=== PATIENT | male | born 1940 | race Caucasian/White ===

== ENCOUNTER → 2016-11-18 | Outpatient (REF) | payer MEDICARE, OTHER ==
[~2016-11-18] MED LIST: ACET-654 PO; BISAC5TA PO; CALC500C8 PO; CALCI50TA PO; CALCIUM CITRATE PO; CEPH2CAP PO; CHOLPOW39 PO; COUMADIN PO; CYMB60CA3 PO; D 202000 PO; D-50TAB PO; DOCU250C PO; DRIS1CAP PO; FIBE625T15 PO; FISH500C PO; FISH5CAP PO; FISHCAP PO; HYDROCODONE PO; LORTTAB5 PO; MIRA255PW PO; MOM30SS PO; OCUVITE PO; PREDPOW10 PO; TRAMADOL PO; ULTR37.52 PO; VICOBULK PO; VITA500019 PO; VITACAP31 PO; VITAMIN D PO; [UNRECOGNIZED DRUG - OTHER] PO; [UNRECOGNIZED DRUG - OTHER] PO
[2016-11-18 11:09] LABS: MEAN CORPUSCULAR HEMOGLOBIN 31.1 pg (27.0-33.0); MEAN CORPUSCULAR HGB CONC 32.6 g/dl (32.0-36.5); MEAN CORPUSCULAR VOLUME 95.5 fl (80.0-96.0); WHITE BLOOD COUNT 5.9 K/mm3 (4.0-10.0)
[2016-11-18 11:12] LABS: INR 1.88
[2016-11-18 11:20] LABS: ALBUMIN 3.3 GM/DL (3.2-5.2); ALBUMIN/GLOBULIN RATIO 1.03 (1.00-1.93); ALKALINE PHOSPHATASE 85 U/L (45-117); ALT/SGPT 18 U/L (12-78); ANION GAP 8 MEQ/L (8-16); AST/SGOT 18 U/L (15-37); BILIRUBIN,TOTAL 0.5 MG/DL (0.2-1.0); BLOOD UREA NITROGEN 22 MG/DL (7-18); CALCIUM LEVEL 8.4 MG/DL (8.8-10.2); CARBON DIOXIDE LEVEL 28 MEQ/L (21-32); CHLORIDE LEVEL 107 MEQ/L (98-107); CHOLESTEROL LEVEL 201 MG/DL (<200); CREATININE FOR GFR 0.98 MG/DL (0.70-1.30); GLOMERULAR FILTRATION RATE > 60.0 (>42); GLUCOSE, FASTING 98 MG/DL (83-110); POTASSIUM SERUM 4.5 MEQ/L (3.5-5.1); SODIUM LEVEL 143 MEQ/L (136-145); TOTAL PROTEIN 6.5 GM/DL (6.4-8.2); TRIGLYCERIDES LEVEL 105 MG/DL (<150)
== END ==
LOC: M SFHCPLAZ 08:09
PROVIDERS: ATTEND Internal Medicine
DX: Z79.01 Long term (current) use of anticoagulants (principal); I10 Essential (primary) hypertension

== ENCOUNTER → 2017-07-10 | Outpatient (CLI) | payer MEDICARE, OTHER ==
[~2017-07-10] MED LIST changes: +D 50CAP PO; -DOCU250C PO; +DOCU250C7 PO; +DULO1CAP3 PO; -FIBE625T15 PO; +FIBE625T22 PO; +FISH100049 PO; +HYDR30SU PR; +LISI-538 PO; +OCUVTAB PO; -ULTR37.52 PO; +ULTR37.54 PO; +WARF-23 PO
--- NOTE | 2017-07-10 13:52 | REP ---
MRI lumbar spine without contrast: History: Low back pain. Degenerative disc disease. Spondylosis. Comparison lumbar spine MR study March 25, 2012. Technique: Sagittal and axial T1 and T2-weighted scans are acquired in the usual fashion with and without fat saturation. Sequences include spin echo, turbo spin-echo, and STIR imaging sequences. MRI findings: There is an old anterior wedge compression deformity at L1 with collapse of the superior endplate. There is only slightly more loss of height than was present on the March 2012 prior study. There is degenerative disc spurring at T12-L1, L1-L2 and L3-4 with lesser spurring at L2-3. Diffuse lumbar degenerative disc disease is again noted. There is a levoconvex curve unchanged and some straightening. Conus medullaris is normal in position and appearance at T12-L1. There is a 2.3 cm cyst in the right kidney. No other extraspinal abnormality is seen. Normal caliber aorta is observed. Axial and sagittal images at the T12-L1 level demonstrate diffuse disc bulging indenting the ventral margin of the thecal sac. There is mild facet hypertrophy left greater than right. This is unchanged. At L1-L2, there is diffuse disc bulging which effaces the ventral subarachnoid space. This is more pronounced than on the prior study. Ligamentum flavum and facet hypertrophy are seen. No central canal stenosis is seen. No definite neural foraminal narrowing is seen. At L2-L3, there is diffuse disc bulging. There is ligamentum flavum and facet hypertrophy. These findings are somewhat more pronounced as well when compared to the 2012 study. Mild central canal stenosis is seen at this level. No neural foraminal encroachment is seen. At L3-L4, there is diffuse disc bulging. There is right-sided uncovertebral spurring due to disc bulging and facet hypertrophy. Mild central canal stenosis is noted. The disc bulging at L3-4 is actually a little less pronounced although the facet arthropathy is more pronounced when compared with the 2012 prior study. At L4-5, there is bilateral facet hypertrophy progressed since the 2011 prior exam. There is mild left-sided neural foraminal narrowing due to facet spurring and disc bulging. At L5-S1, there is advanced facet hypertrophy on the left and moderate facet hypertrophy on the right. There is a somewhat angular central L5-S1 disc protrusion which is more prominent than previously. Impression: Fairly advanced degenerative spondylosis changes generally more pronounced than on the 2012 prior study. Stable old wedging L1 vertebral body. Multilevel neural foraminal encroachment. Central canal stenosis most pronounced at L3-4 and L2-3. Signed by Jamel Griffin MD 07/10/2017 03:21 P
== END ==
LOC: M PLARAD 10:28
PROVIDERS: ATTEND Nurse Practitioner Family
DX: M54.5 Low back pain (principal); M51.27 Other intervertebral disc displacement, lumbosacral region; M47.819 Spondylosis without myelopathy or radiculopathy, site unspecified

== ENCOUNTER → 2017-08-06 | Outpatient (REF) | payer MEDICARE, OTHER | LOC: M LABDRAW1 11:53 | PROVIDERS: ATTEND Pain Medicine Interventional Pain Medicine | DX: M51.27 Other intervertebral disc displacement, lumbosacral region (principal); Z79.01 Long term (current) use of anticoagulants ==

== ENCOUNTER 2017-08-31 07:28 | Day surgery (SDC) | payer MEDICARE, OTHER ==
[~2017-08-31] VITALS: Ht 188 cm; Wt 138.3 kg
[~2017-08-31 07:28] MED LIST changes: -D 50CAP PO; -DULO1CAP3 PO; -FISH100049 PO; -HYDR30SU PR; -LISI-538 PO; -OCUVTAB PO; -WARF-23 PO
[2017-08-31] MEDS ORDERED: DULO1CAP3 PO (07:39)
[2017-08-31] MEDS ORDERED: LISI-538 PO (07:40)
[2017-08-31] MEDS ORDERED: NS 500 ML IV ONE ×2 (08:00→09:15)
[2017-08-31 08:41] LABS: BASO % 0.3 % (0.0-1.0); EOS % 0.2 % (0.0-3.0); IMMATURE GRANULOCYTE % 0.7 % (0-0); LYMPH # 0.5 10^3/uL (1.5-4.5); LYMPH % 7.9 % (24.0-44.0); MEAN CORPUSCULAR HEMOGLOBIN 30.4 pg (27.0-33.0); MEAN CORPUSCULAR HGB CONC 32.6 g/dl (32.0-36.5); MEAN CORPUSCULAR VOLUME 93.3 fl (80.0-96.0); MONO # 0.3 10^3/uL (0.0-0.8); MONO % 5.6 % (0.0-5.0); NEUTROPHILS # 4.9 10^3/uL (1.8-7.7); NEUTROPHILS % 85.3 % (36.0-66.0); PLATELET COUNT, AUTOMATED 160 10^3/uL (150-450); RED CELL DISTRIBUTION WIDTH 13.9 % (11.5-14.5); WHITE BLOOD COUNT 5.7 10^3/uL (4.0-10.0)
[2017-08-31 08:58] LABS: ALBUMIN 2.8 GM/DL (3.2-5.2); ALBUMIN/GLOBULIN RATIO 0.78 (1.00-1.93); ALKALINE PHOSPHATASE 66 U/L (45-117); ALT/SGPT 17 U/L (12-78); ANION GAP 9 MEQ/L (8-16); AST/SGOT 16 U/L (7-37); BILIRUBIN,DIRECT 0.1 MG/DL (0.0-0.2); BILIRUBIN,TOTAL 0.6 MG/DL (0.2-1.0); BLOOD UREA NITROGEN 21 MG/DL (7-18); CARBON DIOXIDE LEVEL 24 MEQ/L (21-32); CHLORIDE LEVEL 105 MEQ/L (98-107); CREATININE FOR GFR 1.35 MG/DL (0.70-1.30); GLOMERULAR FILTRATION RATE 54.3 (>42); GLUCOSE, FASTING 160 MG/DL (83-110); SODIUM LEVEL 138 MEQ/L (136-145); TOTAL PROTEIN 6.4 GM/DL (6.4-8.2)
--- NOTE | 2017-08-31 09:17 | REP ---
PORTABLE CHEST: AP portable view of the chest is performed and compared to prior study of 12/10/2014. There is mild bibasilar fibroatelectatic change which is stable. No new infiltrate is seen. There is mild cardiomegaly and left ventricular prominence. There is tortuosity of the thoracic aorta. Mediastinal silhouette is unchanged. IMPRESSION: Stable chronic findings. No acute infiltrate. Signed by Dann Hernandez MD 08/31/2017 12:43 P
[2017-08-31] MEDS ORDERED: ISOVUE-370 76% 100ML VIAL (Q9967) As Ordered ONE (09:20)
[2017-08-31] MEDS ORDERED: OCUVTAB PO (09:23)
[2017-08-31] MEDS ORDERED: WARF-23 PO (09:23)
[2017-08-31] MEDS ORDERED: D 50CAP PO (09:23)
[2017-08-31] MEDS ORDERED: FISH100049 PO (09:25)
[2017-08-31 10:16] LABS: INR 2.53
--- NOTE | 2017-08-31 10:53 | REP ---
Clinical: Rectal bleeding. Technique: Axial contrast enhanced images from the lung bases to the pubic symphysis using 100 ml Isovue 370 intravenous contrast material with coronal and sagittal re-formations. Comparison: None. 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 A smaller anterior ventral hernia at the level of the pelvis contains nonobstructed small bowel (images 115 - 142). The visualized small large bowel is without evidence for obstruction or perienteric inflammatory changes to suggest acute process. Subtle fat stranding along the left side of the rectum (images 135 - 143) is nonspecific and possibly chronic without associated fluid collection/abscess. Liver, spleen, pancreas, gallbladder, and left kidney appear normal. Right kidney includes 2 cm hypodense lesion likely representing cyst. The adrenal glands suggest mild adenomatous hyperplasia (right greater than left). A small/moderate hiatal hernia is identified at the gastroesophageal junction. Pelvis demonstrates 3 cm bladder stone in the dependent portion of the bladder and normal appearance to the prostate/seminal vesicles. No pelvic fluid or ascites. No significant adenopathy. No obvious mass lesion. Atherosclerotic changes of the aorta and vasculature noted without aneurysm. Skeletal structures demonstrate age-related degenerative and post surgical changes including left hip prosthesis. Lung bases demonstrate chronic COPD/emphysematous changes along with scattered scarring and mild bronchiectasis. Impression: 1. Evidence for right-sided colostomy and Benjie's pouch along with chronic large right peristomal/ventral hernia containing nonobstructed small large bowel. Smaller right anterior ventral hernia at the level of the pelvis contains nonobstructed loop of small bowel. Subtle perirectal stranding is nonspecific and possibly chronic. No acute bowel obstruction, perienteric inflammatory changes or abscess/fluid collection. 2. Small to moderate hiatal hernia. 3. 2 cm presumed right renal cyst. 4. 3 cm bladder stone. 5. Benign chronic hyperplastic changes to the adrenal glands (right greater than left). 6. Chronic COPD/emphysematous changes with bibasilar scarring and bronchiectasis. Signed by Venkata Huynh MD 08/31/2017 10:45 A
[2017-08-31] MEDS ORDERED: PROPOFOL 200 MG/20 ML VIAL As Ordered ONE (13:14)
--- NOTE | 2017-08-31 13:53 | ROOR ---
Patient Name: Oliverio Power Procedure Date: 08/31/2017 1:25 PM Date of : 1940 Age: 77 Room: [facility] Gender: Male Note Status: Finalized Procedure: Endoscopy of Benjie Pouch Indications: History of left hemicolectomy Providers: DO Smith Calvillo MD: Asim Shook MD Requesting Provider: Medicines: Propofol per Anesthesia Complications: No immediate complications. Procedure: Pre-Anesthesia Assessment: - Prior to the procedure, a History and Physical was performed, and patient medications and allergies were reviewed. The patient is competent. The risks and benefits of the procedure and the sedation options and risks were discussed with the patient. All questions were answered and informed consent was obtained. Patient identification and proposed procedure were verified by the physician, the nurse, the anesthesiologist and the registered veterinary technician in the procedure room. Mental Status Examination: alert and oriented. Airway Examination: normal oropharyngeal airway and neck mobility. Respiratory Examination: clear to auscultation. CV Examination: normal. Prophylactic Antibiotics: The patient does not require prophylactic antibiotics. Prior Anticoagulants: The patient has taken no previous anticoagulant or antiplatelet agents. ASA Grade Assessment: II - A patient with mild systemic disease. After reviewing the risks and benefits, the patient was deemed in satisfactory condition to undergo the procedure. The anesthesia plan was to use monitored anesthesia care (MAC). Immediately prior to administration of medications, the patient was re-assessed for adequacy to receive sedatives. The heart rate, respiratory rate, oxygen saturations, blood pressure, adequacy of pulmonary ventilation, and response to care were monitored throughout the procedure. The physical status of the patient was re-assessed after the procedure. The Colonoscope was introduced through the anus and advanced to the Benjie pouch. The procedure was performed without difficulty. The patient tolerated the procedure well. Findings: A scattered area of mildly friable mucosa with contact bleeding was found in the Benjie pouch. A benign-appearing, intrinsic mild stenosis was found in the Benjie pouch and was traversed. Red blood was found in the Benjie pouch. Estimated blood loss was minimal. A continuous area of bleeding ulcerated mucosa with stigmata of recent bleeding was present in the rectal pouch. Biopsies were taken with a cold forceps for histology. Estimated blood loss was minimal. To prevent bleeding after the biopsy, two hemostatic clips were successfully placed. Impression: - Friability with contact bleeding in the Benjie pouch. 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 - Blood in the Benjie pouch. - Mucosal ulceration. Biopsied. Clips were placed. Recommendation: - Return to my office PRN. - Telephone my office for pathology results in 1 week. Dann Vazquez DO 08/31/2017 1:52:47 PM This report has been signed electronically. Number of Addenda: 0 Note Initiated On: 08/31/2017 1:25 PM Estimated Blood Loss: Estimated blood loss was minimal.
[2017-08-31] MEDS ORDERED: LIDOCAINE 2% INJ 100 MG/5 ML SDV (FOR ANES.) As Ordered ONE (13:57)
[2017-08-31 14:27] VITALS: BP 183/77
[2017-08-31] MEDS ORDERED: HYDR30SU PR (14:27)
--- NOTE | 2017-08-31 18:29 | ECGEPIP ---
Stationary ECG Study [facility] - ED Test Date: 2017-08-31 Pat Name: ONDINA HAAS Department: Room: - Gender: M Manager Ent: ruby : 1940 Requested By: AIYANA Akhtar Order Number: [id number] Reading MD: Atif Trejo Measurements Intervals [place] Rate: 83 P: 1 WI: 208 QRS: -35 QRSD: 82 T: 55 QT: 362 QTc: 426 Interpretive Statements SINUS RHYTHM WITH OCCASIONAL SUPRAVENTRICULAR PREMATURE COMPLEXES LEFT ATRIAL ENLARGEMENT SIMILAR TO 12/10/14 Electronically Signed On 08-31-2017 18:28:42 EST by Atif Trejo
--- NOTE | 2017-09-01 14:16 | ER ---
DATE OF CONSULTATION: 08/31/2017 REASON FOR CONSULTATION: Rectal bleeding. HISTORY OF PRESENT ILLNESS: The patient is a 77-year-old male who had a history of a colostomy with a bowel resection done about 19 years ago for some sigmoidal stricture. He ended up requiring multiple surgeries due to complications from that down in [place] and was hospitalized for over a month. He has not had any other colonoscopies or procedures since that time. He normally dose soda water enemas through his rectal stump every one in a while just to help flush it out to help prevent drainage. A couple of weeks ago after doing so he noted a few drops of blood. Since then, he has had increasing bleeding from the rectum of bright bred blood, followed by a large blood clot noted this morning. Therefore, he came into the emergency room for evaluation. In the ER, his hemoglobin and vitals were stable and I was called to evaluate. Other than the bleeding, for the past couple of weeks, he has not really had any symptoms in the past. Initially when this started to bleed, he thought it may have been hemorrhoidal so he was using hemorrhoid cream and that appeared to improve it. But then over the last day, he has had the increasing bleeding with the blood clots and that is why he came into the ER for evaluation. No colonoscopies since his surgical resection 19 years ago due to all the complications that he had from his surgeries, he figured out of sight, out of mind. He did not want to know if there were any issues. He did have a CT scan done in the ER today which does not show any significant findings, but due to the bleeding they wanted me to evaluate. PAST MEDICAL HISTORY: Deep vein thrombosis (DVT). Pulmonary embolism. Hypertension. PAST SURGICAL HISTORY: Multiple colon surgeries and abdominal wall surgeries with hernia repairs. He does have a colostomy. History of incisional hernias. Carpal tunnel surgery. Bilateral knee replacements. Right hip replacement. ALLERGIES: 1. LATEX. 2. SULFA. 3. OXYCODONE. HOME MEDICATIONS: Please see med reconciliation. SOCIAL HISTORY: He denies drugs, alcohol or tobacco usage. FAMILY HISTORY: Noncontributory. REVIEW OF SYSTEMS: Pertinent positives and negatives as stated in the history of present illness. PHYSICAL EXAMINATION: Alert and oriented times three in no acute distress. Vitals: Temperature 98.7, pulse 67, respirations 16, blood pressure 160/75, pulse oximetry 94% on room air. HEENT: Pupils equal, round, and reactive to light and accommodation. Heart S1 and S2, regular rate and rhythm. Lungs clear to auscultation bilaterally. Abdomen is soft, nontender, nondistended. Colostomy is patent. EXTREMITIES: No clubbing, cyanosis, or edema. LABORATORIES: White count 5.7, hemoglobin 14.1, platelets 160, lactic acid 3.8 with a 4 hour followup of 1.1, potassium 4, creatinine 1.35. IMAGING: CT abdomen and pelvis shows a right sided colostomy and Osorio's pouch with chronic large right peristomal ventral hernia containing nonobstructive small and large bowel. Smaller right anterior ventral hernia a the level of the pelvic containing nonobstructive loops of small bowel, subtle perirectal stranding, nonspecific and possible chronic. No acute bowel obstruction, perienteric inflammatory changes or abscess, or fluid collections. ASSESSMENT/PLAN: Patient is a 77-year-old male currently with rectal bleeding from a rectal stump. This is likely secondary to either hemorrhoidal disease or trauma due to his syringe that he inserted into his rectum for the placement of soda water versus diverticular disease or even a malignancy. Recommendation at this time to send him upstairs to outpatient procedures to do a quick sigmoidoscopy and look in his rectum. Once that is completed he can be discharged home once we have a diagnosis. If there is something that is uncontrolled and unable to be stopped, then we can observe him in the hospital for 24 hours or so, if needed likely, I will be able to find the source of the bleeding and control it. If it is due to a mass then he will at least get a biopsy done and then we can discharge him and he can followup in the office as an outpatient.
== END 2017-08-31 14:44 | disposition home or self-care (01) ==
LOC: M ED 07:28 → M SDC 12:40
PROVIDERS: ATTEND Surgery
DX: K92.2 Gastrointestinal hemorrhage, unspecified (principal); K56.699 Other intestinal obstruction unspecified as to partial versus complete obstruction; K63.3 Ulcer of intestine; Z90.49 Acquired absence of other specified parts of digestive tract; I10 Essential (primary) hypertension; K44.9 Diaphragmatic hernia without obstruction or gangrene; M19.90 Unspecified osteoarthritis, unspecified site; F32.9 Major depressive disorder, single episode, unspecified; Z88.2 Allergy status to sulfonamides; Z88.5 Allergy status to narcotic agent; Z91.040 Latex allergy status; Z79.899 Other long term (current) drug therapy; Z79.01 Long term (current) use of anticoagulants; Z86.718 Personal history of other venous thrombosis and embolism; Z86.711 Personal history of pulmonary embolism; Z93.3 Colostomy status
CPT/HCPCS: 36415; 45331; 71010; 74177; 80048; 80076; 82550; 82553; 83605; 83690; 84484; 85025; 85610; 85730; 86850; 86900; 86901; 88305; 93005; 93041; 96365; 96366; 99285; Q9967

== ENCOUNTER → 2017-09-16 | Outpatient (REF) | payer MEDICARE, OTHER ==
[~2017-09-16] MED LIST changes: +D 50CAP PO; +DULO1CAP3 PO; +FISH100049 PO; +HYDR30SU PR; +LISI-538 PO; +OCUVTAB PO; +WARF-23 PO
[2017-09-16 10:42] LABS: INR 1.02
== END ==
LOC: M LABDRAW1 10:03
PROVIDERS: ATTEND Nurse Practitioner Family
DX: M48.061 Spinal stenosis, lumbar region without neurogenic claudication (principal); M51.27 Other intervertebral disc displacement, lumbosacral region; M47.817 Spondylosis without myelopathy or radiculopathy, lumbosacral region

== ENCOUNTER → 2017-11-23 | Outpatient (REF) | payer MEDICARE, OTHER ==
[2017-11-23 13:20] LABS: HEMATOCRIT 44.8 % (42.0-52.0); HEMOGLOBIN 14.8 g/dl (14.0-18.0); MEAN CORPUSCULAR HEMOGLOBIN 30.9 pg (27.0-33.0); MEAN CORPUSCULAR VOLUME 93.5 fl (80.0-96.0); PLATELET COUNT, AUTOMATED 203 10^3/uL (150-450); RED BLOOD COUNT 4.79 10^6/uL (4.30-6.10); RED CELL DISTRIBUTION WIDTH 13.7 % (11.5-14.5); WHITE BLOOD COUNT 5.9 10^3/uL (4.0-10.0)
[2017-11-23 13:44] LABS: FOLATE 13.2 NG/ML; TOTAL 25(OH) VITAMIN D 26.3 NG/ML (30.0-100.0); VITAMIN B12 LEVEL 319 PG/ML
[2017-11-23 13:45] LABS: ALKALINE PHOSPHATASE 73 U/L (45-117); ALT/SGPT 14 U/L (12-78); ANION GAP 7 MEQ/L (8-16); AST/SGOT 19 U/L (7-37); BILIRUBIN,TOTAL 0.5 MG/DL (0.2-1.0); BLOOD UREA NITROGEN 23 MG/DL (7-18); CALCIUM LEVEL 8.2 MG/DL (8.8-10.2); CARBON DIOXIDE LEVEL 28 MEQ/L (21-32); CHLORIDE LEVEL 108 MEQ/L (98-107); CREATININE FOR GFR 1.11 MG/DL (0.70-1.30); GLOMERULAR FILTRATION RATE > 60.0 (>42); GLUCOSE, FASTING 100 MG/DL (70-100); POTASSIUM SERUM 4.5 MEQ/L (3.5-5.1); SODIUM LEVEL 143 MEQ/L (136-145); TRIGLYCERIDES LEVEL 83 MG/DL (<150)
[2017-11-23 13:46] LABS: ALBUMIN 3.3 GM/DL (3.2-5.2); ALBUMIN/GLOBULIN RATIO 1.03 (1.00-1.93); CHOLESTEROL LEVEL 184 MG/DL (<200); CHOLESTEROL RISK RATIO 3.471 (<5); HDL CHOLESTEROL 53 MG/DL (>40); LDL CHOLESTEROL 114.4 MG/DL (<100); MAGNESIUM LEVEL 2.1 MG/DL (1.8-2.4); NON-HDL-C 131 MG/DL; TOTAL PROTEIN 6.5 GM/DL (6.4-8.2)
== END ==
LOC: M SFHCPLAZ 10:01
DX: G62.9 Polyneuropathy, unspecified (principal); K57.90 Diverticulosis of intestine, part unspecified, without perforation or abscess without bleeding; I10 Essential (primary) hypertension; F32.9 Major depressive disorder, single episode, unspecified; M81.0 Age-related osteoporosis without current pathological fracture
CPT/HCPCS: 82746

== ENCOUNTER → 2018-02-12 | Outpatient (CLI) | payer MEDICARE, OTHER | LOC: M WUC 12:31 | DX: J06.9 Acute upper respiratory infection, unspecified (principal) | CPT/HCPCS: 71046 ==

== ENCOUNTER → 2018-06-08 | Outpatient (REF) | payer MEDICARE, OTHER ==
[2018-06-08 13:32] LABS: ALBUMIN 3.3 GM/DL (3.2-5.2); ALBUMIN/GLOBULIN RATIO 0.92 (1.00-1.93); ALKALINE PHOSPHATASE 78 U/L (45-117); ALT/SGPT 19 U/L (12-78); ANION GAP 9 MEQ/L (8-16); AST/SGOT 18 U/L (7-37); BILIRUBIN,TOTAL 0.5 MG/DL (0.2-1.0); BLOOD UREA NITROGEN 23 MG/DL (7-18); CALCIUM LEVEL 8.5 MG/DL (8.8-10.2); CARBON DIOXIDE LEVEL 26 MEQ/L (21-32); CHLORIDE LEVEL 107 MEQ/L (98-107); GLOMERULAR FILTRATION RATE > 60.0 (>42); GLUCOSE, FASTING 83 MG/DL (70-100); MAGNESIUM LEVEL 2.3 MG/DL (1.8-2.4); POTASSIUM SERUM 4.5 MEQ/L (3.5-5.1); SODIUM LEVEL 142 MEQ/L (136-145); TOTAL PROTEIN 6.9 GM/DL (6.4-8.2)
== END ==
LOC: M SFHCPLAZ 11:12
DX: I10 Essential (primary) hypertension (principal); Z79.01 Long term (current) use of anticoagulants
CPT/HCPCS: 83735

== ENCOUNTER → 2018-08-30 | Outpatient (REF) | payer MEDICARE, OTHER | LOC: M LAB REF 18:22 | DX: D23.5 Other benign neoplasm of skin of trunk (principal) | CPT/HCPCS: 88305 ==

== ENCOUNTER → 2018-09-13 | Outpatient (REF) | payer MEDICARE, OTHER | LOC: M SFHCPLAZ 19:19 | DX: C44.01 Basal cell carcinoma of skin of lip (principal) | CPT/HCPCS: 88305 ==

== ENCOUNTER → 2018-12-27 | Outpatient (CLI) | payer MEDICARE, OTHER ==
[2018-12-27 13:48] LABS: HEMATOCRIT 44.5 % (42.0-52.0); HEMOGLOBIN 14.7 g/dl (13.5-17.5); MEAN CORPUSCULAR HEMOGLOBIN 31.3 pg (27.0-33.0); MEAN CORPUSCULAR VOLUME 94.9 fl (80.0-96.0); PLATELET COUNT, AUTOMATED 219 10^3/uL (150-450); RED BLOOD COUNT 4.69 10^6/uL (4.30-6.10); WHITE BLOOD COUNT 6.8 10^3/uL (4.0-10.0)
[2018-12-27 14:00] LABS: INR 2.27; PROTHROMBIN TIME 25.5 SECONDS (12.1-14.4)
[2018-12-27 14:02] LABS: ALBUMIN 3.4 GM/DL (3.2-5.2); ALT/SGPT 15 U/L (12-78); BILIRUBIN,TOTAL 0.7 MG/DL (0.2-1.0); BLOOD UREA NITROGEN 19 MG/DL (7-18); CALCIUM LEVEL 8.3 MG/DL (8.8-10.2); CARBON DIOXIDE LEVEL 29 MEQ/L (21-32); CHLORIDE LEVEL 106 MEQ/L (98-107); CREATININE FOR GFR 0.99 MG/DL (0.70-1.30); GLOMERULAR FILTRATION RATE > 60.0 (>35); GLUCOSE, FASTING 98 MG/DL (70-100); MAGNESIUM LEVEL 2.1 MG/DL (1.8-2.4); POTASSIUM SERUM 4.3 MEQ/L (3.5-5.1); SODIUM LEVEL 141 MEQ/L (136-145); TOTAL PROTEIN 6.6 GM/DL (6.4-8.2)
[2018-12-27 14:04] LABS: TOTAL 25(OH) VITAMIN D 39.7 NG/ML (30.0-100.0)
== END ==
LOC: M WUC 11:30
PROVIDERS: ATTEND Internal Medicine
DX: Z51.81 Encounter for therapeutic drug level monitoring (principal); Z79.01 Long term (current) use of anticoagulants; I10 Essential (primary) hypertension; M81.0 Age-related osteoporosis without current pathological fracture

== ENCOUNTER → 2019-03-08 | Outpatient (CLI) | payer MEDICARE, OTHER ==
[~2019-03-08] MED LIST changes: -MIRA255PW PO; +POLY1POW4 PO
[2019-03-08 13:33] LABS: INR 1.49; PROTHROMBIN TIME 18.2 SECONDS (12.1-14.4)
== END ==
LOC: M WUC 10:49
PROVIDERS: ATTEND Internal Medicine
DX: Z51.81 Encounter for therapeutic drug level monitoring (principal)

== ENCOUNTER → 2019-03-15 | Outpatient (CLI) | payer MEDICARE, OTHER ==
[2019-03-15 12:42] LABS: INR 2.28; PROTHROMBIN TIME 25.6 SECONDS (12.1-14.4)
== END ==
LOC: M WUC 10:25
PROVIDERS: ATTEND Internal Medicine
DX: Z51.81 Encounter for therapeutic drug level monitoring (principal)

== ENCOUNTER 2019-04-08 08:51 | Inpatient (IN) | payer MEDICARE, OTHER ==
[~2019-04-08] VITALS: Ht 182.9 cm; Wt 130.7 kg
[~2019-04-08 08:51] MED LIST changes: -DULO1CAP3 PO; +DULO1CAP6 PO
[2019-04-08] MEDS: LOSARTAN 50 MG TAB PO SCH (09:00)
[2019-04-08 09:35] VITALS: BP 138/66
[2019-04-08] MEDS ORDERED: ATOR1TAB21 PO (10:19)
[2019-04-08] MEDS ORDERED: APAP325T4 PO (10:19)
[2019-04-08] MEDS ORDERED: MECL12.575 PO (10:19)
[2019-04-08] MEDS ORDERED: MELATAB3 PO (10:19)
[2019-04-08] MEDS ORDERED: DOCU100C16 PO (10:19)
[2019-04-08] MEDS ORDERED: ONDA4TAB6 PO (10:19)
[2019-04-08] MEDS ORDERED: PANT-23 PO (10:19)
[2019-04-08] MEDS ORDERED: OCUVCAP2 PO (10:19)
[2019-04-08] MEDS ORDERED: AMLO5TAB6 PO (10:19)
[2019-04-08] MEDS ORDERED: LOSA100T50 PO (10:23)
[2019-04-08] MEDS ORDERED: MOM 30ML SUSPENSION UDC PO PRN (10:30)
[2019-04-08] MEDS ORDERED: ONDANSETRON 4 MG TAB (S0181) PO PRN (10:30)
[2019-04-08] MEDS ORDERED: ACETAMINOPHEN TAB 650MG DOSE (2X325MG) PO PRN (10:30)
[2019-04-08] MEDS ORDERED: traZODone 25MG PER 1/2 TABLET PO PRN (10:30)
[2019-04-08] MEDS: MULTIVITAMINS/MINERALS THERAP 1 TAB PO SCH ×2 (12:20→20:55)
[2019-04-08] MEDS: DOCUSATE SODIUM 100 MG CAP PO SCH ×2 (12:20→20:55)
[2019-04-08] MEDS: DULoxetine 30 MG CAP (CYMBALTA) PO SCH (12:21)
[2019-04-08] MEDS: FLUoxetine 20 MG CAP PO SCH (13:36)
--- NOTE | 2019-04-08 13:57 | CR.PDOC ---
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 Patient was admitted there on 04/03 after coming in of acute right-sided weakness found to have an intraparenchymal he morrhagic left basal ganglia and left temporal lobe CVA. INR was noted to be 3.9 at that time and was reversed with [facility]. Warfarin was stopped and IVC filter was placed. Patient still has residual R. sided weakness and numbness along with slurred speech but otherwise denies any other complaints at this time. is also at bedside providing history. PAST MEDICAL HISTORY: Refer to [facility] PAST SURGICAL HISTORY: Bowel obstruction s/p colostomy placement IVC filter placement Knee surgery x2 Appendectomy L. hip surgery SOCIAL HISTORY: Social alcohol consumption. Denies tobacco or illicit drug use. FAMILY HISTORY: none known ALLERGIES: Please see below. REVIEW OF SYSTEMS: 10 point review of system negative except as stated in HPI HOME MEDICATIONS: Please see below. PHYSICAL EXAMINATION: General: No acute distress, Alert Eyes: Normal sclera, EOMI, VAUGHN HENT: Atraumatic, neck supple, moist mucous membranes Cardiovascular: Normal rate, normal rhythm. Pulmonary: Clear to auscultation b/l, no wheezing GI: Soft, nontender, nondistended Skin: Warm and dry Neuro: R. sided facial droop. R. sided weakness and numbness in both upper and lower extremities. Strength 2-3/5 in R upper and lower extremities. 5/5 in L. extremities. Slurred speech. Psych: oriented x 3 LABORATORY DATA: See below. MICROBIOLOGY: Please see below. ASSESSMENT AND PLAN: 1. Acute hemorrhagic CVA - L. sided basal ganglia and temporal lobe hemorrhagic CVA in setting of elevated INR 3.9. - Reversed at [facility] with [facility]. - Maintain off of anticoagulation at this time. Repeat CT scan from [facility] showed no changes. - IVC filter in place. To follow up with neurosurgery in about 2 weeks, possibly may resume AC then. - c/w PT/OT. 2. HTN - Resume home medications. - Losartan 100 mg qD and Norvasc 10 daily. - BP stable, monitor. 3. HLD - Atorvastatin 20 mg qHS. 4. 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 - Has been on warfarin for >20 years total. - On hold at this time due to hemorrhagic CVA. - to f/u neurosurgery, likely resume in several weeks. Vital Signs/I&O Vital Signs Date Time Temp Pulse Resp B/P (MAP) Pulse Ox O2 Delivery O2 Flow Rate FiO2 04/08/19 09:35 97.6 71 20 138/66 (90) 99 Allergies Coded Allergies: Sulfa (Sulfonamide Antibiotics) (Verified Allergy, Intermediate, RASH, VIOLENT BEHAVIOR, 04/08/19) latex (Verified Allergy, Unknown, 04/08/19) oxycodone (Verified Adverse Reaction, Intermediate, SUICIDAL THOUGHTS, 04/08/19) Home Medications Scheduled Amlodipine Besylate (Amlodipine Besylate) 5 Mg Tablet, 5 MG PO BID, (Reported) Atorvastatin Calcium (Atorvastatin Calcium) 20 Mg Tablet, 20 MG PO QHS, (Reported) C,E,Zinc,Copper 24/Om3/Lut/Chas (Ocuvite Adult 50 Plus Softgel) 1 Each Capsule, 2 CAP PO DAILY, (Reported) Docusate Sodium (Docusate Sodium) 100 Mg Capsule, 100 MG PO DAILY, (Reported) Duloxetine Hcl (Duloxetine HCl) 60 Mg Cap, 60 MG PO DAILY, (Reported) Losartan Potassium (Losartan Potassium) 100 Mg Tablet, 100 MG PO DAILY, (Reported) Melatonin (Melatonin) 5 Mg Tablet, 5 MG PO QHS, (Reported) Pantoprazole Sodium (Pantoprazole Sodium) 40 Mg Tablet.dr, 40 MG PO DAILY, (Reported) Scheduled PRN Acetaminophen (Acetaminophen) 325 Mg Tablet, 650 MG PO Q6H PRN for PAIN, (Reported) Meclizine HCl (Meclizine HCl) 12.5 Mg Tablet, 12.5 MG PO Q8H PRN for DIZZINESS, (Reported) Ondansetron (Ondansetron Odt) 4 Mg Tab.rapdis, 4 MG PO Q8H PRN for NAUSEA OR VOMITING, (Reported) GRACIE WHIPPLE MD Apr 08, 2019 13:57
[2019-04-08 14:00] VITALS: BP 162/72
--- NOTE | 2019-04-08 14:39 | NUR ---
Recommend level 2 mechanically altered (NDD) solids and thin liquids. Please position pt upright for all meals. Pt educated on tongue sweep strategy to clear any residue in right buccal cavity. Dysphagia tx compensatory strategy training, oral motor exercises, and diet upgrade as appropriate. Addendum: 04/08/[address] [facility] Amended: Links added.
--- NOTE | 2019-04-08 14:44 | NUR ---
Pt w/ mild expressive language deficit w/ minimal anomia noted in conversation. Language comprehension is limited by poor memory, but pt is able to follow 2-step commands consistently. Recommend 1-2 step directions, encourage gesture use, language tx to address word-finding strategies in conversation. Addendum: 04/08/[address] [facility] Amended: Links added.
--- NOTE | 2019-04-08 14:50 | NUR ---
Pt w/ mild-moderate cognitive impairment w/ deficits noted in orientation, memory, & mental flexibility. Recommend cognitive tx w/ [employer] targeting these skills. Addendum: 04/08/19 at 1451 by [facility] Amended: Links added.
--- NOTE | 2019-04-08 15:14 | HPEPDOC ---
Adoption Specialist Note DATE OF ADMISSION: Apr 08, 2019 at 09:35 SOURCE OF ADMISSION INFORMATION: [facility] records, patient, and family CHIEF COMPLAINT: hemorrhagic stroke HISTORY OF PRESENT ILLNESS: 78M pmh HTN, Pulmonary emboli as a complication of his colostomy surgery on lifelong Coumadin who on 04/03/19 developed right sided weakness with slurred speech and was brought to [facility] where he was found to have a left basal ganglia hemorrhage with intraventricular extension with CT report 04/04/19 showing, Intraparenchymal hemorrhage within the left thalamus and left temporal lobe. Intraventricular hemorrhage within the left lateral ventricles also noted. Slight mass effect on the left lateral ventricle with no significant midline shift. He was admitted to the neuro ICU and given K Centra and vitamin K for his supra-therapeutic INR. Repeat CTH on 04/05/19 showed, Unchanged left thalamic intraparenchymal hemorrhage and adjacent intraventricular hemorrhage. He underwent and EEG which was negative for seizure activity and his BPs were managed with hydralazine prn. He required 02 via nasal canula and underwent an IVC filter placement on 04/06/19. ECHO was also performed showing preserved systolic function, but limited study and unable to assess wall motion for diastolic function. He was deemed to be not a surgical candidate and instructed to remain off of anticoagulation until follow-up in 2-4 weeks with neurosurgery. He was evaluated by therapy and found to have considerable needs in mobility and ADLs and deemed medically appropriate for discharge to ARU on 04/08/19. REVIEW OF SYSTEMS: The following is a completed review of systems and has been reviewed. Review of systems otherwise unremarkable. PAIN: Patient self reports no pain EYES:+ double vision EARS, NOSE, & THROAT: +dysphagia CARDIOVASCULAR: denies chest pain or palpitations PULMONARY: Negative. Denies shortness of breath GASTROINTESTINAL: denies constipation/diarrhea GENITOURINARY:denies dysuria MUSCULOSKELETAL: RUE and RLE paresis NEUROLOGICAL: right sided hemiparesis, aphasia, dysphagia, right sided neglect SKIN: intact PSYCHIATRIC: Unremarkable All other review of systems found to be negative. PAST MEDICAL HISTORY: as per HPI PAST SURGICAL HISTORY: as per HPI ALLERGIES: Please see below. MEDICATIONS: Please see below. 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 GENERAL: Pleasant and cooperative. No acute distress. HEENT: PERRL. Extraocular movements intact. Clear conjunctiva, right eye-brow s paring facial droop CARDIOVASCULAR: Regular rate and rhythm. No murmurs, rubs, or gallops LUNGS: Clear to auscultation bilaterally. No wheezes. No rhonchi ABDOMEN: Soft, nontender, nondistended. Positive bowel sounds. Normal active bowel sounds NEUROLOGICAL: Alert and oriented times to person, place, though it was 1978 Cranial nerves II through XII grossly except right sided facial weakness and decreased sensation, decreased sensation right UE and LE +apraxia +dysarthria +non-fluent aphasia +babinski on right with brisk patellar reflexes 1+/4 MAS right wrist flexors and elbow extensors EXTREMITIES: 5\5 strength left upper extremities, 3+/5 RUE, 3+\5 strength right lower extremity. 5/5 strength in left lower extremity. SKIN: intact IMAGING: Imaging documentation personally reviewed by record FUNCTIONAL STATUS: Premorbid: Independent with all activities of daily life as well as mobility On Admission: Max-Total for bed mobility, functional transfers, dressing and toileting, requiring assistance with meals GOALS: Mod-I wheelchair level for mobility, supervision for ambulation with RW household distances, supervision for bathing, Mod-I wheelchair level for toileting, medical optimization, caregiver training, assess for DME, home eval ASSESSMENT: 78-year-old M with past medical history of HTN, PEs on Coumadin who presents status post left basal ganglia hemorrhagic stroke PLAN: 1. rehab: PT/OT, CHERRY CUTTER right sided hemiparesis with apraxia and dense sensory loss on right side -goal to strengthen right side, improve trunk control and coordination for optimal ambulation and ADL management -maintain ROM of right wrist with splinting and stretching -stretch right elbow extensor to facilitate elbow flexion for self feeding -advance diet prn -trial eye patch for diplopia 2. Neuro: s/p right Basal ganglia, thalamic, temporal hemorrhagic stroke- c/u statin and BP meds, adjust prn goal sBP<140 -avoid antiplatelet therapy given recent bleed -Prozac started for motor recovery 3. Cardio: pmh PEs was on Coumadin, on hold until neurosurgical input in 2-4 weeks, joslyn need repeat CT scan prior to visit pmh HTN: c/u amlodipine and Cozaar- medicine consulted 4. Resp: encourage incentive spirometry 5. GI ppx: protonix -colostomy care 6. ID: antifungal mouth wash ordered for oral thrush 5. DVT ppx: TEDs 6. : monitor PVRs 7. Skin: zinc oxide to sacrum, monitor for breakdown 8. Dispo: TBD POST ADMISSION PHYSICIAN EVALUATION: Medical and functional status: Description of medical status, medical assessment: As above. Rehabilitation diagnosis and current and prior cold morbid medical conditions as above. Risk of complications and plans to mitigate them as above. Description of functional status current status is as above. Prior status as above. Status compared to preadmission: There are no clinically significant differences between the patient's current status and the information described on the preadmission screening document. Treatment plan anticipated: Treatment plan is as described above. Required disciplines including physical therapy, occupational therapy, others as noted above. Intensity of services: 3 hours a day, 6 days a week. Special considerations: There are no specific special or safety considerations that would likely preclude immediate implementation of an intensive rehabi litation program or subsequently influence the plan of care ATTESTATION: Considering all the information above, it is my best judgment that this patient requires intensive rehabilitation therapy as described above and an inpatient hospital environment due to the complexity of nursing, medical, and rehabilitation needs required by the patient. Furthermore, this patient can reasonably be expected to participate in an benefit from an inpatient rehabilitation stay with an interdisciplinary team approach to the delivery of rehabilitation care under the direction and supervision of rehabilitation physician PROGNOSIS: good ESTIMATED LENGTH OF STAY:28-30 days. PROJECTED DISCHARGE DESTINATION: Home with family support and any durable medical equipment required to increase functional safety and mobility TIME SPENT COUNSELING AND COORDINATING INITIAL CARE: Greater than 70 minutes. Vital Signs Vital Sign - Last 24 Hours 04/08/19 09:35 Temp 97.6 Pulse 71 Resp 20 B/P (MAP) 138/66 (90) Pulse Ox 99 Home Medications Scheduled Amlodipine Besylate (Amlodipine Besylate) 5 Mg Tablet, 5 MG PO BID, (Reported) Atorvastatin Calcium (Atorvastatin Calcium) 20 Mg Tablet, 20 MG PO QHS, (Reported) C,E,Zinc,Copper 24/Om3/Lut/Chas (Ocuvite Adult 50 Plus Softgel) 1 Each Capsule, 2 CAP PO DAILY, (Reported) Docusate Sodium (Docusate Sodium) 100 Mg Capsule, 100 MG PO DAILY, (Reported) Duloxetine Hcl (Duloxetine HCl) 60 Mg Cap, 60 MG PO DAILY, (Reported) Losartan Potassium (Losartan Potassium) 100 Mg Tablet, 100 MG PO DAILY, (Reported) Melatonin (Melatonin) 5 Mg Tablet, 5 MG PO QHS, (Reported) Pantoprazole Sodium (Pantoprazole Sodium) 40 Mg Tablet.dr, 40 MG PO DAILY, (Reported) Scheduled PRN Acetaminophen (Acetaminophen) 325 Mg Tablet, 650 MG PO Q6H PRN for PAIN, (Reported) Meclizine HCl (Meclizine HCl) 12.5 Mg Tablet, 12.5 MG PO Q8H PRN for DIZZINESS, (Reported) Ondansetron (Ondansetron Odt) 4 Mg Tab.rapdis, 4 MG PO Q8H PRN for NAUSEA OR VOMITING, (Reported) Allergies Coded Allergies: Sulfa (Sulfonamide Antibiotics) (Verified Allergy, Intermediate, RASH, VIOLENT BEHAVIOR, 04/08/19) latex (Verified Allergy, Unknown, 04/08/19) oxycodone (Verified Adverse Reaction, Intermediate, SUICIDAL THOUGHTS, 04/08/19) A-FIB/CHADSVASC A-FIB History Current/History of A-Fib/PAF?: No RUFINO WALKER MD Apr 08, 2019 15:14
[2019-04-08] MEDS: NYSTATIN 500,000 U/5 ML SUSP UDC PO SCH ×2 (17:24→20:54)
[2019-04-08 20:00] VITALS: BP 117/56
[2019-04-08] MEDS: BOUDREAUX'S BUTT PASTE TOP SCH (20:55)
[2019-04-08] MEDS: ATORVASTATIN 20 MG TAB PO SCH (20:55)
[2019-04-08] MEDS: amLODIPine 10 MG TAB PO SCH (20:55)
[2019-04-08] MEDS: SENNA 8.6 MG TAB (SENOKOT) PO SCH (20:55)
[2019-04-08] MEDS ORDERED: amLODIPine 5 MG TAB PO SCH (21:00)
[2019-04-09 06:00] VITALS: BP 139/60
[2019-04-09 07:40] LABS: BASO % 0.5 % (0.0-1.0); EOS # 0.2 10^3/uL (0.0-0.50); HEMATOCRIT 42.3 % (42.0-52.0); HEMOGLOBIN 14.1 g/dl (13.5-17.5); LYMPH # 1.2 10^3/uL (1.5-4.5); LYMPH % 14.8 % (24.0-44.0); MEAN CORPUSCULAR HEMOGLOBIN 30.9 pg (27.0-33.0); MEAN CORPUSCULAR HGB CONC 33.3 g/dl (32.0-36.5); MEAN CORPUSCULAR VOLUME 92.6 fl (80.0-96.0); MONO # 0.7 10^3/uL (0.0-0.8); MONO % 8.8 % (0.0-5.0); NEUTROPHILS # 5.9 10^3/uL (1.8-7.7); NEUTROPHILS % 72.5 % (36.0-66.0); PLATELET COUNT, AUTOMATED 191 10^3/uL (150-450); RED BLOOD COUNT 4.57 10^6/uL (4.30-6.10); WHITE BLOOD COUNT 8.1 10^3/uL (4.0-10.0)
[2019-04-09 08:05] LABS: ALBUMIN 2.7 GM/DL (3.2-5.2); ALT/SGPT 18 U/L (12-78); BILIRUBIN,TOTAL 0.9 MG/DL (0.2-1.0); BLOOD UREA NITROGEN 25 MG/DL (7-18); CALCIUM LEVEL 8.7 MG/DL (8.8-10.2); CARBON DIOXIDE LEVEL 29 MEQ/L (21-32); CHLORIDE LEVEL 104 MEQ/L (98-107); CREATININE FOR GFR 0.94 MG/DL (0.70-1.30); GLOMERULAR FILTRATION RATE > 60.0 (>35); GLUCOSE, FASTING 108 MG/DL (70-100); POTASSIUM SERUM 4.4 MEQ/L (3.5-5.1); SODIUM LEVEL 138 MEQ/L (136-145); TOTAL PROTEIN 6.6 GM/DL (6.4-8.2)
[2019-04-09] MEDS: FLUoxetine 20 MG CAP PO SCH (09:00)
[2019-04-09] MEDS: BOUDREAUX'S BUTT PASTE TOP SCH ×2 (09:00→20:26)
[2019-04-09] MEDS: MULTIVITAMINS/MINERALS THERAP 1 TAB PO SCH ×2 (10:04→20:25)
[2019-04-09] MEDS: NYSTATIN 500,000 U/5 ML SUSP UDC PO SCH ×4 (10:04→20:25)
[2019-04-09] MEDS: DOCUSATE SODIUM 100 MG CAP PO SCH ×2 (10:04→20:25)
[2019-04-09] MEDS: PANTOPRAZOLE 40MG TAB (PROTONIX) PO SCH (10:04)
[2019-04-09] MEDS: amLODIPine 10 MG TAB PO SCH ×2 (10:04→20:25)
[2019-04-09] MEDS: DULoxetine 30 MG CAP (CYMBALTA) PO SCH (10:05)
[2019-04-09] MEDS: LOSARTAN 50 MG TAB PO SCH (10:05)
[2019-04-09 14:00] VITALS: BP 138/62
--- NOTE | 2019-04-09 14:54 | IPNPDOC ---
Date Seen The patient was seen on 04/09/19. Progress Note SUBJECTIVE: Patient denies any complaints today. Weakness on R. side persistent without significant changes yet. No acute events reported overnight. OBJECTIVE PHYSICAL EXAMINATION: VITAL SIGNS: Please see below. PHYSICAL EXAMINATION: General: No acute distress, Alert Eyes: Normal sclera, EOMI, VAUGHN HENT: Atraumatic, neck supple, moist mucous membranes Cardiovascular: Normal rate, normal rhythm. Pulmonary: Clear to auscultation b/l, no wheezing GI: Soft, nontender, nondistended Skin: Warm and dry Neuro: R. sided facial droop. R. sided weakness and numbness in both upper and lower extremities. Strength 2-3/5 in R upper and lower extremities. 5/5 in L. extremities. Slurred speech. Psych: oriented x 3 LABORATORY DATA, IMAGING STUDIES, MICROBIOLOGY: Please see below. ASSESSMENT AND PLAN: 1. Acute hemorrhagic CVA - L. sided basal ganglia and temporal lobe hemorrhagic CVA in setting of elevated INR 3.9. - Reversed at [facility] with K [facility]. - Maintain off of anticoagulation at this time. Repeat CT scan from [facility] showed no changes. - IVC filter in place. To follow up with neurosurgery in about 2 weeks, possibly may resume AC then. - c/w PT/OT. 2. HTN - Resume home medications. - Losartan 100 mg qD and Norvasc 10 daily. - BP stable, monitor. 3. HLD - Atorvastatin 20 mg qHS. 4. 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 - Has been on warfarin for >20 years total. - On hold at this time due to hemorrhagic CVA. - to f/u neurosurgery, likely resume in several weeks. VS, I&O, 24H, [facility] Vital Signs/I&O Vital Signs Date Time Temp Pulse Resp B/P (MAP) Pulse Ox O2 Delivery O2 Flow Rate FiO2 04/09/19 14:00 97.2 91 18 138/62 (87) 98 I&O- Last 24 Hours up to 6 AM 04/09/19 06:00 Intake Total 720 ml Output Total 50 ml Balance 670 ml Laboratory Data 24H LABS Laboratory Tests 2 04/09/19 07:12: Immature Granulocyte % (Auto) 1.4, White Blood Count 8.1, Red Blood Count 4.57, Hemoglobin 14.1, Hematocrit 42.3, Mean Corpuscular Volume 92.6, Mean Corpuscular Hemoglobin 30.9, Mean Corpuscular Hemoglobin Concent 33.3, Red Cell Distribution Width 13.6, Platelet Count 191, Neutrophils (%) (Auto) 72.5H, Lymphocytes (%) (Auto) 14.8L, Monocytes (%) (Auto) 8.8H, Eosinophils (%) (Auto) 2.0, Basophils (%) (Auto) 0.5, Neutrophils # (Auto) 5.9, Lymphocytes # (Auto) 1.2L, Monocytes # (Auto) 0.7, Eosinophils # (Auto) 0.2, Basophils # (Auto) 0.0, Nucleated Red Blood Cells % (auto) 0.0, Anion Gap 5L, Glomerular Filtration Rate > 60.0, Blood Urea Nitrogen 25H, Creatinine 0.94, Sodium Level 138, Potassium Level 4.4, Chloride Level 104, Carbon Dioxide Level 29, Calcium Level 8.7L, Aspartate Amino Transf (AST/SGOT) 19, Alanine Aminotransferase (ALT/SGPT) 18, Alkaline Phosphatase 81, Total Bilirubin 0.9, Total Protein 6.6, Albumin 2.7L, Albumin/Globulin Ratio 0.69L CBC/BMP Laboratory Tests 04/09/19 07:12 Red Blood Count 4.57, Mean Corpuscular Volume 92.6, Mean Corpuscular Hemoglobin 30.9, Mean Corpuscular Hemoglobin Concent 33.3, Red Cell Distribution Width 13.6, Neutrophils (%) (Auto) 72.5 H, Lymphocytes (%) (Auto) 14.8 L, Monocytes (%) (Auto) 8.8 H, Eosinophils (%) (Auto) 2.0, Basophils (%) (Auto) 0.5, Neutrophils # (Auto) 5.9, Lymphocytes # (Auto) 1.2 L, Monocytes # (Auto) 0.7, Eosinophils # (Auto) 0.2, Basophils # (Auto) 0.0, Calcium Level 8.7 L, Aspartate Amino Transf (AST/SGOT) 19, Alanine Aminotransferase (ALT/SGPT) 18, Alkaline Phosphatase 81, Total Bilirubin 0.9, Total Protein 6.6, Albumin 2.7 L GRACIE WHIPPLE MD Apr 09, 2019 14:54
[2019-04-09 20:00] VITALS: BP 124/63
[2019-04-09] MEDS: ATORVASTATIN 20 MG TAB PO SCH (20:25)
[2019-04-09] MEDS: SENNA 8.6 MG TAB (SENOKOT) PO SCH (20:25)
[2019-04-10 06:00] VITALS: BP 118/61
[2019-04-10 08:52] LABS: HEMATOCRIT 40.4 % (42.0-52.0); HEMOGLOBIN 13.5 g/dl (13.5-17.5); MEAN CORPUSCULAR HEMOGLOBIN 31.5 pg (27.0-33.0); MEAN CORPUSCULAR HGB CONC 33.4 g/dl (32.0-36.5); MEAN CORPUSCULAR VOLUME 94.4 fl (80.0-96.0); PLATELET COUNT, AUTOMATED 153 10^3/uL (150-450); RED BLOOD COUNT 4.28 10^6/uL (4.30-6.10); WHITE BLOOD COUNT 8.6 10^3/uL (4.0-10.0)
[2019-04-10] MEDS: amLODIPine 10 MG TAB PO SCH ×2 (09:06→20:09)
[2019-04-10] MEDS: LOSARTAN 50 MG TAB PO SCH (09:06)
[2019-04-10] MEDS: DULoxetine 30 MG CAP (CYMBALTA) PO SCH (09:06)
[2019-04-10] MEDS: SENNA 8.6 MG TAB (SENOKOT) PO SCH ×2 (09:06→20:09)
[2019-04-10] MEDS: DOCUSATE SODIUM 100 MG CAP PO SCH ×2 (09:06→20:09)
[2019-04-10] MEDS: PANTOPRAZOLE 40MG TAB (PROTONIX) PO SCH (09:06)
[2019-04-10] MEDS: MULTIVITAMINS/MINERALS THERAP 1 TAB PO SCH ×2 (09:06→20:09)
[2019-04-10] MEDS: NYSTATIN 500,000 U/5 ML SUSP UDC PO SCH ×4 (09:07→20:09)
[2019-04-10] MEDS: BOUDREAUX'S BUTT PASTE TOP SCH ×2 (09:07→20:11)
[2019-04-10] MEDS: FLUoxetine 20 MG CAP PO SCH (09:07)
[2019-04-10 09:23] LABS: BLOOD UREA NITROGEN 27 MG/DL (7-18); CALCIUM LEVEL 8.4 MG/DL (8.8-10.2); CARBON DIOXIDE LEVEL 27 MEQ/L (21-32); CHLORIDE LEVEL 105 MEQ/L (98-107); CREATININE FOR GFR 1.04 MG/DL (0.70-1.30); GLOMERULAR FILTRATION RATE > 60.0 (>35); GLUCOSE, FASTING 98 MG/DL (70-100); POTASSIUM SERUM 4.2 MEQ/L (3.5-5.1); SODIUM LEVEL 137 MEQ/L (136-145)
[2019-04-10] MEDS: GASTROGRAFIN SOLUTION 30ML PO SCH ×2 (10:30→11:29)
[2019-04-10] MEDS ORDERED: ISOVUE-370 76% 100ML VIAL (Q9967) As Ordered ONE (11:52)
--- NOTE | 2019-04-10 12:31 | IPNPDOC ---
Date Seen The patient was seen on 04/10/19. Progress Note SUBJECTIVE: Nursing staff reported that patient had not had a bowel movement in 1 week. Patient stated that he has not been passing much flatus either. Site surrounding stoma also noted to be slightly more erythematous but otherwise no pain. Denies any nausea/vomiting. Surgery consulted and CT scan ordered. OBJECTIVE PHYSICAL EXAMINATION: VITAL SIGNS: Please see below. PHYSICAL EXAMINATION: General: No acute distress, Alert Eyes: Normal sclera, EOMI, VAUGHN HENT: Atraumatic, neck supple, moist mucous membranes Cardiovascular: Normal rate, normal rhythm. Pulmonary: Clear to auscultation b/l, no wheezing GI: Soft, nontender, nondistended Skin: Warm and dry Neuro: R. sided facial droop. R. sided weakness and numbness in both upper and lower extremities. Strength 2-3/5 in R upper and lower extremities. 5/5 in L. extremities. Slurred speech. Psych: oriented x 3 LABORATORY DATA, IMAGING STUDIES, MICROBIOLOGY: Please see below. ASSESSMENT AND PLAN: 1. Acute hemorrhagic CVA - L. sided basal ganglia and temporal lobe hemorrhagic CVA in setting of elevate d INR 3.9. - Reversed at [facility] with [facility]. - Maintain off of anticoagulation at this time. Repeat CT scan from [facility] showed no changes. - IVC filter in place. To follow up with neurosurgery in about 2 weeks, possibly may resume AC then. - c/w PT/OT. 2. HTN - Resume home medications. - Losartan 100 mg qD and Norvasc 10 daily. - BP stable, monitor. 3. HLD - Atorvastatin 20 mg qHS. 4. 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 - Has been on warfarin for >20 years total. - On hold at this time due to hemorrhagic CVA. - to f/u neurosurgery, likely resume in several weeks. 5. Stoma erythema/lack of bowel movement - Obtain CT scan to r/o obstruction. - Surgery following. VS, I&O, 24H, Fishbone Vital Signs/I&O Vital Signs Date Time Temp Pulse Resp B/P (MAP) Pulse Ox O2 Delivery O2 Flow Rate FiO2 04/10/19 09:06 65 118/61 04/10/19 06:00 97.6 17 94 I&O- Last 24 Hours up to 6 AM 04/10/19 06:00 Intake Total 1800 ml Output Total 375 ml Balance 1425 ml Laboratory Data 24H LABS Laboratory Tests 2 04/10/19 08:36: Nucleated Red Blood Cells % (auto) 0.0, Anion Gap 5L, Glomerular Filtration Rate > 60.0, Blood Urea Nitrogen 27H, Creatinine 1.04, Sodium Level 137, Potassium Level 4.2, Chloride Level 105, Carbon Dioxide Level 27, Calcium Level 8.4L CBC/BMP Laboratory Tests 04/10/19 08:36 Red Blood Count 4.28 L, Mean Corpuscular Volume 94.4, Mean Corpuscular Hemoglobin 31.5, Mean Corpuscular Hemoglobin Concent 33.4, Red Cell Distribution Width 13.7, Calcium Level 8.4 L GRACIE WHIPPLE MD Apr 10, 2019 12:31
--- NOTE | 2019-04-10 13:31 | REP ---
CT of the abdomen and pelvis with IV and bowel contrast: Comparison is 08/31/2017. The the patient has a colostomy on the right and a Benjie pouch. There is a large peristomal hernia as previously containing nonobstructive large bowel and small bowel loops. This is unchanged. In addition there is a right paracentral ventral hernia over the pelvis containing nonobstructive small bowel loops. This is unchanged. The studies performed with the patient's arms crossed over the anterior abdominal wall resulting in beam hardening artifact and decreases sensitivity of the study. The visualized lung diaz demonstrate chronic fibrotic changes but are otherwise unremarkable. The hepatic parenchyma and gallbladder are unremarkable. The pancreas is atrophic but otherwise unremarkable. The spleen is unremarkable. There are surgical clips in the right upper quadrant. There is bilateral adrenal hyperplasia, unchanged. The adrenals otherwise unremarkable. There is a right renal 2.9 cm simple cyst, not significantly changed. The kidneys are otherwise unremarkable. The abdominal aorta is unremarkable. There is no retroperitoneal adenopathy or mass. There is a vena cava filter. This is unchanged. There is no bowel distension or obstruction. Pelvis: There is a 3.3 cm bladder calculus. This is unchanged. There is no ascites or adenopathy. There is a right hip arthroplasty. Impression: There is no evidence of bowel obstruction. There is a colostomy in the abdomen on the right. There is a large peristomal hernia containing nonobstructed bowel. This is unchanged. There is a smaller right paracentral ventral hernia also containing nonobstructed bowel, also unchanged. There is a bladder calculus, unchanged. Adrenal hyperplasia, unchanged. The Electronically Signed by Dann Vieira MD 04/10/2019 01:23 P
[2019-04-10 14:00] VITALS: BP 141/68
[2019-04-10 20:00] VITALS: BP 132/62
[2019-04-10] MEDS: ATORVASTATIN 20 MG TAB PO SCH (20:09)
[2019-04-10] MEDS: MECLIZINE 12.5 MG TAB PO PRN (20:09)
[2019-04-11 05:39] VITALS: BP 127/68
[2019-04-11] MEDS: MULTIVITAMINS/MINERALS THERAP 1 TAB PO SCH ×2 (09:00→20:24)
[2019-04-11] MEDS: DOCUSATE SODIUM 100 MG CAP PO SCH ×3 (09:01→20:24)
[2019-04-11] MEDS: SENNA 8.6 MG TAB (SENOKOT) PO SCH ×2 (09:01→20:24)
[2019-04-11] MEDS: LOSARTAN 50 MG TAB PO SCH (09:01)
[2019-04-11] MEDS: PANTOPRAZOLE 40MG TAB (PROTONIX) PO SCH (09:01)
[2019-04-11] MEDS: FLUoxetine 20 MG CAP PO SCH (09:02)
[2019-04-11] MEDS: NYSTATIN 500,000 U/5 ML SUSP UDC PO SCH ×4 (09:02→20:23)
[2019-04-11] MEDS: amLODIPine 10 MG TAB PO SCH ×2 (09:02→20:24)
[2019-04-11] MEDS: DULoxetine 30 MG CAP (CYMBALTA) PO SCH (09:02)
[2019-04-11] MEDS: BOUDREAUX'S BUTT PASTE TOP SCH ×2 (09:03→20:26)
--- NOTE | 2019-04-11 10:28 | IPNPDOC ---
PM&R Progress Note DATE OF SERVICE: Apr 11, 2019 Nutrition Intern Progress Note Subjective: Patient seen in therapy stating he did not sleep well and has been really tired during the days. he repots having had 2 bowel movements since yesterday. REVIEW OF SYSTEMS: The following is a completed review of systems and has been reviewed. Review of systems otherwise unremarkable. PAIN: Patient self reports no pain EYES:+ double vision EARS, NOSE, & THROAT: +dysphagia CARDIOVASCULAR: denies chest pain or palpitations PULMONARY: Negative. Denies shortness of breath GASTROINTESTINAL: denies constipation/diarrhea GENITOURINARY:denies dysuria MUSCULOSKELETAL: RUE and RLE paresis NEUROLOGICAL: right sided hemiparesis, aphasia, dysphagia, right sided neglect SKIN: intact PSYCHIATRIC: Unremarkable All other review of systems found to be negative. PHYSICAL EXAMINATION: VITAL SIGNS: Please see below. GENERAL: Pleasant and cooperative. No acute distress. HEENT: PERRL. Extraocular movements intact. Clear conjunctiva, right eye-brow sparing facial droop (improving) CARDIOVASCULAR: Regular rate and rhythm. No murmurs, rubs, or gallops LUNGS: Clear to auscultation bilaterally. No wheezes. No rhonchi ABDOMEN: Soft, nontender, nondistended. Positive bowel sounds. Normal active bowel sounds, colostomy with stool NEUROLOGICAL: Alert and oriented times to person, place, though it was 1978 Cranial nerves II through XII grossly except right sided facial weakness and decreased sensation, decreased sensation right UE and LE +apraxia +dysarthria (improving) +non-fluent aphasia +babinski on right with brisk patellar reflexes 1+/4 MAS right wrist flexors and elbow extensors EXTREMITIES: 5\5 strength left upper extremities, 3+/5 RUE, 3+\5 strength right lower extremity. 5/5 strength in left lower extremity. SKIN: intact ASSESSMENT: 78-year-old M with past medical history of HTN, PEs on Coumadin who presents status post left basal ganglia hemorrhagic stroke PLAN: 1. 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 Neuro: s/p right Basal ganglia, thalamic, temporal hemorrhagic stroke- c/u statin and BP meds, adjust prn goal sBP<140 -avoid antiplatelet therapy given recent bleed -c/u Prozac for motor recovery 3. Cardio: pmh PEs was on Coumadin, on hold until neurosurgical input in 2-4 weeks, will need repeat CT scan prior to visit pmh HTN: c/u amlodipine and Cozaar- medicine consulted 4. Resp: encourage incentive spirometry 5. GI ppx: protonix -colostomy care -patient currently having output from his colostomy- concern over the weekend for obstruction with CT abdomen 04/10/19 negative for bowel obstruction 6. ID: antifungal mouth wash ordered for oral thrush 5. DVT ppx: TEDs 6. : monitor PVRs 7. Skin: zinc oxide to sacrum, monitor for breakdown 9. Psych: will increase trazodone to 50mg qHS scheduled for insomnia 8. Dispo: TBD Allergies Coded Allergies: Sulfa (Sulfonamide Antibiotics) (Verified Allergy, Intermediate, RASH, VIOLENT BEHAVIOR, 04/08/19) latex (Verified Allergy, Unknown, 04/08/19) oxycodone (Verified Adverse Reaction, Intermediate, SUICIDAL THOUGHTS, 04/08/19) Vital Signs Vital Signs Date Time Temp Pulse Resp B/P (MAP) Pulse Ox O2 Delivery O2 Flow Rate FiO2 04/11/19 09:02 77 127/68 04/11/19 05:39 97.9 18 93 Current Medications Current Medications Current Medications Acetaminophen (Tylenol Tab) 650 mg Q4HP PRN PO MILD PAIN (PS 1-4) Last administered on 04/11/19at 01:45; Start 04/08/19 at 10:30 Amlodipine Besylate (Norvasc) 5 mg BID PO ; Start 04/08/19 at 21:00; Stop 04/08/19 at 21:00; Status DC Amlodipine Besylate (Norvasc) 10 mg BID PO Last administered on 04/11/19at 09:02; Start 04/08/19 at 21:00 Atorvastatin Calcium (Lipitor) 20 mg QHS PO Last administered on 04/10/19at 20:09; Start 04/08/19 at 21:00 Diatrizoate Meglum/ Diatrizoate Sod (Gastrografin) 10 ml Q30M PO Last administered on 04/10/19 11:29; Start 04/10/19 at 10:30; Stop 04/10/19 at 11:01; Status DC Docusate Sodium (Colace) 100 mg BID PO Last administered on 04/11/19 09:01; Start 04/08/19 at 09:00 Duloxetine HCl (Cymbalta) 60 mg DAILY PO Last administered on 04/11/19 09:02; Start 04/08/19 at 09:00 Fluoxetine HCl (PROzac) 20 mg DAILY PO Last administered on 04/11/19 09:02; Start 04/08/19 at 09:00 Home Med (Med Rec Complete!) ASDIRECTED XX ; Start 04/08/19 at 10:30; Stop 04/08/19 at 10:31; Status DC Losartan Potassium (Cozaar) 100 mg DAILY PO Last administered on 04/11/19 09:01; Start 04/08/19 at 09:00 Magnesium Hydroxide (Milk Of Magnesia) 30 ml DAILYPRN PRN PO CONSTIPATION; Start 04/08/19 at 10:30 Meclizine HCl (Antivert) 12.5 mg TIDP PRN PO DIZZINESS Last administered on 04/10/19 20:09; Start 04/08/19 at 10:30 Multivitamins (Theragram-M) 1 tab BID PO Last administered on 04/11/19 09:00; Start 04/08/19 at 09:00 Nystatin (Mycostatin) 5 ml QID PO Last administered on 04/11/19 09:02; Start 04/08/19 at 17:00 Ondansetron HCl (Zofran) 4 mg Q6HP PRN PO NAUSEA; Start 04/08/19 at 10:30 Pantoprazole Sodium (Protonix) 40 mg DAILY PO Last administered on 04/11/19 09:01; Start 04/09/19 at 09:00 Senna (Senokot) 1 tab BID PO Last administered on 04/11/19 09:01; Start 04/10/19 at 09:00 Senna (Senokot) 1 tab QHS PO Last administered on 04/09/19 20:25; Start 04/08/19 at 21:00; Stop 04/10/19 at 07:06; Status DC Trazodone HCl (Desyrel) 25 mg QHSP PRN PO INSOMNIA; Start 04/08/19 at 10:30 Zinc Oxide (Boudreauxs Butt Paste) BID to sacrum BID TOP Last administered on 04/11/19at 09:03; Start 04/08/19 at 21:00 RUFINO WALKER MD Apr 11, 2019 10:28
[2019-04-11 14:00] VITALS: BP 114/59
--- NOTE | 2019-04-11 15:02 | CR ---
DATE OF CONSULTATION: 04/10/2019 REASON FOR CONSULTATION: Abdominal distension. HISTORY OF PRESENT ILLNESS: Patient is an 78-year-old male who recently suffered a hemorrhagic stroke and was sent here from [facility] for rehabilitation. He has had some decrease in his ostomy output, as well as some increase in abdominal distension. Therefore, the primary medical team has asked me to evaluate his abdomen and see if there is anything to be concerned about. CT is already ordered. At this time, the patient has no concerns. He is sitting in bed and eating a regular diet. Denies any nausea or vomiting. No fevers or chills. He feels that his ostomy is still working appropriately, a slight decrease in output but he thinks that it is because he has not be eating much. No complaints of abdominal pains. PAST MEDICAL HISTORY: Extensive, including hemorrhagic stroke with an intraparenchymal hemorrhage, multiple deep vein thrombosis (DVT), hypertension, hyperlipidemia. PAST SURGICAL HISTORY: Bowel obstruction with colostomy placement over 20 years ago, IVC filter, knee surgery, appendectomy, left hip surgery. SOCIAL HISTORY: Denies drug, alcohol, tobacco usage. FAMILY HISTORY: Noncontributory. ALLERGIES: SULFA, LATEX, OXYCODONE. HOME MEDICATIONS: Please see medical record. REVIEW OF SYSTEMS: Pertinent positives and negatives in the history of present illness. PHYSICAL EXAMINATION: General: Alert and oriented times three. No acute distress. Vitals: Temperature 97.9, pulse 77, respirations 18, blood pressure 127/68, pulse ox 93%. HEENT: Pupils equal round react to light accommodation. Heart: S1, S2 regular rate and rhythm. Lungs: Clear to auscultation bilaterally. Abdomen: Soft, nondistended. There is an ostomy in the right lower quadrant that is pink and patent. There is some stool and air in the bag. There does appear to be a parastomal hernia but it is very difficult to fully assess on exam due to the patient's large abdominal wall size. LABORATORY DATA: White count 8.6, hemoglobin 13.5, platelets 153, potassium 4.2. IMAGING STUDIES: CT abdomen, pelvis was completed after I saw him and on review shows no evidence of any bowel obstruction. There is a colostomy on the right side the abdomen with a large parastomal hernia containing nonobstructive loops of bowel, small right paracentral ventral hernia also containing nonobstructive bowel also unchanged from prior studies. ASSESSMENT/PLAN: The patient is an 78-year-old male with a large parastomal hernia that is currently asymptomatic and there is no indication for any surgical intervention at this time. The patient is not interested in any surgery either since he has had numerous surgeries in the past. Continue with regular diet, and we will follow as needed.
--- NOTE | 2019-04-11 15:41 | IPNPDOC ---
Text Note Date of Service The patient was seen on 04/11/19. NOTE 78-year-old male, admitted on account of recent hemorrhagic CVA while on anticoagulation therapy with warfarin SUBJECTIVE: Complains of difficulty getting sleep and rest at night due to frequent disturbances. Discussed with spouse and bedside RN the necessity of assessing patient frequently every 2 hours to prevent development of deep pressure ulcers from incontinence. We have agreed to modify his monitoring to every 4 hours GENERAL: NAD SKIN : Warm, dry intact HEENT: Atraumatic, slight facial droop, slight slurred speech, moist mucous membrane CARDIOVASCULAR: Regular rate and rhythm, S1S2, no JVD, BLE edema RESP: CTAB, no accessory muscle use noted ABDOMEN: BS+ non distended non tender, right colostomy MS: no joint deformities NEURO: Alert and oriented x 3, CN2-12 grossly intact PSYCH: no anxiety or agitation, appropriate mood and affect. ASSESSMENT AND PLAN 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 -In the setting of elevated INR -On anticoagulation due to pulmonary emboli and DVT -Rehabilitation by primary team DVT PE -With acute hemorrhagic stroke -Status post placement, IVC filter -Maintain off anticoagulation therapy -We will likely be restarted on anticoagulation therapy after follow-up with neurosurgery Hypertension -Essential benign -Continue losartan and Norvasc -Blood pressure monitoring with target systolic blood pressure less than 140 Hyperlipidemia -Statin therapy. Atorvastatin 20 mg daily at bedtime DVT prophylaxis -Not a candidate for anticoagulation therapy given recent hemorrhagic CVA -Antiembolism stockings contraindicated in the setting of underlying DVT VS,Fishbone, I+O VS, Fishbone, I+O Vital Signs Date Time Temp Pulse Resp B/P (MAP) Pulse Ox O2 Delivery O2 Flow Rate FiO2 04/11/19 14:00 97.1 62 20 114/59 (31) 94 I&O- Last 24 Hours up to 6 AM 04/11/19 05:59 Intake Total 1260 ml Output Total 550 ml Balance [address] [facility] [place] Apr 11, 2019 15:41
[2019-04-11 20:08] VITALS: BP 148/69
[2019-04-11] MEDS: ATORVASTATIN 20 MG TAB PO SCH (20:24)
[2019-04-11] MEDS: ACETAMINOPHEN 500 MG TAB PO SCH (20:25)
[2019-04-11] MEDS ORDERED: SENNA 8.6 MG TAB (SENOKOT) PO SCH (21:00)
[2019-04-11] MEDS ORDERED: traZODone 50 MG TAB PO SCH (21:00)
[2019-04-12 05:52] VITALS: BP 113/51
[2019-04-12 06:43] LABS: HEMATOCRIT 39.1 % (42.0-52.0); HEMOGLOBIN 13.6 g/dl (13.5-17.5); MEAN CORPUSCULAR HEMOGLOBIN 32.4 pg (27.0-33.0); MEAN CORPUSCULAR HGB CONC 34.8 g/dl (32.0-36.5); MEAN CORPUSCULAR VOLUME 93.1 fl (80.0-96.0); PLATELET COUNT, AUTOMATED 199 10^3/uL (150-450); WHITE BLOOD COUNT 6.7 10^3/uL (4.0-10.0)
[2019-04-12 07:07] LABS: BLOOD UREA NITROGEN 24 MG/DL (7-18); CALCIUM LEVEL 8.4 MG/DL (8.8-10.2); CARBON DIOXIDE LEVEL 27 MEQ/L (21-32); CHLORIDE LEVEL 104 MEQ/L (98-107); CREATININE FOR GFR 0.91 MG/DL (0.70-1.30); GLOMERULAR FILTRATION RATE > 60.0 (>35); GLUCOSE, FASTING 107 MG/DL (70-100); POTASSIUM SERUM 4.1 MEQ/L (3.5-5.1); SODIUM LEVEL 136 MEQ/L (136-145)
[2019-04-12] MEDS: MECLIZINE 12.5 MG TAB PO PRN (09:18)
[2019-04-12] MEDS: PANTOPRAZOLE 40MG TAB (PROTONIX) PO SCH (09:18)
[2019-04-12] MEDS: MULTIVITAMINS/MINERALS THERAP 1 TAB PO SCH ×2 (09:18→21:36)
[2019-04-12] MEDS: DOCUSATE SODIUM 100 MG CAP PO SCH ×3 (09:18→21:37)
[2019-04-12] MEDS: NYSTATIN 500,000 U/5 ML SUSP UDC PO SCH ×4 (09:19→21:36)
[2019-04-12] MEDS: FLUoxetine 20 MG CAP PO SCH (09:19)
[2019-04-12] MEDS: DULoxetine 30 MG CAP (CYMBALTA) PO SCH (09:19)
[2019-04-12] MEDS: amLODIPine 10 MG TAB PO SCH ×2 (09:19→21:37)
[2019-04-12] MEDS: LOSARTAN 50 MG TAB PO SCH (09:19)
[2019-04-12] MEDS: BOUDREAUX'S BUTT PASTE TOP SCH ×2 (09:20→21:38)
--- NOTE | 2019-04-12 10:19 | IPNPDOC ---
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 He is having difficulty sleeping. REVIEW OF SYSTEMS: The following is a completed review of systems and has been reviewed. Review of systems otherwise unremarkable. PAIN: Patient self reports no pain EYES:+ double vision EARS, NOSE, & THROAT: +dysphagia (improving) CARDIOVASCULAR: denies chest pain or palpitations PULMONARY: Negative. Denies shortness of breath GASTROINTESTINAL: denies constipation/diarrhea GENITOURINARY:denies dysuria, +urge incontinence MUSCULOSKELETAL: RUE and RLE paresis NEUROLOGICAL: right sided hemiparesis, aphasia, dysphagia, right sided neglect SKIN: intact PSYCHIATRIC: Unremarkable All other review of systems found to be negative. PHYSICAL EXAMINATION: VITAL SIGNS: Please see below. GENERAL: Pleasant and cooperative. No acute distress. HEENT: PERRL. Extraocular movements intact. Clear conjunctiva, right eye-brow sparing facial droop (improving) CARDIOVASCULAR: Regular rate and rhythm. No murmurs, rubs, or gallops LUNGS: Clear to auscultation bilaterally. No wheezes. No rhonchi ABDOMEN: Soft, nontender, nondistended. Positive bowel sounds. Normal active bowel sounds, colostomy with stool NEUROLOGICAL: Alert and oriented times to person, place, though it was 1978 Cranial nerves II through XII grossly except right sided facial weakness and decreased sensation, decreased sensation right UE and LE +apraxia +dysarthria (improving) +non-fluent aphasia +babinski on right with brisk patellar reflexes 1+/4 MAS right wrist flexors and elbow extensors EXTREMITIES: 5\5 strength left upper extremities, 3+/5 RUE, 3+\5 strength right lower extremity. 5/5 strength in left lower extremity. SKIN: intact ASSESSMENT: 78-year-old M with past medical history of HTN, PEs on Coumadin who presents status post left basal ganglia hemorrhagic stroke PLAN: 1. 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 Neuro: s/p right Basal ganglia, thalamic, temporal hemorrhagic stroke- c/u statin and BP meds, adjust prn goal sBP<140 -avoid antiplatelet therapy given recent bleed -c/u Prozac for motor recovery -will start provigil 50mg daily and OOB to Chair after therapy to encourage wakefulness during the day 3. Cardio: pmh PEs was on Coumadin, on hold until neurosurgical input in 2-4 weeks, will need repeat CT scan prior to visit pmh HTN: c/u amlodipine and Cozaar- medicine consulted 4. Resp: encourage incentive spirometry 5. GI ppx: protonix -colostomy care -patient currently having output from his colostomy- concern over the weekend for obstruction with CT abdomen 04/10/19 negative for bowel obstruction 6. ID: antifungal mouth wash ordered for oral thrush 5. DVT ppx: TEDs 6. : did not start Colindres, will consider adding Detrol suspicion for overactive bladder, per patient his prostate exams have been normal and his stream is consistent and not weak 7. Skin: zinc oxide to sacrum, monitor for breakdown 9. Psych: will increase trazodone to 50mg qHS scheduled for insomnia to be given at 11pm 8. Dispo: TBD Allergies Coded Allergies: Sulfa (Sulfonamide Antibiotics) (Verified Allergy, Intermediate, RASH, VIOLENT BEHAVIOR, 04/08/19) latex (Verified Allergy, Unknown, 04/08/19) oxycodone (Verified Adverse Reaction, Intermediate, SUICIDAL THOUGHTS, 04/08/19) Vital Signs Vital Signs Date Time Temp Pulse Resp B/P (MAP) Pulse Ox O2 Delivery O2 Flow Rate FiO2 04/12/19 09:19 117/54 04/12/19 05:52 97.9 65 18 95 Laboratory Data CBC/BMP Laboratory Tests 04/12/19 06:16 Red Blood Count 4.20 L, Mean Corpuscular Volume 93.1, Mean Corpuscular Hemoglobin 32.4, Mean Corpuscular Hemoglobin Concent 34.8, Red Cell Distribution Width 13.5, Calcium Level 8.4 L Labs 24H Laboratory Tests 2 04/12/19 06:16: Nucleated Red Blood Cells % (auto) 0.0, Anion Gap 5L, Glomerular Filtration Rate > 60.0, Blood Urea Nitrogen 24H, Creatinine 0.91, Sodium Level 136, Potassium Level 4.1, Chloride Level 104, Carbon Dioxide Level 27, Calcium Level 8.4L Current Medications Current Medications Current Medications Acetaminophen (Tylenol Tab) 650 mg Q4HP PRN PO MILD PAIN (PS 1-4) Last administered on 04/11/19 01:45; Start 04/08/19 at 10:30; Stop 04/11/19 at 15:54; Status DC Acetaminophen (Tylenol Tab) 1,000 mg QHS PO Last administered on 04/11/19 20:25; Start 04/11/19 at 21:00 Amlodipine Besylate (Norvasc) 5 mg BID PO ; Start 04/08/19 at 21:00; Stop 04/08/19 at 21:00; Status DC Amlodipine Besylate (Norvasc) 10 mg BID PO Last administered on 04/12/19 09:19; Start 04/08/19 at 21:00 Atorvastatin Calcium (Lipitor) 20 mg QHS PO Last administered on 04/11/19 20:24; Start 04/08/19 at 21:00 Diatrizoate Meglum/ Diatrizoate Sod (Gastrografin) 10 ml Q30M PO Last administered on 04/10/19at 11:29; Start 04/10/19 at 10:30; Stop 04/10/19 at 11:01; Status DC Docusate Sodium (Colace) 100 mg BID PO Last administered on 04/11/19 09:01; Start 04/08/19 at 09:00; Stop 04/11/19 at 10:28; Status DC Docusate Sodium (Colace) 100 mg TID PO Last administered on 04/12/19at 09:18; Start 04/11/19 at 16:00 Duloxetine HCl (Cymbalta) 60 mg DAILY PO Last administered on 04/12/19 09:19; Start 04/08/19 at 09:00 Fluoxetine HCl (PROzac) 20 mg DAILY PO Last administered on 04/12/19at 09:19; Start 04/08/19 at 09:00 Home Med (Med Rec Complete!) ASDIRECTED XX ; Start 04/08/19 at 10:30; Stop 04/08/19 at 10:31; Status DC Losartan Potassium (Cozaar) 100 mg DAILY PO Last administered on 04/12/19 09:19; Start 04/08/19 at 09:00 Magnesium Hydroxide (Milk Of Magnesia) 30 ml DAILYPRN PRN PO CONSTIPATION; Start 04/08/19 at 10:30 Meclizine HCl (Antivert) 12.5 mg TIDP PRN PO DIZZINESS Last administered on 04/12/19 09:18; Start 04/08/19 at 10:30 Multivitamins (Theragram-M) 1 tab BID PO Last administered on 04/12/19 09:18; Start 04/08/19 at 09:00 Nystatin (Mycostatin) 5 ml QID PO Last administered on 04/12/19 09:19; Start 04/08/19 at 17:00 Ondansetron HCl (Zofran) 4 mg Q6HP PRN PO NAUSEA; Start 04/08/19 at 10:30 Pantoprazole Sodium (Protonix) 40 mg DAILY PO Last administered on 04/12/19 09:18; Start 04/09/19 at 09:00 Senna (Senokot) 1 tab BID PO Last administered on 04/11/19at 09:01; Start 04/10/19 at 09:00; Stop 04/11/19 at 10:28; Status DC Senna (Senokot) 1 tab QHS PO Last administered on 04/09/19 20:25; Start at 21:00; Stop 04/10/19 at 07:06; Status DC Senna (Senokot) 2 tab BID PO ; Start 04/11/19 at 21:00; Stop 04/11/19 at 21:00; Status DC Senna (Senokot) 2 tab QHS PO Last administered on 04/11/19at 20:24; Start 04/11/19 at 21:00 Trazodone HCl (Desyrel) 25 mg QHSP PRN PO INSOMNIA; Start 04/08/19 at 10:30; Stop 04/11/19 at 14:13; Status DC Trazodone HCl (Desyrel) 50 mg QHS PO Last administered on 04/11/19at 20:24; Start 04/11/19 at 21:00 Zinc Oxide (Boudreauxs Butt Paste) BID to sacrum BID TOP Last administered on 6/25/19at 09:20; Start 04/08/19 at 21:00 RUFINO WALKER MD Apr 12, 2019 10:19
[2019-04-12 14:00] VITALS: BP 127/60
[2019-04-12] MEDS ORDERED: PILL CUTTER 1 EACH XX PRN (14:45)
[2019-04-12] MEDS: MODAFINIL 100 MG TABLET PO SCH (17:02)
[2019-04-12 20:10] VITALS: BP 145/74
[2019-04-12] MEDS ORDERED: traZODone 25MG PER 1/2 TABLET PO SCH (21:00)
[2019-04-12] MEDS ORDERED: traZODone 50 MG TAB PO SCH (21:02)
[2019-04-12] MEDS: SENNA 8.6 MG TAB (SENOKOT) PO SCH (21:36)
[2019-04-12] MEDS: ATORVASTATIN 20 MG TAB PO SCH (21:37)
[2019-04-12] MEDS: ACETAMINOPHEN 500 MG TAB PO SCH (21:38)
[2019-04-12] MEDS: traZODone 50 MG TAB PO SCH (23:03)
[2019-04-13 06:02] VITALS: BP 133/61
[2019-04-13] MEDS: BOUDREAUX'S BUTT PASTE TOP SCH ×2 (09:00→21:12)
[2019-04-13] MEDS: DOCUSATE SODIUM 100 MG CAP PO SCH ×3 (09:00→21:11)
[2019-04-13] MEDS: LOSARTAN 50 MG TAB PO SCH (10:16)
[2019-04-13] MEDS: DULoxetine 30 MG CAP (CYMBALTA) PO SCH (10:16)
[2019-04-13] MEDS: MODAFINIL 100 MG TABLET PO SCH (10:17)
[2019-04-13] MEDS: MULTIVITAMINS/MINERALS THERAP 1 TAB PO SCH ×2 (10:17→21:11)
[2019-04-13] MEDS: amLODIPine 10 MG TAB PO SCH ×2 (10:17→21:11)
[2019-04-13] MEDS: PANTOPRAZOLE 40MG TAB (PROTONIX) PO SCH (10:17)
[2019-04-13] MEDS: NYSTATIN 500,000 U/5 ML SUSP UDC PO SCH ×4 (10:18→21:10)
--- NOTE | 2019-04-13 10:44 | IPNPDOC ---
Text Note Date of Service The patient was seen on 04/13/19. NOTE 78-year-old male, admitted on account of recent hemorrhagic CVA while on anticoagulation therapy with warfarin SUBJECTIVE: Reports he slept better last night .Working with OT at time of assessment. Discussed with plans to add detrol to current medication regimen GENERAL: NAD SKIN : Warm, dry intact HEENT: Atraumatic, slight facial droop, slight slurred speech, moist mucous membrane CARDIOVASCULAR: Regular rate and rhythm, S1S2, no JVD, BLE edema RESP: CTAB, no accessory muscle use noted ABDOMEN: BS+ non distended non tender, right colostomy MS: no joint deformities NEURO: Alert and oriented x 3, CN2-12 grossly intact PSYCH: no anxiety or agitation, appropriate mood and affect. ASSESSMENT AND PLAN 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 -Rehabilitation by primary team -improving DVT/ PE -With acute hemorrhagic stroke -Status post placement, IVC filter -Maintain off anticoagulation therapy -We will likely be restarted on anticoagulation therapy after follow-up with neurosurgery Hypertension -Essential, benign -Continue losartan and Norvasc -Blood pressure monitoring with target systolic blood pressure less than 140 Hyperlipidemia -Statin therapy. Atorvastatin 20 mg daily at bedtime ?OAB -Initiate detrol therapy and monitor for response DVT prophylaxis -Not a candidate for anticoagulation therapy given recent hemorrhagic CVA -Antiembolism stockings contraindicated in the setting of underlying DVT VS,Fishbone, I+O VS, Fishbone, I+O Vital Signs Date Time Temp Pulse Resp B/P (MAP) Pulse Ox O2 Delivery O2 Flow Rate FiO2 04/13/19 10:17 59 133/61 04/13/19 06:02 97.1 18 94 I&O- Last 24 Hours up to 6 AM 04/13/19 06:00 Intake Total 1040 ml Output Total 425 ml Balance 615 ml MICHELLE ISBELL [employer] Apr 13, 2019 10:44
[2019-04-13 14:00] VITALS: BP 133/59
--- NOTE | 2019-04-13 17:11 | IPNPDOC ---
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 He still has urinary accidents throughout the day, but slept through the night last night. REVIEW OF SYSTEMS: The following is a completed review of systems and has been reviewed. Review of systems otherwise unremarkable. PAIN: Patient self reports no pain EYES:+ double vision (improving) EARS, NOSE, & THROAT: +dysphagia (improving) CARDIOVASCULAR: denies chest pain or palpitations PULMONARY: Negative. Denies shortness of breath GASTROINTESTINAL: denies constipation/diarrhea GENITOURINARY:denies dysuria, +urge incontinence MUSCULOSKELETAL: RUE and RLE paresis NEUROLOGICAL: right sided hemiparesis, aphasia, dysphagia, right sided neglect SKIN: intact PSYCHIATRIC: Unremarkable All other review of systems found to be negative. PHYSICAL EXAMINATION: VITAL SIGNS: Please see below. GENERAL: Pleasant and cooperative. No acute distress. HEENT: PERRL. Extraocular movements intact. Clear conjunctiva, right eye-brow sparing facial droop (improving) CARDIOVASCULAR: Regular rate and rhythm. No murmurs, rubs, or gallops LUNGS: Clear to auscultation bilaterally. No wheezes. No rhonchi ABDOMEN: Soft, nontender, nondistended. Positive bowel sounds. Normal active bowel sounds, colostomy with stool NEUROLOGICAL: Alert and oriented times to person, place, though it was 1978 Cranial nerves II through XII grossly except right sided facial weakness and decreased sensation, decreased sensation right UE and LE +apraxia +dysarthria (improving) +non-fluent aphasia +babinski on right with brisk patellar reflexes 1+/4 MAS right wrist flexors and elbow extensors EXTREMITIES: 5\5 strength left upper extremities, 3+/5 RUE, 3+\5 strength right lower extremity. 5/5 strength in left lower extremity. SKIN: intact ASSESSMENT: 78-year-old M with past medical history of HTN, PEs on Coumadin who presents status post left basal ganglia hemorrhagic stroke PLAN: 1. 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 Neuro: s/p right Basal ganglia, thalamic, temporal hemorrhagic stroke- c/u statin and BP meds, adjust prn goal sBP<140 -avoid antiplatelet therapy given recent bleed -c/u Prozac for motor recovery -c/u provigil 50mg daily and OOB to Chair after therapy to encourage wakefulness during the day 3. Cardio: pmh PEs was on Coumadin, on hold until neurosurgical input in 2-4 weeks, will need repeat CT scan prior to visit pmh HTN: c/u amlodipine and Cozaar- medicine consulted 4. Resp: encourage incentive spirometry 5. GI ppx: protonix -colostomy care -patient currently having output from his colostomy- concern over the weekend for obstruction with CT abdomen 04/10/19 negative for bowel obstruction 6. ID: antifungal mouth wash ordered for oral thrush 5. DVT ppx: TEDs 6. : did not start Colindres, will start Detrol 4mg daily suspicion for overactive bladder, per patient his prostate exams have been normal and his stream is consistent and not weak 7. Skin: zinc oxide to sacrum, monitor for breakdown 9. Psych: c/u trazodone 75mg qHS scheduled for insomnia to be given at 11pm 8. Dispo: TBD Allergies Coded Allergies: Sulfa (Sulfonamide Antibiotics) (Verified Allergy, Intermediate, RASH, VIOLENT BEHAVIOR, 04/08/19) latex (Verified Allergy, Unknown, 04/08/19) oxycodone (Verified Adverse Reaction, Intermediate, SUICIDAL THOUGHTS, 04/08/19) Vital Signs Vital Signs Date Time Temp Pulse Resp B/P (MAP) Pulse Ox O2 Delivery O2 Flow Rate FiO2 04/13/19 14:00 96.7 71 18 133/59 (83 94 Current Medications Current Medications Current Medications Acetaminophen (Tylenol Tab) 650 mg Q4HP PRN PO MILD PAIN (PS 1-4) Last administered on 04/11/19at 01:45; Start 04/08/19 at 10:30; Stop 04/11/19 at 15:54; Status DC Acetaminophen (Tylenol Tab) 1,000 mg QHS PO Last administered on 04/12/19at 21:38; Start 04/11/19 at 21:00 Amlodipine Besylate (Norvasc) 5 mg BID PO ; Start 04/08/19 at 21:00; Stop 04/08/19 at 21:00; Status DC Amlodipine Besylate (Norvasc) 10 mg BID PO Last administered on 04/13/19at 10:17; Start 04/08/19 at 21:00 Atorvastatin Calcium (Lipitor) 20 mg QHS PO Last administered on 04/12/19at 21:37; Start 04/08/19 at 21:00 Diatrizoate Meglum/ Diatrizoate Sod (Gastrografin) 10 ml Q30M PO Last administered on 04/10/19 11:29; Start 04/10/19 at 10:30; Stop 04/10/19 at 11:01; Status DC Docusate Sodium (Colace) 100 mg BID PO Last administered on 04/11/19at 09:01; Start 04/08/19 at 09:00; Stop 04/11/19 at 10:28; Status DC Docusate Sodium (Colace) 100 mg TID PO Last administered on 04/12/19at 21:37; Start 04/11/19 at 16:00 Duloxetine HCl (Cymbalta) 60 mg DAILY PO Last administered on 04/13/19at 10:16; Start 04/08/19 at 09:00 Fluoxetine HCl (PROzac) 20 mg DAILY PO Last administered on 04/12/19 09:19; Start 04/08/19 at 09:00; Stop 04/12/19 at 14:01; Status DC Fluoxetine HCl (PROzac) 20 mg QHS PO ; Start 04/13/19 at 21:00 Home Med (Med Rec Complete!) ASDIRECTED XX ; Start 04/08/19 at 10:30; Stop 04/08/19 at 10:31; Status DC Losartan Potassium (Cozaar) 100 mg DAILY PO Last administered on 04/13/19at 10:16; Start 04/08/19 at 09:00 Magnesium Hydroxide (Milk Of Magnesia) 30 ml DAILYPRN PRN PO CONSTIPATION; Start 04/08/19 at 10:30 Meclizine HCl (Antivert) 12.5 mg TIDP PRN PO DIZZINESS Last administered on 04/12/19at 09:18; Start 04/08/19 at 10:30 Modafinil (Provigil) 50 mg QAM PO Last administered on 04/13/19at 10:17; Start 04/12/19 at 09:00 Multivitamins (Theragram-M) 1 tab BID PO Last administered on 04/13/19at 10:17; Start 04/08/19 at 09:00 Nystatin (Mycostatin) 5 ml QID PO Last administered on 04/13/19at 12:31; Start 04/08/19 at 17:00 Ondansetron HCl (Zofran) 4 mg Q6HP PRN PO NAUSEA; Start 04/08/19 at 10:30 Pantoprazole Sodium (Protonix) 40 mg DAILY PO Last administered on 04/13/19at 10 :17; Start 04/09/19 at 09:00 Senna (Senokot) 1 tab BID PO Last administered on 04/11/19at 09:01; Start 04/10/19 at 09:00; Stop 04/11/19 at 10:28; Status DC Senna (Senokot) 1 tab QHS PO Last administered on 04/09/19at 20:25; Start 04/08/19 at 21:00; Stop 04/10/19 at 07:06; Status DC Senna (Senokot) 2 tab BID PO ; Start 04/11/19 at 21:00; Stop 04/11/19 at 21:00; Status DC Senna (Senokot) 2 tab QHS PO Last administered on 04/12/19at 21:36; Start 04/11/19 at 21:00 Tolterodine Tartrate (Detrol) 4 mg DAILY PO ; Start 04/14/19 at 09:00 Trazodone HCl (Desyrel) 25 mg QHSP PRN PO INSOMNIA; Start 04/08/19 at 10:30; Stop 04/11/19 at 14:13; Status DC Trazodone HCl (Desyrel) 50 mg QHS PO Last administered on 04/11/19at 20:24; Start 04/11/19 at 21:00; Stop 04/12/19 at 14:02; Status DC Trazodone HCl (Desyrel) 75 mg QHS PO ; Start 04/12/19 at 21:00; Stop 04/12/19 at 21:02; Status DC Trazodone HCl (Desyrel) 75 mg QHS PO ; Start 04/12/19 at 21:02; Status Cancel Trazodone HCl (Desyrel) 75 mg QHS@2300 PO Last administered on 04/12/19at 23:03; Start 04/12/19 at 23:00 Zinc Oxide (Boudreauxs Butt Paste) BID to sacrum BID TOP Last administered on 04/12/19at 21:38; Start 04/08/19 at 21:00 RUFINO WALKER MD Apr 13, 2019 17:11
[2019-04-13] MEDS: SENNA 8.6 MG TAB (SENOKOT) PO SCH (21:00)
[2019-04-13] MEDS: FLUoxetine 20 MG CAP PO SCH (21:10)
[2019-04-13] MEDS: ATORVASTATIN 20 MG TAB PO SCH (21:11)
[2019-04-13] MEDS: ACETAMINOPHEN 500 MG TAB PO SCH (21:12)
[2019-04-13 22:00] VITALS: BP 133/63
[2019-04-13] MEDS: traZODone 50 MG TAB PO SCH (22:47)
[2019-04-14 06:00] VITALS: BP 141/73
[2019-04-14 06:59] LABS: HEMATOCRIT 41.6 % (42.0-52.0); HEMOGLOBIN 14.1 g/dl (13.5-17.5); MEAN CORPUSCULAR HEMOGLOBIN 31.7 pg (27.0-33.0); MEAN CORPUSCULAR HGB CONC 33.9 g/dl (32.0-36.5); MEAN CORPUSCULAR VOLUME 93.5 fl (80.0-96.0); PLATELET COUNT, AUTOMATED 215 10^3/uL (150-450); RED BLOOD COUNT 4.45 10^6/uL (4.30-6.10); WHITE BLOOD COUNT 7.5 10^3/uL (4.0-10.0)
[2019-04-14 07:21] LABS: BLOOD UREA NITROGEN 22 MG/DL (7-18); CALCIUM LEVEL 8.2 MG/DL (8.8-10.2); CARBON DIOXIDE LEVEL 26 MEQ/L (21-32); CHLORIDE LEVEL 105 MEQ/L (98-107); CREATININE FOR GFR 0.86 MG/DL (0.70-1.30); GLOMERULAR FILTRATION RATE > 60.0 (>35); GLUCOSE, FASTING 98 MG/DL (70-100); POTASSIUM SERUM 4.2 MEQ/L (3.5-5.1); SODIUM LEVEL 136 MEQ/L (136-145)
[2019-04-14] MEDS: NYSTATIN 500,000 U/5 ML SUSP UDC PO SCH ×2 (08:40→13:43)
[2019-04-14] MEDS: DOCUSATE SODIUM 100 MG CAP PO SCH ×3 (08:40→21:32)
[2019-04-14] MEDS: MODAFINIL 100 MG TABLET PO SCH (08:41)
[2019-04-14] MEDS: TOLTERODINE (DETROL) 2 MG TAB PO SCH (08:41)
[2019-04-14] MEDS: amLODIPine 10 MG TAB PO SCH ×2 (08:41→21:33)
[2019-04-14] MEDS: PANTOPRAZOLE 40MG TAB (PROTONIX) PO SCH (08:41)
[2019-04-14] MEDS: DULoxetine 30 MG CAP (CYMBALTA) PO SCH (08:41)
[2019-04-14] MEDS: MULTIVITAMINS/MINERALS THERAP 1 TAB PO SCH ×2 (08:41→21:32)
[2019-04-14] MEDS: LOSARTAN 50 MG TAB PO SCH (08:42)
[2019-04-14] MEDS: BOUDREAUX'S BUTT PASTE TOP SCH ×2 (08:42→21:34)
--- NOTE | 2019-04-14 10:17 | IPNPDOC ---
PM&R Progress Note DATE OF SERVICE: Apr 14, 2019 [employer] Progress Note Subjective: Patient reported being up all night urinating, he is very tired today. REVIEW OF SYSTEMS: The following is a completed review of systems and has been reviewed. Review of systems otherwise unremarkable. PAIN: Patient self reports no pain EYES:+ double vision (improving) EARS, NOSE, & THROAT: +dysphagia (improving) CARDIOVASCULAR: denies chest pain or palpitations PULMONARY: Negative. Denies shortness of breath GASTROINTESTINAL: denies constipation/diarrhea GENITOURINARY:denies dysuria, +urge incontinence MUSCULOSKELETAL: RUE and RLE paresis NEUROLOGICAL: right sided hemiparesis, aphasia, dysphagia, right sided neglect SKIN: intact PSYCHIATRIC: Unremarkable All other review of systems found to be negative. PHYSICAL EXAMINATION: VITAL SIGNS: Please see below. GENERAL: Pleasant and cooperative. No acute distress. HEENT: PERRL. Extraocular movements intact. Clear conjunctiva, right eye-brow sparing facial droop (improving) CARDIOVASCULAR: Regular rate and rhythm. No murmurs, rubs, or gallops LUNGS: Clear to auscultation bilaterally. No wheezes. No rhonchi ABDOMEN: Soft, nontender, nondistended. Positive bowel sounds. Normal active bowel sounds, colostomy with stool NEUROLOGICAL: Alert and oriented times to person, place, though it was 1978 Cranial nerves II through XII grossly except right sided facial weakness and decreased sensation, decreased sensation right UE and LE +apraxia +dysarthria (improving) +non-fluent aphasia +babinski on right with brisk patellar reflexes 1+/4 MAS right wrist flexors and elbow extensors EXTREMITIES: 5\5 strength left upper extremities, 3+/5 RUE, 3+\5 strength right lower extremity. 5/5 strength in left lower extremity. SKIN: intact ASSESSMENT: 78-year-old M with past medical history of HTN, PEs on Coumadin who presents status post left basal ganglia hemorrhagic stroke PLAN: 1. rehab: PT/OT, [employer] right sided hemiparesis with apraxia and dense sensory loss on right side- endurance improving with stimulant -goal to strengthen right side, improve trunk control and coordination for optimal ambulation and ADL management -maintain ROM of right wrist with splinting and stretching -stretch right elbow extensor to facilitate elbow flexion for self feeding -advance diet prn -trial eye patch for diplopia 2. Neuro: s/p right Basal ganglia, thalamic, temporal hemorrhagic stroke- c/u statin and BP meds, adjust prn goal sBP<140 -avoid antiplatelet therapy given recent bleed -c/u Prozac for motor recovery -c/u provigil 50mg daily and OOB to Chair after therapy to encourage wakefulness during the day 3. Cardio: pmh PEs was on Coumadin, on hold until neurosurgical input in 2-4 weeks, will need repeat CT scan prior to visit pmh HTN: c/u amlodipine and Cozaar- medicine consulted 4. Resp: encourage incentive spirometry 5. GI ppx: protonix -colostomy care -patient currently having output from his colostomy- concern over the weekend for obstruction with CT abdomen 04/10/19 negative for bowel obstruction 6. ID: antifungal mouth wash ordered for oral thrush-resolved 5. DVT ppx: TEDs 6. : did not start Colindres, Detrol 4mg daily started today suspicion for overactive bladder, per patient his prostate exams have been normal and his stream is consistent and not weak 7. Skin: zinc oxide to sacrum, monitor for breakdown 9. Psych: c/u trazodone 75mg qHS scheduled for insomnia to be given at 11pm 8. Dispo: TBD Allergies Coded Allergies: Sulfa (Sulfonamide Antibiotics) (Verified Allergy, Intermediate, RASH, VIOLENT BEHAVIOR, 04/08/19) latex (Verified Allergy, Unknown, 04/08/19) oxycodone (Verified Adverse Reaction, Intermediate, SUICIDAL THOUGHTS, 04/08/19) Vital Signs Vital Signs Date Time Temp Pulse Resp B/P (MAP) Pulse Ox O2 Delivery O2 Flow Rate FiO2 04/14/19 08:42 141/73 04/14/19 08:41 64 04/14/19 06:00 98.5 18 94 Laboratory Data CBC/BMP Laboratory Tests 04/14/19 06:23 Red Blood Count 4.45, Mean Corpuscular Volume 93.5, Mean Corpuscular Hemoglobin 31.7, Mean Corpuscular Hemoglobin Concent 33.9, Red Cell Distribution Width 13.4, Calcium Level 8.2 L Labs 24H Laboratory Tests 2 04/14/19 06:23: Nucleated Red Blood Cells % (auto) 0.0, Anion Gap 5L, Glomerular Filtration Rate > 60.0, Blood Urea Nitrogen 22H, Creatinine 0.86, Sodium Level 136, Potassium Level 4.2, Chloride Level 105, Carbon Dioxide Level 26, Calcium Level 8.2L Current Medications Current Medications Current Medications Acetaminophen (Tylenol Tab) 650 mg Q4HP PRN PO MILD PAIN (PS 1-4) Last administered on 04/11/19 01:45; Start 04/08/19 at 10:30; Stop 04/11/19 at 15:54; Status DC Acetaminophen (Tylenol Tab) 1,000 mg QHS PO Last administered on 04/13/19at 21:12; Start 04/11/19 at 21:00 Amlodipine Besylate (Norvasc) 5 mg BID PO ; Start 04/08/19 at 21:00; Stop 04/08/19 at 21:00; Status DC Amlodipine Besylate (Norvasc) 10 mg BID PO Last administered on 04/14/19at 08:41; Start 04/08/19 at 21:00 Atorvastatin Calcium (Lipitor) 20 mg QHS PO Last administered on 04/13/19at 21:11; Start 04/08/19 at 21:00 Diatrizoate Meglum/ Diatrizoate Sod (Gastrografin) 10 ml Q30M PO Last administered on 04/10/19 11:29; Start 04/10/19 at 10:30; Stop 04/10/19 at 11:01; Status DC Docusate Sodium (Colace) 100 mg BID PO Last administered on 04/11/19at 09:01; Start 04/08/19 at 09:00; Stop 04/11/19 at 10:28; Status DC Docusate Sodium (Colace) 100 mg TID PO Last administered on 04/13/19at 21:11; Start 04/11/19 at 16:00 Duloxetine HCl (Cymbalta) 60 mg DAILY PO Last administered on 04/14/19 08:41; Start 04/08/19 at 09:00 Fluoxetine HCl (PROzac) 20 mg DAILY PO Last administered on 04/12/19at 09:19; Start 04/08/19 at 09:00; Stop 04/12/19 at 14:01; Status DC Fluoxetine HCl (PROzac) 20 mg QHS PO Last administered on 04/13/19at 21:10; Start 04/13/19 at 21:00 Home Med (Med Rec Complete!) ASDIRECTED XX ; Start 04/08/19 at 10:30; Stop 04/08/19 at 10:31; Status DC Losartan Potassium (Cozaar) 100 mg DAILY PO Last administered on 04/14/19at 08:42; Start 04/08/19 at 09:00 Magnesium Hydroxide (Milk Of Magnesia) 30 ml DAILYPRN PRN PO CONSTIPATION; Start 04/08/19 at 10:30 Meclizine HCl (Antivert) 12.5 mg TIDP PRN PO DIZZINESS Last administered on 04/12/19 09:18; Start 04/08/19 at 10:30 Modafinil (Provigil) 50 mg QAM PO Last administered on 04/14/19 08:41; Start 04/12/19 at 09:00 Multivitamins (Theragram-M) 1 tab BID PO Last administered on 04/14/19at 08:41; Start 04/08/19 at 09:00 Nystatin (Mycostatin) 5 ml QID PO Last administered on 04/14/19at 08:40; Start 04/08/19 at 17:00 Ondansetron HCl (Zofran) 4 mg Q6HP PRN PO NAUSEA; Start 04/08/19 at 10:30 Pantoprazole Sodium (Protonix) 40 mg DAILY PO Last administered on 04/14/19at 08:41; Start 04/09/19 at 09:00 Senna (Senokot) 1 tab BID PO Last administered on 04/11/19at 09:01; Start 04/10/19 at 09:00; Stop 04/11/19 at 10:28; Status DC Senna (Senokot) 1 tab QHS PO Last administered on 04/09/19at 20:25; Start 04/08/19 at 21:00; Stop 04/10/19 at 07:06; Status DC Senna (Senokot) 2 tab BID PO ; Start 04/11/19 at 21:00; Stop 04/11/19 at 21:00; Status DC Senna (Senokot) 2 tab QHS PO Last administered on 04/12/19at 21:36; Start 04/11/19 at 21:00 Tolterodine Tartrate (Detrol) 4 mg DAILY PO Last administered on 04/14/19at 08:41; Start 04/14/19 at 09:00 Trazodone HCl (Desyrel) 25 mg QHSP PRN PO INSOMNIA; Start 04/08/19 at 10:30; Stop 04/11/19 at 14:13; Status DC Trazodone HCl (Desyrel) 50 mg QHS PO Last administered on 04/11/19at 20:24; Start 04/11/19 at 21:00; Stop 04/12/19 at 14:02; Status DC Trazodone HCl (Desyrel) 75 mg QHS PO ; Start 04/12/19 at 21:00; Stop 04/12/19 at 21:02; Status DC Trazodone HCl (Desyrel) 75 mg QHS PO ; Start 04/12/19 at 21:02; Status Cancel Trazodone HCl (Desyrel) 75 mg QHS@2300 PO Last administered on 04/13/19at 22:47; Start 04/12/19 at 23:00 Zinc Oxide (Boudreauxs Butt Paste) BID to sacrum BID TOP Last administered on 04/14/19at 08:42; Start 04/08/19 at 21:00 RUFINO WALKER MD Apr 14, 2019 10:17
[2019-04-14 14:00] VITALS: BP 115/54
[2019-04-14] MEDS: SENNA 8.6 MG TAB (SENOKOT) PO SCH (21:00)
[2019-04-14] MEDS: FLUoxetine 20 MG CAP PO SCH (21:33)
[2019-04-14] MEDS: ACETAMINOPHEN 500 MG TAB PO SCH (21:33)
[2019-04-14] MEDS: ATORVASTATIN 20 MG TAB PO SCH (21:33)
[2019-04-14 22:00] VITALS: BP 121/57
[2019-04-14] MEDS: traZODone 50 MG TAB PO SCH (22:18)
[2019-04-15 06:00] VITALS: BP 118/52
[2019-04-15] MEDS: DOCUSATE SODIUM 100 MG CAP PO SCH ×3 (09:00→22:32)
[2019-04-15] MEDS: TOLTERODINE (DETROL) 2 MG TAB PO SCH (09:08)
[2019-04-15] MEDS: MODAFINIL 100 MG TABLET PO SCH (09:09)
[2019-04-15] MEDS: LOSARTAN 50 MG TAB PO SCH (09:09)
[2019-04-15] MEDS: amLODIPine 10 MG TAB PO SCH ×2 (09:09→22:32)
[2019-04-15] MEDS: PANTOPRAZOLE 40MG TAB (PROTONIX) PO SCH (09:09)
[2019-04-15] MEDS: DULoxetine 30 MG CAP (CYMBALTA) PO SCH (09:09)
[2019-04-15] MEDS: MULTIVITAMINS/MINERALS THERAP 1 TAB PO SCH ×2 (09:09→22:31)
[2019-04-15] MEDS: BOUDREAUX'S BUTT PASTE TOP SCH ×2 (09:10→22:35)
--- NOTE | 2019-04-15 11:21 | IPNPDOC ---
Text Note Date of Service The patient was seen on 04/15/19. NOTE 78-year-old male, admitted on account of recent hemorrhagic CVA while on anticoagulation therapy with warfarin SUBJECTIVE: Up to chair at bedside, feels he is improving, reports speech is better and was able to understand patient events telephone. Patient had a better night last night and was unable to sleep for some hours. Denies worsening symptoms, denies chest pain, denies shortness of breath, denies headache. GENERAL: NAD SKIN : Warm, dry intact HEENT: Atraumatic, slight facial droop, clear speech, moist mucous membrane CARDIOVASCULAR: Regular rate and rhythm, S1S2, no JVD, BLE edema RESP: CTAB, no accessory muscle use noted ABDOMEN: BS+ non distended non tender, right colostomy MS: no joint deformities NEURO: Alert and oriented x 3, CN2-12 grossly intact PSYCH: no anxiety or agitation, appropriate mood and affect. ASSESSMENT AND PLAN 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 -Rehabilitation by primary team -improving DVT/ PE -With acute hemorrhagic stroke -Status post placement, IVC filter -Maintained off anticoagulation therapy -We will likely be restarted on anticoagulation therapy after follow-up with neurosurgery Hypertension -Essential, benign -Continue losartan and Norvasc -Blood pressure monitoring with target systolic blood pressure less than 140 Hyperlipidemia -Statin therapy. Atorvastatin 20 mg daily at bedtime ?OAB -Continue detrol therapy -Patient has been having better nighttime sleep DVT prophylaxis -Not a candidate for anticoagulation therapy given recent hemorrhagic CVA -Antiembolism stockings contraindicated in the setting of underlying DVT VS,Fishbone, I+O VS, Fishbone, I+O Vital Signs Date Time Temp Pulse Resp B/P (MAP) Pulse Ox O2 Delivery O2 Flow Rate FiO2 04/15/19 09:09 65 118/52 04/15/19 06:00 96.9 18 94 I&O- Last 24 Hours up to 6 AM 04/15/19 06:00 Intake Total 580 ml Output Total 450 ml Balance 130 ml MICHELLE ISBELLP Apr 15, 2019 11:21
[2019-04-15 14:00] VITALS: BP 130/61
[2019-04-15 20:00] VITALS: BP 132/61
[2019-04-15] MEDS: SENNA 8.6 MG TAB (SENOKOT) PO SCH (22:31)
[2019-04-15] MEDS: ATORVASTATIN 20 MG TAB PO SCH (22:31)
[2019-04-15] MEDS: traZODone 50 MG TAB PO SCH (22:32)
[2019-04-15] MEDS: ACETAMINOPHEN 500 MG TAB PO SCH (22:34)
[2019-04-15] MEDS: FLUoxetine 20 MG CAP PO SCH (22:35)
[2019-04-16 05:35] VITALS: BP 135/69
[2019-04-16 07:02] LABS: HEMATOCRIT 39.3 % (42.0-52.0); HEMOGLOBIN 13.1 g/dl (13.5-17.5); MEAN CORPUSCULAR HEMOGLOBIN 30.7 pg (27.0-33.0); MEAN CORPUSCULAR HGB CONC 33.3 g/dl (32.0-36.5); PLATELET COUNT, AUTOMATED 224 10^3/uL (150-450); RED BLOOD COUNT 4.27 10^6/uL (4.30-6.10); WHITE BLOOD COUNT 7.3 10^3/uL (4.0-10.0)
[2019-04-16 07:25] LABS: BLOOD UREA NITROGEN 26 MG/DL (7-18); CALCIUM LEVEL 7.9 MG/DL (8.8-10.2); CARBON DIOXIDE LEVEL 25 MEQ/L (21-32); CHLORIDE LEVEL 104 MEQ/L (98-107); GLOMERULAR FILTRATION RATE > 60.0 (>35); GLUCOSE, FASTING 94 MG/DL (70-100); POTASSIUM SERUM 4.3 MEQ/L (3.5-5.1); SODIUM LEVEL 136 MEQ/L (136-145)
[2019-04-16] MEDS: PANTOPRAZOLE 40MG TAB (PROTONIX) PO SCH (09:24)
[2019-04-16] MEDS: DOCUSATE SODIUM 100 MG CAP PO SCH ×3 (09:24→22:21)
[2019-04-16] MEDS: MULTIVITAMINS/MINERALS THERAP 1 TAB PO SCH ×2 (09:24→22:21)
[2019-04-16] MEDS: TOLTERODINE (DETROL) 2 MG TAB PO SCH (09:24)
[2019-04-16] MEDS: amLODIPine 10 MG TAB PO SCH ×2 (09:24→22:22)
[2019-04-16] MEDS: DULoxetine 30 MG CAP (CYMBALTA) PO SCH (09:24)
[2019-04-16] MEDS: MODAFINIL 100 MG TABLET PO SCH (09:25)
[2019-04-16] MEDS: LOSARTAN 50 MG TAB PO SCH (09:25)
[2019-04-16] MEDS: BOUDREAUX'S BUTT PASTE TOP SCH ×2 (09:25→22:23)
[2019-04-16 20:00] VITALS: BP 151/68
[2019-04-16] MEDS: ACETAMINOPHEN 500 MG TAB PO SCH (22:21)
[2019-04-16] MEDS: SENNA 8.6 MG TAB (SENOKOT) PO SCH (22:21)
[2019-04-16] MEDS: ATORVASTATIN 20 MG TAB PO SCH (22:21)
[2019-04-16] MEDS: FLUoxetine 20 MG CAP PO SCH (22:22)
[2019-04-16] MEDS: traZODone 50 MG TAB PO SCH (22:22)
[2019-04-17 06:00] VITALS: BP 133/61
[2019-04-17] MEDS: PANTOPRAZOLE 40MG TAB (PROTONIX) PO SCH (09:15)
[2019-04-17] MEDS: DULoxetine 30 MG CAP (CYMBALTA) PO SCH (09:15)
[2019-04-17] MEDS: TOLTERODINE (DETROL) 2 MG TAB PO SCH (09:15)
[2019-04-17] MEDS: DOCUSATE SODIUM 100 MG CAP PO SCH ×3 (09:15→21:03)
[2019-04-17] MEDS: MULTIVITAMINS/MINERALS THERAP 1 TAB PO SCH ×2 (09:16→21:02)
[2019-04-17] MEDS: amLODIPine 10 MG TAB PO SCH ×2 (09:16→21:03)
[2019-04-17] MEDS: LOSARTAN 50 MG TAB PO SCH (09:16)
[2019-04-17] MEDS: MODAFINIL 100 MG TABLET PO SCH (09:16)
[2019-04-17] MEDS: BOUDREAUX'S BUTT PASTE TOP SCH ×2 (09:16→21:04)
[2019-04-17 13:15] VITALS: BP 126/64
[2019-04-17 14:00] VITALS: BP 140/61
--- NOTE | 2019-04-17 14:37 | REP ---
Clinical: Hypoxia . Comparison: 02/12/2018 . Findings: The mediastinum and cardiac silhouette are stable and within normal limits for portable technique. The lung diaz demonstrate chronic stable changes without acute consolidation, effusion, or pneumothorax. Skeletal structures are intact. Impression: No acute cardiopulmonary process appreciated. Electronically Signed by Venkata Huynh MD 04/17/2019 02:29 P
--- NOTE | 2019-04-17 17:35 | IPNPDOC ---
Subjective Date Seen The patient was seen on 04/17/19. Subjective Chief Complaint/HPI 78m with hx of pe's who was transferred here for acute rehab after a hemorrhagic stroke. Called today to evaluate pt after an episode of choking while eating his lunch followed by hypoxia. RN reports spo2 persistently in 80s. Currently 95% on nasal cannula, but desats to 88 while speaking. pt reports feeling much better Pulmonary: Reports: Dyspnea, Cough Neurological: Reports: Weakness, Change in speech Objective Physical Examination General Exam: Positive: Alert, Cooperative, No Acute Distress ENT Exam: Positive: Atraumatic Neck Exam: Positive: Supple; Negative: JVD Chest Exam: Positive: Clear to auscultation, Normal air movement Heart Exam: Positive: Rate Normal, Normal S1, Normal S2; Negative: Murmurs Abdomen Exam: Positive: Normal bowel sounds, Soft; Negative: Tenderness Extremity Exam: Negative: Edema Neuro Exam: Negative: Normal Gait, Normal Speech, Strength at 5/5 X4 ext Psych Exam: Positive: Mental status NL, Mood NL Assessment /Plan Assessment 78m with hypoxia concern for potential aspiration event cxr ordered and without acute pathology lung exam normal however, pt does remain hypoxic has hx of pe's s/p ivc filter not a candidate for AC either way will check bnp with next labs although doubt chf will start short course of augmentin for possible asp pneumonitis would repeat xray in a few days Plan/VTE VTE Prophylaxis Ordered?: No VS, I&O, 24H, Fishbone Vital Signs/I&O Vital Signs Date Time Temp Pulse Resp B/P (MAP) Pulse Ox O2 Delivery O2 Flow Rate FiO2 04/17/19 14:00 97.8 99 18 140/61 (87) 98 2.0 I&O- Last 24 Hours up to 6 AM 04/17/19 06:00 Intake Total 1260 ml Output Total 575 ml Balance 685 ml ERMIAS NUNO MD Apr 17, 2019 17:35
[2019-04-17 20:00] VITALS: BP 142/67
[2019-04-17] MEDS: ATORVASTATIN 20 MG TAB PO SCH (21:03)
[2019-04-17] MEDS: FLUoxetine 20 MG CAP PO SCH (21:03)
[2019-04-17] MEDS: ACETAMINOPHEN 500 MG TAB PO SCH (21:03)
[2019-04-17] MEDS: SENNA 8.6 MG TAB (SENOKOT) PO SCH (21:03)
[2019-04-17] MEDS: AUGMENTIN 875 MG TAB PO SCH (21:03)
[2019-04-17] MEDS: traZODone 50 MG TAB PO SCH (22:08)
[2019-04-18 06:00] VITALS: BP 131/60
[2019-04-18 06:28] LABS: HEMATOCRIT 38.8 % (42.0-52.0); HEMOGLOBIN 13.3 g/dl (13.5-17.5); MEAN CORPUSCULAR HEMOGLOBIN 31.4 pg (27.0-33.0); MEAN CORPUSCULAR HGB CONC 34.3 g/dl (32.0-36.5); MEAN CORPUSCULAR VOLUME 91.7 fl (80.0-96.0); PLATELET COUNT, AUTOMATED 207 10^3/uL (150-450); RED BLOOD COUNT 4.23 10^6/uL (4.30-6.10); WHITE BLOOD COUNT 8.5 10^3/uL (4.0-10.0)
[2019-04-18 07:04] LABS: BLOOD UREA NITROGEN 29 MG/DL (7-18); CALCIUM LEVEL 8.3 MG/DL (8.8-10.2); CARBON DIOXIDE LEVEL 26 MEQ/L (21-32); CHLORIDE LEVEL 106 MEQ/L (98-107); CREATININE FOR GFR 1.07 MG/DL (0.70-1.30); GLOMERULAR FILTRATION RATE > 60.0 (>35); GLUCOSE, FASTING 93 MG/DL (70-100); NT-PRO BNP 69 PG/ML (<450); POTASSIUM SERUM 4.3 MEQ/L (3.5-5.1); SODIUM LEVEL 137 MEQ/L (136-145)
[2019-04-18] MEDS: DULoxetine 30 MG CAP (CYMBALTA) PO SCH (09:35)
[2019-04-18] MEDS: DOCUSATE SODIUM 100 MG CAP PO SCH ×3 (09:35→23:27)
[2019-04-18] MEDS: TOLTERODINE (DETROL) 2 MG TAB PO SCH (09:35)
[2019-04-18] MEDS: AUGMENTIN 875 MG TAB PO SCH ×2 (09:35→23:27)
[2019-04-18] MEDS: amLODIPine 10 MG TAB PO SCH ×2 (09:35→23:28)
[2019-04-18] MEDS: MULTIVITAMINS/MINERALS THERAP 1 TAB PO SCH ×2 (09:35→23:27)
[2019-04-18] MEDS: PANTOPRAZOLE 40MG TAB (PROTONIX) PO SCH (09:35)
[2019-04-18] MEDS: MODAFINIL 100 MG TABLET PO SCH (09:36)
[2019-04-18] MEDS: LOSARTAN 50 MG TAB PO SCH (09:36)
[2019-04-18] MEDS: BOUDREAUX'S BUTT PASTE TOP SCH ×2 (09:36→21:00)
--- NOTE | 2019-04-18 10:40 | IPNPDOC ---
PM&R Progress Note DATE OF SERVICE: Apr 18, 2019 [employer] Progress Note Subjective: Patient reports his television was left on lat night so he had difficulty sleeping, but was able and enthusiastic to participate in therapy. REVIEW OF SYSTEMS: The following is a completed review of systems and has been reviewed. Review of systems otherwise unremarkable. PAIN: Patient self reports no pain EYES:+ double vision (improving) EARS, NOSE, & THROAT: +dysphagia (improving) CARDIOVASCULAR: denies chest pain or palpitations PULMONARY: Negative. Denies shortness of breath GASTROINTESTINAL: denies constipation/diarrhea GENITOURINARY:denies dysuria, +urge incontinence MUSCULOSKELETAL: RUE and RLE paresis NEUROLOGICAL: right sided hemiparesis, aphasia, dysphagia, right sided neglect SKIN: intact PSYCHIATRIC: Unremarkable All other review of systems found to be negative. PHYSICAL EXAMINATION: VITAL SIGNS: Please see below. GENERAL: Pleasant and cooperative. No acute distress. HEENT: PERRL. Extraocular movements intact. Clear conjunctiva, right eye-brow sparing facial droop (improving) CARDIOVASCULAR: Regular rate and rhythm. No murmurs, rubs, or gallops LUNGS: Clear to auscultation bilaterally. No wheezes. No rhonchi ABDOMEN: Soft, nontender, nondistended. Positive bowel sounds. Normal active bowel sounds, colostomy with stool NEUROLOGICAL: Alert and oriented times to person, place, though it was 1978 Cranial nerves II through XII grossly except right sided facial weakness and decreased sensation, decreased sensation right UE and LE +apraxia +dysarthria (improving) +non-fluent aphasia +babinski on right with brisk patellar reflexes 1+/4 MAS right wrist flexors and elbow extensors EXTREMITIES: 5\5 strength left upper extremities, 3+/5 RUE, 3+\5 strength right lower extremity. 5/5 strength in left lower extremity. SKIN: intact ASSESSMENT: 78-year-old M with past medical history of HTN, PEs on Coumadin who presents status post left basal ganglia hemorrhagic stroke PLAN: 1. rehab: PT/OT, [employer] right sided hemiparesis with apraxia and dense sensory loss on right side- endurance improving with stimulant -goal to strengthen right side, improve trunk control and coordination for optimal ambulation and ADL management -maintain ROM of right wrist with splinting and stretching -stretch right elbow extensor to facilitate elbow flexion for self feeding -advance diet prn -trial eye patch for diplopia 2. Neuro: s/p right Basal ganglia, thalamic, temporal hemorrhagic stroke- c/u statin and BP meds, adjust prn goal sBP<140 -avoid antiplatelet therapy given recent bleed -c/u Prozac for motor recovery -increase Provigil to 100mg daily and OOB to Chair after therapy to encourage wakefulness during the day 3. Cardio: pmh PEs was on Coumadin, on hold until neurosurgical input in 2-4 weeks, will need repeat CT scan prior to visit pmh HTN: c/u amlodipine and Cozaar- medicine consulted 4. Resp: encourage incentive spirometry 5. GI ppx: protonix -colostomy care -patient currently having output from his colostomy- concern over the weekend for obstruction with CT abdomen 04/10/19 negative for bowel obstruction 6. ID: antifungal mouth wash ordered for oral thrush-resolved 5. DVT ppx: TEDs 6. : did not start Colindres, c/u Detrol 4mg daily, suspicion for overactive bladder, per patient his prostate exams have been normal and his stream is consistent and not weak 7. Skin: zinc oxide to sacrum, monitor for breakdown 9. Psych: c/u trazodone 75mg qHS scheduled for insomnia to be given at 11pm 8. Dispo: TBD Allergies Coded Allergies: Sulfa (Sulfonamide Antibiotics) (Verified Allergy, Intermediate, RASH, VIOLENT BEHAVIOR, 04/08/19) latex (Verified Allergy, Unknown, 04/08/19) oxycodone (Verified Adverse Reaction, Intermediate, SUICIDAL THOUGHTS, 04/08/19) Vital Signs Vital Signs Date Time Temp Pulse Resp B/P (MAP) Pulse Ox O2 Delivery O2 Flow Rate FiO2 04/18/19 09:36 131/60 04/18/19 09:35 68 04/18/19 06:00 97.0 20 94 2.0 Laboratory Data CBC/BMP Laboratory Tests 04/18/19 06:15 Red Blood Count 4.23 L, Mean Corpuscular Volume 91.7, Mean Corpuscular Hemoglobin 31.4, Mean Corpuscular Hemoglobin Concent 34.3, Red Cell Distribution Width 13.5, Calcium Level 8.3 L Labs 24H Laboratory Tests 2 04/18/19 06:15: Nucleated Red Blood Cells % (auto) 0.0, Anion Gap 5L, Glomerular Filtration Rate > 60.0, Blood Urea Nitrogen 29H, Creatinine 1.07, Sodium Level 137, Potassium Level 4.3, Chloride Level 106, Carbon Dioxide Level 26, Calcium Level 8.3L, [id number]-[id number]-Type Natriuretic Peptide 69 Current Medications Current Medications Current Medications Acetaminophen (Tylenol Tab) 650 mg Q4HP PRN PO MILD PAIN (PS 1-4) Last administered on 04/11/19 01:45; Start 04/08/19 at 10:30; Stop 04/11/19 at 15:54; Status DC Acetaminophen (Tylenol Tab) 1,000 mg QHS PO Last administered on 04/17/19 21:03; Start 04/11/19 at 21:00 Amlodipine Besylate (Norvasc) 5 mg BID PO ; Start 04/08/19 at 21:00; Stop 04/08/19 at 21:00; Status DC Amlodipine Besylate (Norvasc) 10 mg BID PO Last administered on 04/18/19 09:35; Start 04/08/19 at 21:00 Amoxicillin/ Clavulanate Potassium (Augmentin) 875 mg BID PO Last administered on 04/18/19 09:35; Start 04/17/19 at 21:00 Atorvastatin Calcium (Lipitor) 20 mg QHS PO Last administered on 04/17/19 21:03; Start 04/08/19 at 21:00 Diatrizoate Meglum/ Diatrizoate Sod (Gastrografin) 10 ml Q30M PO Last administered on 04/10/19 11:29; Start 04/10/19 at 10:30; Stop 04/10/19 at 11:01; Status DC Docusate Sodium (Colace) 100 mg BID PO Last administered on 04/11/19 09:01; Start 04/08/19 at 09:00; Stop 04/11/19 at 10:28; Status DC Docusate Sodium (Colace) 100 mg TID PO Last administered on 04/18/19 09:35; Start 04/11/19 at 16:00 Duloxetine HCl (Cymbalta) 60 mg DAILY PO Last administered on 04/18/19 09:35; Start 04/08/19 at 09:00 Fluoxetine HCl (PROzac) 20 mg DAILY PO Last administered on 04/12/19 09:19; Start 04/08/19 at 09:00; Stop 04/12/19 at 14:01; Status DC Fluoxetine HCl (PROzac) 20 mg QHS PO Last administered on 04/17/19 21:03; Start 04/13/19 at 21:00 Home Med (Med Rec Complete!) ASDIRECTED XX ; Start 04/08/19 at 10:30; Stop 04/08/19 at 10:31; Status DC Losartan Potassium (Cozaar) 100 mg DAILY PO Last administered on 04/18/19 09:36; Start 04/08/19 at 09:00 Magnesium Hydroxide (Milk Of Magnesia) 30 ml DAILYPRN PRN PO CONSTIPATION; Start 04/08/19 at 10:30 Meclizine HCl (Antivert) 12.5 mg TIDP PRN PO DIZZINESS Last administered on 04/12/19 09:18; Start 04/08/19 at 10:30 Modafinil (Provigil) 50 mg QAM PO Last administered on 04/18/19 09:36; Start 04/12/19 at 09:00 Multivitamins (Theragram-M) 1 tab BID PO Last administered on 04/18/19 09:35; Start 04/08/19 at 09:00 Nystatin (Mycostatin) 5 ml QID PO Last administered on 04/14/19at 13:43; Start 04/08/19 at 17:00; Stop 04/14/19 at 15:13; Status DC Ondansetron HCl (Zofran) 4 mg Q6HP PRN PO NAUSEA; Start 04/08/19 at 10:30 Pantoprazole Sodium (Protonix) 40 mg DAILY PO Last administered on 04/18/19 09:35; Start 04/09/19 at 09:00 Senna (Senokot) 1 tab BID PO Last administered on 04/11/19 09:01; Start 04/10/19 at 09:00; Stop 04/11/19 at 10:28; Status DC Senna (Senokot) 1 tab QHS PO Last administered on 04/09/19at 20:25; Start 04/08/19 at 21:00; Stop 04/10/19 at 07:06; Status DC Senna (Senokot) 2 tab BID PO ; Start 04/11/19 at 21:00; Stop 04/11/19 at 21:00; Status DC Senna (Senokot) 2 tab QHS PO Last administered on 04/17/19at 21:03; Start 03/20 02/04 at 21:00 Tolterodine Tartrate (Detrol) 4 mg DAILY PO Last administered on 04/18/19at 09:35; Start 04/14/19 at 09:00 Trazodone HCl (Desyrel) 25 mg QHSP PRN PO INSOMNIA; Start 04/08/19 at 10:30; S top 04/11/19 at 14:13; Status DC Trazodone HCl (Desyrel) 50 mg QHS PO Last administered on 04/11/19at 20:24; Start 04/11/19 at 21:00; Stop 04/12/19 at 14:02; Status DC Trazodone HCl (Desyrel) 75 mg QHS PO ; Start 04/12/19 at 21:00; Stop 04/12/19 at 21:02; Status DC Trazodone HCl (Desyrel) 75 mg QHS PO ; Start 04/12/19 at 21:02; Status Cancel Trazodone HCl (Desyrel) 75 mg QHS@2300 PO Last administered on 04/17/19at 22:08; Start 04/12/19 at 23:00 Zinc Oxide (Boudreauxs Butt Paste) BID to sacrum BID TOP Last administered on 04/18/19at 09:36; Start 04/08/19 at 21:00 RUFINO WALKER MD Apr 18, 2019 10:40
--- NOTE | 2019-04-18 10:40 | IPNPDOC ---
PM&R Progress Note DATE OF SERVICE: Apr 15, 2019 Edi Manager Progress Note Subjective: Patient reports he slept much better and is not urinating as much over night. REVIEW OF SYSTEMS: The following is a completed review of systems and has been reviewed. Review of systems otherwise unremarkable. PAIN: Patient self reports no pain EYES:+ double vision (improving) EARS, NOSE, & THROAT: +dysphagia (improving) CARDIOVASCULAR: denies chest pain or palpitations PULMONARY: Negative. Denies shortness of breath GASTROINTESTINAL: denies constipation/diarrhea GENITOURINARY:denies dysuria, +urge incontinence MUSCULOSKELETAL: RUE and RLE paresis NEUROLOGICAL: right sided hemiparesis, aphasia, dysphagia, right sided neglect SKIN: intact PSYCHIATRIC: Unremarkable All other review of systems found to be negative. PHYSICAL EXAMINATION: VITAL SIGNS: Please see below. GENERAL: Pleasant and cooperative. No acute distress. HEENT: PERRL. Extraocular movements intact. Clear conjunctiva, right eye-brow sparing facial droop (improving) CARDIOVASCULAR: Regular rate and rhythm. No murmurs, rubs, or gallops LUNGS: Clear to auscultation bilaterally. No wheezes. No rhonchi ABDOMEN: Soft, nontender, nondistended. Positive bowel sounds. Normal active b owel sounds, colostomy with stool NEUROLOGICAL: Alert and oriented times to person, place, though it was 1978 Cranial nerves II through XII grossly except right sided facial weakness and decreased sensation, decreased sensation right UE and LE +apraxia +dysarthria (improving) +non-fluent aphasia +babinski on right with brisk patellar reflexes 1+/4 MAS right wrist flexors and elbow extensors EXTREMITIES: 5\5 strength left upper extremities, 3+/5 RUE, 3+\5 strength right lower extremity. 5/5 strength in left lower extremity. SKIN: intact ASSESSMENT: 78-year-old M with past medical history of HTN, PEs on Coumadin who presents status post left basal ganglia hemorrhagic stroke PLAN: 1. 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 Neuro: s/p right Basal ganglia, thalamic, temporal hemorrhagic stroke- c/u s tatin and BP meds, adjust prn goal sBP<140 -avoid antiplatelet therapy given recent bleed -c/u Prozac for motor recovery -c/u provigil 50mg daily and OOB to Chair after therapy to encourage wakefulness during the day 3. Cardio: pmh PEs was on Coumadin, on hold until neurosurgical input in 2-4 weeks, will need repeat CT scan prior to visit pmh HTN: c/u amlodipine and Cozaar- medicine consulted 4. Resp: encourage incentive spirometry 5. GI ppx: protonix -colostomy care -patient currently having output from his colostomy- concern over the weekend for obstruction with CT abdomen 04/10/19 negative for bowel obstruction 6. ID: antifungal mouth wash ordered for oral thrush-resolved 5. DVT ppx: TEDs 6. : did not start Colindres, c/u Detrol 4mg daily, suspicion for overactive bladder, per patient his prostate exams have been normal and his stream is consistent and not weak 7. Skin: zinc oxide to sacrum, monitor for breakdown 9. Psych: c/u trazodone 75mg qHS scheduled for insomnia to be given at 11pm 8. Dispo: TBD Allergies Coded Allergies: Sulfa (Sulfonamide Antibiotics) (Verified Allergy, Intermediate, RASH, VIOLENT BEHAVIOR, 04/08/19) latex (Verified Allergy, Unknown, 04/08/19) oxycodone (Verified Adverse Reaction, Intermediate, SUICIDAL THOUGHTS, 04/08/19) Vital Signs Vital Signs Date Time Temp Pulse Resp B/P (MAP) Pulse Ox O2 Delivery O2 Flow Rate FiO2 04/18/19 09:36 131/60 04/18/19 09:35 68 04/18/19 06:00 97.0 20 94 2.0 Laboratory Data CBC/BMP Laboratory Tests 04/18/19 06:15 Red Blood Count 4.23 L, Mean Corpuscular Volume 91.7, Mean Corpuscular Hemoglobin 31.4, Mean Corpuscular Hemoglobin Concent 34.3, Red Cell Distribution Width 13.5, Calcium Level 8.3 L Labs 24H Laboratory Tests 2 04/18/19 06:15: Nucleated Red Blood Cells % (auto) 0.0, Anion Gap 5L, Glomerular Filtration Rate > 60.0, Blood Urea Nitrogen 29H, Creatinine 1.07, Sodium Level 137, Potassium Level 4.3, Chloride Level 106, Carbon Dioxide Level 26, Calcium Level 8.3L, QY-[id number]-Type Natriuretic Peptide 69 Current Medications Current Medications Current Medications Acetaminophen (Tylenol Tab) 650 mg Q4HP PRN PO MILD PAIN (PS 1-4) Last administered on 04/11/19 01:45; Start 04/08/19 at 10:30; Stop 04/11/19 at 15:54; Status DC Acetaminophen (Tylenol Tab) 1,000 mg QHS PO Last administered on 04/17/19 21:03; Start 04/11/19 at 21:00 Amlodipine Besylate (Norvasc) 5 mg BID PO ; Start 04/08/19 at 21:00; Stop 04/08/19 at 21:00; Status DC Amlodipine Besylate (Norvasc) 10 mg BID PO Last administered on 04/18/19 09:35; Start 04/08/19 at 21:00 Amoxicillin/ Clavulanate Potassium (Augmentin) 875 mg BID PO Last administered on 04/18/19 09:35; Start 04/17/19 at 21:00 Atorvastatin Calcium (Lipitor) 20 mg QHS PO Last administered on 04/17/19 21:03; Start 04/08/19 at 21:00 Diatrizoate Meglum/ Diatrizoate Sod (Gastrografin) 10 ml Q30M PO Last administered on 04/10/19 11:29; Start 04/10/19 at 10:30; Stop 04/10/19 at 11:01; Status DC Docusate Sodium (Colace) 100 mg BID PO Last administered on 04/11/19 09:01; Start 04/08/19 at 09:00; Stop 04/11/19 at 10:28; Status DC Docusate Sodium (Colace) 100 mg TID PO Last administered on 04/18/19 09:35; Start 04/11/19 at 16:00 Duloxetine HCl (Cymbalta) 60 mg DAILY PO Last administered on 04/18/19 09:35; Start 04/08/19 at 09:00 Fluoxetine HCl (PROzac) 20 mg DAILY PO Last administered on 04/12/19 09:19; Start 04/08/19 at 09:00; Stop 04/12/19 at 14:01; Status DC Fluoxetine HCl (PROzac) 20 mg QHS PO Last administered on 04/17/19 21:03; Start 04/13/19 at 21:00 Home Med (Med Rec Complete!) ASDIRECTED XX ; Start 04/08/19 at 10:30; Stop 04/08/19 at 10:31; Status DC Losartan Potassium (Cozaar) 100 mg DAILY PO Last administered on 04/18/19 09:36; Start 04/08/19 at 09:00 Magnesium Hydroxide (Milk Of Magnesia) 30 ml DAILYPRN PRN PO CONSTIPATION; Start 04/08/19 at 10:30 Meclizine HCl (Antivert) 12.5 mg TIDP PRN PO DIZZINESS Last administered on 04/12/19 09:18; Start 04/08/19 at 10:30 Modafinil (Provigil) 50 mg QAM PO Last administered on 04/18/19 09:36; Start 04/12/19 at 09:00 Multivitamins (Theragram-M) 1 tab BID PO Last administered on 04/18/19 09:35; Start 04/08/19 at 09:00 Nystatin (Mycostatin) 5 ml QID PO Last administered on 04/14/19at 13:43; Start 04/08/19 at 17:00; Stop 04/14/19 at 15:13; Status DC Ondansetron HCl (Zofran) 4 mg Q6HP PRN PO NAUSEA; Start 04/08/19 at 10:30 Pantoprazole Sodium (Protonix) 40 mg DAILY PO Last administered on 04/18/19 09:35; Start 04/09/19 at 09:00 Senna (Senokot) 1 tab BID PO Last administered on 04/11/19 09:01; Start 04/10/19 at 09:00; Stop 04/11/19 at 10:28; Status DC Senna (Senokot) 1 tab QHS PO Last administered on 04/09/19 20:25; Start 04/08/19 at 21:00; Stop 04/10/19 at 07:06; Status DC Senna (Senokot) 2 tab BID PO ; Start 04/11/19 at 21:00; Stop 04/11/19 at 21:00; Status DC Senna (Senokot) 2 tab QHS PO Last administered on 04/17/19at 21:03; Start 04/11/19 at 21:00 Tolterodine Tartrate (Detrol) 4 mg DAILY PO Last administered on 04/18/19at 09:35; Start 04/14/19 at 09:00 Trazodone HCl (Desyrel) 25 mg QHSP PRN PO INSOMNIA; Start 04/08/19 at 10:30; Stop 04/11/19 at 14:13; Status DC Trazodone HCl (Desyrel) 50 mg QHS PO Last administered on 04/11/19at 20:24; Start 04/11/19 at 21:00; Stop 04/12/19 at 14:02; Status DC Trazodone HCl (Desyrel) 75 mg QHS PO ; Start 04/12/19 at 21:00; Stop 04/12/19 at 21:02; Status DC Trazodone HCl (Desyrel) 75 mg QHS PO ; Start 04/12/19 at 21:02; Status Cancel Trazodone HCl (Desyrel) 75 mg QHS@2300 PO Last administered on 04/17/19at 22:08; Start 04/12/19 at 23:00 Zinc Oxide (Boudreauxs Butt Paste) BID to sacrum BID TOP Last administered on 04/18/19at 09:36; Start 04/08/19 at 21:00 RUFINO WALKER MD Apr 18, 2019 10:40
[2019-04-18 14:00] VITALS: BP 129/60
[2019-04-18 20:00] VITALS: BP 144/64
[2019-04-18] MEDS: SENNA 8.6 MG TAB (SENOKOT) PO SCH (23:26)
[2019-04-18] MEDS: FLUoxetine 20 MG CAP PO SCH (23:26)
[2019-04-18] MEDS: traZODone 50 MG TAB PO SCH (23:27)
[2019-04-18] MEDS: ATORVASTATIN 20 MG TAB PO SCH (23:27)
[2019-04-18] MEDS: ACETAMINOPHEN 500 MG TAB PO SCH (23:27)
[2019-04-19 05:57] VITALS: BP 124/64
[2019-04-19] MEDS: PANTOPRAZOLE 40MG TAB (PROTONIX) PO SCH (08:53)
[2019-04-19] MEDS: DOCUSATE SODIUM 100 MG CAP PO SCH ×3 (08:53→21:06)
[2019-04-19] MEDS: LOSARTAN 50 MG TAB PO SCH (08:53)
[2019-04-19] MEDS: DULoxetine 30 MG CAP (CYMBALTA) PO SCH (08:54)
[2019-04-19] MEDS: AUGMENTIN 875 MG TAB PO SCH ×2 (08:54→21:06)
[2019-04-19] MEDS: MULTIVITAMINS/MINERALS THERAP 1 TAB PO SCH ×2 (08:54→21:06)
[2019-04-19] MEDS: amLODIPine 10 MG TAB PO SCH ×2 (08:54→21:08)
[2019-04-19] MEDS: MODAFINIL 100 MG TABLET PO SCH (08:54)
[2019-04-19] MEDS: TOLTERODINE (DETROL) 2 MG TAB PO SCH (08:54)
[2019-04-19] MEDS: BOUDREAUX'S BUTT PASTE TOP SCH ×2 (08:55→21:09)
--- NOTE | 2019-04-19 11:07 | IPNPDOC ---
PM&R Progress Note DATE OF SERVICE: Apr 19, 2019 Quality System Manager Progress Note Subjective: Patient working on standing tolerance in therapy, no complaints. REVIEW OF SYSTEMS: The following is a completed review of systems and has been reviewed. Review of systems otherwise unremarkable. PAIN: Patient self reports no pain EYES:+ double vision (improving) EARS, NOSE, & THROAT: +dysphagia (improving) CARDIOVASCULAR: denies chest pain or palpitations PULMONARY: Negative. Denies shortness of breath GASTROINTESTINAL: denies constipation/diarrhea GENITOURINARY:denies dysuria, +urge incontinence MUSCULOSKELETAL: RUE and RLE paresis NEUROLOGICAL: right sided hemiparesis, aphasia, dysphagia, right sided neglect SKIN: intact PSYCHIATRIC: Unremarkable All other review of systems found to be negative. PHYSICAL EXAMINATION: VITAL SIGNS: Please see below. GENERAL: Pleasant and cooperative. No acute distress. HEENT: PERRL. Extraocular movements intact. Clear conjunctiva, right eye-brow sparing facial droop (improving) CARDIOVASCULAR: Regular rate and rhythm. No murmurs, rubs, or gallops LUNGS: Clear to auscultation bilaterally. No wheezes. No rhonchi ABDOMEN: Soft, nontender, nondistended. Positive bowel sounds. Normal active bowel sounds, colostomy with stool NEUROLOGICAL: Alert and oriented times to person, place, though it was 1978 Cranial nerves II through XII grossly except right sided facial weakness and decreased sensation, decreased sensation right UE and LE +apraxia +dysarthria (improving) +non-fluent aphasia +babinski on right with brisk patellar reflexes 1+/4 MAS right wrist flexors and elbow extensors EXTREMITIES: 5\5 strength left upper extremities, 3+/5 RUE, 3+\5 strength right lower extremity. 5/5 strength in left lower extremity. SKIN: intact ASSESSMENT: 78-year-old M with past medical history of HTN, PEs on Coumadin who presents status post left basal ganglia hemorrhagic stroke PLAN: 1. 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 Neuro: s/p right Basal ganglia, thalamic, temporal hemorrhagic stroke- c/u statin and BP meds, adjust prn goal sBP<140 -avoid antiplatelet therapy given recent bleed -c/u Prozac for motor recovery -increase Provigil to 100mg daily and OOB to Chair after therapy to encourage w akefulness during the day 3. Cardio: pmh PEs was on Coumadin, on hold until neurosurgical input in 2-4 weeks, will need repeat CT scan prior to visit pmh HTN: c/u amlodipine and Cozaar- medicine consulted 4. Resp: encourage incentive spirometry -episode of hypoxia on 04/17/19, CXR negative-resolved 5. GI ppx: protonix -colostomy care 6. ID: antifungal mouth wash ordered for oral thrush-resolved 5. DVT ppx: TEDs 6. : c/u Detrol 4mg daily, suspicion for overactive bladder, per patient his prostate exams have been normal and his stream is consistent and not weak 7. Skin: zinc oxide to sacrum, monitor for breakdown 9. Psych: c/u trazodone 75mg qHS scheduled for insomnia to be given at 11pm 8. Dispo: 05/03/19 Allergies Coded Allergies: Sulfa (Sulfonamide Antibiotics) (Verified Allergy, Intermediate, RASH, VIOLENT BEHAVIOR, 04/08/19) latex (Verified Allergy, Unknown, 04/08/19) oxycodone (Verified Adverse Reaction, Intermediate, SUICIDAL THOUGHTS, 04/08/19) Vital Signs Vital Signs Date Time Temp Pulse Resp B/P (MAP) Pulse Ox O2 Delivery O2 Flow Rate FiO2 04/19/19 08:54 68 124/64 04/19/19 05:57 97.0 18 94 04/18/19 06:00 2.0 Laboratory Data Labs 24H Laboratory Tests 2 04/18/19 11:48: Bedside Glucose (Misc Panel) 103 Current Medications Current Medications Current Medications Acetaminophen (Tylenol Tab) 650 mg Q4HP PRN PO MILD PAIN (PS 1-4) Last administered on 04/11/19at 01:45; Start 04/08/19 at 10:30; Stop 04/11/19 at 15: 54; Status DC Acetaminophen (Tylenol Tab) 1,000 mg QHS PO Last administered on 04/18/19at 23:27; Start 04/11/19 at 21:00 Amlodipine Besylate (Norvasc) 5 mg BID PO ; Start 04/08/19 at 21:00; Stop 04/08/19 at 21:00; Status DC Amlodipine Besylate (Norvasc) 10 mg BID PO Last administered on 04/19/19 08:54; Start 04/08/19 at 21:00 Amoxicillin/ Clavulanate Potassium (Augmentin) 875 mg BID PO Last administered on 04/19/19 08:54; Start 04/17/19 at 21:00 Atorvastatin Calcium (Lipitor) 20 mg QHS PO Last administered on 04/18/19 23:27; Start 04/08/19 at 21:00 Diatrizoate Meglum/ Diatrizoate Sod (Gastrografin) 10 ml Q30M PO Last administered on 04/10/19 11:29; Start 04/10/19 at 10:30; Stop 04/10/19 at 11:01; Status DC Docusate Sodium (Colace) 100 mg BID PO Last administered on 04/11/19at 09:01; Start 04/08/19 at 09:00; Stop 04/11/19 at 10:28; Status DC Docusate Sodium (Colace) 100 mg TID PO Last administered on 04/19/19 08:53; Start 04/11/19 at 16:00 Duloxetine HCl (Cymbalta) 60 mg DAILY PO Last administered on 04/19/19 08:54; Start 04/08/19 at 09:00 Fluoxetine HCl (PROzac) 20 mg DAILY PO Last administered on 04/12/19at 09:19; Start 04/08/19 at 09:00; Stop 04/12/19 at 14:01; Status DC Fluoxetine HCl (PROzac) 20 mg QHS PO Last administered on 04/18/19at 23:26; S tart 04/13/19 at 21:00 Home Med (Med Rec Complete!) ASDIRECTED XX ; Start 04/08/19 at 10:30; Stop 04/08/19 at 10:31; Status DC Losartan Potassium (Cozaar) 100 mg DAILY PO Last administered on 04/19/19 08:53; Start 04/08/19 at 09:00 Magnesium Hydroxide (Milk Of Magnesia) 30 ml DAILYPRN PRN PO CONSTIPATION; Start 04/08/19 at 10:30 Meclizine HCl (Antivert) 12.5 mg TIDP PRN PO DIZZINESS Last administered on 04/12/19 09:18; Start 04/08/19 at 10:30 Modafinil (Provigil) 50 mg QAM PO Last administered on 04/18/19 09:36; Start 04/12/19 at 09:00; Stop 04/18/19 at 11:15; Status DC Modafinil (Provigil) 100 mg QAM PO Last administered on 04/19/19 08:54; Start 04/19/19 at 09:00 Multivitamins (Theragram-M) 1 tab BID PO Last administered on 04/19/19 08:54; Start 04/08/19 at 09:00 Nystatin (Mycostatin) 5 ml QID PO Last administered on 04/14/19at 13:43; Start 04/08/19 at 17:00; Stop 04/14/19 at 15:13; Status DC Ondansetron HCl (Zofran) 4 mg Q6HP PRN PO NAUSEA; Start 04/08/19 at 10:30 Pantoprazole Sodium (Protonix) 40 mg DAILY PO Last administered on 04/19/19 08:53; Start 04/09/19 at 09:00 Senna (Senokot) 1 tab BID PO Last administered on 04/11/19 09:01; Start 04/10/19 at 09:00; Stop 04/11/19 at 10:28; Status DC Senna (Senokot) 1 tab QHS PO Last administered on 04/09/19at 20:25; Start 04/08/19 at 21:00; Stop 04/10/19 at 07:06; Status DC Senna (Senokot) 2 tab BID PO ; Start 04/11/19 at 21:00; Stop 04/11/19 at 21:00; Status DC Senna (Senokot) 2 tab QHS PO Last administered on 04/18/19 23:26; Start 04/11/19 at 21:00 Tolterodine Tartrate (Detrol) 4 mg DAILY PO Last administered on 04/19/19 08:54; Start 04/14/19 at 09:00 Trazodone HCl (Desyrel) 25 mg QHSP PRN PO INSOMNIA; Start 04/08/19 at 10:30; Stop 04/11/19 at 14:13; Status DC Trazodone HCl (Desyrel) 50 mg QHS PO Last administered on 04/11/19at 20:24; Start 04/11/19 at 21:00; Stop 04/12/19 at 14:02; Status DC Trazodone HCl (Desyrel) 75 mg QHS PO ; Start 04/12/19 at 21:00; Stop 04/12/19 at 21:02; Status DC Trazodone HCl (Desyrel) 75 mg QHS PO ; Start 04/12/19 at 21:02; Status Cancel Trazodone HCl (Desyrel) 75 mg QHS@2300 PO Last administered on 04/18/19at 23:27; Start 04/12/19 at 23:00 Zinc Oxide (Boudreauxs Butt Paste) BID to sacrum BID TOP Last administered on 04/19/19at 08:55; Start 04/08/19 at 21:00 RUFINO WALKER MD Apr 19, 2019 11:07
[2019-04-19 14:00] VITALS: BP 115/55
[2019-04-19 20:00] VITALS: BP 128/64
[2019-04-19] MEDS: ATORVASTATIN 20 MG TAB PO SCH (21:06)
[2019-04-19] MEDS: ACETAMINOPHEN 500 MG TAB PO SCH (21:06)
[2019-04-19] MEDS: SENNA 8.6 MG TAB (SENOKOT) PO SCH (21:06)
[2019-04-19] MEDS: FLUoxetine 20 MG CAP PO SCH (21:06)
[2019-04-19] MEDS: traZODone 50 MG TAB PO SCH (23:04)
[2019-04-20 06:00] VITALS: BP 142/63
[2019-04-20] MEDS: TOLTERODINE (DETROL) 2 MG TAB PO SCH (09:15)
[2019-04-20] MEDS: amLODIPine 10 MG TAB PO SCH ×2 (09:16→20:43)
[2019-04-20] MEDS: DOCUSATE SODIUM 100 MG CAP PO SCH ×3 (09:16→20:43)
[2019-04-20] MEDS: AUGMENTIN 875 MG TAB PO SCH ×2 (09:16→20:42)
[2019-04-20] MEDS: MODAFINIL 100 MG TABLET PO SCH (09:16)
[2019-04-20] MEDS: PANTOPRAZOLE 40MG TAB (PROTONIX) PO SCH (09:16)
[2019-04-20] MEDS: MULTIVITAMINS/MINERALS THERAP 1 TAB PO SCH ×2 (09:16→20:43)
[2019-04-20] MEDS: LOSARTAN 50 MG TAB PO SCH (09:16)
[2019-04-20] MEDS: DULoxetine 30 MG CAP (CYMBALTA) PO SCH (09:16)
[2019-04-20] MEDS: BOUDREAUX'S BUTT PASTE TOP SCH ×2 (09:17→20:44)
--- NOTE | 2019-04-20 11:26 | IPNPDOC ---
PM&R Progress Note DATE OF SERVICE: Apr 20, 2019 Security Threat Analyst Progress Note Subjective: Patient reporting he finds therapy to be very challenging, but sees where he is making gains. REVIEW OF SYSTEMS: The following is a completed review of systems and has been reviewed. Review of systems otherwise unremarkable. PAIN: Patient self reports no pain EYES:+ double vision (improving) EARS, NOSE, & THROAT: +dysphagia (improving) CARDIOVASCULAR: denies chest pain or palpitations PULMONARY: Negative. Denies shortness of breath GASTROINTESTINAL: denies constipation/diarrhea GENITOURINARY:denies dysuria, +urge incontinence MUSCULOSKELETAL: RUE and RLE paresis NEUROLOGICAL: right sided hemiparesis, aphasia, dysphagia, right sided neglect SKIN: intact PSYCHIATRIC: Unremarkable All other review of systems found to be negative. PHYSICAL EXAMINATION: VITAL SIGNS: Please see below. GENERAL: Pleasant and cooperative. No acute distress. HEENT: PERRL. Extraocular movements intact. Clear conjunctiva, right eye-brow sparing facial droop (improving) CARDIOVASCULAR: Regular rate and rhythm. No murmurs, rubs, or gallops LUNGS: Clear to auscultation bilaterally. No wheezes. No rhonchi ABDOMEN: Soft, nontender, nondistended. Positive bowel sounds. Normal active bowel sounds, colostomy with stool NEUROLOGICAL: Alert and oriented times to person, place, though it was 1978 Cranial nerves II through XII grossly except right sided facial weakness and decreased sensation, decreased sensation right UE and LE +apraxia +dysarthria (improving) +non-fluent aphasia +babinski on right with brisk patellar reflexes 1+/4 MAS right wrist flexors and elbow extensors EXTREMITIES: 5\5 strength left upper extremities, 3+/5 RUE, 3+\5 strength right lower extremity. 5/5 strength in left lower extremity. SKIN: intact ASSESSMENT: 78-year-old M with past medical history of HTN, PEs on Coumadin who presents status post left basal ganglia hemorrhagic stroke PLAN: 1. 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 Neuro: s/p right Basal ganglia, thalamic, temporal hemorrhagic stroke- c/u statin and BP meds, adjust prn goal sBP<140 -avoid antiplatelet therapy given recent bleed -c/u Prozac for motor recovery -increase Provigil to 100mg daily and OOB to Chair after therapy to encourage wakefulness during the day 3. Cardio: pmh PEs was on Coumadin, on hold until neurosurgical input in 2-4 weeks, will need repeat CT scan prior to visit pmh HTN: c/u amlodipine and Cozaar- medicine consulted 4. Resp: encourage incentive spirometry -episode of hypoxia on 04/17/19, CXR negative-resolved,on a course of Augmentin for suspected aspiration, however clinically appears well 5. GI ppx: protonix -colostomy care 6. ID: antifungal mouth wash ordered for oral thrush-resolved 5. DVT ppx: TEDs, Dopplers negative for DVT while off AC, has IVC filter 6. : c/u Detrol 4mg daily, suspicion for overactive bladder, per patient his prostate exams have been normal and his stream is consistent and not weak 7. Skin: zinc oxide to sacrum, monitor for breakdown 9. Psych: c/u trazodone 75mg qHS scheduled for insomnia to be given at 11pm 8. Dispo: 05/03/19, progressing slowly towards goals Allergies Coded Allergies: Sulfa (Sulfonamide Antibiotics) (Verified Allergy, Intermediate, RASH, VIOLENT BEHAVIOR, 04/08/19) latex (Verified Allergy, Unknown, 04/08/19) oxycodone (Verified Adverse Reaction, Intermediate, SUICIDAL THOUGHTS, 04/08/19) Vital Signs Vital Signs Date Time Temp Pulse Resp B/P (MAP) Pulse Ox O2 Delivery O2 Flow Rate FiO2 04/20/19 09:16 52 142/63 04/20/19 06:00 97.7 20 95 04/18/19 06:00 2.0 Current Medications Current Medications Current Medications Acetaminophen (Tylenol Tab) 650 mg Q4HP PRN PO MILD PAIN (PS 1-4) Last administered on 04/11/19at 01:45; Start 04/08/19 at 10:30; Stop 04/11/19 at 15:54; Status DC Acetaminophen (Tylenol Tab) 1,000 mg QHS PO Last administered on 04/19/19 21:06; Start 04/11/19 at 21:00 Amlodipine Besylate (Norvasc) 5 mg BID PO ; Start 04/08/19 at 21:00; Stop at 21:00; Status DC Amlodipine Besylate (Norvasc) 10 mg BID PO Last administered on 04/20/19 09:16; Start 04/08/19 at 21:00 Amoxicillin/ Clavulanate Potassium (Augmentin) 875 mg BID PO Last administered on 04/20/19 09:16; Start 04/17/19 at 21:00 Atorvastatin Calcium (Lipitor) 20 mg QHS PO Last administered on 04/19/19 21:06; Start 04/08/19 at 21:00 Diatrizoate Meglum/ Diatrizoate Sod (Gastrografin) 10 ml Q30M PO Last administered on 04/10/19 11:29; Start 04/10/19 at 10:30; Stop 04/10/19 at 11:01 ; Status DC Docusate Sodium (Colace) 100 mg BID PO Last administered on 04/11/19 09:01; Start 04/08/19 at 09:00; Stop 04/11/19 at 10:28; Status DC Docusate Sodium (Colace) 100 mg TID PO Last administered on 04/20/19 09:16; Start 04/11/19 at 16:00 Duloxetine HCl (Cymbalta) 60 mg DAILY PO Last administered on 04/20/19 09:16; Start 04/08/19 at 09:00 Fluoxetine HCl (PROzac) 20 mg DAILY PO Last administered on 04/12/19 09:19; Start 04/08/19 at 09:00; Stop 04/12/19 at 14:01; Status DC Fluoxetine HCl (PROzac) 20 mg QHS PO Last administered on 04/19/19 21:06; Start 04/13/19 at 21:00 Home Med (Med Rec Complete!) ASDIRECTED XX ; Start 04/08/19 at 10:30; Stop 04/08/19 at 10:31; Status DC Losartan Potassium (Cozaar) 100 mg DAILY PO Last administered on 04/20/19 09:16; Start 04/08/19 at 09:00 Magnesium Hydroxide (Milk Of Magnesia) 30 ml DAILYPRN PRN PO CONSTIPATION; Start 04/08/19 at 10:30 Meclizine HCl (Antivert) 12.5 mg TIDP PRN PO DIZZINESS Last administered on 04/12/19 09:18; Start 04/08/19 at 10:30 Modafinil (Provigil) 50 mg QAM PO Last administered on 04/18/19 09:36; Start 04/12/19 at 09:00; Stop 04/18/19 at 11:15; Status DC Modafinil (Provigil) 100 mg QAM PO Last administered on 04/20/19 09:16; Start 04/19/19 at 09:00 Multivitamins (Theragram-M) 1 tab BID PO Last administered on 04/20/19 09:16; Start 04/08/19 at 09:00 Nystatin (Mycostatin) 5 ml QID PO Last administered on 04/14/19 13:43; Start 04/08/19 at 17:00; Stop 04/14/19 at 15:13; Status DC Ondansetron HCl (Zofran) 4 mg Q6HP PRN PO NAUSEA; Start 04/08/19 at 10:30 Pantoprazole Sodium (Protonix) 40 mg DAILY PO Last administered on 04/20/19 09:16; Start 04/09/19 at 09:00 Senna (Senokot) 1 tab BID PO Last administered on 04/11/19 09:01; Start 04/10/19 at 09:00; Stop 04/11/19 at 10:28; Status DC Senna (Senokot) 1 tab QHS PO Last administered on 04/09/19at 20:25; Start 04/08/19 at 21:00; Stop 04/10/19 at 07:06; Status DC Senna (Senokot) 2 tab BID PO ; Start 04/11/19 at 21:00; Stop 04/11/19 at 21:00; Status DC Senna (Senokot) 2 tab QHS PO Last administered on 04/19/19 21:06; Start 04/11/19 at 21:00 Tolterodine Tartrate (Detrol) 4 mg DAILY PO Last administered on 7/3/19at 09:15; Start 04/14/19 at 09:00 Trazodone HCl (Desyrel) 25 mg QHSP PRN PO INSOMNIA; Start 04/08/19 at 10:30; Stop 04/11/19 at 14:13; Status DC Trazodone HCl (Desyrel) 50 mg QHS PO Last administered on 04/11/19at 20:24; Start 04/11/19 at 21:00; Stop 04/12/19 at 14:02; Status DC Trazodone HCl (Desyrel) 75 mg QHS PO ; Start 04/12/19 at 21:00; Stop 04/12/19 at 21:02; Status DC Trazodone HCl (Desyrel) 75 mg QHS PO ; Start 04/12/19 at 21:02; Status Cancel Trazodone HCl (Desyrel) 75 mg QHS@2300 PO Last administered on 04/19/19at 23:04; Start 04/12/19 at 23:00 Zinc Oxide (Boudreauxs Butt Paste) BID to sacrum BID TOP Last administered on 04/20/19at 09:17; Start 04/08/19 at 21:00 RUFINO WALKER MD Apr 20, 2019 11:26
[2019-04-20 14:00] VITALS: BP 120/58
--- NOTE | 2019-04-20 15:27 | REP ---
Bilateral lower extremity Duplex Doppler venous ultrasound: Real time compression and duplex Doppler interrogation of the bilateral lower extremity deep venous system is performed. Bilaterally, the common femoral, superficial femoral and popliteal veins are fully compressible with transducer pressure and demonstrate normal spontaneous and phasic flow, without evidence of deep venous thrombosis. Impression: No evidence of deep venous thrombosis of the bilateral lower extremity femoral popliteal venous system. Electronically Signed by Dann Hernandez MD 04/20/2019 03:19 P
[2019-04-20] MEDS: SENNA 8.6 MG TAB (SENOKOT) PO SCH (20:42)
[2019-04-20] MEDS: FLUoxetine 20 MG CAP PO SCH (20:42)
[2019-04-20] MEDS: ATORVASTATIN 20 MG TAB PO SCH (20:43)
[2019-04-20] MEDS: ACETAMINOPHEN 500 MG TAB PO SCH (20:43)
[2019-04-20 22:00] VITALS: BP 142/64
[2019-04-20] MEDS: traZODone 50 MG TAB PO SCH (23:07)
[2019-04-21 06:00] VITALS: BP 166/71
[2019-04-21 07:49] LABS: BASO # 0.1 10^3/uL (0.0-0.2); BASO % 0.8 % (0.0-1.0); EOS # 0.2 10^3/uL (0.0-0.50); EOS % 3.9 % (0.0-3.0); HEMATOCRIT 39.5 % (42.0-52.0); HEMOGLOBIN 13.4 g/dl (13.5-17.5); LYMPH # 1.1 10^3/uL (1.5-4.5); LYMPH % 17.7 % (24.0-44.0); MEAN CORPUSCULAR HEMOGLOBIN 31.8 pg (27.0-33.0); MEAN CORPUSCULAR HGB CONC 33.9 g/dl (32.0-36.5); MEAN CORPUSCULAR VOLUME 93.8 fl (80.0-96.0); MONO # 0.5 10^3/uL (0.0-0.8); MONO % 8.1 % (0.0-5.0); PLATELET COUNT, AUTOMATED 199 10^3/uL (150-450); RED BLOOD COUNT 4.21 10^6/uL (4.30-6.10); WHITE BLOOD COUNT 5.9 10^3/uL (4.0-10.0)
[2019-04-21 08:04] LABS: BLOOD UREA NITROGEN 20 MG/DL (7-18); CALCIUM LEVEL 8.4 MG/DL (8.8-10.2); CARBON DIOXIDE LEVEL 25 MEQ/L (21-32); CHLORIDE LEVEL 105 MEQ/L (98-107); CREATININE FOR GFR 1.01 MG/DL (0.70-1.30); GLOMERULAR FILTRATION RATE > 60.0 (>35); GLUCOSE, FASTING 92 MG/DL (70-100); POTASSIUM SERUM 4.2 MEQ/L (3.5-5.1); SODIUM LEVEL 136 MEQ/L (136-145)
[2019-04-21] MEDS: PANTOPRAZOLE 40MG TAB (PROTONIX) PO SCH (08:23)
[2019-04-21] MEDS: DULoxetine 30 MG CAP (CYMBALTA) PO SCH (08:23)
[2019-04-21] MEDS: AUGMENTIN 875 MG TAB PO SCH ×2 (08:23→20:48)
[2019-04-21] MEDS: DOCUSATE SODIUM 100 MG CAP PO SCH ×3 (08:23→20:47)
[2019-04-21] MEDS: amLODIPine 10 MG TAB PO SCH ×2 (08:23→20:48)
[2019-04-21] MEDS: LOSARTAN 50 MG TAB PO SCH (08:23)
[2019-04-21] MEDS: MULTIVITAMINS/MINERALS THERAP 1 TAB PO SCH ×2 (08:23→20:47)
[2019-04-21] MEDS: MODAFINIL 100 MG TABLET PO SCH (08:23)
[2019-04-21] MEDS: BOUDREAUX'S BUTT PASTE TOP SCH ×2 (08:26→20:49)
[2019-04-21] MEDS: TOLTERODINE (DETROL) 2 MG TAB PO SCH (08:26)
[2019-04-21 14:00] VITALS: BP 122/59
[2019-04-21 19:45] VITALS: BP 115/63
[2019-04-21] MEDS: SENNA 8.6 MG TAB (SENOKOT) PO SCH (20:48)
[2019-04-21] MEDS: ACETAMINOPHEN 500 MG TAB PO SCH (20:48)
[2019-04-21] MEDS: ATORVASTATIN 20 MG TAB PO SCH (20:48)
[2019-04-21] MEDS: FLUoxetine 20 MG CAP PO SCH (20:48)
[2019-04-21] MEDS: traZODone 50 MG TAB PO SCH (22:20)
[2019-04-22 06:35] VITALS: BP 133/62
[2019-04-22] MEDS: LOSARTAN 50 MG TAB PO SCH (09:14)
[2019-04-22] MEDS: MULTIVITAMINS/MINERALS THERAP 1 TAB PO SCH ×2 (09:14→20:41)
[2019-04-22] MEDS: DULoxetine 30 MG CAP (CYMBALTA) PO SCH (09:14)
[2019-04-22] MEDS: PANTOPRAZOLE 40MG TAB (PROTONIX) PO SCH (09:15)
[2019-04-22] MEDS: amLODIPine 10 MG TAB PO SCH ×2 (09:15→20:41)
[2019-04-22] MEDS: AUGMENTIN 875 MG TAB PO SCH ×2 (09:15→20:42)
[2019-04-22] MEDS: DOCUSATE SODIUM 100 MG CAP PO SCH ×3 (09:15→20:41)
[2019-04-22] MEDS: MODAFINIL 100 MG TABLET PO SCH (09:15)
[2019-04-22] MEDS: TOLTERODINE (DETROL) 2 MG TAB PO SCH (09:15)
[2019-04-22] MEDS: BOUDREAUX'S BUTT PASTE TOP SCH ×2 (09:17→20:43)
[2019-04-22 14:00] VITALS: BP 124/58
[2019-04-22 20:00] VITALS: BP 149/67
[2019-04-22] MEDS: ATORVASTATIN 20 MG TAB PO SCH (20:40)
[2019-04-22] MEDS: SENNA 8.6 MG TAB (SENOKOT) PO SCH (20:41)
[2019-04-22] MEDS: FLUoxetine 20 MG CAP PO SCH (20:42)
[2019-04-22] MEDS: ACETAMINOPHEN 500 MG TAB PO SCH (20:42)
[2019-04-22] MEDS: traZODone 50 MG TAB PO SCH (23:07)
[2019-04-23 06:00] VITALS: BP 133/60
[2019-04-23] MEDS: TOLTERODINE (DETROL) 2 MG TAB PO SCH (08:30)
[2019-04-23] MEDS: DOCUSATE SODIUM 100 MG CAP PO SCH ×3 (08:30→21:11)
[2019-04-23] MEDS: DULoxetine 30 MG CAP (CYMBALTA) PO SCH (08:30)
[2019-04-23] MEDS: AUGMENTIN 875 MG TAB PO SCH ×2 (08:33→21:12)
[2019-04-23] MEDS: PANTOPRAZOLE 40MG TAB (PROTONIX) PO SCH (08:33)
[2019-04-23] MEDS: MODAFINIL 100 MG TABLET PO SCH (08:33)
[2019-04-23] MEDS: MULTIVITAMINS/MINERALS THERAP 1 TAB PO SCH ×2 (08:33→21:12)
[2019-04-23] MEDS: LOSARTAN 50 MG TAB PO SCH (08:33)
[2019-04-23] MEDS: BOUDREAUX'S BUTT PASTE TOP SCH ×2 (08:34→21:12)
[2019-04-23] MEDS: amLODIPine 10 MG TAB PO SCH ×2 (08:34→21:11)
[2019-04-23 14:00] VITALS: BP 119/55
[2019-04-23 21:00] VITALS: BP 127/70
[2019-04-23] MEDS: FLUoxetine 20 MG CAP PO SCH (21:11)
[2019-04-23] MEDS: SENNA 8.6 MG TAB (SENOKOT) PO SCH (21:12)
[2019-04-23] MEDS: ACETAMINOPHEN 500 MG TAB PO SCH (21:12)
[2019-04-23] MEDS: ATORVASTATIN 20 MG TAB PO SCH (21:12)
[2019-04-23] MEDS: traZODone 50 MG TAB PO SCH (23:10)
[2019-04-24 06:00] VITALS: BP 113/55
[2019-04-24] MEDS: AUGMENTIN 875 MG TAB PO SCH ×2 (09:05→20:01)
[2019-04-24] MEDS: MULTIVITAMINS/MINERALS THERAP 1 TAB PO SCH ×2 (09:05→20:04)
[2019-04-24] MEDS: DOCUSATE SODIUM 100 MG CAP PO SCH ×3 (09:05→20:01)
[2019-04-24] MEDS: MODAFINIL 100 MG TABLET PO SCH (09:05)
[2019-04-24] MEDS: PANTOPRAZOLE 40MG TAB (PROTONIX) PO SCH (09:06)
[2019-04-24] MEDS: TOLTERODINE (DETROL) 2 MG TAB PO SCH (09:06)
[2019-04-24] MEDS: LOSARTAN 50 MG TAB PO SCH (09:06)
[2019-04-24] MEDS: DULoxetine 30 MG CAP (CYMBALTA) PO SCH (09:06)
[2019-04-24] MEDS: amLODIPine 10 MG TAB PO SCH ×2 (09:07→20:04)
[2019-04-24] MEDS: BOUDREAUX'S BUTT PASTE TOP SCH ×2 (09:07→20:06)
[2019-04-24 14:00] VITALS: BP 114/56
[2019-04-24 20:00] VITALS: BP 126/60
[2019-04-24] MEDS: ATORVASTATIN 20 MG TAB PO SCH (20:01)
[2019-04-24] MEDS: FLUoxetine 20 MG CAP PO SCH (20:04)
[2019-04-24] MEDS: SENNA 8.6 MG TAB (SENOKOT) PO SCH (20:04)
[2019-04-24] MEDS: ACETAMINOPHEN 500 MG TAB PO SCH (20:05)
[2019-04-24] MEDS: traZODone 50 MG TAB PO SCH (22:03)
[2019-04-25] MEDS: DULoxetine 30 MG CAP (CYMBALTA) PO SCH (08:49)
[2019-04-25] MEDS: AUGMENTIN 875 MG TAB PO SCH (08:49)
[2019-04-25] MEDS: TOLTERODINE (DETROL) 2 MG TAB PO SCH (08:49)
[2019-04-25] MEDS: MULTIVITAMINS/MINERALS THERAP 1 TAB PO SCH ×2 (08:49→20:56)
[2019-04-25] MEDS: LOSARTAN 50 MG TAB PO SCH (08:49)
[2019-04-25] MEDS: PANTOPRAZOLE 40MG TAB (PROTONIX) PO SCH (08:49)
[2019-04-25] MEDS: DOCUSATE SODIUM 100 MG CAP PO SCH ×3 (08:50→20:56)
[2019-04-25] MEDS: MODAFINIL 100 MG TABLET PO SCH (08:50)
[2019-04-25] MEDS: amLODIPine 10 MG TAB PO SCH ×2 (08:50→20:57)
[2019-04-25] MEDS: BOUDREAUX'S BUTT PASTE TOP SCH ×2 (08:50→21:00)
[2019-04-25] MEDS: AQUAPHOR **100GM** OINT TOP SCH ×2 (09:00→20:58)
--- NOTE | 2019-04-25 11:54 | IPNPDOC ---
Subjective Date Seen The patient was seen on 04/25/19. Subjective Chief Complaint/HPI 78-year-old male, admitted on account of recent hemorrhagic CVA while on anticoagulation therapy with warfarin Events since last encounter Up to chair at bedside, has no concerns at this time, states he is sleeping better, patient up every 3 hours every night. Since Thursday has been able to move right upper extremity better. Denies chest pain, denies shortness of breath. Objective Physical Examination General Exam: Positive: Alert, Cooperative, No Acute Distress ENT Exam: Positive: Atraumatic Neck Exam: Positive: Supple; Negative: JVD Chest Exam: Positive: Clear to auscultation, Normal air movement Heart Exam: Positive: Rate Normal, Normal S1, Normal S2; Negative: Murmurs Abdomen Exam: Positive: Normal bowel sounds, Soft; Negative: Tenderness Extremity Exam: Negative: Edema Neuro Exam: Negative: Normal Gait, Normal Speech, Strength at 5/5 X4 ext Psych Exam: Positive: Mental status NL, Mood NL Other physical findings GENERAL: up to chair at bedside. NAD SKIN : Warm, dry intact HEENT: Atraumatic, normocephalic, moist mucous membrane CARDIOVASCULAR: Regular rate and rhythm, S1S2, no JVD, no edema RESP: CTAB, no accessory muscle use noted ABDOMEN: BS+ non distended non tender, right colostomy MS: no joint deformities NEURO: Alert and oriented x 3, right upper and lower extremity weakness PSYCH: no anxiety or agitation, appropriate mood and affect. 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 Atorvastatin 20 mg daily at bedtime OAB -Continue detrol therapy -Patient has been having better nighttime sleep DVT prophylaxis -Not a candidate for anticoagulation therapy given recent hemorrhagic CVA -Antiembolism stockings contraindicated in the setting of underlying DVT Plan/VTE VTE Prophylaxis Ordered?: No VS, I&O, 24H, Fishbone Vital Signs/I&O Vital Signs Date Time Temp Pulse Resp B/P (MAP) Pulse Ox O2 Delivery O2 Flow Rate FiO2 04/25/19 08:50 67 126/60 04/24/19 20:00 98.6 18 95 I&O- Last 24 Hours up to 6 AM 04/25/19 06:00 Intake Total 480 ml Output Total 900 ml Balance -420 ml [facility] Apr 25, 2019 11:54
[2019-04-25 12:00] VITALS: BP 104/54
[2019-04-25 14:00] VITALS: BP 124/60
--- NOTE | 2019-04-25 14:03 | IPNPDOC ---
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 REVIEW OF SYSTEMS: The following is a completed review of systems and has been reviewed. Review of systems otherwise unremarkable. PAIN: Patient self reports no pain EYES:+ double vision (improving) EARS, NOSE, & THROAT: +dysphagia (improving) CARDIOVASCULAR: denies chest pain or palpitations PULMONARY: Negative. Denies shortness of breath GASTROINTESTINAL: denies constipation/diarrhea GENITOURINARY:denies dysuria, +urge incontinence (improving) MUSCULOSKELETAL: RUE and RLE paresis NEUROLOGICAL: right sided hemiparesis, aphasia, dysphagia, right sided neglect SKIN: intact PSYCHIATRIC: Unremarkable All other review of systems found to be negative. PHYSICAL EXAMINATION: VITAL SIGNS: Please see below. GENERAL: Pleasant and cooperative. No acute distress. HEENT: PERRL. Extraocular movements intact. Clear conjunctiva, right eye-brow sparing facial droop (improving) CARDIOVASCULAR: Regular rate and rhythm. No murmurs, rubs, or gallops LUNGS: Clear to auscultation bilaterally. No wheezes. No rhonchi ABDOMEN: Soft, nontender, nondistended. Positive bowel sounds. Normal active bowel sounds, colostomy with stool NEUROLOGICAL: Alert and oriented times to person, place, though it was 1978 Cranial nerves II through XII grossly except right sided facial weakness and decreased sensation, decreased sensation right UE and LE +apraxia +dysarthria (improving) +non-fluent aphasia +babinski on right with brisk patellar reflexes 1+/4 MAS right wrist flexors and elbow extensors EXTREMITIES: 5\5 strength left upper extremities, 3+/5 RUE, 3+\5 strength right lower extremity. 5/5 strength in left lower extremity. SKIN: intact ASSESSMENT: 78-year-old M with past medical history of HTN, PEs on Coumadin who presents status post left basal ganglia hemorrhagic stroke PLAN: 1. 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 Neuro: s/p right Basal ganglia, thalamic, temporal hemorrhagic stroke- c/u statin and BP meds, adjust prn goal sBP<140 -avoid antiplatelet therapy given recent bleed -c/u Prozac for motor recovery -increase Provigil to 100mg daily and OOB to Chair after therapy to encourage wakefulness during the day 3. Cardio: pmh PEs was on Coumadin, on hold until neurosurgical input in 2-4 weeks, will need repeat CT scan prior to visit pmh HTN: c/u amlodipine and Cozaar- medicine consulted 4. Resp: encourage incentive spirometry -episode of hypoxia on 04/17/19, CXR negative-resolved, finished up course of Augmentin for suspected aspiration, however clinically appears well- no cough 5. GI ppx: protonix -colostomy care 6. ID: antifungal mouth wash ordered for oral thrush-resolved 5. DVT ppx: TEDs, Dopplers negative for DVT while off AC, has IVC filter 6. : c/u Detrol 4mg daily, suspicion for overactive bladder, per patient his prostate exams have been normal and his stream is consistent and not weak 7. Skin: zinc oxide to sacrum, monitor for breakdown 9. Psych: c/u trazodone 75mg qHS scheduled for insomnia to be given at 11pm 8. Dispo: 05/03/19, progressing slowly towards goals Allergies Coded Allergies: Sulfa (Sulfonamide Antibiotics) (Verified Allergy, Intermediate, RASH, VIOLENT BEHAVIOR, 04/08/19) latex (Verified Allergy, Unknown, 04/08/19) oxycodone (Verified Adverse Reaction, Intermediate, SUICIDAL THOUGHTS, 04/08/19) Vital Signs Vital Signs Date Time Temp Pulse Resp B/P (MAP) Pulse Ox O2 Delivery O2 Flow Rate FiO2 04/25/19 12:00 98.1 66 18 104/54 (71) 97 Current Medications Current Medications Current Medications Acetaminophen (Tylenol Tab) 650 mg Q4HP PRN PO MILD PAIN (PS 1-4) Last administered on 04/11/19at 01:45; Start 04/08/19 at 10:30; Stop 04/11/19 at 15:54; Status DC Acetaminophen (Tylenol Tab) 1,000 mg QHS PO Last administered on 7/7/19at 20:05; Start 04/11/19 at 21:00 Amlodipine Besylate (Norvasc) 5 mg BID PO ; Start 04/08/19 at 21:00; Stop 04/08/19 at 21:00; Status DC Amlodipine Besylate (Norvasc) 10 mg BID PO Last administered on 04/25/19 08:50; Start 04/08/19 at 21:00 Amoxicillin/ Clavulanate Potassium (Augmentin) 875 mg BID PO Last administered on 04/25/19 08:49; Start 04/17/19 at 21:00; Stop 04/25/19 at 09:07; Status DC Atorvastatin Calcium (Lipitor) 20 mg QHS PO Last administered on 04/24/19 20:01; Start 04/08/19 at 21:00 Diatrizoate Meglum/ Diatrizoate Sod (Gastrografin) 10 ml Q30M PO Last administered on 04/10/19 11:29; Start 04/10/19 at 10:30; Stop 04/10/19 at 11:01; Status DC Docusate Sodium (Colace) 100 mg BID PO Last administered on 04/11/19 09:01; Start 04/08/19 at 09:00; Stop 04/11/19 at 10:28; Status DC Docusate Sodium (Colace) 100 mg TID PO Last administered on 04/25/19 08:50; Start 04/11/19 at 16:00 Duloxetine HCl (Cymbalta) 60 mg DAILY PO Last administered on 04/25/19 08:49; Start 04/08/19 at 09:00 Emollient Ointment (Aquaphor) apply to face, arms and legs BID TOP ; Start 04/25/19 at 09:00 Fluoxetine HCl (PROzac) 20 mg DAILY PO Last administered on 04/12/19 09:19; Start 04/08/19 at 09:00; Stop 04/12/19 at 14:01; Status DC Fluoxetine HCl (PROzac) 20 mg QHS PO Last administered on 04/21/19 20:48; Start 04/13/19 at 21:00; Stop 04/22/19 at 13:39; Status DC Fluoxetine HCl (PROzac) 40 mg QHS PO Last administered on 04/24/19at 20:04; Start 04/22/19 at 21:00 Home Med (Med Rec Complete!) ASDIRECTED XX ; Start 04/08/19 at 10:30; Stop 04/08/19 at 10:31; Status DC Losartan Potassium (Cozaar) 100 mg DAILY PO Last administered on 04/25/19 08:49; Start 04/08/19 at 09:00 Magnesium Hydroxide (Milk Of Magnesia) 30 ml DAILYPRN PRN PO CONSTIPATION; Start 04/08/19 at 10:30 Meclizine HCl (Antivert) 12.5 mg TIDP PRN PO DIZZINESS Last administered on 04/12/19 09:18; Start 04/08/19 at 10:30 Miscellaneous (Unresolved Clarification Entry) SEE LABEL COMMENTS DAILY XX ; Start 04/24/19 at 09:00; Stop 04/24/19 at 13:40; Status DC Miscellaneous (Unresolved Clarification Entry) SEE LABEL COMMENTS DAILY XX ; Start 04/25/19 at 09:00; Stop 04/25/19 at 09:08; Status DC Modafinil (Provigil) 50 mg QAM PO Last administered on 04/18/19at 09:36; Start 04/12/19 at 09:00; Stop 04/18/19 at 11:15; Status DC Modafinil (Provigil) 100 mg QAM PO Last administered on 04/25/19 08:50; Start 04/19/19 at 09:00 Multivitamins (Theragram-M) 1 tab BID PO Last administered on 04/25/19 08:49; Start 04/08/19 at 09:00 Nystatin (Mycostatin) 5 ml QID PO Last administered on 04/14/19at 13:43; Start 04/08/19 at 17:00; Stop 04/14/19 at 15:13; Status DC Ondansetron HCl (Zofran) 4 mg Q6HP PRN PO NAUSEA; Start 04/08/19 at 10:30 Pantoprazole Sodium (Protonix) 40 mg DAILY PO Last administered on 04/25/19 08:49; Start 04/09/19 at 09:00 Senna (Senokot) 1 tab BID PO Last administered on 04/11/19at 09:01; Start 04/10/19 at 09:00; Stop 04/11/19 at 10:28; Status DC Senna (Senokot) 1 tab QHS PO Last administered on 04/09/19 20:25; Start 04/08/19 at 21:00; Stop 04/10/19 at 07:06; Status DC Senna (Senokot) 2 tab BID PO ; Start 04/11/19 at 21:00; Stop 04/11/19 at 21:00; Status DC Senna (Senokot) 2 tab QHS PO Last administered on 04/23/19at 21:12; Start 04/11/19 at 21:00 Tolterodine Tartrate (Detrol) 4 mg DAILY PO Last administered on 04/25/19 08:49; Start 04/14/19 at 09:00 Trazodone HCl (Desyrel) 25 mg QHSP PRN PO INSOMNIA; Start 04/08/19 at 10:30; Stop 04/11/19 at 14:13; Status DC Trazodone HCl (Desyrel) 50 mg QHS PO Last administered on 04/11/19at 20:24; Start 04/11/19 at 21:00; Stop 04/12/19 at 14:02; Status DC Trazodone HCl (Desyrel) 75 mg QHS PO ; Start 04/12/19 at 21:00; Stop 04/12/19 at 21:02; Status DC Trazodone HCl (Desyrel) 75 mg QHS PO ; Start 04/12/19 at 21:02; Status Cancel Trazodone HCl (Desyrel) 75 mg QHS@2300 PO Last administered on 04/24/19 22:03; Start 04/12/19 at 23:00 Zinc Oxide (Boudreauxs Butt Paste) BID to sacrum BID TOP Last administered on 04/25/19 08:50; Start 04/08/19 at 21:00 RUFINO WALKER MD Apr 25, 2019 14:03
[2019-04-25 19:59] VITALS: BP 128/60
[2019-04-25] MEDS: ACETAMINOPHEN 500 MG TAB PO SCH (20:57)
[2019-04-25] MEDS: SENNA 8.6 MG TAB (SENOKOT) PO SCH (20:57)
[2019-04-25] MEDS: FLUoxetine 20 MG CAP PO SCH (20:57)
[2019-04-25] MEDS: ATORVASTATIN 20 MG TAB PO SCH (20:58)
[2019-04-25] MEDS: traZODone 50 MG TAB PO SCH (23:00)
[2019-04-26 05:48] VITALS: BP 128/60
[2019-04-26] MEDS: PANTOPRAZOLE 40MG TAB (PROTONIX) PO SCH (08:23)
[2019-04-26] MEDS: LOSARTAN 50 MG TAB PO SCH (08:23)
[2019-04-26] MEDS: DOCUSATE SODIUM 100 MG CAP PO SCH ×3 (08:23→20:05)
[2019-04-26] MEDS: amLODIPine 10 MG TAB PO SCH ×2 (08:23→20:05)
[2019-04-26] MEDS: DULoxetine 30 MG CAP (CYMBALTA) PO SCH (08:24)
[2019-04-26] MEDS: BOUDREAUX'S BUTT PASTE TOP SCH ×2 (08:24→20:06)
[2019-04-26] MEDS: TOLTERODINE (DETROL) 2 MG TAB PO SCH (08:24)
[2019-04-26] MEDS: MULTIVITAMINS/MINERALS THERAP 1 TAB PO SCH ×2 (08:24→20:05)
[2019-04-26] MEDS: MODAFINIL 100 MG TABLET PO SCH (08:24)
[2019-04-26] MEDS: AQUAPHOR **100GM** OINT TOP SCH ×2 (08:24→20:06)
[2019-04-26 11:39] LABS: BASO # 0.1 10^3/uL (0.0-0.2); BASO % 0.8 % (0.0-1.0); EOS # 0.2 10^3/uL (0.0-0.50); EOS % 2.4 % (0.0-3.0); HEMATOCRIT 39.9 % (42.0-52.0); HEMOGLOBIN 13.6 g/dl (13.5-17.5); LYMPH % 14.9 % (24.0-44.0); MEAN CORPUSCULAR HEMOGLOBIN 32.2 pg (27.0-33.0); MEAN CORPUSCULAR HGB CONC 34.1 g/dl (32.0-36.5); MEAN CORPUSCULAR VOLUME 94.5 fl (80.0-96.0); MONO # 0.5 10^3/uL (0.0-0.8); MONO % 7.5 % (0.0-5.0); NEUTROPHILS # 4.9 10^3/uL (1.8-7.7); NEUTROPHILS % 73.6 % (36.0-66.0); PLATELET COUNT, AUTOMATED 201 10^3/uL (150-450); RED BLOOD COUNT 4.22 10^6/uL (4.30-6.10); WHITE BLOOD COUNT 6.6 10^3/uL (4.0-10.0)
[2019-04-26 12:25] LABS: BLOOD UREA NITROGEN 30 MG/DL (7-18); CALCIUM LEVEL 8.4 MG/DL (8.8-10.2); CARBON DIOXIDE LEVEL 25 MEQ/L (21-32); CHLORIDE LEVEL 106 MEQ/L (98-107); CREATININE FOR GFR 1.12 MG/DL (0.70-1.30); GLOMERULAR FILTRATION RATE > 60.0 (>35); GLUCOSE, FASTING 97 MG/DL (70-100); POTASSIUM SERUM 4.5 MEQ/L (3.5-5.1); SODIUM LEVEL 139 MEQ/L (136-145)
[2019-04-26 14:00] VITALS: BP 111/57
--- NOTE | 2019-04-26 15:52 | IPNPDOC ---
Text Note Date of Service The patient was seen on 04/26/19. NOTE Sujective: Denies discomfort. Today, no chest pain, no shortness of breath, no headache, no chills, no diarrhea. Objective GENERAL: NAD SKIN : Warm, dry intact HEENT: Atraumatic, normocephalic, moist mucous membrane, slight slurred speech CARDIOVASCULAR: Regular rate and rhythm, S1S2, no JVD, no edema RESP: CTAB, no accessory muscle use noted ABDOMEN: BS+ non distended non tender, right colostomy MS: no joint deformities NEURO: Alert and oriented x 3, right upper and lower extremity weakness PSYCH: no anxiety or agitation, appropriate mood and affect. 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 -Rehabilitation by primary team, improving DVT/ PE -off anticoagulation therapy due to recent stroke -to be restarted on anticoagulation therapy after follow-up and clearance with neurosurgery Hypertension -Essential, benign -Continue losartan and Norvasc -Blood pressure is controlled -monitoring with target systolic blood pressure less than 140 Hyperlipidemia -Continue Atorvastatin 20 mg daily at bedtime OAB -Continue detrol therapy -Patient has been having better nighttime sleep DVT prophylaxis -Not a candidate for anticoagulation therapy given recent hemorrhagic CVA -Antiembolism stockings contraindicated in the setting of underlying DVT VS,Fishbone, I+O VS, Fishbone, I+O Laboratory Tests 04/26/19 11:23 Red Blood Count 4.22 L, Mean Corpuscular Volume 94.5, Mean Corpuscular Hemoglobin 32.2, Mean Corpuscular Hemoglobin Concent 34.1, Red Cell Distribution Width 13.8, Neutrophils (%) (Auto) 73.6 H, Lymphocytes (%) (Auto) 14.9 L, M onocytes (%) (Auto) 7.5 H, Eosinophils (%) (Auto) 2.4, Basophils (%) (Auto) 0.8, Neutrophils # (Auto) 4.9, Lymphocytes # (Auto) 1.0 L, Monocytes # (Auto) 0.5, Eosinophils # (Auto) 0.2, Basophils # (Auto) 0.1, Calcium Level 8.4 L Vital Signs Date Time Temp Pulse Resp B/P (MAP) Pulse Ox O2 Delivery O2 Flow Rate FiO2 04/26/19 14:00 98.0 66 20 111/57 (75) 96 I&O- Last 24 Hours up to 6 AM 04/26/19 06:00 Intake Total 800 ml Output Total 475 ml Balance 325 ml [facility]. [facility] Apr 26, 2019 15:52
--- NOTE | 2019-04-26 15:52 | IPNPDOC ---
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 REVIEW OF SYSTEMS: The following is a completed review of systems and has been reviewed. Review of systems otherwise unremarkable. PAIN: Patient self reports no pain EYES:+ double vision EARS, NOSE, & THROAT: +dysphagia (improving) CARDIOVASCULAR: denies chest pain or palpitations PULMONARY: Negative. Denies shortness of breath GASTROINTESTINAL: denies constipation/diarrhea GENITOURINARY:denies dysuria, +urge incontinence (improving) MUSCULOSKELETAL: RUE and RLE paresis NEUROLOGICAL: right sided hemiparesis, aphasia, dysphagia, right sided neglect SKIN: intact PSYCHIATRIC: Unremarkable All other review of systems found to be negative. PHYSICAL EXAMINATION: VITAL SIGNS: Please see below. GENERAL: Pleasant and cooperative. No acute distress. HEENT: PERRL. Extraocular movements intact. Clear conjunctiva, right eye-brow sparing facial droop (improving) CARDIOVASCULAR: Regular rate and rhythm. No murmurs, rubs, or gallops LUNGS: Clear to auscultation bilaterally. No wheezes. No rhonchi ABDOMEN: Soft, nontender, nondistended. Positive bowel sounds. Normal active bowel sounds, colostomy with stool NEUROLOGICAL: Alert and oriented times to person, place, though it was 1978 Cranial nerves II through XII grossly except right sided facial weakness and decreased sensation, decreased sensation right UE and LE +apraxia +dysarthria (improving) +non-fluent aphasia +babinski on right with brisk patellar reflexes 1+/4 MAS right wrist flexors and elbow extensors EXTREMITIES: 5\5 strength left upper extremities, 3+/5 RUE, 3+\5 strength right lower extremity. 5/5 strength in left lower extremity. SKIN: intact ASSESSMENT: 78-year-old M with past medical history of HTN, PEs on Coumadin who presents status post left basal ganglia hemorrhagic stroke PLAN: 1. 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 Neuro: s/p right Basal ganglia, thalamic, temporal hemorrhagic stroke- c/u statin and BP meds, adjust prn goal sBP<140 -avoid antiplatelet therapy given recent bleed -c/u Prozac for motor recovery -increase Provigil to 100mg daily and OOB to Chair after therapy to encourage wakefulness during the day 3. Cardio: pmh PEs was on Coumadin, on hold until neurosurgical input in 2-4 weeks, will need repeat CT scan prior to visit pmh HTN: c/u amlodipine and Cozaar- medicine consulted 4. Resp: encourage incentive spirometry -episode of hypoxia on 04/17/19, CXR negative-resolved, finished up course of Augmentin for suspected aspiration, however clinically appears well- no cough 5. GI ppx: protonix -colostomy care 6. ID: antifungal mouth wash ordered for oral thrush-resolved 5. DVT ppx: TEDs, Dopplers negative for DVT while off AC, has IVC filter 6. : c/u Detrol 4mg daily, suspicion for overactive bladder, per patient his prostate exams have been normal and his stream is consistent and not weak 7. Skin: zinc oxide to sacrum, monitor for breakdown 9. Psych: c/u trazodone 75mg qHS scheduled for insomnia to be given at 11pm 8. Dispo: 05/03/19, progressing slowly towards goals Allergies Coded Allergies: Sulfa (Sulfonamide Antibiotics) (Verified Allergy, Intermediate, RASH, VIOLENT BEHAVIOR, 04/08/19) latex (Verified Allergy, Unknown, 04/08/19) oxycodone (Verified Adverse Reaction, Intermediate, SUICIDAL THOUGHTS, 04/08/19) Vital Signs Vital Signs Date Time Temp Pulse Resp B/P (MAP) Pulse Ox O2 Delivery O2 Flow Rate FiO2 04/26/19 14:00 98.0 66 20 111/57 (75) 96 Laboratory Data CBC/BMP Laboratory Tests 04/26/19 11:23 Red Blood Count 4.22 L, Mean Corpuscular Volume 94.5, Mean Corpuscular Hemoglobin 32.2, Mean Corpuscular Hemoglobin Concent 34.1, Red Cell Distribution Width 13.8, Neutrophils (%) (Auto) 73.6 H, Lymphocytes (%) (Auto) 14.9 L, Monocytes (%) (Auto) 7.5 H, Eosinophils (%) (Auto) 2.4, Basophils (%) (Auto) 0.8, Neutrophils # (Auto) 4.9, Lymphocytes # (Auto) 1.0 L, Monocytes # (Auto) 0.5, Eosinophils # (Auto) 0.2, Basophils # (Auto) 0.1, Calcium Level 8.4 L Labs 24H Laboratory Tests 2 04/26/19 11:23: Immature Granulocyte % (Auto) 0.8, White Blood Count 6.6, Red Blood Count 4.22L, Hemoglobin 13.6, Hematocrit 39.9L, Mean Corpuscular Volume 94.5, Mean Corpuscular Hemoglobin 32.2, Mean Corpuscular Hemoglobin Concent 34.1, Red Cell Distribution Width 13.8, Platelet Count 201, Neutrophils (%) (Auto) 73.6H, Lymphocytes (%) (Auto) 14.9L, Monocytes (%) (Auto) 7.5H, Eosinophils (%) (Auto) 2.4, Basophils (%) (Auto) 0.8, Neutrophils # (Auto) 4.9, Lymphocytes # (Auto) 1.0L, Monocytes # (Auto) 0.5, Eosinophils # (Auto) 0.2, Basophils # (Auto) 0.1, Nucleated Red Blood Cells % (auto) 0.0, Anion Gap 8, Glomerular Filtration Rate > 60.0, Blood Urea Nitrogen 30H, Creatinine 1.12, Sodium Level 139, Potassium Level 4.5, Chloride Level 106, Carbon Dioxide Level 25, Calcium Level 8.4L Current Medications Current Medications Current Medications Acetaminophen (Tylenol Tab) 650 mg Q4HP PRN PO MILD PAIN (PS 1-4) Last administered on 04/11/19at 01:45; Start 04/08/19 at 10:30; Stop 04/11/19 at 15:54; Status DC Acetaminophen (Tylenol Tab) 1,000 mg QHS PO Last administered on 04/25/19at 20:57; Start 04/11/19 at 21:00 Amlodipine Besylate (Norvasc) 5 mg BID PO ; Start 04/08/19 at 21:00; Stop 04/08/19 at 21:00; Status DC Amlodipine Besylate (Norvasc) 10 mg BID PO Last administered on 04/26/19 08:23; Start 04/08/19 at 21:00 Amoxicillin/ Clavulanate Potassium (Augmentin) 875 mg BID PO Last administered on 04/25/19 08:49; Start 04/17/19 at 21:00; Stop 04/25/19 at 09:07; Status DC Atorvastatin Calcium (Lipitor) 20 mg QHS PO Last administered on 04/25/19 20:58; Start 04/08/19 at 21:00 Diatrizoate Meglum/ Diatrizoate Sod (Gastrografin) 10 ml Q30M PO Last administered on 04/10/19 11:29; Start 04/10/19 at 10:30; Stop 04/10/19 at 11 :01; Status DC Docusate Sodium (Colace) 100 mg BID PO Last administered on 04/11/19 09:01; Start 04/08/19 at 09:00; Stop 04/11/19 at 10:28; Status DC Docusate Sodium (Colace) 100 mg TID PO Last administered on 04/26/19 08:23; Start 04/11/19 at 16:00 Duloxetine HCl (Cymbalta) 60 mg DAILY PO Last administered on 04/26/19 08:24; Start 04/08/19 at 09:00 Emollient Ointment (Aquaphor) apply to face, arms and legs BID TOP Last administered on 04/26/19 08:24; Start 04/25/19 at 09:00 Fluoxetine HCl (PROzac) 20 mg DAILY PO Last administered on 04/12/19 09:19; Start 04/08/19 at 09:00; Stop 04/12/19 at 14:01; Status DC Fluoxetine HCl (PROzac) 20 mg QHS PO Last administered on 04/21/19 20:48; Start 04/13/19 at 21:00; Stop 04/22/19 at 13:39; Status DC Fluoxetine HCl (PROzac) 40 mg QHS PO Last administered on 04/25/19 20:57; Start 04/22/19 at 21:00 Home Med (Med Rec Complete!) ASDIRECTED XX ; Start 04/08/19 at 10:30; Stop 04/08/19 at 10:31; Status DC Losartan Potassium (Cozaar) 100 mg DAILY PO Last administered on 04/26/19 08:23; Start 04/08/19 at 09:00 Magnesium Hydroxide (Milk Of Magnesia) 30 ml DAILYPRN PRN PO CONSTIPATION; Start 04/08/19 at 10:30 Meclizine HCl (Antivert) 12.5 mg TIDP PRN PO DIZZINESS Last administered on 04/12/19at 09:18; Start 04/08/19 at 10:30 Miscellaneous (Unresolved Clarification Entry) SEE LABEL COMMENTS DAILY XX ; Start 04/24/19 at 09:00; Stop 04/24/19 at 13:40; Status DC Miscellaneous (Unresolved Clarification Entry) SEE LABEL COMMENTS DAILY XX ; S tart 04/25/19 at 09:00; Stop 04/25/19 at 09:08; Status DC Modafinil (Provigil) 50 mg QAM PO Last administered on 04/18/19at 09:36; Start 04/12/19 at 09:00; Stop 04/18/19 at 11:15; Status DC Modafinil (Provigil) 100 mg QAM PO Last administered on 04/26/19 08:24; Start 04/19/19 at 09:00 Multivitamins (Theragram-M) 1 tab BID PO Last administered on 04/26/19 08:24; Start 04/08/19 at 09:00 Nystatin (Mycostatin) 5 ml QID PO Last administered on 04/14/19at 13:43; Start 04/08/19 at 17:00; Stop 04/14/19 at 15:13; Status DC Ondansetron HCl (Zofran) 4 mg Q6HP PRN PO NAUSEA; Start 04/08/19 at 10:30 Pantoprazole Sodium (Protonix) 40 mg DAILY PO Last administered on 04/26/19 08:23; Start 04/09/19 at 09:00 Senna (Senokot) 1 tab BID PO Last administered on 04/11/19at 09:01; Start 04/10/19 at 09:00; Stop 04/11/19 at 10:28; Status DC Senna (Senokot) 1 tab QHS PO Last administered on 04/09/19at 20:25; Start 04/08/19 at 21:00; Stop 04/10/19 at 07:06; Status DC Senna (Senokot) 2 tab BID PO ; Start 04/11/19 at 21:00; Stop 04/11/19 at 21:00; Status DC Senna (Senokot) 2 tab QHS PO Last administered on 04/25/19at 20:57; Start 04/11/19 at 21:00 Tolterodine Tartrate (Detrol) 4 mg DAILY PO Last administered on 04/26/19 08:24; Start 04/14/19 at 09:00 Trazodone HCl (Desyrel) 25 mg QHSP PRN PO INSOMNIA; Start 04/08/19 at 10:30; Stop 04/11/19 at 14:13; Status DC Trazodone HCl (Desyrel) 50 mg QHS PO Last administered on 04/11/19at 20:24; Start 04/11/19 at 21:00; Stop 04/12/19 at 14:02; Status DC Trazodone HCl (Desyrel) 75 mg QHS PO ; Start 04/12/19 at 21:00; Stop 04/12/19 at 21:02; Status DC Trazodone HCl (Desyrel) 75 mg QHS PO ; Start 04/12/19 at 21:02; Status Cancel Trazodone HCl (Desyrel) 75 mg QHS@2300 PO Last administered on 04/25/19at 23:00; Start 04/12/19 at 23:00 Zinc Oxide (Boudreauxs Butt Paste) BID to sacrum BID TOP Last administered on 04/26/19at 08:24; Start 04/08/19 at 21:00 RUFINO WALKER MD Apr 26, 2019 15:52
[2019-04-26 19:50] VITALS: BP 122/56
[2019-04-26] MEDS: FLUoxetine 20 MG CAP PO SCH (20:05)
[2019-04-26] MEDS: ATORVASTATIN 20 MG TAB PO SCH (20:05)
[2019-04-26] MEDS: SENNA 8.6 MG TAB (SENOKOT) PO SCH (20:05)
[2019-04-26] MEDS: ACETAMINOPHEN 500 MG TAB PO SCH (20:06)
[2019-04-26] MEDS: traZODone 50 MG TAB PO SCH (22:45)
[2019-04-27 05:48] VITALS: BP 120/58
[2019-04-27] MEDS: PANTOPRAZOLE 40MG TAB (PROTONIX) PO SCH (08:12)
[2019-04-27] MEDS: DOCUSATE SODIUM 100 MG CAP PO SCH ×3 (08:12→21:44)
[2019-04-27] MEDS: DULoxetine 30 MG CAP (CYMBALTA) PO SCH (08:13)
[2019-04-27] MEDS: amLODIPine 10 MG TAB PO SCH (08:13)
[2019-04-27] MEDS: MULTIVITAMINS/MINERALS THERAP 1 TAB PO SCH ×2 (08:13→21:45)
[2019-04-27] MEDS: MODAFINIL 100 MG TABLET PO SCH (08:13)
[2019-04-27] MEDS: TOLTERODINE (DETROL) 2 MG TAB PO SCH (08:13)
[2019-04-27] MEDS: LOSARTAN 50 MG TAB PO SCH (08:13)
[2019-04-27] MEDS: AQUAPHOR **100GM** OINT TOP SCH ×2 (08:14→21:46)
[2019-04-27] MEDS: BOUDREAUX'S BUTT PASTE TOP SCH ×2 (08:14→21:00)
--- NOTE | 2019-04-27 12:58 | IPNPDOC ---
Text Note Date of Service The patient was seen on 04/27/19. NOTE Sujective: Feels bad, not doing quite as well today. Denies chest pain, shortness of breath. Visitor at bedside Objective GENERAL: Up to chair at bedside, NAD SKIN : Warm, dry intact HEENT: Atraumatic, normocephalic, moist mucous membrane, slight slurred speech CARDIOVASCULAR: Regular rate and rhythm, S1S2, no JVD, no edema RESP: CTAB, no accessory muscle use noted ABDOMEN: BS+ non distended non tender, right colostomy MS: no joint deformities NEURO: Alert and oriented x 3, right upper and lower extremity weakness PSYCH: anxious, otherwise appropriate mood and affect. 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 -has had a relapse today -Rehabilitation by primary team, improving DVT/ PE -off anticoagulation therapy due to recent stroke -to be restarted on anticoagulation therapy after follow-up and clearance with neurosurgery Hypertension -adjust dose of medication to improve blood pressure to systolic BP of at least 120 -monitoring with target systolic blood pressure less than 140 Hyperlipidemia -Continue Atorvastatin 20 mg daily at bedtime OAB -Continue detrol therapy DVT prophylaxis -Not a candidate for anticoagulation therapy given recent hemorrhagic CVA -Antiembolism stockings contraindicated in the setting of underlying DVT VS,Fishbone, I+O VS, Fishbone, I+O Vital Signs Date Time Temp Pulse Resp B/P (MAP) Pulse Ox O2 Delivery O2 Flow Rate FiO2 04/27/19 08:13 63 120/58 04/27/19 05:48 98.6 18 95 I&O- Last 24 Hours up to 6 AM 04/27/19 06:00 Intake Total 580 ml Output Total 1175 ml Balance -[address] [facility] Apr 27, 2019 12:58
--- NOTE | 2019-04-27 13:40 | NUR ---
Recommend MBSS Cookie Swallow to assess for oropharyngeal residuals w/ advanced level solids. Addendum: 04/27/[address] [facility] Amended: Links added.
[2019-04-27 14:00] VITALS: BP 106/56
--- NOTE | 2019-04-27 14:03 | IPNPDOC ---
PM&R Progress Note DATE OF SERVICE: Apr 27, 2019 [employer] Progress Note Subjective: Patient seen in his therapy using eye patch, stating his double vision is relieved with patching. REVIEW OF SYSTEMS: The following is a completed review of systems and has been reviewed. Review of systems otherwise unremarkable. PAIN: Patient self reports no pain EYES:+ double vision EARS, NOSE, & THROAT: +dysphagia (improving) CARDIOVASCULAR: denies chest pain or palpitations PULMONARY: Negative. Denies shortness of breath GASTROINTESTINAL: denies constipation/diarrhea GENITOURINARY:denies dysuria, +urge incontinence (improving) MUSCULOSKELETAL: RUE and RLE paresis NEUROLOGICAL: right sided hemiparesis, aphasia, dysphagia, right sided neglect SKIN: intact PSYCHIATRIC: Unremarkable All other review of systems found to be negative. PHYSICAL EXAMINATION: VITAL SIGNS: Please see below. GENERAL: Pleasant and cooperative. No acute distress. HEENT: PERRL. Extraocular movements intact. Clear conjunctiva, right eye-brow sparing facial droop (improving) CARDIOVASCULAR: Regular rate and rhythm. No murmurs, rubs, or gallops LUNGS: Clear to auscultation bilaterally. No wheezes. No rhonchi ABDOMEN: Soft, nontender, nondistended. Positive bowel sounds. Normal active bowel sounds, colostomy with stool NEUROLOGICAL: Alert and oriented times to person, place, though it was 1978 Cranial nerves II through XII grossly except right sided facial weakness and decreased sensation, decreased sensation right UE and LE +apraxia +dysarthria (improving) +non-fluent aphasia +babinski on right with brisk patellar reflexes 1+/4 MAS right wrist flexors and elbow extensors EXTREMITIES: 5\5 strength left upper extremities, 3+/5 RUE, 3+\5 strength right lower extremity. 5/5 strength in left lower extremity. SKIN: intact ASSESSMENT: 78-year-old M with past medical history of HTN, PEs on Coumadin who presents status post left basal ganglia hemorrhagic stroke PLAN: 1. 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 Neuro: s/p right Basal ganglia, thalamic, temporal hemorrhagic stroke- c/u statin and BP meds, adjust prn goal sBP<140 -avoid antiplatelet therapy given recent bleed -c/u Prozac for motor recovery -increase Provigil to 100mg daily and OOB to Chair after therapy to encourage wakefulness during the day 3. Cardio: pmh PEs was on Coumadin, on hold until neurosurgical input in 2-4 weeks, will need repeat CT scan prior to visit pmh HTN: c/u amlodipine and Cozaar- medicine consulted 4. Resp: encourage incentive spirometry -episode of hypoxia on 04/17/19, CXR negative-resolved, finished up course of Augmentin for suspected aspiration, however clinically appears well- no cough 5. GI ppx: protonix -colostomy care 6. ID: antifungal mouth wash ordered for oral thrush-resolved 5. DVT ppx: TEDs, Dopplers negative for DVT while off AC, has IVC filter 6. : c/u Detrol 4mg daily, suspicion for overactive bladder, per patient his prostate exams have been normal and his stream is consistent and not weak 7. Skin: zinc oxide to sacrum, monitor for breakdown 9. Psych: c/u trazodone 75mg qHS scheduled for insomnia to be given at 11pm 8. Dispo: 05/03/19, progressing slowly towards goals Allergies Coded Allergies: Sulfa (Sulfonamide Antibiotics) (Verified Allergy, Intermediate, RASH, VIOLENT BEHAVIOR, 04/08/19) latex (Verified Allergy, Unknown, 04/08/19) oxycodone (Verified Adverse Reaction, Intermediate, SUICIDAL THOUGHTS, 04/08/19) Vital Signs Vital Signs Date Time Temp Pulse Resp B/P (MAP) Pulse Ox O2 Delivery O2 Flow Rate FiO2 04/27/19 08:13 63 120/58 04/27/19 05:48 98.6 18 95 Current Medications Current Medications Current Medications Acetaminophen (Tylenol Tab) 650 mg Q4HP PRN PO MILD PAIN (PS 1-4) Last administered on 04/11/19at 01:45; Start 04/08/19 at 10:30; Stop 04/11/19 at 15:54; Status DC Acetaminophen (Tylenol Tab) 1,000 mg QHS PO Last administered on 04/26/19 20:06; Start 04/11/19 at 21:00 Amlodipine Besylate (Norvasc) 5 mg BID PO ; Start 04/08/19 at 21:00; Stop 04/08/19 at 21:00; Status DC Amlodipine Besylate (Norvasc) 5 mg BID PO ; Start 04/27/19 at 21:00 Amlodipine Besylate (Norvasc) 10 mg BID PO Last administered on 04/27/19 08:13; Start 04/08/19 at 21:00; Stop 04/27/19 at 13:00; Status DC Amoxicillin/ Clavulanate Potassium (Augmentin) 875 mg BID PO Last administered on 04/25/19 08:49; Start 04/17/19 at 21:00; Stop 04/25/19 at 09:07; Status DC Atorvastatin Calcium (Lipitor) 20 mg QHS PO Last administered on 04/26/19at 20:05; Start 04/08/19 at 21:00 Diatrizoate Meglum/ Diatrizoate Sod (Gastrografin) 10 ml Q30M PO Last administered on 04/10/19 11:29; Start 04/10/19 at 10:30; Stop 04/10/19 at 11:01; Status DC Docusate Sodium (Colace) 100 mg BID PO Last administered on 04/11/19 09:01; Start 04/08/19 at 09:00; Stop 04/11/19 at 10:28; Status DC Docusate Sodium (Colace) 100 mg TID PO Last administered on 04/27/19 08:12; Start 04/11/19 at 16:00 Duloxetine HCl (Cymbalta) 60 mg DAILY PO Last administered on 04/27/19 08:13; Start 04/08/19 at 09:00 Emollient Ointment (Aquaphor) apply to face, arms and legs BID TOP Last administered on 04/27/19 08:14; Start 04/25/19 at 09:00 Fluoxetine HCl (PROzac) 20 mg DAILY PO Last administered on 04/12/19 09:19; Start 04/08/19 at 09:00; Stop 04/12/19 at 14:01; Status DC Fluoxetine HCl (PROzac) 20 mg QHS PO Last administered on 04/21/19 20:48; Start 04/13/19 at 21:00; Stop 04/22/19 at 13:39; Status DC Fluoxetine HCl (PROzac) 40 mg QHS PO Last administered on 04/26/19at 20:05; Start 04/22/19 at 21:00 Home Med (Med Rec Complete!) ASDIRECTED XX ; Start 04/08/19 at 10:30; Stop 04/08/19 at 10:31; Status DC Losartan Potassium (Cozaar) 100 mg DAILY PO Last administered on 04/27/19 08:13; Start 04/08/19 at 09:00 Magnesium Hydroxide (Milk Of Magnesia) 30 ml DAILYPRN PRN PO CONSTIPATION; Start 04/08/19 at 10:30 Meclizine HCl (Antivert) 12.5 mg TIDP PRN PO DIZZINESS Last administered on 04/12/19at 09:18; Start 04/08/19 at 10:30 Miscellaneous (Unresolved Clarification Entry) SEE LABEL COMMENTS DAILY XX ; Start 04/24/19 at 09:00; Stop 04/24/19 at 13:40; Status DC Miscellaneous (Unresolved Clarification Entry) SEE LABEL COMMENTS DAILY XX ; Start 04/25/19 at 09:00; Stop 04/25/19 at 09:08; Status DC Modafinil (Provigil) 50 mg QAM PO Last administered on 04/18/19at 09:36; Start 04/12/19 at 09:00; Stop 04/18/19 at 11:15; Status DC Modafinil (Provigil) 100 mg QAM PO Last administered on 04/27/19at 08:13; Start 04/19/19 at 09:00 Multivitamins (Theragram-M) 1 tab BID PO Last administered on 04/27/19 08:13; Start 04/08/19 at 09:00 Nystatin (Mycostatin) 5 ml QID PO Last administered on 04/14/19at 13:43; Start 04/08/19 at 17:00; Stop 04/14/19 at 15:13; Status DC Ondansetron HCl (Zofran) 4 mg Q6HP PRN PO NAUSEA; Start 04/08/19 at 10:30 Pantoprazole Sodium (Protonix) 40 mg DAILY PO Last administered on 04/27/19 08:12; Start 04/09/19 at 09:00 Senna (Senokot) 1 tab BID PO Last administered on 04/11/19at 09:01; Start 04/10/19 at 09:00; Stop 04/11/19 at 10:28; Status DC Senna (Senokot) 1 tab QHS PO Last administered on 04/09/19at 20:25; Start 04/08/19 at 21:00; Stop 04/10/19 at 07:06; Status DC Senna (Senokot) 2 tab BID PO ; Start 04/11/19 at 21:00; Stop 04/11/19 at 21:00; Status DC Senna (Senokot) 2 tab QHS PO Last administered on 04/26/19at 20:05; Start 04/11/19 at 21:00 Tolterodine Tartrate (Detrol) 4 mg DAILY PO Last administered on 04/27/19at 08:13; Start 04/14/19 at 09:00 Trazodone HCl (Desyrel) 25 mg QHSP PRN PO INSOMNIA; Start 04/08/19 at 10:30; Stop 04/11/19 at 14:13; Status DC Trazodone HCl (Desyrel) 50 mg QHS PO Last administered on 04/11/19 20:24; Start 04/11/19 at 21:00; Stop 04/12/19 at 14:02; Status DC Trazodone HCl (Desyrel) 75 mg QHS PO ; Start 04/12/19 at 21:00; Stop 04/12/19 at 21:02; Status DC Trazodone HCl (Desyrel) 75 mg QHS PO ; Start 04/12/19 at 21:02; Status Cancel Trazodone HCl (Desyrel) 75 mg QHS@2300 PO Last administered on 04/26/19at 22:45; Start 04/12/19 at 23:00 Zinc Oxide (Boudreauxs Butt Paste) BID to sacrum BID TOP Last administered on 04/26/19 08:24; Start 04/08/19 at 21:00 RUFINO WALKER MD 10, 2019 14:03
[2019-04-27 20:43] VITALS: BP 118/56
[2019-04-27 20:45] VITALS: BP 112/56
[2019-04-27] MEDS: FLUoxetine 20 MG CAP PO SCH (21:44)
[2019-04-27] MEDS: ACETAMINOPHEN 500 MG TAB PO SCH (21:44)
[2019-04-27] MEDS: ATORVASTATIN 20 MG TAB PO SCH (21:44)
[2019-04-27] MEDS: amLODIPine 5 MG TAB PO SCH (21:45)
[2019-04-27] MEDS: SENNA 8.6 MG TAB (SENOKOT) PO SCH (21:45)
[2019-04-27] MEDS: traZODone 50 MG TAB PO SCH (21:49)
[2019-04-28 05:41] VITALS: BP 103/54
[2019-04-28] MEDS: amLODIPine 5 MG TAB PO SCH ×2 (09:00→22:19)
[2019-04-28] MEDS: MULTIVITAMINS/MINERALS THERAP 1 TAB PO SCH ×2 (10:20→22:18)
[2019-04-28] MEDS: MODAFINIL 100 MG TABLET PO SCH (10:20)
[2019-04-28] MEDS: DOCUSATE SODIUM 100 MG CAP PO SCH ×3 (10:20→22:19)
[2019-04-28] MEDS: PANTOPRAZOLE 40MG TAB (PROTONIX) PO SCH (10:20)
[2019-04-28] MEDS: TOLTERODINE (DETROL) 2 MG TAB PO SCH (10:21)
[2019-04-28] MEDS: LOSARTAN 50 MG TAB PO SCH (10:21)
[2019-04-28] MEDS: DULoxetine 30 MG CAP (CYMBALTA) PO SCH (10:21)
[2019-04-28] MEDS: AQUAPHOR **100GM** OINT TOP SCH ×2 (10:23→21:00)
[2019-04-28] MEDS: BOUDREAUX'S BUTT PASTE TOP SCH ×2 (10:24→21:00)
[2019-04-28] MEDS ORDERED: VARIBAR PUDDING 40% w/v 230ML TUBE As Ordered ONE (11:08)
[2019-04-28] MEDS ORDERED: E-Z-PAQUE 96% w/w SUSP 176GM BTL As Ordered ONE (11:08)
[2019-04-28] MEDS ORDERED: BARIUM SULFATE 700 MG TABLET (E-Z-DISK) As Ordered ONE (11:08)
[2019-04-28] MEDS ORDERED: VARIBAR NECTAR 40% w/v 240ML SUSP BTL As Ordered ONE (11:08)
--- NOTE | 2019-04-28 11:43 | IPNPDOC ---
Text Note Date of Service The patient was seen on 04/28/19. NOTE Sujective: Continues to feel bad and hopeless today. Asks "what's the point"? He should "just ". States he's already 78 years old. Talking about all the things he is unable to do for himself. Objective GENERAL: depressed SKIN : Warm, dry intact HEENT: Atraumatic, normocephalic, moist mucous membrane, slurred speech CARDIOVASCULAR: Regular rate and rhythm, S1S2, no JVD, no edema RESP: CTAB, no accessory muscle use noted ABDOMEN: BS+ non distended non tender, right colostomy MS: no joint deformities NEURO: Alert and oriented x 3, right upper and lower extremity weakness PSYCH: very depressed. 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 -currently in rehab unit for mobilization/strengthening -Rehabilitation by primary team Depression -post hemorrhagic CVA -discussed at length with patient this is not unusual after a life changing event such as a stroke -already prescribed Prozac, continue DVT/ PE -off anticoagulation therapy due to recent stroke -to be restarted on anticoagulation therapy after follow-up and clearance with neurosurgery Hypertension -adjust dose of medication to improve blood pressure to systolic BP of at least 120 -monitoring with target systolic blood pressure less than 140 Hyperlipidemia -Continue Atorvastatin 20 mg daily at bedtime OAB -Continue detrol therapy DVT prophylaxis -Not a candidate for anticoagulation therapy given recent hemorrhagic CVA -Antiembolism stockings contraindicated in the setting of underlying DVT VS,Fishbone, I+O VS, Fishbone, I+O Vital Signs Date Time Temp Pulse Resp B/P (MAP) Pulse Ox O2 Delivery O2 Flow Rate FiO2 04/28/19 09:00 71 100/54 04/28/19 05:41 97.4 18 93 I&O- Last 24 Hours up to 6 AM 04/28/19 06:00 Intake Total 1280 ml Output Total 1100 ml Balance [address] [facility] Apr 28, 2019 11:43
--- NOTE | 2019-04-28 13:44 | NUR ---
Recommend level 2 mechanically altered solids, thin liquids, upright & OOB w/ mirror & clothing protector for meals, set-up assist. Dysphagia tx further compensatory strategy training to safely clear pharyngeal residuals prior to diet upgrade. Addendum: 04/28/19 at 1345 by [facility] SP Amended: Links added.
[2019-04-28 14:00] VITALS: BP 110/56
--- NOTE | 2019-04-28 14:47 | IPNPDOC ---
PM&R Progress Note DATE OF SERVICE: Apr 28, 2019 [employer] Progress Note Subjective: Patient seen in his room while in therapy. He was asked about his mood and about statements he had made to other staff member about wishing he were . Patient agreed he sometimes wishes he was , believing both his current condition s eems hopeless. He also stated he has thought about killing himself both prior to and since having the stroke stating he thinks he is old enough to . He however denies wanting to kill himself today and wishes to continue with therapy. REVIEW OF SYSTEMS: The following is a completed review of systems and has been reviewed. Review of systems otherwise unremarkable. PAIN: Patient self reports no pain EYES:+ double vision EARS, NOSE, & THROAT: +dysphagia (improving) CARDIOVASCULAR: denies chest pain or palpitations PULMONARY: Negative. Denies shortness of breath GASTROINTESTINAL: denies constipation/diarrhea GENITOURINARY:denies dysuria, +urge incontinence (improving) MUSCULOSKELETAL: RUE and RLE paresis NEUROLOGICAL: right sided hemiparesis, aphasia, dysphagia, right sided neglect SKIN: intact PSYCHIATRIC: Unremarkable All other review of systems found to be negative. PHYSICAL EXAMINATION: VITAL SIGNS: Please see below. GENERAL: Pleasant and cooperative. No acute distress. HEENT: PERRL. Extraocular movements intact. Clear conjunctiva, right eye-brow sparing facial droop (improving) CARDIOVASCULAR: Regular rate and rhythm. No murmurs, rubs, or gallops LUNGS: Clear to auscultation bilaterally. No wheezes. No rhonchi ABDOMEN: Soft, nontender, nondistended. Positive bowel sounds. Normal active bowel sounds, colostomy with stool NEUROLOGICAL: Alert and oriented times to person, place, though it was 1978 Cranial nerves II through XII grossly except right sided facial weakness and decreased sensation, decreased sensation right UE and LE +apraxia +dysarthria (improving) +non-fluent aphasia +babinski on right with brisk patellar reflexes 1+/4 MAS right wrist flexors and elbow extensors EXTREMITIES: 5\5 strength left upper extremities, 3+/5 RUE, 3+\5 strength right lower extremity. 5/5 strength in left lower extremity. 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 Neuro: s/p right Basal ganglia, thalamic, temporal hemorrhagic stroke- c/u statin and BP meds, adjust prn goal sBP<140 -avoid antiplatelet therapy given recent bleed -c/u Prozac for motor recovery -c/u Provigil 100mg daily and OOB to Chair after therapy to encourage wakefulness during the day-improving 3. Cardio: pmh PEs was on Coumadin, on hold until neurosurgical input in 2-4 weeks, will need repeat CT scan prior to visit pmh HTN: c/u amlodipine and Cozaar- medicine consulted 4. Resp: encourage incentive spirometry -episode of hypoxia on 04/17/19, CXR negative-resolved, finished up course of Augmentin for suspected aspiration, however clinically appears well- no cough 5. GI ppx: protonix -colostomy care 6. ID: antifungal mouth wash ordered for oral thrush-resolved 5. DVT ppx: TEDs, Dopplers negative for DVT while off AC, has IVC filter 6. : c/u Detrol 4mg daily, suspicion for overactive bladder, per patient his prostate exams have been normal and his stream is consistent and not weak-overall improving 7. Skin: zinc oxide to sacrum, monitor for breakdown 9. Psych: -patient having passive suicide ideation, however denies wanting to actively hurt himself now, will continue on increased dose of Prozac, also on Cymbalta for back pain and simultaneously for mood, will monitor his mood daily to ensure his passive suicide ideation does not convert to active in which case inhouse psychiatric evaluation would be ordered -will recommend outpatient psychology/psychiatry follow-up, will also invite to stroke support group -insomnia c/u trazodone 75mg qHS scheduled for insomnia to be given at 11pm 8. Dispo: 05/03/19, progressing slowly towards goals Allergies Coded Allergies: Sulfa (Sulfonamide Antibiotics) (Verified Allergy, Intermediate, RASH, VIOLENT BEHAVIOR, 04/08/19) latex (Verified Allergy, Unknown, 04/08/19) oxycodone (Verified Adverse Reaction, Intermediate, SUICIDAL THOUGHTS, 04/08/19) Vital Signs Vital Signs Date Time Temp Pulse Resp B/P (MAP) Pulse Ox O2 Delivery O2 Flow Rate FiO2 04/28/19 14:00 98.5 78 19 110/56 (74) 96 Laboratory Data Labs 24H Laboratory Tests 2 04/28/19 12:51: Vitamin B12 Level 649 Current Medications Current Medications Current Medications Acetaminophen (Tylenol Tab) 650 mg Q4HP PRN PO MILD PAIN (PS 1-4) Last administered on 04/11/19 01:45; Start 04/08/19 at 10:30; Stop 04/11/19 at 15:54; Status DC Acetaminophen (Tylenol Tab) 1,000 mg QHS PO Last administered on 04/27/19 21:44; Start 04/11/19 at 21:00 Amlodipine Besylate (Norvasc) 5 mg BID PO ; Start 04/08/19 at 21:00; Stop 04/08/19 at 21:00; Status DC Amlodipine Besylate (Norvasc) 5 mg BID PO Last administered on 04/27/19 21:45; Start 04/27/19 at 21:00 Amlodipine Besylate (Norvasc) 10 mg BID PO Last administered on 04/27/19at 08:13; Start 04/08/19 at 21:00; Stop 04/27/19 at 13:00; Status DC Amoxicillin/ Clavulanate Potassium (Augmentin) 875 mg BID PO Last administered on 04/25/19 08:49; Start 04/17/19 at 21:00; Stop 04/25/19 at 09:07; Status DC Atorvastatin Calcium (Lipitor) 20 mg QHS PO Last administered on 04/27/19 21:44; Start 04/08/19 at 21:00 Diatrizoate Meglum/ Diatrizoate Sod (Gastrografin) 10 ml Q30M PO Last administered on 04/10/19 11:29; Start 04/10/19 at 10:30; Stop 04/10/19 at 11:01; Status DC Docusate Sodium (Colace) 100 mg BID PO Last administered on 04/11/19 09:01; Start 04/08/19 at 09:00; Stop 04/11/19 at 10:28; Status DC Docusate Sodium (Colace) 100 mg TID PO Last administered on 04/28/19 10:20; Start 04/11/19 at 16:00 Duloxetine HCl (Cymbalta) 60 mg DAILY PO Last administered on 04/28/19 10:21; Start 04/08/19 at 09:00 Emollient Ointment (Aquaphor) apply to face, arms and legs BID TOP Last administered on 04/28/19 10:23; Start 04/25/19 at 09:00 Fluoxetine HCl (PROzac) 20 mg DAILY PO Last administered on 04/12/19 09:19; Start 04/08/19 at 09:00; Stop 04/12/19 at 14:01; Status DC Fluoxetine HCl (PROzac) 20 mg QHS PO Last administered on 04/21/19at 20:48; Start 04/13/19 at 21:00; Stop 04/22/19 at 13:39; Status DC Fluoxetine HCl (PROzac) 40 mg QHS PO Last administered on 04/27/19at 21:44; Start 04/22/19 at 21:00 Home Med (Med Rec Complete!) ASDIRECTED XX ; Start 04/08/19 at 10:30; Stop 04/08/19 at 10:31; Status DC Losartan Potassium (Cozaar) 100 mg DAILY PO Last administered on 04/28/19at 10:21; Start 04/08/19 at 09:00 Magnesium Hydroxide (Milk Of Magnesia) 30 ml DAILYPRN PRN PO CONSTIPATION; Start 04/08/19 at 10:30 Meclizine HCl (Antivert) 12.5 mg TIDP PRN PO DIZZINESS Last administered on 04/12/19at 09:18; Start 04/08/19 at 10:30 Miscellaneous (Unresolved Clarification Entry) SEE LABEL COMMENTS DAILY XX ; Start 04/24/19 at 09:00; Stop 04/24/19 at 13:40; Status DC Miscellaneous (Unresolved Clarification Entry) SEE LABEL COMMENTS DAILY XX ; Start 04/25/19 at 09:00; Stop 04/25/19 at 09:08; Status DC Modafinil (Provigil) 50 mg QAM PO Last administered on 04/18/19at 09:36; Start 04/12/19 at 09:00; Stop 04/18/19 at 11:15; Status DC Modafinil (Provigil) 100 mg QAM PO Last administered on 04/28/19 10:20; Start 04/19/19 at 09:00 Multivitamins (Theragram-M) 1 tab BID PO Last administered on 04/28/19 10:20; Start 04/08/19 at 09:00 Nystatin (Mycostatin) 5 ml QID PO Last administered on 04/14/19at 13:43; Start 04/08/19 at 17:00; Stop 04/14/19 at 15:13; Status DC Ondansetron HCl (Zofran) 4 mg Q6HP PRN PO NAUSEA; Start 04/08/19 at 10:30 Pantoprazole Sodium (Protonix) 40 mg DAILY PO Last administered on 04/28/19 10:20; Start 04/09/19 at 09:00 Senna (Senokot) 1 tab BID PO Last administered on 04/11/19 09:01; Start 04/10/19 at 09:00; Stop 04/11/19 at 10:28; Status DC Senna (Senokot) 1 tab QHS PO Last administered on 04/09/19at 20:25; Start 04/08/19 at 21:00; Stop 04/10/19 at 07:06; Status DC Senna (Senokot) 2 tab BID PO ; Start 04/11/19 at 21:00; Stop 04/11/19 at 21:00; Status DC Senna (Senokot) 2 tab QHS PO Last administered on 04/27/19at 21:45; Start 04/11/19 at 21:00 Tolterodine Tartrate (Detrol) 4 mg DAILY PO Last administered on 04/28/19 10:21; Start 04/14/19 at 09:00 Trazodone HCl (Desyrel) 25 mg QHSP PRN PO INSOMNIA; Start 04/08/19 at 10:30; Stop 04/11/19 at 14:13; Status DC Trazodone HCl (Desyrel) 50 mg QHS PO Last administered on 04/11/19at 20:24; Start 04/11/19 at 21:00; Stop 04/12/19 at 14:02; Status DC Trazodone HCl (Desyrel) 75 mg QHS PO ; Start 04/12/19 at 21:00; Stop 04/12/19 at 21:02; Status DC Trazodone HCl (Desyrel) 75 mg QHS PO ; Start 04/12/19 at 21:02; Status Cancel Trazodone HCl (Desyrel) 75 mg QHS@2300 PO Last administered on 04/27/19at 21:49; Start 04/12/19 at 23:00 Zinc Oxide (Boudreauxs Butt Paste) BID to sacrum BID TOP Last administered on 04/28/19at 10:24; Start 04/08/19 at 21:00 RUFINO WALKER MD Apr 28, 2019 14:47
[2019-04-28 22:00] VITALS: BP 134/61
[2019-04-28] MEDS: FLUoxetine 20 MG CAP PO SCH (22:18)
[2019-04-28] MEDS: SENNA 8.6 MG TAB (SENOKOT) PO SCH (22:19)
[2019-04-28] MEDS: ATORVASTATIN 20 MG TAB PO SCH (22:19)
[2019-04-28] MEDS: traZODone 50 MG TAB PO SCH (22:19)
[2019-04-28] MEDS: ACETAMINOPHEN 500 MG TAB PO SCH (22:20)
[2019-04-29 06:00] VITALS: BP 110/54
[2019-04-29 07:15] LABS: BASO % 0.5 % (0.0-1.0); EOS # 0.3 10^3/uL (0.0-0.50); EOS % 4.7 % (0.0-3.0); HEMATOCRIT 35.1 % (42.0-52.0); HEMOGLOBIN 11.8 g/dl (13.5-17.5); LYMPH % 16.2 % (24.0-44.0); MEAN CORPUSCULAR HEMOGLOBIN 30.9 pg (27.0-33.0); MEAN CORPUSCULAR HGB CONC 33.6 g/dl (32.0-36.5); MEAN CORPUSCULAR VOLUME 91.9 fl (80.0-96.0); MONO # 0.5 10^3/uL (0.0-0.8); MONO % 7.8 % (0.0-5.0); NEUTROPHILS # 4.5 10^3/uL (1.8-7.7); NEUTROPHILS % 69.9 % (36.0-66.0); PLATELET COUNT, AUTOMATED 154 10^3/uL (150-450); RED BLOOD COUNT 3.82 10^6/uL (4.30-6.10); WHITE BLOOD COUNT 6.4 10^3/uL (4.0-10.0)
[2019-04-29 07:27] LABS: BLOOD UREA NITROGEN 28 MG/DL (7-18); CALCIUM LEVEL 7.9 MG/DL (8.8-10.2); CARBON DIOXIDE LEVEL 26 MEQ/L (21-32); CHLORIDE LEVEL 107 MEQ/L (98-107); CREATININE FOR GFR 1.11 MG/DL (0.70-1.30); GLOMERULAR FILTRATION RATE > 60.0 (>35); GLUCOSE, FASTING 89 MG/DL (70-100); POTASSIUM SERUM 4.3 MEQ/L (3.5-5.1); SODIUM LEVEL 139 MEQ/L (136-145)
[2019-04-29] MEDS: MULTIVITAMINS/MINERALS THERAP 1 TAB PO SCH ×2 (08:20→20:45)
[2019-04-29] MEDS: amLODIPine 5 MG TAB PO SCH ×2 (08:20→20:46)
[2019-04-29] MEDS: TOLTERODINE (DETROL) 2 MG TAB PO SCH (08:20)
[2019-04-29] MEDS: DOCUSATE SODIUM 100 MG CAP PO SCH ×3 (08:20→20:45)
[2019-04-29] MEDS: PANTOPRAZOLE 40MG TAB (PROTONIX) PO SCH (08:21)
[2019-04-29] MEDS: DULoxetine 30 MG CAP (CYMBALTA) PO SCH (08:21)
[2019-04-29] MEDS: LOSARTAN 50 MG TAB PO SCH (08:21)
[2019-04-29] MEDS: MODAFINIL 100 MG TABLET PO SCH (08:21)
[2019-04-29] MEDS: AQUAPHOR **100GM** OINT TOP SCH ×2 (08:22→20:47)
[2019-04-29] MEDS: BOUDREAUX'S BUTT PASTE TOP SCH ×2 (08:22→20:47)
--- NOTE | 2019-04-29 09:25 | IPNPDOC ---
Text Note Date of Service The patient was seen on 04/29/19. NOTE Sujective: Up to bedside eating at time of assessment. Feels somewhat better today but states "its a strange day". Objective GENERAL: NAD SKIN : Warm, dry intact HEENT: Atraumatic, normocephalic, moist mucous membrane, slurred speech CARDIOVASCULAR: Regular rate and rhythm, S1S2, no JVD, no edema RESP: CTAB, no accessory muscle use noted ABDOMEN: BS+ non distended non tender, right colostomy MS: no joint deformities NEURO: Alert and oriented x 3, right upper and lower extremity weakness PSYCH: very depressed. 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 -continued with therapy, management by primary team Depression -somewhat improved today -continued on Prozac DVT/ PE -off anticoagulation therapy due to recent stroke -to be restarted on anticoagulation therapy after follow-up and clearance with neurosurgery Hypertension -stable, controlled -monitoring with target systolic blood pressure less than 140 Hyperlipidemia -Continue Atorvastatin 20 mg daily at bedtime OAB -Continue detrol therapy DVT prophylaxis -Not a candidate for anticoagulation therapy given recent hemorrhagic CVA -Antiembolism stockings contraindicated in the setting of underlying DVT VS,Fishbone, I+O VS, Fishbone, I+O Laboratory Tests 04/29/19 06:48 Red Blood Count 3.82 L, Mean Corpuscular Volume 91.9, Mean Corpuscular Hemoglobin 30.9, Mean Corpuscular Hemoglobin Concent 33.6, Red Cell Distribution Width 13.8, Neutrophils (%) (Auto) 69.9 H, Lymphocytes (%) (Auto) 16.2 L, Monocytes (%) (Auto) 7.8 H, Eosinophils (%) (Auto) 4.7 H, Basophils (%) (Auto) 0.5, Neutrophils # (Auto) 4.5, Lymphocytes # (Auto) 1.0 L, Monocytes # (Auto) 0.5, Eosinophils # (Auto) 0.3, Basophils # (Auto) 0.0, Calcium Level 7.9 L Vital Signs Date Time Temp Pulse Resp B/P (MAP) Pulse Ox O2 Delivery O2 Flow Rate FiO2 04/29/19 08:21 110/54 04/29/19 08:20 74 04/29/19 06:00 98.5 16 94 I&O- Last 24 Hours up to 6 AM 04/29/19 06:00 Intake Total 1880 ml Output Total 1100 ml Balance 780 ml MICHELLE ISBELL CONTAINER FINISHER Apr 29, 2019 09:25
--- NOTE | 2019-04-29 10:09 | REP ---
Examination Requested: Cookie Swallow Reason For Exam: History of stroke The procedure was performed by LATISHA Lyn, under the direct supervision of Dr. Hernandez. The procedure was performed with Annie Krishnamurthy from speech pathology present. 5 ml aliquots of thin, pudding, mixed fruit, soft food, and hard food consistency barium was administered. Flash penetration was visualized with thin consistency barium. The detailed report of this examination will be provided by speech pathology. 2.6 minutes of fluoroscopy time was utilized for this procedure. Reviewed by LATISHA Catalan 04/28/2019 12:09 P Electronically Signed by Dann Hernandez MD 04/29/2019 10:00 A
[2019-04-29] MEDS: LIDOCAINE 5% (LIDODERM) PATCH TD SCH (11:17)
--- NOTE | 2019-04-29 12:05 | IPNPDOC ---
PM&R Progress Note DATE OF SERVICE: Apr 29, 2019 Internet Designer Progress Note Subjective: Patient seen in his room today, stating he does not want to hurt himself or commit suicide. He states he regrets having made comments previously to staff me [email or web address] and for giving the impression he was suicidal yesterday. He wants to continue with therapy and get home. REVIEW OF SYSTEMS: The following is a completed review of systems and has been reviewed. Review of systems otherwise unremarkable. PAIN: Patient self reports no pain EYES:+ double vision EARS, NOSE, & THROAT: +dysphagia (improving) CARDIOVASCULAR: denies chest pain or palpitations PULMONARY: Negative. Denies shortness of breath GASTROINTESTINAL: denies constipation/diarrhea GENITOURINARY:denies dysuria, +urge incontinence (improving) MUSCULOSKELETAL: RUE and RLE paresis NEUROLOGICAL: right sided hemiparesis, aphasia, dysphagia, right sided neglect SKIN: intact PSYCHIATRIC: Unremarkable All other review of systems found to be negative. PHYSICAL EXAMINATION: VITAL SIGNS: Please see below. GENERAL: Pleasant and cooperative. No acute distress. HEENT: PERRL. Extraocular movements intact. Clear conjunctiva, right eye-brow sparing facial droop (improving) CARDIOVASCULAR: Regular rate and rhythm. No murmurs, rubs, or gallops LUNGS: Clear to auscultation bilaterally. No wheezes. No rhonchi ABDOMEN: Soft, nontender, nondistended. Positive bowel sounds. Normal active bowel sounds, colostomy with stool NEUROLOGICAL: Alert and oriented times to person, place, though it was 1978 Cranial nerves II through XII grossly except right sided facial weakness and decreased sensation, decreased sensation right UE and LE +apraxia +dysarthria (improving) +non-fluent aphasia +babinski on right with brisk patellar reflexes 1+/4 MAS right wrist flexors and elbow extensors EXTREMITIES: 5\5 strength left upper extremities, 3+/5 RUE, 3+\5 strength right lower extremity. 5/5 strength in left lower extremity. SKIN: intact ASSESSMENT: 78-year-old M with past medical history of HTN, PEs on Coumadin who presents status post left basal ganglia hemorrhagic stroke PLAN: 1. rehab: PT/OT, RECORD CUTTER right sided hemiparesis with apraxia and dense sensory loss on right side- endurance improving with stimulant -goal to strengthen right side, improve trunk control and coordination for optimal ambulation and ADL management -maintain ROM of right wrist with splinting and stretching -stretch right elbow extensor to facilitate elbow flexion for self feeding -advance diet prn -trial eye patch for diplopia- sent referral for ophthalmology who does not see non-surgical patients inhouse, will set up next available outpatient appointment 2. Neuro: s/p right Basal ganglia, thalamic, temporal hemorrhagic stroke- c/u statin and BP meds, adjust prn goal sBP<140 -avoid antiplatelet therapy given recent bleed -c/u Prozac for motor recovery -c/u Provigil 100mg daily and OOB to Chair after therapy to encourage wakefulness during the day-improving 3. Cardio: pmh PEs was on Coumadin, on hold until neurosurgical input in 2-4 weeks, will need repeat CT scan prior to visit pmh HTN: c/u amlodipine and Cozaar- medicine consulted 4. Resp: encourage incentive spirometry -episode of hypoxia on 04/17/19, CXR negative-resolved, finished up course of Augmentin for suspected aspiration, however clinically appears well- no cough 5. GI ppx: protonix -colostomy care 6. ID: antifungal mouth wash ordered for oral thrush-resolved 5. DVT ppx: TEDs, Dopplers negative for DVT while off AC, has IVC filter 6. : c/u Detrol 4mg daily, suspicion for overactive bladder, per patient his prostate exams have been normal and his stream is consistent and not weak- overall improving 7. Skin: zinc oxide to sacrum, monitor for breakdown 9. Psych: passive suicide ideation resolved, will continue to monitor and addr ess as needed- c/u Prozac and Cymbalta -will recommend outpatient psychology/psychiatry follow-up, will also invite to stroke support group -insomnia c/u trazodone 75mg qHS scheduled for insomnia to be given at 11pm 8. Dispo: 05/03/19, progressing slowly towards goals Allergies Coded Allergies: Sulfa (Sulfonamide Antibiotics) (Verified Allergy, Intermediate, RASH, VIOLENT BEHAVIOR, 04/08/19) latex (Verified Allergy, Unknown, 04/08/19) oxycodone (Verified Adverse Reaction, Intermediate, SUICIDAL THOUGHTS, 04/08/19) Vital Signs Vital Signs Date Time Temp Pulse Resp B/P (MAP) Pulse Ox O2 Delivery O2 Flow Rate FiO2 04/29/19 08:21 110/54 04/29/19 08:20 74 04/29/19 06:00 98.5 16 94 Laboratory Data CBC/BMP Laboratory Tests 04/29/19 06:48 Red Blood Count 3.82 L, Mean Corpuscular Volume 91.9, Mean Corpuscular Hemoglobin 30.9, Mean Corpuscular Hemoglobin Concent 33.6, Red Cell Distribution Width 13.8, Neutrophils (%) (Auto) 69.9 H, Lymphocytes (%) (Auto) 16.2 L, Monocytes (%) (Auto) 7.8 H, Eosinophils (%) (Auto) 4.7 H, Basophils (%) (Auto) 0.5, Neutrophils # (Auto) 4.5, Lymphocytes # (Auto) 1.0 L, Monocytes # (Auto) 0.5, Eosinophils # (Auto) 0.3, Basophils # (Auto) 0.0, Calcium Level 7.9 L Labs 24H Laboratory Tests 2 04/28/19 12:51: Vitamin B12 Level 649 04/29/19 06:48: Immature Granulocyte % (Auto) 0.9, White Blood Count 6.4, Red Blood Count 3.82L, Hemoglobin 11.8L, Hematocrit 35.1L, Mean Corpuscular Volume 91.9, Mean Corpuscular Hemoglobin 30.9, Mean Corpuscular Hemoglobin Concent 33.6, Red Cell Distribution Width 13.8, Platelet Count 154, Neutrophils (%) (Auto) 69.9H, Lymphocytes (%) (Auto) 16.2L, Monocytes (%) (Auto) 7.8H, Eosinophils (%) (Auto) 4.7H, Basophils (%) (Auto) 0.5, Neutrophils # (Auto) 4.5, Lymphocytes # (Auto) 1.0L, Monocytes # (Auto) 0.5, Eosinophils # (Auto) 0.3, Basophils # (Auto) 0.0, Nucleated Red Blood Cells % (auto) 0.0, Anion Gap 6L, Glomerular Filtration Rate > 60.0, Blood Urea Nitrogen 28H, Creatinine 1.11, Sodium Level 139, Potassium Level 4.3, Chloride Level 107, Carbon Dioxide Level 26, Calcium Level 7.9L Current Medications Current Medications Current Medications Acetaminophen (Tylenol Tab) 650 mg Q4HP PRN PO MILD PAIN (PS 1-4) Last administered on 04/11/19 01:45; Start 04/08/19 at 10:30; Stop 04/11/19 at 15:54; Status DC Acetaminophen (Tylenol Tab) 1,000 mg QHS PO Last administered on 04/28/19 22:20; Start 04/11/19 at 21:00 Amlodipine Besylate (Norvasc) 5 mg BID PO ; Start 04/08/19 at 21:00; Stop 04/08/19 at 21:00; Status DC Amlodipine Besylate (Norvasc) 5 mg BID PO Last administered on 04/29/19 08:20; Start 04/27/19 at 21:00 Amlodipine Besylate (Norvasc) 10 mg BID PO Last administered on 04/27/19 08:13; Start 04/08/19 at 21:00; Stop 04/27/19 at 13:00; Status DC Amoxicillin/ Clavulanate Potassium (Augmentin) 875 mg BID PO Last administered on 04/25/19 08:49; Start 04/17/19 at 21:00; Stop 04/25/19 at 09:07; Status DC Atorvastatin Calcium (Lipitor) 20 mg QHS PO Last administered on 04/28/19 22:19; Start 04/08/19 at 21:00 Diatrizoate Meglum/ Diatrizoate Sod (Gastrografin) 10 ml Q30M PO Last administered on 04/10/19 11:29; Start 04/10/19 at 10:30; Stop 04/10/19 at 11:01; Status DC Docusate Sodium (Colace) 100 mg BID PO Last administered on 04/11/19 09:01; Start 04/08/19 at 09:00; Stop 04/11/19 at 10:28; Status DC Docusate Sodium (Colace) 100 mg TID PO Last administered on 04/29/19 08:20; Start 04/11/19 at 16:00 Duloxetine HCl (Cymbalta) 60 mg DAILY PO Last administered on 04/29/19 08:21; Start 04/08/19 at 09:00 Emollient Ointment (Aquaphor) apply to face, arms and legs BID TOP Last administered on 04/29/19 08:22; Start 04/25/19 at 09:00 Fluoxetine HCl (PROzac) 20 mg DAILY PO Last administered on 04/12/19 09:19; Start 04/08/19 at 09:00; Stop 04/12/19 at 14:01; Status DC Fluoxetine HCl (PROzac) 20 mg QHS PO Last administered on 04/21/19at 20:48; Start 04/13/19 at 21:00; Stop 04/22/19 at 13:39; Status DC Fluoxetine HCl (PROzac) 40 mg QHS PO Last administered on 04/28/19 22:18; Start 04/22/19 at 21:00 Home Med (Med Rec Complete!) ASDIRECTED XX ; Start 04/08/19 at 10:30; Stop 04/08/19 at 10:31; Status DC Lidocaine (Lidoderm Patch) 1 patch DAILY TD Last administered on 04/29/19 11:17; Start 04/29/19 at 09:00 Losartan Potassium (Cozaar) 100 mg DAILY PO Last administered on 04/29/19 08:21; Start 04/08/19 at 09:00 Magnesium Hydroxide (Milk Of Magnesia) 30 ml DAILYPRN PRN PO CONSTIPATION; Start 04/08/19 at 10:30 Meclizine HCl (Antivert) 12.5 mg TIDP PRN PO DIZZINESS Last administered on 04/12/19 09:18; Start 04/08/19 at 10:30 Miscellaneous (Unresolved Clarification Entry) SEE LABEL COMMENTS DAILY XX ; Start 04/24/19 at 09:00; Stop 04/24/19 at 13:40; Status DC Miscellaneous (Unresolved Clarification Entry) SEE LABEL COMMENTS DAILY XX ; Start 04/25/19 at 09:00; Stop 04/25/19 at 09:08; Status DC Modafinil (Provigil) 50 mg QAM PO Last administered on 04/18/19at 09:36; Start 04/12/19 at 09:00; Stop 04/18/19 at 11:15; Status DC Modafinil (Provigil) 100 mg QAM PO Last administered on 04/29/19 08:21; Start 04/19/19 at 09:00 Multivitamins (Theragram-M) 1 tab BID PO Last administered on 04/29/19at 08:20; Start 04/08/19 at 09:00 Non-Formulary Medication ( See Comment Field Below ) REMOVE LIDODERM PATCH DAILY@21 XX ; Start 04/29/19 at 21:00 Nystatin (Mycostatin) 5 ml QID PO Last administered on 04/14/19at 13:43; Start 04/08/19 at 17:00; Stop 04/14/19 at 15:13; Status DC Ondansetron HCl (Zofran) 4 mg Q6HP PRN PO NAUSEA; Start 04/08/19 at 10:30 Pantoprazole Sodium (Protonix) 40 mg DAILY PO Last administered on 04/29/19at 08:21; Start 04/09/19 at 09:00 Senna (Senokot) 1 tab BID PO Last administered on 04/11/19at 09:01; Start 04/10/19 at 09:00; Stop 04/11/19 at 10:28; Status DC Senna (Senokot) 1 tab QHS PO Last administered on 04/09/19at 20:25; Start 04/08/19 at 21:00; Stop 04/10/19 at 07:06; Status DC Senna (Senokot) 2 tab BID PO ; Start 04/11/19 at 21:00; Stop 04/11/19 at 21:00; Status DC Senna (Senokot) 2 tab QHS PO Last administered on 04/28/19at 22:19; Start 04/11/19 at 21:00 Tolterodine Tartrate (Detrol) 4 mg DAILY PO Last administered on 04/29/19at 08:20; Start 04/14/19 at 09:00 Trazodone HCl (Desyrel) 25 mg QHSP PRN PO INSOMNIA; Start 04/08/19 at 10:30; Stop 04/11/19 at 14:13; Status DC Trazodone HCl (Desyrel) 50 mg QHS PO Last administered on 04/11/19at 20:24; Start 04/11/19 at 21:00; Stop 04/12/19 at 14:02; Status DC Trazodone HCl (Desyrel) 75 mg QHS PO ; Start 04/12/19 at 21:00; Stop 04/12/19 at 21:02; Status DC Trazodone HCl (Desyrel) 75 mg QHS PO ; Start 04/12/19 at 21:02; Status Cancel Trazodone HCl (Desyrel) 75 mg QHS@2300 PO Last administered on 04/28/19at 22:19; Start 04/12/19 at 23:00 Zinc Oxide (Boudreauxs Butt Paste) BID to sacrum BID TOP Last administered on 04/29/19at 08:22; Start 04/08/19 at 21:00 RUFINO WALKER MD Apr 29, 2019 12:05
[2019-04-29 14:00] VITALS: BP 117/57
[2019-04-29 20:00] VITALS: BP 122/58
[2019-04-29] MEDS: ACETAMINOPHEN 500 MG TAB PO SCH (20:44)
[2019-04-29] MEDS: FLUoxetine 20 MG CAP PO SCH (20:45)
[2019-04-29] MEDS: SENNA 8.6 MG TAB (SENOKOT) PO SCH (20:45)
[2019-04-29] MEDS: ATORVASTATIN 20 MG TAB PO SCH (20:45)
[2019-04-29] MEDS: **NOTE PATIENT COMMENT** MISC XX SCH (20:47)
[2019-04-29] MEDS: traZODone 50 MG TAB PO SCH (22:19)
[2019-04-30 06:00] VITALS: BP 141/67
[2019-04-30] MEDS: BOUDREAUX'S BUTT PASTE TOP SCH ×2 (09:00→20:56)
[2019-04-30] MEDS: LIDOCAINE 5% (LIDODERM) PATCH TD SCH (09:21)
[2019-04-30] MEDS: DULoxetine 30 MG CAP (CYMBALTA) PO SCH (09:22)
[2019-04-30] MEDS: PANTOPRAZOLE 40MG TAB (PROTONIX) PO SCH (09:22)
[2019-04-30] MEDS: LOSARTAN 50 MG TAB PO SCH (09:22)
[2019-04-30] MEDS: amLODIPine 5 MG TAB PO SCH ×2 (09:23→20:55)
[2019-04-30] MEDS: MULTIVITAMINS/MINERALS THERAP 1 TAB PO SCH ×2 (09:23→20:54)
[2019-04-30] MEDS: MODAFINIL 100 MG TABLET PO SCH (09:23)
[2019-04-30] MEDS: TOLTERODINE (DETROL) 2 MG TAB PO SCH (09:23)
[2019-04-30] MEDS: DOCUSATE SODIUM 100 MG CAP PO SCH ×3 (09:23→20:54)
[2019-04-30] MEDS: AQUAPHOR **100GM** OINT TOP SCH ×2 (09:24→20:56)
--- NOTE | 2019-04-30 13:30 | IPNPDOC ---
Date Seen The patient was seen on 04/30/19. Progress Note SUBJECTIVE: Pt continues to ahave some difficulty speaking which he says is improving, right sided weakness, but able to eat using his utensils without difficulty. denies diplopia, blurred vision. still with decreased sensation on the right side of the face, arm, and LE> OBJECTIVE: PHYSICAL EXAMINATION: VITALS: PLS SEE BELOW GEN: wearing an eye patch on the left eye. HEENT: PERRL. Extraocular movements intact. Clear conjunctiva, right lower face drooping CARDIOVASCULAR: S1S2 Regular rate and rhythm. No murmurs, rubs, or gallops, nondisplaced point of maximal impulse LUNGS: no conversational dyspnea, Air entry is equal bilaterally. Clear to auscultation bilaterally. No wheezes. No rhonchi ABDOMEN: obese Soft, nontender, nondistended. Positive bowel sounds. Normal active bowel sounds, colostomy with yellow-green stool NEUROLOGICAL: Alert and oriented times to person, place, but disoriented to year. motor 5/5 LUE and LLE. 3/5 RUE & RLE dysmetria ,apraxia, dysarthria, non-fluent aphasia+babinski on right with brisk patellar reflexes EXT: chronic venous changes edema LABORATORY DATA,IMAGING STUDIES, MICROBIOLOGY: PLS SEE BELOW ASSESSMENT AND PLAN: 78M pmh HTN, Pulmonary emboli as a complication of his colostomy surgery on lifelong Coumadin who on 04/03/19 developed right sided weakness with slurred speech and was brought to [facility] where he was found to have a left basal ganglia hemorrhage with intraventricular extension with CT report 04/04/19 showing, Intraparenchymal hemorrhage within the left thalamus and left temporal lobe. Intraventricular hemorrhage within the left lateral ventricles also noted. Slight mass effect on the left lateral ventricle with no significant midline shift. He was admitted to the neuro ICU and given K Centra and vitamin K for his supra-therapeutic INR. Repeat CTH on 04/05/19 showed, Unchanged left thalamic intraparenchymal hemorrhage and adjacent intraventricular hemorrhage. He underwent and EEG which was negative for seizure activity and his BPs were managed with hydralazine prn. He required 02 via nasal canula and underwent an IVC filter placement on 04/06/19. ECHO was also performed showing preserved systolic function, but limited study and unable to assess wall motion for diastolic function. He was deemed to be not a surgical candidate and instructed to remain off of anticoagulation until follow-up in 2-4 weeks with neurosurgery. He was evaluated by therapy and found to have considerable needs in mobility and ADLs and deemed medically appropriate for discharge to ARU on 04/08/19. 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 -optimized bp control -managed by primary team -PT/OT -pt is cooperative, and slowly improving Depression -somewhat improved today -continued on Prozac DVT/ PE -off anticoagulation therapy due to recent stroke -to be restarted on anticoagulation therapy after follow-up and clearance with neurosurgery Hypertension -stable, controlled -monitoring with target systolic blood pressure less than 140 Hyperlipidemia -Continue Atorvastatin 20 mg daily at bedtime OAB -Continue detrol therapy DVT prophylaxis -Not a candidate for anticoagulation therapy given recent hemorrhagic CVA -Antiembolism stockings contraindicated in the setting of underlying DVT VS, I&O, 24H, Fishbone Vital Signs/I&O Vital Signs Date Time Temp Pulse Resp B/P (MAP) Pulse Ox O2 Delivery O2 Flow Rate FiO2 04/30/19 06:00 98.4 73 18 141/67 (91) 91 I&O- Last 24 Hours up to 6 AM 04/30/19 06:00 Intake Total 960 ml Output Total 1275 ml Balance -315 ml WEI ROWLEY MD Apr 30, 2019 09:03
[2019-04-30 14:00] VITALS: BP 150/68
[2019-04-30 19:57] VITALS: BP 149/65
[2019-04-30] MEDS: ATORVASTATIN 20 MG TAB PO SCH (20:54)
[2019-04-30] MEDS: FLUoxetine 20 MG CAP PO SCH (20:54)
[2019-04-30] MEDS: ACETAMINOPHEN 500 MG TAB PO SCH (20:54)
[2019-04-30] MEDS: SENNA 8.6 MG TAB (SENOKOT) PO SCH (20:57)
[2019-04-30] MEDS: **NOTE PATIENT COMMENT** MISC XX SCH (20:57)
[2019-04-30] MEDS: traZODone 50 MG TAB PO SCH (22:27)
[2019-05-01 04:00] VITALS: BP 117/56
[2019-05-01] MEDS: DOCUSATE SODIUM 100 MG CAP PO SCH ×3 (08:52→21:40)
[2019-05-01] MEDS: TOLTERODINE (DETROL) 2 MG TAB PO SCH (08:52)
[2019-05-01] MEDS: PANTOPRAZOLE 40MG TAB (PROTONIX) PO SCH (08:52)
[2019-05-01] MEDS: MULTIVITAMINS/MINERALS THERAP 1 TAB PO SCH ×2 (08:52→21:39)
[2019-05-01] MEDS: DULoxetine 30 MG CAP (CYMBALTA) PO SCH (08:53)
[2019-05-01] MEDS: amLODIPine 5 MG TAB PO SCH ×2 (08:53→21:40)
[2019-05-01] MEDS: LIDOCAINE 5% (LIDODERM) PATCH TD SCH (08:53)
[2019-05-01] MEDS: MODAFINIL 100 MG TABLET PO SCH (08:53)
[2019-05-01] MEDS: LOSARTAN 50 MG TAB PO SCH (08:53)
[2019-05-01] MEDS: AQUAPHOR **100GM** OINT TOP SCH ×2 (08:55→21:40)
[2019-05-01] MEDS: BOUDREAUX'S BUTT PASTE TOP SCH ×2 (08:55→21:00)
--- NOTE | 2019-05-01 09:58 | IPNPDOC ---
Date Seen The patient was seen on 05/01/19. Progress Note SUBJECTIVE: pt c/o pain in b/l legs described as crampy that subsided on its own, lasted for a few hours yesterday. today, he c/o left shoulder pain without radiation, sharp no radiation worse when he tries to move without diaphoresis, sob, tachycardia,palpitations, nausea vomiting lasts for a few minutes. "It feels really sore." OBJECTIVE: PHYSICAL EXAMINATION: VITALS: PLS SEE BELOW GEN: wearing an eye patch on the left eye. HEENT: PERRL. Extraocular movements intact. Clear conjunctiva, right lower face drooping CARDIOVASCULAR: S1S2 Regular rate and rhythm. No murmurs, rubs, or gallops, nondisplaced point of maximal impulse LUNGS: no conversational dyspnea, Air entry is equal bilaterally. Clear to auscultation bilaterally. No wheezes. No rhonchi ABDOMEN: obese Soft, nontender, nondistended. Positive bowel sounds. Normal active bowel sounds, colostomy with yellow-green stool NEUROLOGICAL: Alert and oriented times to person, place, but disoriented to year. motor 5/5 LUE and LLE. 3/5 RUE & RLE dysmetria ,apraxia, dysarthria, non-fluent aphasia+babinski on right with brisk patellar reflexes EXT: chronic venous changes edema left shoulder full ROM. no effusion noted,erythema. LABORATORY DATA,IMAGING STUDIES, MICROBIOLOGY: PLS SEE BELOW ASSESSMENT AND PLAN: 78M pmh HTN, Pulmonary emboli as a complication of his colostomy surgery on lifelong Coumadin who on 04/03/19 developed right sided weakness with slurred speech and was brought to [facility] where he was found to have a left basal ganglia hemorrhage with intraventricular extension with CT report 04/04/19 showing, Intraparenchymal hemorrhage within the left thalamus and left temporal lobe. Intraventricular hemorrhage within the left lateral ventricles also noted. Slight mass effect on the left lateral ventricle with no significant midline shift. He was admitted to the neuro ICU and given K Centra and vitamin K for his supra-therapeutic INR. Repeat CTH on 04/05/19 showed, Unchanged left thalamic intraparenchymal hemorrhage and adjacent intraventricular hemorrhage. He underwent and EEG which was negative for seizure activity and his BPs were managed with hydralazine prn. He required 02 via nasal canula and underwent an IVC filter placement on 04/06/19. ECHO was also performed showing preserved systolic function, but limited study and unable to assess wall motion for diastolic function. He was deemed to be not a surgical candidate and instructed to remain off of anticoagulation until follow-up in 2-4 weeks with neurosurgery. He was evaluated by therapy and found to have considerable needs in mobility and ADLs and deemed medically appropriate for discharge to ARU on 04/08/19. 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 DVT/ PE -off anticoagulation therapy due to recent stroke -to be restarted on anticoagulation therapy after follow-up and clearance with neurosurgery Hypertension -stable, controlled -monitoring with target systolic blood pressure less than 140 Hyperlipidemia -Continue Atorvastatin 20 mg daily at bedtime OAB -Continue detrol therapy DVT prophylaxis -Not a candidate for anticoagulation therapy given recent hemorrhagic CVA -Antiembolism stockings contraindicated in the setting of underlying DVT VS, I&O, 24H, Fishbone Vital Signs/I&O Vital Signs Date Time Temp Pulse Resp B/P (MAP) Pulse Ox O2 Delivery O2 Flow Rate FiO2 05/01/19 04:00 97.1 68 18 117/56 (93) 95 I&O- Last 24 Hours up to 6 AM 05/01/19 06:00 Intake Total 480 ml Output Total 450 ml Balance 30 ml WEI ROWLEY MD May 01, 2019 06:14
[2019-05-01 10:35] LABS: HEMATOCRIT 35.5 % (42.0-52.0); HEMOGLOBIN 11.9 g/dl (13.5-17.5); MEAN CORPUSCULAR HEMOGLOBIN 30.9 pg (27.0-33.0); MEAN CORPUSCULAR HGB CONC 33.5 g/dl (32.0-36.5); MEAN CORPUSCULAR VOLUME 92.2 fl (80.0-96.0); PLATELET COUNT, AUTOMATED 160 10^3/uL (150-450); RED BLOOD COUNT 3.85 10^6/uL (4.30-6.10); WHITE BLOOD COUNT 6.4 10^3/uL (4.0-10.0)
[2019-05-01 10:48] LABS: BLOOD UREA NITROGEN 22 MG/DL (7-18); CALCIUM LEVEL 8.4 MG/DL (8.8-10.2); CARBON DIOXIDE LEVEL 28 MEQ/L (21-32); CHLORIDE LEVEL 106 MEQ/L (98-107); GLOMERULAR FILTRATION RATE > 60.0 (>35); GLUCOSE, FASTING 118 MG/DL (70-100); POTASSIUM SERUM 4.1 MEQ/L (3.5-5.1); SODIUM LEVEL 138 MEQ/L (136-145)
[2019-05-01] MEDS: ANALGESIC BALM CRM 120 GM TOP SCH ×4 (11:00→21:41)
[2019-05-01 14:00] VITALS: BP 122/57
[2019-05-01 20:00] VITALS: BP 140/65
[2019-05-01] MEDS: **NOTE PATIENT COMMENT** MISC XX SCH (21:00)
[2019-05-01] MEDS: FLUoxetine 20 MG CAP PO SCH (21:39)
[2019-05-01] MEDS: ATORVASTATIN 20 MG TAB PO SCH (21:39)
[2019-05-01] MEDS: SENNA 8.6 MG TAB (SENOKOT) PO SCH (21:39)
[2019-05-01] MEDS: ACETAMINOPHEN 500 MG TAB PO SCH (21:40)
[2019-05-01] MEDS: traZODone 50 MG TAB PO SCH (22:06)
[2019-05-02 05:54] VITALS: BP 139/70
[2019-05-02] MEDS: LIDOCAINE 5% (LIDODERM) PATCH TD SCH (07:55)
[2019-05-02] MEDS: amLODIPine 5 MG TAB PO SCH ×2 (07:56→20:14)
[2019-05-02] MEDS: DOCUSATE SODIUM 100 MG CAP PO SCH ×3 (07:56→20:13)
[2019-05-02] MEDS: MULTIVITAMINS/MINERALS THERAP 1 TAB PO SCH ×2 (07:56→20:13)
[2019-05-02] MEDS: PANTOPRAZOLE 40MG TAB (PROTONIX) PO SCH (07:56)
[2019-05-02] MEDS: TOLTERODINE (DETROL) 2 MG TAB PO SCH (07:56)
[2019-05-02] MEDS: MODAFINIL 100 MG TABLET PO SCH (07:56)
[2019-05-02] MEDS: DULoxetine 30 MG CAP (CYMBALTA) PO SCH (07:56)
[2019-05-02] MEDS: AQUAPHOR **100GM** OINT TOP SCH ×2 (07:57→20:15)
[2019-05-02] MEDS: ANALGESIC BALM CRM 120 GM TOP SCH ×4 (07:57→20:16)
[2019-05-02] MEDS: LOSARTAN 50 MG TAB PO SCH (07:57)
[2019-05-02] MEDS: BOUDREAUX'S BUTT PASTE TOP SCH ×2 (07:58→20:16)
--- NOTE | 2019-05-02 10:12 | IPNPDOC ---
PM&R Progress Note DATE OF SERVICE: May 02, 2019 [facility] Progress Note Subjective: Patient seen in his room today, stating he does not want to hurt himself or commit suicide. He states he regrets having made comments previously to staff members and for giving the impression he was suicidal yesterday. He wants to continue with therapy and get home. REVIEW OF SYSTEMS: The following is a completed review of systems and has been reviewed. Review of systems otherwise unremarkable. PAIN: Patient self reports no pain EYES:+ double vision EARS, NOSE, & THROAT: +dysphagia (improving) CARDIOVASCULAR: denies chest pain or palpitations PULMONARY: Negative. Denies shortness of breath GASTROINTESTINAL: denies constipation/diarrhea GENITOURINARY:denies dysuria, +urge incontinence (improving) MUSCULOSKELETAL: RUE and RLE paresis NEUROLOGICAL: right sided hemiparesis, aphasia, dysphagia, right sided neglect SKIN: intact PSYCHIATRIC: Unremarkable All other review of systems found to be negative. PHYSICAL EXAMINATION: VITAL SIGNS: Please see below. GENERAL: Pleasant and cooperative. No acute distress. HEENT: PERRL. Extraocular movements intact. Clear conjunctiva, right eye-brow sparing facial droop (improving) CARDIOVASCULAR: Regular rate and rhythm. No murmurs, rubs, or gallops LUNGS: Clear to auscultation bilaterally. No wheezes. No rhonchi ABDOMEN: Soft, nontender, nondistended. Positive bowel sounds. Normal active bowel sounds, colostomy with stool NEUROLOGICAL: Alert and oriented times to person, place, though it was 1978 Cranial nerves II through XII grossly except right sided facial weakness and decreased sensation, decreased sensation right UE and LE +apraxia +dysarthria (improving) +non-fluent aphasia +babinski on right with brisk patellar reflexes 1+/4 MAS right wrist flexors and elbow extensors EXTREMITIES: 5\5 strength left upper extremities, 3+/5 RUE, 3+\5 strength right lower extremity. 5/5 strength in left lower extremity. SKIN: intact ASSESSMENT: 78-year-old M with past medical history of HTN, PEs on Coumadin who presents status post left basal ganglia hemorrhagic stroke PLAN: 1. rehab: PT/OT, CHIEF COUNSEL right sided hemiparesis with apraxia and dense sensory loss on right side- endurance improving with stimulant -goal to strengthen right side, improve trunk control and coordination for optimal ambulation and ADL management -maintain ROM of right wrist with splinting and stretching -stretch right elbow extensor to facilitate elbow flexion for self feeding -advance diet prn -trial eye patch for diplopia- sent referral for ophthalmology who does not see non-surgical patients inhouse, will set up next available outpatient appointment 2. Neuro: s/p right Basal ganglia, thalamic, temporal hemorrhagic stroke- c/u statin and BP meds, adjust prn goal sBP<140 -avoid antiplatelet therapy given recent bleed -c/u Prozac for motor recovery -c/u Provigil 100mg daily and OOB to Chair after therapy to encourage wakefulness during the day-improving 3. Cardio: pmh PEs was on Coumadin, on hold until neurosurgical input in 2-4 weeks, will need repeat CT scan prior to visit pmh HTN: c/u amlodipine and Cozaar- medicine consulted 4. Resp: encourage incentive spirometry -episode of hypoxia on 04/17/19, CXR negative-resolved, finished up course of Augmentin for suspected aspiration, however clinically appears well- no cough 5. GI ppx: protonix -colostomy care 6. ID: antifungal mouth wash ordered for oral thrush-resolved 5. DVT ppx: TEDs, Dopplers negative for DVT while off AC, has IVC filter 6. : c/u Detrol 4mg daily, suspicion for overactive bladder, per patient his prostate exams have been normal and his stream is consistent and not weak- overall improving 7. Skin: zinc oxide to sacrum, monitor for breakdown 9. Psych: passive suicide ideation resolved, will continue to monitor and address as needed- c/u Prozac and Cymbalta -will recommend outpatient psychology/psychiatry follow-up, will also invite to stroke support group -insomnia c/u trazodone 75mg qHS scheduled for insomnia to be given at 11pm 8. Dispo: 05/03/19, progressing slowly towards goals Allergies Coded Allergies: Sulfa (Sulfonamide Antibiotics) (Verified Allergy, Intermediate, RASH, VIOLENT BEHAVIOR, 04/08/19) latex (Verified Allergy, Unknown, 04/08/19) oxycodone (Verified Adverse Reaction, Intermediate, SUICIDAL THOUGHTS, 04/08/19) Vital Signs Vital Signs Date Time Temp Pulse Resp B/P (MAP) Pulse Ox O2 Delivery O2 Flow Rate FiO2 05/02/19 07:57 139/70 05/02/19 07:56 75 05/02/19 05:54 97.9 18 94 Current Medications Current Medications Current Medications Acetaminophen (Tylenol Tab) 650 mg Q4HP PRN PO MILD PAIN (PS 1-4) Last administered on 04/11/19 01:45; Start 04/08/19 at 10:30; Stop 04/11/19 at 15:54; Status DC Acetaminophen (Tylenol Tab) 1,000 mg QHS PO Last administered on 05/01/19 21:40; Start 04/11/19 at 21:00 Amlodipine Besylate (Norvasc) 5 mg BID PO ; Start 04/08/19 at 21:00; Stop 04/08/19 at 21:00; Status DC Amlodipine Besylate (Norvasc) 5 mg BID PO Last administered on 05/02/19 07:56; Start 04/27/19 at 21:00 Amlodipine Besylate (Norvasc) 10 mg BID PO Last administered on 04/27/19 08:13; Start 04/08/19 at 21:00; Stop 04/27/19 at 13:00; Status DC Amoxicillin/ Clavulanate Potassium (Augmentin) 875 mg BID PO Last administered on 04/25/19 08:49; Start 04/17/19 at 21:00; Stop 04/25/19 at 09:07; Status DC Atorvastatin Calcium (Lipitor) 20 mg QHS PO Last administered on 05/01/19at 21:39; Start 04/08/19 at 21:00 Diatrizoate Meglum/ Diatrizoate Sod (Gastrografin) 10 ml Q30M PO Last administered on 04/10/19 11:29; Start 04/10/19 at 10:30; Stop 04/10/19 at 11:01; Status DC Docusate Sodium (Colace) 100 mg BID PO Last administered on 04/11/19 09:01; Start 04/08/19 at 09:00; Stop 04/11/19 at 10:28; Status DC Docusate Sodium (Colace) 100 mg TID PO Last administered on 05/02/19 07:56; Start 04/11/19 at 16:00 Duloxetine HCl (Cymbalta) 60 mg DAILY PO Last administered on 05/02/19 07:56; Start 04/08/19 at 09:00 Emollient Ointment (Aquaphor) apply to face, arms and legs BID TOP Last administered on 05/02/19 07:57; Start 04/25/19 at 09:00 Fluoxetine HCl (PROzac) 20 mg DAILY PO Last administered on 04/12/19 09:19; Start 04/08/19 at 09:00; Stop 04/12/19 at 14:01; Status DC Fluoxetine HCl (PROzac) 20 mg QHS PO Last administered on 04/21/19 20:48; Start 04/13/19 at 21:00; Stop 04/22/19 at 13:39; Status DC Fluoxetine HCl (PROzac) 40 mg QHS PO Last administered on 05/01/19 21:39; Start 04/22/19 at 21:00 Home Med (Med Rec Complete!) ASDIRECTED XX ; Start 04/08/19 at 10:30; Stop 04/08/19 at 10:31; Status DC Lidocaine (Lidoderm Patch) 1 patch DAILY TD Last administered on 05/02/19 07:55; Start 04/29/19 at 09:00 Losartan Potassium (Cozaar) 100 mg DAILY PO Last administered on 05/02/19 07:57; Start 04/08/19 at 09:00 Magnesium Hydroxide (Milk Of Magnesia) 30 ml DAILYPRN PRN PO CONSTIPATION; Start 04/08/19 at 10:30 Meclizine HCl (Antivert) 12.5 mg TIDP PRN PO DIZZINESS Last administered on 04/12/19 09:18; Start 04/08/19 at 10:30 Menthol/Methyl Salicylate (Bengay Cream) affected area inl... QID TOP Last administered on 05/02/19 07:57; Start 05/01/19 at 09:00 Miscellaneous (Unresolved Clarification Entry) SEE LABEL COMMENTS DAILY XX ; Start 05/01/19 at 09:00; Status Cancel Miscellaneous (Unresolved Clarification Entry) SEE LABEL COMMENTS DAILY XX ; Start 04/24/19 at 09:00; Stop 04/24/19 at 13:40; Status DC Miscellaneous (Unresolved Clarification Entry) SEE LABEL COMMENTS DAILY XX ; Start 04/25/19 at 09:00; Stop 04/25/19 at 09:08; Status DC Modafinil (Provigil) 50 mg QAM PO Last administered on 04/18/19at 09:36; Start 04/12/19 at 09:00; Stop 04/18/19 at 11:15; Status DC Modafinil (Provigil) 100 mg QAM PO Last administered on 05/02/19 07:56; Start 04/19/19 at 09:00 Multivitamins (Theragram-M) 1 tab BID PO Last administered on 05/02/19 07:56; Start 04/08/19 at 09:00 Non-Formulary Medication ( See Comment Field Below ) REMOVE LIDODERM PATCH DAILY@21 XX Last administered on 05/01/19at 21:00; Start 04/29/19 at 21:00 Nystatin (Mycostatin) 5 ml QID PO Last administered on 04/14/19at 13:43; Start 04/08/19 at 17:00; Stop 04/14/19 at 15:13; Status DC Ondansetron HCl (Zofran) 4 mg Q6HP PRN PO NAUSEA; Start 04/08/19 at 10:30 Pantoprazole Sodium (Protonix) 40 mg DAILY PO Last administered on 05/02/19 07:56; Start 04/09/19 at 09:00 Senna (Senokot) 1 tab BID PO Last administered on 04/11/19at 09:01; Start 04/10/19 at 09:00; Stop 04/11/19 at 10:28; Status DC Senna (Senokot) 1 tab QHS PO Last administered on 04/09/19at 20:25; Start 04/08/19 at 21:00; Stop 04/10/19 at 07:06; Status DC Senna (Senokot) 2 tab BID PO ; Start 04/11/19 at 21:00; Stop 04/11/19 at 21:00; Status DC Senna (Senokot) 2 tab QHS PO Last administered on 05/01/19at 21:39; Start 04/11/19 at 21:00 Tolterodine Tartrate (Detrol) 4 mg DAILY PO Last administered on 7/15/19at 07:56; Start 04/14/19 at 09:00 Trazodone HCl (Desyrel) 25 mg QHSP PRN PO INSOMNIA; Start 04/08/19 at 10:30; Stop 04/11/19 at 14:13; Status DC Trazodone HCl (Desyrel) 50 mg QHS PO Last administered on 04/11/19at 20:24; Start 04/11/19 at 21:00; Stop 04/12/19 at 14:02; Status DC Trazodone HCl (Desyrel) 75 mg QHS PO ; Start 04/12/19 at 21:00; Stop 04/12/19 at 21:02; Status DC Trazodone HCl (Desyrel) 75 mg QHS PO ; Start 04/12/19 at 21:02; Status Cancel Trazodone HCl (Desyrel) 75 mg QHS@2300 PO Last administered on 05/01/19at 22:06; Start 04/12/19 at 23:00 Zinc Oxide (Boudreauxs Butt Paste) BID to sacrum BID TOP Last administered on 05/01/19at 08:55; Start 04/08/19 at 21:00 RUFINO WALKER MD May 02, 2019 10:12
[2019-05-02 14:00] VITALS: BP 142/62
[2019-05-02] MEDS ORDERED: COLA100C5 PO (15:14)
[2019-05-02] MEDS ORDERED: ATOR1TAB21 PO (15:14)
[2019-05-02] MEDS ORDERED: DETR1TAB5 PO (15:14)
[2019-05-02] MEDS ORDERED: TRAZ-252 PO (15:14)
[2019-05-02] MEDS ORDERED: COZA50TA PO (15:14)
[2019-05-02] MEDS ORDERED: SENN18TA PO (15:14)
[2019-05-02] MEDS ORDERED: ACET-683 PO (15:14)
[2019-05-02] MEDS ORDERED: VITMTA PO (15:14)
[2019-05-02] MEDS ORDERED: MOM30SS2 PO (15:14)
[2019-05-02] MEDS ORDERED: AQUA100OI TOP (15:14)
[2019-05-02] MEDS ORDERED: AMLO5TAB6 PO (15:14)
[2019-05-02] MEDS ORDERED: PANT40TA3 PO (15:14)
[2019-05-02] MEDS ORDERED: LIDO5TD TD (15:14)
[2019-05-02] MEDS ORDERED: CYMB1CAP5 PO (15:14)
[2019-05-02] MEDS ORDERED: MUSCCRE9 TOP (15:14)
[2019-05-02] MEDS ORDERED: FLUO20CA19 PO (15:14)
[2019-05-02] MEDS ORDERED: BOUDPST TOP (15:14)
[2019-05-02] MEDS ORDERED: MODA100T13 PO (15:14)
--- NOTE | 2019-05-02 16:54 | IPNPDOC ---
Date Seen The patient was seen on 05/02/19. Progress Note SUBJECTIVE: Patient is working with occupational therapy writing with his left hand with a left eye patch at the bedside. He says he has no b/l knee or hip pain today, and says his left shoulder is better with qid bengay. He still c/o weakness, but slowly improving according to PT, and pt has been cooperative. OBJECTIVE: PHYSICAL EXAMINATION: VITALS: PLS SEE BELOW GEN: wearing an eye patch on the left eye. HEENT: PERRL. Extraocular movements intact. Clear conjunctiva, right lower face drooping CARDIOVASCULAR: S1S2 Regular rate and rhythm. No murmurs, rubs, or gallops, nondisplaced point of maximal impulse LUNGS: no conversational dyspnea, Air entry is equal bilaterally. Clear to ausc ultation bilaterally. No wheezes. No rhonchi ABDOMEN: obese Soft, nontender, nondistended. Positive bowel sounds. Normal active bowel sounds, colostomy with yellow-green stool NEUROLOGICAL: Alert and oriented times to person, place, but disoriented to year. motor 5/5 LUE and LLE. 3/5 RUE & RLE dysmetria ,apraxia, dysarthria, non-fluent aphasia+babinski on right with brisk patellar reflexes EXT: chronic venous changes edema left shoulder full ROM. no effusion noted,erythema. 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 Intraventricular hemorrhage within the left lateral ventricles also noted. Slight mass effect on the left lateral ventricle with no significant midline shift. He was admitted to the neuro ICU and given K Centra and vitamin K for his supra-therapeutic INR. Repeat CTH on 04/05/19 showed, Unchanged left thalamic intraparenchymal hemorrhage and adjacent intraventricular hemorrhage. He underwent and EEG which was negative for seizure activity and his BPs were managed with hydralazine prn. He required 02 via nasal canula and underwent an IVC filter placement on 04/06/19. ECHO was also performed showing preserved systolic function, but limited study and unable to assess wall motion for diastolic function. He was deemed to be not a surgical candidate and instructed to remain off of anticoagulation until follow-up in 2-4 weeks with neurosurgery. He was evaluated by therapy and found to have considerable needs in mobility and ADLs and deemed medically appropriate for discharge to ARU on 04/08/19. 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 DVT/ PE -off anticoagulation therapy due to recent stroke -to be restarted on anticoagulation therapy after follow-up and clearance with neurosurgery Hypertension -stable, controlled -monitoring with target systolic blood pressure less than 140 Hyperlipidemia -Continue Atorvastatin 20 mg daily at bedtime OAB -Continue detrol therapy DVT prophylaxis -Not a candidate for anticoagulation therapy given recent hemorrhagic CVA -Antiembolism stockings contraindicated in the setting of underlying DVT VS, I&O, 24H, [facility] Vital Signs/I&O Vital Signs Date Time Temp Pulse Resp B/P (MAP) Pulse Ox O2 Delivery O2 Flow Rate FiO2 05/02/19 05:54 97.9 75 18 139/70 (93) 94 I&O- Last 24 Hours up to 6 AM 05/02/19 06:00 Intake Total 960 ml Output Total 400 ml Balance 560 ml Laboratory Data 24H LABS Laboratory Tests 2 05/01/19 10:09: Nucleated Red Blood Cells % (auto) 0.0, Anion Gap 4L, Glomerular Filtration Rate > 60.0, Blood Urea Nitrogen 22H, Creatinine 1.10, Sodium Level 138, Potassium Level 4.1, Chloride Level 106, Carbon Dioxide Level 28, Calcium Level 8.4L CBC/BMP Laboratory Tests 05/01/19 10:09 Red Blood Count 3.85 L, Mean Corpuscular Volume 92.2, Mean Corpuscular Hemoglobin 30.9, Mean Corpuscular Hemoglobin Concent 33.5, Red Cell Distribution Width 13.9, Calcium Level 8.4 L WEI ROWLEY MD May 02, 2019 06:29
[2019-05-02] MEDS: POLYVINYL ALCOHOL OPHTH SOLN 15 ML(LIQUITEARS) OU SCH ×2 (17:00→20:15)
[2019-05-02 20:00] VITALS: BP 134/63
[2019-05-02] MEDS: ATORVASTATIN 20 MG TAB PO SCH (20:13)
[2019-05-02] MEDS: FLUoxetine 20 MG CAP PO SCH (20:13)
[2019-05-02] MEDS: SENNA 8.6 MG TAB (SENOKOT) PO SCH (20:14)
[2019-05-02] MEDS: ACETAMINOPHEN 500 MG TAB PO SCH (20:14)
[2019-05-02] MEDS: **NOTE PATIENT COMMENT** MISC XX SCH (21:46)
[2019-05-02] MEDS: traZODone 50 MG TAB PO SCH (21:58)
[2019-05-03 06:00] VITALS: BP 131/61
[2019-05-03] MEDS: DULoxetine 30 MG CAP (CYMBALTA) PO SCH (08:31)
[2019-05-03] MEDS: LIDOCAINE 5% (LIDODERM) PATCH TD SCH (08:31)
[2019-05-03] MEDS: MODAFINIL 100 MG TABLET PO SCH (08:31)
[2019-05-03] MEDS: MULTIVITAMINS/MINERALS THERAP 1 TAB PO SCH (08:31)
[2019-05-03 08:32] VITALS: BP 131/61
[2019-05-03] MEDS: PANTOPRAZOLE 40MG TAB (PROTONIX) PO SCH (08:32)
[2019-05-03] MEDS: LOSARTAN 50 MG TAB PO SCH (08:32)
[2019-05-03] MEDS: DOCUSATE SODIUM 100 MG CAP PO SCH (08:32)
[2019-05-03] MEDS: amLODIPine 5 MG TAB PO SCH (08:32)
[2019-05-03] MEDS: TOLTERODINE (DETROL) 2 MG TAB PO SCH (08:32)
[2019-05-03] MEDS: POLYVINYL ALCOHOL OPHTH SOLN 15 ML(LIQUITEARS) OU SCH (08:33)
[2019-05-03] MEDS: ANALGESIC BALM CRM 120 GM TOP SCH (08:33)
[2019-05-03] MEDS: BOUDREAUX'S BUTT PASTE TOP SCH (08:33)
[2019-05-03] MEDS: AQUAPHOR **100GM** OINT TOP SCH (08:36)
== END 2019-05-03 11:20 | DRG 57 ==
LOC: M PM&R 09:35
PROVIDERS: ADMIT Physical Medicine & Rehabilitation; ATTEND Physical Medicine & Rehabilitation
DX: I69.351 Hemiplegia and hemiparesis following cerebral infarction affecting right dominant side (principal); B37.0 Candidal stomatitis; R45.851 Suicidal ideations; I69.290 Apraxia following other nontraumatic intracranial hemorrhage; I10 Essential (primary) hypertension; Z79.01 Long term (current) use of anticoagulants; Z86.711 Personal history of pulmonary embolism; Z79.899 Other long term (current) drug therapy; Z88.2 Allergy status to sulfonamides; Z91.040 Latex allergy status; Z88.5 Allergy status to narcotic agent; Z93.3 Colostomy status; Z86.718 Personal history of other venous thrombosis and embolism; K43.5 Parastomal hernia without obstruction or gangrene; E78.5 Hyperlipidemia, unspecified; H53.2 Diplopia; N32.81 Overactive bladder; F32.9 Major depressive disorder, single episode, unspecified; R09.02 Hypoxemia; G47.00 Insomnia, unspecified

== ENCOUNTER → 2019-05-09 | Outpatient (REF) ==
[~2019-05-09] MED LIST changes: +ACET-683 PO; +ACET-897 PO; +ACET-907 PO; +AMLO5TAB6 PO; +APAP325T4 PO; +AQUA100OI TOP; +AQUAOI TOP; +ARTIDRO2 OU; +ATOR1TAB21 PO; +BOUDPST TOP; +COLA100C5 PO; +COZA50TA PO; +CYMB1CAP5 PO; +DESI13CR2 TOP; +DETR1TAB5 PO; +DETR4CAP PO; +DOCU100C16 PO; +DULC10SU2 PR; +ELIQ2.5T PO; +ENEMENE PR; +FEVE650S3 PR; +FLUO20CA19 PO; +LEVO250T12 PO; +LIDO1PAD TOP; +LIDO5TD TD; +LOSA100T50 PO; +MACR100C43 PO; +MECL12.589 PO; +MELATAB3 PO; +MODA100T13 PO; +MOM30SS2 PO; +MUSCCRE9 TOP; +OCUVCAP2 PO; +ONDA4TAB6 PO; +OXYB5TAB10 PO; +PANT-23 PO; +PANT40TA3 PO; +PYRI1TAB5 PO; +ROPI0.253 PO; +SENN18TA PO; +SENN8.6T28 PO; +TRAZ-252 PO; +VITMTA PO; +VOLT1GEL15 TOP; +[UNRECOGNIZED DRUG - CODE] PO; +[UNRECOGNIZED DRUG - CODE] TOP
[2019-05-09 08:01] LABS: BASO % 0.7 % (0.0-1.0); EOS # 0.2 10^3/uL (0.0-0.50); EOS % 4.3 % (0.0-3.0); LYMPH # 0.9 10^3/uL (1.5-4.5); LYMPH % 15.7 % (24.0-44.0); MEAN CORPUSCULAR HEMOGLOBIN 30.8 pg (27.0-33.0); MEAN CORPUSCULAR HGB CONC 33.3 g/dl (32.0-36.5); MEAN CORPUSCULAR VOLUME 92.3 fl (80.0-96.0); MONO # 0.5 10^3/uL (0.0-0.8); MONO % 8.3 % (0.0-5.0); NEUTROPHILS # 3.9 10^3/uL (1.8-7.7); NEUTROPHILS % 69.9 % (36.0-66.0); PLATELET COUNT, AUTOMATED 201 10^3/uL (150-450); WHITE BLOOD COUNT 5.6 10^3/uL (4.0-10.0)
[2019-05-09 08:24] LABS: BLOOD UREA NITROGEN 17 MG/DL (7-18); CALCIUM LEVEL 8.4 MG/DL (8.8-10.2); CARBON DIOXIDE LEVEL 26 MEQ/L (21-32); CHLORIDE LEVEL 106 MEQ/L (98-107); CREATININE FOR GFR 0.97 MG/DL (0.70-1.30); GLOMERULAR FILTRATION RATE > 60.0 (>35); GLUCOSE, FASTING 96 MG/DL (70-100); POTASSIUM SERUM 4.1 MEQ/L (3.5-5.1); SODIUM LEVEL 140 MEQ/L (136-145)
== END ==
LOC: SKLAB2 07:00
PROVIDERS: ATTEND Family Medicine
DX: I10 Essential (primary) hypertension (principal); I63.9 Cerebral infarction, unspecified; Z86.711 Personal history of pulmonary embolism

== ENCOUNTER → 2019-05-23 | Outpatient (REF) ==
[~2019-05-23] MED LIST changes: -ACET-897 PO; -ACET-907 PO; -AQUAOI TOP; -ARTIDRO2 OU; -DESI13CR2 TOP; -DETR4CAP PO; -DULC10SU2 PR; -ELIQ2.5T PO; -ENEMENE PR; -FEVE650S3 PR; -LEVO250T12 PO; -LIDO1PAD TOP; -MACR100C43 PO; +MECL12.575 PO; -MECL12.589 PO; -OXYB5TAB10 PO; -PYRI1TAB5 PO; -ROPI0.253 PO; -SENN8.6T28 PO; -VOLT1GEL15 TOP; -[UNRECOGNIZED DRUG - CODE] PO; -[UNRECOGNIZED DRUG - CODE] TOP
[2019-05-23 06:59] LABS: BLOOD UREA NITROGEN 19 MG/DL (7-18); CALCIUM LEVEL 8.3 MG/DL (8.8-10.2); CARBON DIOXIDE LEVEL 27 MEQ/L (21-32); CHLORIDE LEVEL 107 MEQ/L (98-107); CREATININE FOR GFR 0.94 MG/DL (0.70-1.30); GLOMERULAR FILTRATION RATE > 60.0 (>35); GLUCOSE, FASTING 93 MG/DL (70-100); POTASSIUM SERUM 3.9 MEQ/L (3.5-5.1); SODIUM LEVEL 140 MEQ/L (136-145)
== END ==
LOC: SKLAB2 07:00
PROVIDERS: ATTEND Family Medicine
DX: I69.90 Unspecified sequelae of unspecified cerebrovascular disease (principal)

== ENCOUNTER → 2019-05-30 | Outpatient (REF) ==
[2019-05-30 08:17] LABS: BASO # 0.1 10^3/uL (0.0-0.2); BASO % 0.7 % (0.0-1.0); EOS # 0.3 10^3/uL (0.0-0.50); EOS % 2.4 % (0.0-3.0); HEMATOCRIT 35.2 % (42.0-52.0); HEMOGLOBIN 11.6 g/dl (13.5-17.5); LYMPH # 1.3 10^3/uL (1.5-4.5); LYMPH % 12.8 % (24.0-44.0); MEAN CORPUSCULAR HEMOGLOBIN 30.7 pg (27.0-33.0); MEAN CORPUSCULAR VOLUME 93.1 fl (80.0-96.0); MONO # 0.6 10^3/uL (0.0-0.8); NEUTROPHILS # 7.8 10^3/uL (1.8-7.7); NEUTROPHILS % 75.8 % (36.0-66.0); PLATELET COUNT, AUTOMATED 155 10^3/uL (150-450); RED BLOOD COUNT 3.78 10^6/uL (4.30-6.10); WHITE BLOOD COUNT 10.3 10^3/uL (4.0-10.0)
[2019-05-30 08:40] LABS: CREATININE FOR GFR 1.59 MG/DL (0.70-1.30); GLOMERULAR FILTRATION RATE 44.8 (>35); POTASSIUM SERUM 4.6 MEQ/L (3.5-5.1)
== END ==
LOC: SKLAB2 07:00
PROVIDERS: ATTEND Family Medicine
DX: I10 Essential (primary) hypertension (principal)

== ENCOUNTER → 2019-05-31 | Outpatient (REF) ==
[2019-05-31 08:33] LABS: CALCIUM LEVEL 8.8 MG/DL (8.8-10.2); CREATININE FOR GFR 1.45 MG/DL (0.70-1.30); GLOMERULAR FILTRATION RATE 49.9 (>35); POTASSIUM SERUM 4.3 MEQ/L (3.5-5.1)
== END ==
LOC: SKLAB2 07:00
PROVIDERS: ATTEND Family Medicine
DX: E86.0 Dehydration (principal)

== ENCOUNTER → 2019-06-01 | Outpatient (REF) ==
[~2019-06-01] MED LIST changes: +ACET-897 PO; +ACET-907 PO; +AQUAOI TOP; +ARTIDRO2 OU; +DESI13CR2 TOP; +DETR4CAP PO; +DULC10SU2 PR; +ENEMENE PR; +FEVE650S3 PR; +LIDO1PAD TOP; +MACR100C43 PO; +OXYB5TAB10 PO; +PYRI1TAB5 PO; +ROPI0.253 PO; +SENN8.6T28 PO; +VOLT1GEL15 TOP; +[UNRECOGNIZED DRUG - CODE] PO; +[UNRECOGNIZED DRUG - CODE] TOP
[2019-06-01 15:42] LABS: APPEARANCE, URINE HAZY (CLEAR); BACTERIA, URINE AUTO 3+ (NEGATIVE); BILIRUBIN, URINE AUTO NEGATIVE (NEGATIVE); BLOOD, URINE BLOOD 2+ (NEGATIVE); COLOR, URINE YELLOW (YELLOW); GLUCOSE, URINE (UA) AUTO NEGATIVE (NEGATIVE); KETONE, URINE AUTO NEGATIVE (NEGATIVE); LEUKOCYTE ESTERASE, URINE AUTO 3+ (NEGATIVE); MUCUS, URINE LARGE (NEGATIVE); NITRITE, URINE AUTO POSITIVE (NEGATIVE); PROTEIN, URINE AUTO NEGATIVE (NEGATIVE); RBC, URINE AUTO 8 /HPF (0-3); SPECIFIC GRAVITY URINE AUTO 1.018 (1.002-1.035); SQUAMOUS EPITHELIAL CELL UR AU 0 /HPF (0-6); UROBILINOGEN, URINE AUTO 0.2 mg/dL (0.0-2.0); WBC, URINE AUTO TNTC /HPF (0-3)
--- NOTE | 2019-06-01 16:58 | REP ---
Portable supine abdomen: Two views. History: Abdomen pain. Bilateral groin pain. Findings: The examination is significantly underexposed. A vena cava filter is noted in place and there are multiple scattered surgical clips in the upper and lower abdomen. There is a large calcific opacity projecting in the central pelvis 3.5 cm in greatest diameter consistent with the large bladder calculus seen on CT study from April 10, 2019. The bowel gas pattern is unremarkable. A prosthetic left hip is noted. Arthritic right hip and degenerative changes in the lumbar spine are also noted. Impression: Large bladder calculus. Postoperative changes. Normal bowel gas pattern. IVC filter. Underexposed radiograph. Electronically Signed by Jamel Griffin MD 06/01/2019 09:07 P
== END ==
LOC: SKLAB2 14:10
PROVIDERS: ATTEND Family Medicine
DX: R10.9 Unspecified abdominal pain (principal)

== ENCOUNTER 2019-06-03 10:09 | Inpatient (IN) | payer MEDICARE, OTHER ==
[~2019-06-03] VITALS: Ht 182.9 cm; Wt 140.0 kg
[~2019-06-03 10:09] MED LIST changes: -ACET-897 PO; -ACET-907 PO; -AQUAOI TOP; -ARTIDRO2 OU; -DESI13CR2 TOP; -DETR4CAP PO; -DULC10SU2 PR; -ENEMENE PR; -FEVE650S3 PR; -LIDO1PAD TOP; -MACR100C43 PO; -OXYB5TAB10 PO; -PYRI1TAB5 PO; -ROPI0.253 PO; -SENN8.6T28 PO; -VOLT1GEL15 TOP; -[UNRECOGNIZED DRUG - CODE] PO; -[UNRECOGNIZED DRUG - CODE] TOP
[2019-06-03 11:02] LABS: BASO # 0.1 10^3/uL (0.0-0.2); BASO % 0.2 % (0.0-1.0); HEMATOCRIT 33.2 % (42.0-52.0); HEMOGLOBIN 11.5 g/dl (13.5-17.5); LYMPH # 0.4 10^3/uL (1.5-4.5); LYMPH % 1.4 % (24.0-44.0); MEAN CORPUSCULAR HEMOGLOBIN 32.3 pg (27.0-33.0); MEAN CORPUSCULAR HGB CONC 34.6 g/dl (32.0-36.5); MEAN CORPUSCULAR VOLUME 93.3 fl (80.0-96.0); MONO # 1.2 10^3/uL (0.0-0.8); MONO % 4.9 % (0.0-5.0); NEUTROPHILS # 22.3 10^3/uL (1.8-7.7); NEUTROPHILS % 92.1 % (36.0-66.0); PLATELET COUNT, AUTOMATED 144 10^3/uL (150-450); RED BLOOD COUNT 3.56 10^6/uL (4.30-6.10); WHITE BLOOD COUNT 24.3 10^3/uL (4.0-10.0)
[2019-06-03] MEDS ORDERED: LIDO1PAD TOP (11:05)
[2019-06-03] MEDS ORDERED: FEVE650S3 PR (11:05)
[2019-06-03] MEDS ORDERED: VOLT1GEL15 TOP (11:05)
[2019-06-03] MEDS ORDERED: ACET-897 PO (11:05)
[2019-06-03] MEDS ORDERED: PYRI1TAB5 PO (11:05)
[2019-06-03] MEDS ORDERED: MECL12.575 PO (11:05)
[2019-06-03] MEDS ORDERED: CYMB60CA3 PO (11:05)
[2019-06-03] MEDS ORDERED: PANT-23 PO (11:05)
[2019-06-03] MEDS ORDERED: DULC10SU2 PR (11:05)
[2019-06-03] MEDS ORDERED: ENEMENE PR (11:05)
[2019-06-03] MEDS ORDERED: MACR100C43 PO (11:05)
[2019-06-03] MEDS ORDERED: [UNRECOGNIZED DRUG - CODE] PO (11:05)
[2019-06-03] MEDS ORDERED: SENN8.6T28 PO (11:05)
[2019-06-03] MEDS ORDERED: MOM30SS PO (11:05)
[2019-06-03] MEDS ORDERED: ATOR1TAB21 PO (11:05)
[2019-06-03] MEDS ORDERED: ARTIDRO2 OU (11:05)
[2019-06-03] MEDS ORDERED: AQUAOI TOP (11:05)
[2019-06-03] MEDS ORDERED: MODA100T13 PO (11:05)
[2019-06-03] MEDS ORDERED: ROPI0.253 PO (11:05)
[2019-06-03] MEDS ORDERED: ACET-907 PO (11:05)
[2019-06-03] MEDS ORDERED: OXYB5TAB10 PO (11:05)
[2019-06-03] MEDS ORDERED: AMLO5TAB6 PO (11:05)
[2019-06-03] MEDS ORDERED: DETR4CAP PO (11:05)
[2019-06-03] MEDS ORDERED: [UNRECOGNIZED DRUG - CODE] TOP (11:05)
[2019-06-03] MEDS ORDERED: DESI13CR2 TOP (11:05)
[2019-06-03 11:13] LABS: ABG BASE EXCESS -4.3 (-2.0-2.0); ABG HCO3 17.7 MEQ/L (22.0-26.0); ABG PARTIAL PRESSURE CO2 24.6 mmHg (35.0-45.0); ABG STANDARD HCO3 20.9 MEQ/L (22.0-26.0); ABG TOTAL CO2 18.5 MEQ/L (23.0-31.0); ABG pH (ARTERIAL) 7.476 UNITS (7.350-7.450)
[2019-06-03 11:41] LABS: ALBUMIN 3.1 GM/DL (3.2-5.2); ALT/SGPT 19 U/L (12-78); BILIRUBIN,DIRECT 0.4 MG/DL (0.0-0.2); BILIRUBIN,TOTAL 1.1 MG/DL (0.2-1.0); BLOOD UREA NITROGEN 37 MG/DL (7-18); CALCIUM LEVEL 8.6 MG/DL (8.8-10.2); CARBON DIOXIDE LEVEL 20 MEQ/L (21-32); CHLORIDE LEVEL 102 MEQ/L (98-107); CK-MB VALUE MASS 1.8 NG/ML (<3.6); CPK CREATINE PHOSPHOKINASE 88 U/L (39-308); CREATININE FOR GFR 1.96 MG/DL (0.70-1.30); GLOMERULAR FILTRATION RATE 35.2 (>35); GLUCOSE, FASTING 147 MG/DL (70-100); MB/CK RELATIVE INDEX 2.05 (< OR =4); POTASSIUM SERUM 4.6 MEQ/L (3.5-5.1); SODIUM LEVEL 133 MEQ/L (136-145); TOTAL PROTEIN 6.7 GM/DL (6.4-8.2); TROPONIN I < 0.02 NG/ML (< 0.10)
[2019-06-03] MEDS ORDERED: NS 1,000 ML IV ONE (12:30)
--- NOTE | 2019-06-03 12:34 | REP ---
REASON: Fever and hypoxia. Comparison examination is a portable examination of 04/17/2019. Since the last examination curvilinear opacities have developed in the left lower lung field, some appearing lingular, others appearing left lower lobe. Cardiomediastinal silhouette is unchanged. The osseous structures are unchanged. The technique utilized in obtaining the radiograph has magnified the cardiac silhouette and accentuated the interstitial markings. IMPRESSION: Opacities left lower lung field as described above suspicious for subsegmental atelectatic changes, however, early pneumonia cannot be ruled out. Electronically Signed by Garfield Ghotra DO 06/03/2019 02:14 P
[2019-06-03] MEDS ORDERED: cefTRIAXone SOD 2 GM in D5W MINI-BAG PLUS 50 ML IV ONE (14:15)
[2019-06-03] MEDS ORDERED: LIDOCAINE 2% 5ML JELLY UROJET TOP ONE (14:15)
--- NOTE | 2019-06-03 15:03 | REP ---
CT chest without contrast: History: Fever, unknown origin. Comparison is made with today's chest x-ray. Comparison chest CT study December 10, 2014. CT findings: Digital preliminary dobie worker radiograph demonstrates some elevation of the right hemidiaphragm and discoid atelectasis or linear fibrosis in the left base. There is linear fibrosis in the left lower lobe posteriorly. Adjacent to this there is plate-like atelectasis which is a new finding in the left lower lobe. There are mild linear opacities in the right base consistent with fibrosis. No acute infiltrate is seen in the lung diaz. No mass or significant pulmonary nodule is appreciated. There is no evidence of hilar or mediastinal mass or adenopathy. Some coronary artery vascular calcification is noted. There is evidence of a small sliding-type hiatal hernia. Impression: Bibasilar plate-like atelectasis and linear fibrosis. No acute infiltrate seen. No pleural effusion is seen. No mass or adenopathy noted. Electronically Signed by Jamel Griffin MD 06/03/2019 03:24 P
[2019-06-03] MEDS: NS 1,000 ML IV SCH (15:41)
--- NOTE | 2019-06-03 15:54 | REP ---
REASON: Pyrexia, origin unknown. COMPARISON: 04/10/2019 The lack of intravenous contrast and the lack of oral bowel preparatory contrast significantly decreases the sensitivity of the exam. The examination is further limited by the patient's arms across the abdomen causing artifact, along with respiratory motion artifact and other motion artifact. Additionally, not all of the liver was imaged, further limiting the exam. The imaged portion of the liver is unchanged from the prior exam. The imaged portion of the gallbladder is unchanged. The imaged portion of the spleen is unchanged. The imaged portion of the pancreas is unchanged. The kidneys seen in a markedly limited fashion, appear unchanged. There is, what appears to be, a massive spigelian hernia. It is unchanged. There is no evidence of free air. There is no evidence of intestinal obstruction. There is a cystolith. Limited evaluation of the abdominal aorta and para-aortic regions show no changes. There is a [place] filter in place, status quo. There is no change in the osseous structures. Left hip prosthesis, status quo. Bony demineralization and marked chronic spinal degenerative changes, status quo. IMPRESSION :Markedly limited exam. Massive right-sided spigelian hernia. No intestinal obstruction. Large cystolith, status quo. Marked chronic spinal changes, status quo. Bilateral perinephric stranding, left greater than right, obscured by artifact. No charly obstructive uropathy, however, renal infection cannot be excluded. Recommend contrast-enhanced exam and repeat exam to include the entire abdomen. Included with this exam, was a CT of the chest, also without contrast, also markedly limited, without priors for comparison. The upper abdomen was imaged on this exam to include the liver and gallbladder. There is marked artifact in the upper abdomen, as on the abdominal CT. There is no gross hepatic, gallbladder, splenic, or pancreatic abnormality. There is no gross mediastinal or hilar adenopathy. There are no pleural or pericardial effusions. The imaged osseous structures show marked chronic changes with bony demineralization, spinal degenerative changes, along with shoulder degenerative changes, sternoclavicular joint degenerative changes, acromioclavicular joint degenerative changes, all forms of degenerative changes. Degenerative changes are seen in the wrists, because they are strewn over the abdomen, which was imaged. Evaluation of the lung diaz shows bibasilar opacities, probably subsegmental atelectatic changes. I cannot rule out pneumonia. These opacities could hide nodules. IMPRESSION: Markedly limited exam. Basilar opacities, as described above. Electronically Signed by Garfield Ghotra DO 06/03/2019 04:02 P
[2019-06-03] MEDS ORDERED: VANCOMYCIN HCL 1,000 MG, VIAL MATE ADAPTER 1 EACH in D5W 250 ML IV ONE (16:00)
[2019-06-03 16:12] LABS: BASO % 0.2 % (0.0-1.0); HEMATOCRIT 31.1 % (42.0-52.0); HEMOGLOBIN 10.6 g/dl (13.5-17.5); LYMPH # 0.6 10^3/uL (1.5-4.5); MEAN CORPUSCULAR HEMOGLOBIN 32.1 pg (27.0-33.0); MEAN CORPUSCULAR HGB CONC 34.1 g/dl (32.0-36.5); MEAN CORPUSCULAR VOLUME 94.2 fl (80.0-96.0); MONO # 1.1 10^3/uL (0.0-0.8); MONO % 5.1 % (0.0-5.0); NEUTROPHILS # 19.2 10^3/uL (1.8-7.7); PLATELET COUNT, AUTOMATED 132 10^3/uL (150-450); WHITE BLOOD COUNT 21.3 10^3/uL (4.0-10.0)
--- NOTE | 2019-06-03 16:13 | HPEPDOC ---
General Date of Admission Jun 03, 2019 at 14:26 Date of Service: Jun 03, 2019 Primary Care Physician: Eugene Good M.D. Attending Physician: ANTONIO HUTCHINS DO Chief Complaint The patient is a 78-year-old male admitted with a reason for visit of Pyelonephritis,Sepsis,Uti. History of Present Illness Patient is 78 years old male with past medical history significant for hemorrhagic stroke, IVC filter placement, hypertension, hyperlipidemia, depr ession who presents to Hospital with fever, chills, dizziness, frequency in urination. Patient accompanied with his stepson who provided history. According to him few days ago patient developed dysuria in the [facility], he has been treated with nitrofurantoin. Urine analysis was done via straight catheterization and showed pyuria. Yesterday, patient developed fever up to 103 Fahrenheit, chills, nausea, loss of appetite and low quadrants abdominal pain. Today he was transferred from [facility] to the emergency room. Emergency room abdominal CAT scan showed picture consistent with pyelonephritis and large bladder stone. Patient was diagnosed with urosepsis, he received IV fluid, bolus 2 L, ceftriaxone IV. Lactic acid was 2.6, leukocytosis 24.3. When I saw patient in the room he was mildly somnolent and weak. Home Medications Scheduled Acetaminophen (Tylenol Extra Strength) 500 Mg Tablet, 500 MG PO Q4H, (Reported) Amlodipine Besylate (Amlodipine Besylate) 5 Mg Tablet, 5 MG PO DAILY, (Reported) Atorvastatin Calcium (Atorvastatin Calcium) 20 Mg Tablet, 20 MG PO QHS, (Reported) Diclofenac Sodium (Voltaren) 100 Gm Gel..gram., 2 GRAM TOP QID, (Reported) Duloxetine Hcl (Cymbalta) 60 Mg Capsule.dr, 60 MG PO DAILY, (Reported) Emollient Ointment (Hydrophor) 454 Gm Oint...g., 1 DOSE TOP DAILY, (Reported) FA/Vit C/E/Zinc/Copper/Lut/Chas (Ocuvel Capsule) 1 Each Capsule, 1 CAP PO DAILY, (Reported) Lidocaine (Lidocaine) 5% Adh..patch, 1 PATCH TOP DAILY, (Reported) APPLY TO BACK Methyl Salicylate/Menthol (Muscle Rub Cream) 113 Gm Cream..g., 1 DOSE TOP QID, (Reported) Modafinil (Modafinil) 100 Mg Tablet, 100 MG PO DAILY, (Reported) Nitrofurantoin Monohyd/M-Cryst (Macrobid 100 mg Capsule) 100 Mg Capsule, 100 MG PO BID, (Reported) STARTED 06/01/19 FOR 5 DAYS Oxybutynin Chloride (Oxybutynin Chloride) 5 Mg Tablet, 5 MG PO TID, (Reported) Pantoprazole Sodium (Pantoprazole Sodium) 40 Mg Tablet.dr, 40 MG PO DAILY, (Reported) Phenazopyridine HCl (Pyridium) 200 Mg Tablet, 200 MG PO Q8H, (Reported) FOR 3 DAYS - STARTED 06/02/19 Ropinirole HCl (Ropinirole HCl) 0.25 Mg Tablet, 0.25 MG PO QHS, (Reported) Sennosides (Senna) 8.6 Mg Tablet, 2 TAB PO DAILY, (Reported) Tolterodine Tartrate (Detrol LA) 4 Mg Cap.er.24h, 4 MG PO DAILY, (Reported) Zinc Oxide (Desitin) 454 Gm Cream..g., 1 DOSE TOP BID, (Reported) APPLY TO SACRUM Scheduled PRN Acetaminophen (Tylenol) 325 Mg Tablet, 650 MG PO Q4H PRN for PAIN / FEVER, (Reported) Acetaminophen (Feverall) 650 Mg Supp.rect, 650 MG FL Q4H PRN for PAIN / FEVER, (Reported) Bisacodyl (Dulcolax) 10 Mg Supp.rect, 10 MG FL DAILY PRN for CONSTIPATION, (Reported) Meclizine HCl (Meclizine HCl) 12.5 Mg Tablet, 12.5 MG PO PRN PRN for DIZZINESS, (Reported) TAKE 1/2 HOUR PRIOR TO TRAVELING Milk Of Magnesia (Milk of Magnesia) 2,400 Mg/10 Ml Oral.susp, 10 ML PO DAILY PRN for CONSTIPATION, (Reported) Polyvinyl Alcohol (Artificial Tears) 15 Ml Drops, 1 DROP OU Q4H PRN for DRY EYES, (Reported) Sodium Phosphate,Garland-Dibasic (Enema) 133 Ml Enema, 1 MARISSA FL DAILY PRN for CONSTIPATION, (Reported) Allergies Coded Allergies: Sulfa (Sulfonamide Antibiotics) (Verified Allergy, Intermediate, RASH, VIOLENT BEHAVIOR, 04/08/19) latex (Verified Allergy, Unknown, 04/08/19) oxycodone (Verified Adverse Reaction, Intermediate, SUICIDAL THOUGHTS, 04/08/19) Past Medical History Medical History DVT, pulmonary embolism, colostomy, hypertension, depression, osteoarthritis, osteoporosis, hemorrhagic stroke, left hip replacement, sigmoid resection in the 90s Surgical History IVC filter placement Family History Significant Family History: No pertinent family hx Social History * Smoker: Denies Alcohol: Denies Drugs: denies Psychosocial History: No pertinent psych hx A-FIB/CHADSVASC A-FIB History Current/History of A-Fib/PAF?: No Current PO Anticoag Therapy: No Review of Systems Constitutional: Reports: Chills, Fever, Malaise, Weakness Eyes: Denies: Pain, Vision change ENT: Denies: Head Aches, Ear Pain, Dysphagia Skin: Denies: Lesions, Jaundice Pulmonary: Denies: Dyspnea, Cough Cardiovascular: Denies: Chest Pain, Palpitations, Orthopnea Gastrointestinal: Reports: Nausea, Abdominal Pain; Denies: Vomiting Genitourinary: Reports: Dysuria, Frequency, Incontinence Hematologic: Denies: Bruising, Bleeding Excessively Endocrine: Denies: Polydipsia, Polyphagia Musculoskeletal: Reports: Back Pain Neurological: Denies: Weakness, Numbness Psych: Reports: Mood Normal Physical Examination General Exam: Positive: Alert, Cooperative Eye Exam: Positive: PERRLA, EOMI ENT Exam: Positive: Atraumatic Neck Exam: Positive: Supple; Negative: JVD Chest Exam: Positive: Clear to auscultation Heart Exam: Positive: Rate Normal, Regular Rhythm Abdomen Exam: Positive: BS Hypoactive, Soft, Tenderness Extremity Exam: Positive: Edema; Negative: Clubbing, Cyanosis Skin Exam: Negative: Rash, Breakdown Neuro Exam: Positive: Cranial Nerves 3-12 NL Psych Exam: Positive: Mental status NL Other physical findings * Patient complains on the abdominal pain in the low quadrants and groin area. No rebound Vital Signs Vital Signs Date Time Temp Pulse Resp B/P (MAP) Pulse Ox O2 Delivery O2 Flow Rate FiO2 06/03/19 14:45 89 18 116/49 (71) 92 Nasal Cannula 2.0 06/03/19 14:00 97.6 Laboratory Data Labs 24H Laboratory Tests 2 06/03/19 10:28: Immature Granulocyte % (Auto) 1.4, White Blood Count 24.3H, Red Blood Count 3.56L, Hemoglobin 11.5L, Hematocrit 33.2L, Mean Corpuscular Volume 93.3, Mean Corpuscular Hemoglobin 32.3, Mean Corpuscular Hemoglobin Concent 34.6, Red Cell Distribution Width 14.6H, Platelet Count 144L, Neutrophils (%) (Auto) 92.1H, Lymphocytes (%) (Auto) 1.4L, Monocytes (%) (Auto) 4.9, Eosinophils (%) (Auto) 0. 0, Basophils (%) (Auto) 0.2, Neutrophils # (Auto) 22.3H, Lymphocytes # (Auto) 0.4L, Monocytes # (Auto) 1.2H, Eosinophils # (Auto) 0.0, Basophils # (Auto) 0.1, Nucleated Red Blood Cells % (auto) 0.0, Anion Gap 11, Glomerular Filtration Rate 35.2, Lactic Acid Level 2.6*H, Calcium Level 8.6L, Aspartate Amino Transf (AST/SGOT) 21, Alanine Aminotransferase (ALT/SGPT) 19, Alkaline Phosphatase 105, Total Bilirubin 1.1H, Direct Bilirubin 0.4H, Total Creatine Kinase 88, Creatine Kinase MB 1.8, Creatine Kinase MB Relative Index 2.05, Troponin I < 0.02, Total Protein 6.7, Albumin 3.1L, Albumin/Globulin Ratio 0.86L, Thyroid Stimulating Hormone (TSH) 2.720 06/03/19 10:59: Blood Gas Bicarbonate Standard 20.9L, Arterial Blood pH 7.476H, Arterial Blood Partial Pressure CO2 24.6L, Arterial Blood Partial Pressure O2 119.0H, Arterial Blood Total CO2 18.5L, Arterial Blood HCO3 17.7L, Arterial Blood Base Excess - 4.3L, Arterial Blood Oxygen Saturation 99.0 06/03/19 15:22: CBC/BMP Laboratory Tests 06/03/19 10:28 Red Blood Count 3.56 L, Mean Corpuscular Volume 93.3, Mean Corpuscular Hemoglobin 32.3, Mean Corpuscular Hemoglobin Concent 34.6, Red Cell Distribution Width 14.6 H, Neutrophils (%) (Auto) 92.1 H, Lymphocytes (%) (Auto) 1.4 L, Monocytes (%) (Auto) 4.9, Eosinophils (%) (Auto) 0.0, Basophils (%) (Auto) 0.2, Neutrophils # (Auto) 22.3 H, Lymphocytes # (Auto) 0.4 L, Monocytes # (Auto) 1.2 H, Eosinophils # (Auto) 0.0, Basophils # (Auto) 0.1 Microbiology Microbiology 06/03/19 Blood Culture, Received Pending 06/03/19 Blood Culture, Received Pending 06/03/19 Urine Culture, Received Pending Assessment/Plan Patient is 78 years old male with past medical history significant for hemorrhagic stroke, IVC filter placement, hypertension, hyperlipidemia, depression who presents to Hospital with fever, chills, dizziness, frequency in urination. Patient was diagnosed with urosepsis. Problems (1) Sepsis Status: Acute Problem Text: Most likely secondary to urinary tract infection Patient has leukocytosis, elevated lactic acid, fever Blood culture ordered Monitor lactic acid IV fluid 150 mL/h Vancomycin IV, Zosyn IV. (2) UTI (urinary tract infection) Problem Text: Most likely secondary to large bladder stone Seed treatment above (3) Bladder stone Problem Text: Follow-up with urologist in the outpatient settings (4) Pyelonephritis Status: Acute Problem Text: see treatment above Plan / VTE VTE Prophylaxis Ordered?: Yes Plan Diet: Continue Current Activity: Continue Current, Encourage Ambulation Therapy: PT Anticipated Discharge: [facility] ANTONIO HUTCHINS DO Jun 03, 2019 16:13
[2019-06-03] MEDS ORDERED: BISACODYL 10 MG SUPP PR PRN (16:15)
[2019-06-03] MEDS ORDERED: MOM 30ML SUSPENSION UDC PO PRN (16:15)
[2019-06-03] MEDS ORDERED: POLYVINYL ALCOHOL OPHTH SOLN 15 ML(LIQUITEARS) OU PRN (16:15)
[2019-06-03] MEDS ORDERED: MECLIZINE 12.5 MG TAB PO PRN (16:15)
[2019-06-03] MEDS ORDERED: MORPHINE 30 MG TAB **MSIR PO PRN (16:30)
--- NOTE | 2019-06-03 17:23 | PHACANCOPD ---
PHARMACY VANCOMYCIN DOSING Pt Demographics Demographics Patient Age:78 , Weight:132.270 , Gender: male Adjusted Body Weight Date: 06/03/19, Adjusted Body Weight: [99] Kg Events Past 24 Hours Events Past 24 Hours: YES: Change in CrCl, Fever, Elevation in WBC; NO: Dialysis, Diuretic Therapy, Pending Diagnostics, Pending Procedures, Other Vancomycin Vancomycin indication: sepsis, pyelonephritis Vancomycin Target Ranges: 10-20 mcg/ml Vancomycin Load Y/N: Yes Load Dose Date Time Vancomycin Load Dose: Date: Time: Vancomycin Dose Date: 06/03/19. Current Vancomycin Dose: [1g IV q12h @21] Intermittent Dosing?: No Labs Labs Item Value Date Time White Blood Count 24.3 10^3/uL H 06/03/19 1028 White Blood Count 21.3 10^3/uL H 06/03/19 1558 Creatinine 1.96 MG/DL H 06/03/19 1028 Micro Microbiology 06/03/19 Blood Culture, Received Pending 06/03/19 Blood Culture, Received Pending 06/03/19 Urine Culture, Received Pending Creatinine Clearance Date:06/03/19. Creatinine Clearance: [~42 ml/min using adjusted BW]. Pending Labs Vanco trough scheduled 06/04 @08:00 Assessment and Plan Maintaining Current Dose?: Yes Reason for dose change: No Dose Change Pharmacist Note Pharmacist Note Date: 06/03/19. Pharmacist note: pt has been started on Zosyn and Vancomycin for sepsis/pyelonephritis. Blood and urine cultures are pending. He received his first dose of vancomycin 1g in the ER @~16:00, he also received one dose of Rocephin in the ER this afternoon. I originally had vancomycin 1g IV q18h dosing but this was changed by the ordering QMP to 1g IV q12h. I have a trough scheduled for tomorrow morning. Baseline SCr is ~1 mg/dl. He has not been on vancomycin at our facility in the past. I will continue to monitor over the weekend and make adjustments as necessary. Alejo Franks Pharm.D. Jun 03, 2019 17:23
[2019-06-03 17:39] VITALS: BP 115/58
[2019-06-03] MEDS ORDERED: PIPERACILLIN/TAZOBACTAM SOD 3.375 GM in D5W MINI-BAG PLUS 50 ML IV ONE (18:00)
[2019-06-03] MEDS: ACETAMINOPHEN 500 MG TAB PO SCH ×2 (18:47→22:33)
[2019-06-03 18:57] VITALS: BP 127/60
[2019-06-03 20:00] VITALS: BP 91/54
--- NOTE | 2019-06-03 20:20 | ECGEPIP ---
[facility] - ED Test Date: 2019-06-03 Pat Name: ONDINA HAAS Department: Room: - Gender: Male Fourchette Sewer: JOSEPH : 1940 Requested By: Atif Garner Order Number: [id number] Reading MD: Atif Trejo Measurements Intervals [place] Rate: 91 P: 2 WV: 291 QRS: -19 QRSD: 95 T: 35 QT: 352 QTc: 434 Interpretive Statements SINUS RHYTHM WITH FIRST DEGREE AV BLOCK LOW QRS VOLTAGE IN PRECORDIAL LEADS SIMILAR TO 08/31/17 Electronically Signed on 06-03-2019 20:19:56 EDT by Atif Trejo
[2019-06-03] MEDS ORDERED: VANCOMYCIN HCL 1,000 MG, VIAL MATE ADAPTER 1 EACH in D5W 250 ML IV SCH ×6 (21:00)
[2019-06-03] MEDS: rOPINIRole 0.25 MG TAB(REQUIP) PO SCH (21:00)
[2019-06-03] MEDS: ATORVASTATIN 20 MG TAB PO SCH (21:00)
[2019-06-03] MEDS: PHENAZOPYRIDINE 100 MG TAB PO SCH (22:00)
[2019-06-04] MEDS: PIPERACILLIN/TAZOBACTAM SOD 3.375 GM in D5W MINI-BAG PLUS 50 ML IV SCH ×4 (00:15→23:37)
[2019-06-04] MEDS: ACETAMINOPHEN 500 MG TAB PO SCH ×2 (02:00→06:00)
[2019-06-04 04:00] VITALS: BP 113/59
[2019-06-04] MEDS: NS 1,000 ML IV SCH ×2 (04:20→17:35)
[2019-06-04 05:36] LABS: HEMATOCRIT 29.1 % (42.0-52.0); HEMOGLOBIN 9.6 g/dl (13.5-17.5); MEAN CORPUSCULAR HEMOGLOBIN 31.2 pg (27.0-33.0); MEAN CORPUSCULAR VOLUME 94.5 fl (80.0-96.0); PLATELET COUNT, AUTOMATED 131 10^3/uL (150-450); RED BLOOD COUNT 3.08 10^6/uL (4.30-6.10); WHITE BLOOD COUNT 14.6 10^3/uL (4.0-10.0)
[2019-06-04 05:56] LABS: CALCIUM LEVEL 8.1 MG/DL (8.8-10.2); CREATININE FOR GFR 1.62 MG/DL (0.70-1.30); GLOMERULAR FILTRATION RATE 43.9 (>35); MAGNESIUM LEVEL 1.9 MG/DL (1.8-2.4); POTASSIUM SERUM 4.1 MEQ/L (3.5-5.1)
[2019-06-04] MEDS: PHENAZOPYRIDINE 100 MG TAB PO SCH ×3 (06:34→21:43)
[2019-06-04 07:41] VITALS: BP 119/58
[2019-06-04] MEDS: SENNA 8.6 MG TAB (SENOKOT) PO SCH (08:35)
[2019-06-04] MEDS: TOLTERODINE TARTRATE 2 MG LA CAP (DETROL LA) PO SCH (08:35)
[2019-06-04] MEDS: amLODIPine 5 MG TAB PO SCH (08:35)
[2019-06-04] MEDS: DULoxetine 30 MG CAP (CYMBALTA) PO SCH (08:35)
[2019-06-04] MEDS: MODAFINIL 100 MG TABLET PO SCH (08:35)
[2019-06-04 11:38] VITALS: BP 142/60
--- NOTE | 2019-06-04 15:56 | IPNPDOC ---
Text Note Date of Service The patient was seen on 06/04/19. NOTE Subjective Overnight patient developed urinary retention, Colindres catheter inserted 600 mL of yellow urine was removed. Patient complains of pain over suprapubic area. Patient denies fever, chills, nausea, vomiting, shortness of breath, diarrhea Objective General morbidly obese male HEJAMES ANTOINERLA, EOMI CV S1-S2 regular Abdomen nontender nondistended, no rebound Extremities: Distal part of the left leg more swollen than the right Assessment and plan Patient is 78 years old male with past medical history significant for hemorrhagic stroke, IVC filter placement, hypertension, hyperlipidemia, depression who presents to Hospital with fever, chills, dizziness, frequency in urination. Patient was diagnosed with sepsis most likely secondary to UTI, blood culture was positive for gram-negative rods. (1) Sepsis Status: Acute Problem Text: Most likely secondary to urinary tract infection Lactic acid within normal limit Blood culture showed gram-negative rods DC vancomycin Monitor lactic acid IV fluid Zosyn IV day 1 (2) UTI (urinary tract infection) Problem Text: Most likely secondary to large bladder stone Seed treatment above (3) Bladder stone Problem Text: Follow-up with urologist in the outpatient settings (4) Pyelonephritis Status: Acute Problem Text: see treatment above 5) deconditioning PT/OT 6) urinary retention Secondary to traumatic catheterization Tamsulosin continue Colindres Plan / VTE VTE Prophylaxis Ordered?: Yes Doppler ultrasound of left leg ordered VS,Fernandobone, I+O VS, Fernandobone, I+O Laboratory Tests 06/03/19 15:58 Red Blood Count 3.30 L, Mean Corpuscular Volume 94.2, Mean Corpuscular Hemoglobin 32.1, Mean Corpuscular Hemoglobin Concent 34.1, Red Cell Distribution Width 14.8 H, Neutrophils (%) (Auto) 90.0 H, Lymphocytes (%) (Auto) 3.0 L, Monocytes (%) (Auto) 5.1 H, Eosinophils (%) (Auto) 0.0, Basophils (%) (Auto) 0.2, Neutrophils # (Auto) 19.2 H, Lymphocytes # (Auto) 0.6 L, Monocytes # (Auto) 1.1 H, Eosinophils # (Auto) 0.0, Basophils # (Auto) 0.0 06/04/19 05:12 Red Blood Count 3.08 L, Mean Corpuscular Volume 94.5, Mean Corpuscular Hemoglobin 31.2, Mean Corpuscular Hemoglobin Concent 33.0, Red Cell Distribution Width 14.7 H, Calcium Level 8.1 L Vital Signs Date Time Temp Pulse Resp B/P (MAP) Pulse Ox O2 Delivery O2 Flow Rate FiO2 06/04/19 12:00 3.0 06/04/19 11:38 97.5 83 20 142/60 (87) 94 06/03/19 17:15 Nasal Cannula I&O- Last 24 Hours up to 6 AM 06/04/19 06:00 Intake Total 1720 ml Output Total 2650 ml Balance -930 ml ANTONIO HUTCHINS DO Jun 04, 2019 15:56
[2019-06-04 16:00] VITALS: BP 121/59
[2019-06-04] MEDS: TAMSULOSIN 0.4 MG CAP PO SCH (17:36)
[2019-06-04 18:31] LABS: CREATININE FOR GFR 1.27 MG/DL (0.70-1.30); GLOMERULAR FILTRATION RATE 58.1 (>35)
[2019-06-04] MEDS: ENOXAPARIN 150 MG/ML SYR (J1650) SC SCH (18:33)
[2019-06-04 20:00] VITALS: BP 115/59
[2019-06-04] MEDS ORDERED: HEPARIN SOD (PORCINE) 5000 UNITS/ML VIAL SQ SCH (21:00)
[2019-06-04] MEDS: ATORVASTATIN 20 MG TAB PO SCH (21:43)
[2019-06-04] MEDS: ACETAMINOPHEN 500 MG TAB PO PRN (21:43)
[2019-06-04] MEDS: rOPINIRole 0.25 MG TAB(REQUIP) PO SCH (21:43)
[2019-06-04 23:59] VITALS: BP 115/58
[2019-06-05] MEDS: NS 1,000 ML IV SCH (03:41)
[2019-06-05 04:00] VITALS: BP 113/55
[2019-06-05 05:40] LABS: HEMATOCRIT 27.5 % (42.0-52.0); MEAN CORPUSCULAR HGB CONC 32.7 g/dl (32.0-36.5); MEAN CORPUSCULAR VOLUME 94.8 fl (80.0-96.0); PLATELET COUNT, AUTOMATED 133 10^3/uL (150-450); WHITE BLOOD COUNT 6.6 10^3/uL (4.0-10.0)
[2019-06-05 05:58] LABS: BLOOD UREA NITROGEN 27 MG/DL (7-18); CALCIUM LEVEL 7.7 MG/DL (8.8-10.2); CARBON DIOXIDE LEVEL 22 MEQ/L (21-32); CHLORIDE LEVEL 109 MEQ/L (98-107); GLOMERULAR FILTRATION RATE > 60.0 (>35); GLUCOSE, FASTING 105 MG/DL (70-100); POTASSIUM SERUM 3.8 MEQ/L (3.5-5.1); SODIUM LEVEL 139 MEQ/L (136-145)
[2019-06-05 06:05] LABS: INR 1.29; PROTHROMBIN TIME 15.8 SECONDS (11.8-14.0)
[2019-06-05 08:00] VITALS: BP 120/56
[2019-06-05] MEDS: TOLTERODINE TARTRATE 2 MG LA CAP (DETROL LA) PO SCH (08:13)
[2019-06-05] MEDS: TAMSULOSIN 0.4 MG CAP PO SCH (08:13)
[2019-06-05] MEDS: PIPERACILLIN/TAZOBACTAM SOD 3.375 GM in D5W MINI-BAG PLUS 50 ML IV SCH (08:13)
[2019-06-05] MEDS: DULoxetine 30 MG CAP (CYMBALTA) PO SCH (08:13)
[2019-06-05] MEDS: MODAFINIL 100 MG TABLET PO SCH ×2 (08:14→09:00)
[2019-06-05] MEDS: SENNA 8.6 MG TAB (SENOKOT) PO SCH (08:14)
[2019-06-05] MEDS: amLODIPine 5 MG TAB PO SCH (08:16)
[2019-06-05 11:29] VITALS: BP 107/58
--- NOTE | 2019-06-05 12:06 | IPNPDOC ---
Text Note Date of Service The patient was seen on 06/05/19. NOTE Subjective No any acute events overnight. No any new complaints Patient denies fever, chills, nausea, vomiting, shortness of breath, diarrhea Objective General morbidly obese male HEENT PERRLA, EOMI CV S1-S2 regular Abdomen nontender nondistended, no rebound, colostomy in place Extremities: Distal part of the left leg more swollen than the right Assessment and plan Patient is 78 years old male with past medical history significant for hemorrhagic stroke, IVC filter placement, hypertension, hyperlipidemia, depression who presents to Hospital with fever, chills, dizziness, frequency in urination. Patient was diagnosed with sepsis most likely secondary to UTI, blood culture was positive for gram-negative rods. Blood culture was positive for Escherichia coli and Proteus mirabilis. Patient received treatment with Zosyn and vancomycin initially. Vancomycin was discontinued, Zosyn IV was switched to ceftriaxone after antibiotic sensitivity was received. During hospital stay patient was found to have DVT of the left leg, treatment with Lovenox and Coumadin started. (1) Sepsis Status: Acute Problem Text: Most likely secondary to urinary tract infection Improved Blood culture showed gram-negative rods, positive for Escherichia coli and Proteus mirabilis DC vancomycin, DC Zosyn, ceftriaxone started IV fluid (2) UTI (urinary tract infection) Problem Text: Most likely secondary to large bladder stone Seed treatment above (3) Bladder stone Problem Text: Follow-up with urologist in the outpatient settings (4) Pyelonephritis Status: Acute Problem Text: see treatment above 5) deconditioning PT/OT 6) urinary retention Secondary to traumatic catheterization Tamsulosin continue Colindres 7) DVT Doppler ultrasound showed no occlusive clot from the common femoral vein and saphenous. Occlusive from the SFV to the popliteal. Patient doesn't have any shortness of breath, chest pain, he is not tachycardic, oxygen saturation on room air within normal limit. Lovenox full dose, Coumadin 5 mg started today Continue to monitor PT/INR Plan / VTE VTE Prophylaxis Ordered?: Yes VS,Fishbone, I+O VS, Fishbone, I+O Laboratory Tests 06/04/19 17:47 06/05/19 05:06 Red Blood Count 2.90 L, Mean Corpuscular Volume 94.8, Mean Corpuscular Hemoglobin 31.0, Mean Corpuscular Hemoglobin Concent 32.7, Red Cell Distribution Width 14.6 H, Calcium Level 7.7 L Vital Signs Date Time Temp Pulse Resp B/P (MAP) Pulse Ox O2 Delivery O2 Flow Rate FiO2 06/05/19 11:29 97.8 80 18 107/58 (74) 91 1.0 06/03/19 17:15 Nasal Cannula I&O- Last 24 Hours up to 6 AM 06/05/19 06:00 Intake Total 2225 ml Output Total 1725 ml Balance 500 ml ANTONIO HUTCHINS DO Jun 05, 2019 12:06
[2019-06-05 15:49] VITALS: BP 107/57
[2019-06-05] MEDS: cefTRIAXone SOD 1 GM in D5W MINI-BAG PLUS 50 ML IV SCH (16:15)
[2019-06-05] MEDS: WARFARIN SOD 5 MG TAB PO SCH (16:16)
[2019-06-05] MEDS: ENOXAPARIN 150 MG/ML SYR (J1650) SC SCH (17:32)
[2019-06-05 20:00] VITALS: BP 123/60
[2019-06-05] MEDS: ATORVASTATIN 20 MG TAB PO SCH (21:12)
[2019-06-05] MEDS: rOPINIRole 0.25 MG TAB(REQUIP) PO SCH (21:12)
[2019-06-05 23:59] VITALS: BP 120/56
[2019-06-06] VITALS (7 sets, daily range): BP systolic 116–146; BP diastolic 56–70
[2019-06-06] MEDS: cefTRIAXone SOD 1 GM in D5W MINI-BAG PLUS 50 ML IV SCH ×2 (04:23→17:43)
[2019-06-06 09:15] LABS: HEMATOCRIT 29.4 % (42.0-52.0); HEMOGLOBIN 9.6 g/dl (13.5-17.5); MEAN CORPUSCULAR HEMOGLOBIN 30.4 pg (27.0-33.0); MEAN CORPUSCULAR HGB CONC 32.7 g/dl (32.0-36.5); PLATELET COUNT, AUTOMATED 168 10^3/uL (150-450); RED BLOOD COUNT 3.16 10^6/uL (4.30-6.10); WHITE BLOOD COUNT 6.9 10^3/uL (4.0-10.0)
[2019-06-06 09:29] LABS: BLOOD UREA NITROGEN 19 MG/DL (7-18); CARBON DIOXIDE LEVEL 22 MEQ/L (21-32); CHLORIDE LEVEL 109 MEQ/L (98-107); CREATININE FOR GFR 0.94 MG/DL (0.70-1.30); GLOMERULAR FILTRATION RATE > 60.0 (>35); GLUCOSE, FASTING 124 MG/DL (70-100); MAGNESIUM LEVEL 2.1 MG/DL (1.8-2.4); POTASSIUM SERUM 3.8 MEQ/L (3.5-5.1); SODIUM LEVEL 139 MEQ/L (136-145)
[2019-06-06] MEDS: TAMSULOSIN 0.4 MG CAP PO SCH (09:35)
[2019-06-06] MEDS: TOLTERODINE TARTRATE 2 MG LA CAP (DETROL LA) PO SCH (09:35)
[2019-06-06] MEDS: amLODIPine 5 MG TAB PO SCH (09:35)
[2019-06-06] MEDS: SENNA 8.6 MG TAB (SENOKOT) PO SCH (09:35)
[2019-06-06] MEDS: DULoxetine 30 MG CAP (CYMBALTA) PO SCH (09:36)
[2019-06-06] MEDS: MODAFINIL 100 MG TABLET PO SCH (09:38)
[2019-06-06 09:51] LABS: INR 1.15; PROTHROMBIN TIME 14.4 SECONDS (11.8-14.0)
[2019-06-06 12:52] LABS: PERCENT SATURATION 17.9 % (19.7-50.0)
[2019-06-06 13:01] LABS: FOLATE 11.6 NG/ML (>5.4)
[2019-06-06] MEDS ORDERED: SLF 3 ML SYR IV PRN (14:45)
[2019-06-06] MEDS: WARFARIN SOD 5 MG TAB PO SCH (17:42)
[2019-06-06] MEDS: ENOXAPARIN 150 MG/ML SYR (J1650) SC SCH (17:43)
[2019-06-06] MEDS: rOPINIRole 0.25 MG TAB(REQUIP) PO SCH (20:31)
[2019-06-06] MEDS: ATORVASTATIN 20 MG TAB PO SCH (20:31)
[2019-06-06] MEDS: SLF 3 ML SYR IV SCH (20:31)
--- NOTE | 2019-06-06 21:56 | IPNPDOC ---
Text Note Date of Service The patient was seen on 06/06/19. NOTE Subjective No any acute events overnight. No any new complaints Patient denies fever, chills, nausea, vomiting, shortness of breath, diarrhea Objective General morbidly obese male HEENT PERRLA, EOMI CV S1-S2 regular Abdomen nontender nondistended, no rebound, colostomy in place Extremities: Distal part of the left leg more swollen than the right Assessment and plan Patient is 78 years old male with past medical history significant for hemorrhagic stroke, IVC filter placement, hypertension, hyperlipidemia, depression who presents to Hospital with fever, chills, dizziness, frequency in urination. Patient was diagnosed with sepsis most likely secondary to UTI, blood culture was positive for gram-negative rods. Blood culture was positive for Escherichia coli and Proteus mirabilis. Patient received treatment with Zosyn and vancomycin initially. Vancomycin was discontinued, Zosyn IV was switched to ceftriaxone after antibiotic sensitivity was received. During hospital stay patient was found to have DVT of the left leg (1) Sepsis Status: Acute Problem Text: Most likely secondary to urinary tract infection Improved Blood culture showed gram-negative rods, positive for Proteus mirabilis. No growth for 48 hours DC vancomycin, DC Zosyn, ceftriaxone started IV fluid (2) UTI (urinary tract infection) Problem Text: Most likely secondary to large bladder stone Seed treatment above (3) Bladder stone Problem Text: Follow-up with urologist in the outpatient settings (4) Pyelonephritis Status: Acute Problem Text: see treatment above 5) deconditioning PT/OT 6) urinary retention Secondary to traumatic catheterization Tamsulosin continue Colindres Plan DC Colindres tomorrow 7) DVT Doppler ultrasound showed no occlusive clot from the common femoral vein and sa phenous. Occlusive from the SFV to the popliteal. Patient doesn't have any shortness of breath, chest pain, he is not tachycardic, oxygen saturation on room air within normal limit. I discussed her family anticoagulation treatment. There was some discrepancy in medical information about recent hemorrhagic stroke. Today, his told me that stroke was April 03 this year. I discussed the case with Dr. Olivares and vascular surgeon. The plan is to discontinue anticoagulation due to high risk of stroke, discuss with family tomorrow anticoagulation therapy. Dr Zavala will evaluate patient tomorrow for thrombectomy. Continue to monitor PT/INR Plan / VTE VTE Prophylaxis Ordered?: Yes VS,Akanksha, I+O VS, Fernandobone, I+O Laboratory Tests 06/06/19 08:45 Red Blood Count 3.16 L, Mean Corpuscular Volume 93.0, Mean Corpuscular Hemoglobin 30.4, Mean Corpuscular Hemoglobin Concent 32.7, Red Cell Distribution Width 14.7 H, Calcium Level 8.0 L Vital Signs Date Time Temp Pulse Resp B/P (MAP) Pulse Ox O2 Delivery O2 Flow Rate FiO2 06/06/19 20:00 97.8 94 22 146/70 (95) 94 06/05/19 11:29 1.0 06/03/19 17:15 Nasal Cannula I&O- Last 24 Hours up to 6 AM 06/06/19 05:59 Intake Total 1000 ml Output Total 1350 ml Balance -350 ml ANTONIO HUTCHINS DO Jun 06, 2019 21:56
[2019-06-06 22:57] LABS: BLOOD UREA NITROGEN 22 MG/DL (7-18); CALCIUM LEVEL 7.6 MG/DL (8.8-10.2); CARBON DIOXIDE LEVEL 24 MEQ/L (21-32); CHLORIDE LEVEL 108 MEQ/L (98-107); CREATININE FOR GFR 0.89 MG/DL (0.70-1.30); GLOMERULAR FILTRATION RATE > 60.0 (>35); GLUCOSE, FASTING 122 MG/DL (70-100); POTASSIUM SERUM 3.9 MEQ/L (3.5-5.1); SODIUM LEVEL 138 MEQ/L (136-145)
[2019-06-07] MEDS: cefTRIAXone SOD 1 GM in D5W MINI-BAG PLUS 50 ML IV SCH ×2 (03:39→17:05)
[2019-06-07 04:00] VITALS: BP 124/60
[2019-06-07 04:12] LABS: HEMATOCRIT 29.6 % (42.0-52.0); HEMOGLOBIN 9.8 g/dl (13.5-17.5); MEAN CORPUSCULAR HEMOGLOBIN 31.3 pg (27.0-33.0); MEAN CORPUSCULAR HGB CONC 33.1 g/dl (32.0-36.5); MEAN CORPUSCULAR VOLUME 94.6 fl (80.0-96.0); PLATELET COUNT, AUTOMATED 168 10^3/uL (150-450); RED BLOOD COUNT 3.13 10^6/uL (4.30-6.10); WHITE BLOOD COUNT 7.7 10^3/uL (4.0-10.0)
[2019-06-07 04:23] LABS: INR 1.12; PROTHROMBIN TIME 14.1 SECONDS (11.8-14.0)
[2019-06-07 04:32] LABS: BLOOD UREA NITROGEN 20 MG/DL (7-18); CALCIUM LEVEL 8.1 MG/DL (8.8-10.2); CARBON DIOXIDE LEVEL 23 MEQ/L (21-32); CHLORIDE LEVEL 110 MEQ/L (98-107); CREATININE FOR GFR 0.84 MG/DL (0.70-1.30); GLOMERULAR FILTRATION RATE > 60.0 (>35); GLUCOSE, FASTING 104 MG/DL (70-100); POTASSIUM SERUM 3.9 MEQ/L (3.5-5.1); SODIUM LEVEL 140 MEQ/L (136-145)
[2019-06-07] MEDS: SLF 3 ML SYR IV SCH ×3 (05:37→20:00)
[2019-06-07 08:00] VITALS: BP 130/60
[2019-06-07 08:55] LABS: ABG BASE EXCESS -1.9 (-2.0-2.0); ABG HCO3 20.9 MEQ/L (22.0-26.0); ABG O2 SATURATION 96.9 % (95.0-99.0); ABG PARTIAL PRESSURE CO2 29.2 mmHg (35.0-45.0); ABG PARTIAL PRESSURE O2 86.2 mmHg (75.0-100.0); ABG STANDARD HCO3 22.8 MEQ/L (22.0-26.0); ABG TOTAL CO2 21.8 MEQ/L (23.0-31.0); ABG pH (ARTERIAL) 7.473 UNITS (7.350-7.450)
--- NOTE | 2019-06-07 09:22 | REP ---
Portable chest, 06/07/2019, 08:56 a.m., single AP view with the patient upright: Comparison is 06/03/2019. There are persisting opacities inferiorly in the left lung compatible with discoid atelectasis versus pneumonia, unchanged. No definite pleural effusions are identified. Lung diaz otherwise clear and unchanged. Cardiac size appears normal. Impression: No significant interval change. Electronically Signed by Dann Vieira MD 06/07/2019 09:14 A
[2019-06-07] MEDS: DULoxetine 30 MG CAP (CYMBALTA) PO SCH (09:28)
[2019-06-07] MEDS: SENNA 8.6 MG TAB (SENOKOT) PO SCH (09:29)
[2019-06-07] MEDS: TAMSULOSIN 0.4 MG CAP PO SCH (09:29)
[2019-06-07] MEDS: MODAFINIL 100 MG TABLET PO SCH (09:29)
[2019-06-07] MEDS: amLODIPine 5 MG TAB PO SCH (09:29)
[2019-06-07 10:05] LABS: BLOOD UREA NITROGEN 18 MG/DL (7-18); CARBON DIOXIDE LEVEL 24 MEQ/L (21-32); CHLORIDE LEVEL 109 MEQ/L (98-107); GLOMERULAR FILTRATION RATE > 60.0 (>35); GLUCOSE, FASTING 104 MG/DL (70-100); SODIUM LEVEL 141 MEQ/L (136-145)
[2019-06-07 12:00] VITALS: BP 126/62
--- NOTE | 2019-06-07 15:05 | CR.PDOC ---
General Date of Consultation: Jun 07, [address] Zavala HPI: Patient is 78 years old male with past medical history significant for hemorrhagic stroke 04/03/19, IVC filter placement,who was admitted 06/03/19 as per Hospitalist for pyelonephritis. Vascular surgery is consulted re LLE DVT. Denies any fevers, chills, weakness, fatigue, Headache, Chest Pain, Shortness of breath, cough, palpitations, abdominal pain, N/V/D or changes in bowel or bladder habits. PMHx: CVA, hemorrhagic 04/03/19. H/O PE/DVT, S/P IVC filter placement HTN HLD Depression PSHX: IVC filter placement. Lt VAIBHAV colon resection SOCHX: Tobacco use: denies ETOH: denies FAMHX: denies FH of clotting disorder ROS: As noted in HPI, otherwise 11pt ROS of systems reviewed and unremarkable. PE: GEN: yo, appears stated age. Well-nourished, well developed. No acute distress. Alert and oriented x 3. Pleasant, interactive. HEENT: Normocephalic, atraumatic. Pupils are equal, round, and reactive to light. Extraocular movements are intact. No nystagmus appreciated. Sclera are nonicteric. Conjunctiva without injection. Nose midline. Nasal turbinates without bogginess. EACs both patent BL. TMs both visualized and knox with good cone of light, no bulging or erythema. No facial asymmetry. Moist mucous membranes. Dentition fair. Pharynx pink and moist, no cobblestoning. Neck supple, trachea midline. No lymphadenopathy or thyromegaly appreciated. CHEST: Regular rate and rhythm, +S1, +S2 LUNGS: Clear to auscultation bilaterally. No wheezes, rales, or rhonchi. Breathing appears symmetric and easy. Patient is speaking in full sentences. No accessory muscle use. ABD: Round, soft, non-tender, non-distended. +Bowel sounds throughout. No rebound or guarding. No costovertebral angle tenderness. EXT: Pulses 2+ bilaterally dorsalis pedis and radial. No lower extremity edema appreciated. SKIN: [place], dry, warm. Capillary refill <2sec. No rashes. NEURO: Alert and oriented x 3. Cranial nerves III-XII are intact. No focal deficits appreciated. LLE US 06/04/19 report pending. reportedly indicated no occlusive clot from the common femoral vein and saphenous. Occlusive from the SFV to the popliteal. A&P: 1. DVT. Pt with h/o PE. S/P IVC filter. Pt with h/o hemorrhagic CVA 04/06, was reviewed with Neurology and felt to be high risk for bleeding, recurrent CVA therefore AC is not recommended at this time. The pt is reviewed and examined as per Dr Zavala. Dr Zavala has discussed with the pt and his dtr as well as hospitalist. No procedure (thrombectomy or thrombolysis) would be recommended at this time. Would recommend conservative mgmt. KHANG wrap, elevation. When stable and cleared by Neurology, consider AC. Vital Signs/I&O Vital Signs Date Time Temp Pulse Resp B/P (MAP) Pulse Ox O2 Delivery O2 Flow Rate FiO2 06/07/19 12:00 97.4 88 20 126/62 (83) 92 06/07/19 08:00 2.0 06/03/19 17:15 Nasal Cannula I&O- Last 24 Hours up to 6 AM 06/07/19 06:00 Intake Total 780 ml Output Total 2025 ml Balance -1245 ml Laboratory Data Labs 24H Laboratory Tests 2 06/06/19 22:22: Anion Gap 6L, Glomerular Filtration Rate > 60.0, Blood Urea Nitrogen 22H, C reatinine 0.89, Sodium Level 138, Potassium Level 3.9, Chloride Level 108H, Carbon Dioxide Level 24, Calcium Level 7.6L 06/07/19 03:59: Anion Gap 7L, Glomerular Filtration Rate > 60.0, Blood Urea Nitrogen 20H, Creatinine 0.84, Sodium Level 140, Potassium Level 3.9, Chloride Level 110H, Carbon Dioxide Level 23, Calcium Level 8.1L, Nucleated Red Blood Cells % (auto) 0.0, Prothrombin Time 14.1H, Prothromb Time International Ratio 1.12, Magnesium Level 2.0 06/07/19 08:55: Blood Gas Bicarbonate Standard 22.8, Arterial Blood pH 7.473H, Arterial Blood Partial Pressure CO2 29.2L, Arterial Blood Partial Pressure O2 86.2, Arterial Blood Total CO2 21.8L, Arterial Blood HCO3 20.9L, Arterial Blood Base Excess - 1.9, Arterial Blood Oxygen Saturation 96.9 06/07/19 09:14: Anion Gap 8, Glomerular Filtration Rate > 60.0, Blood Urea Nitrogen 18, Creatinine 0.80, Sodium Level 141, Potassium Level 4.0, Chloride Level 109H, Carbon Dioxide Level 24, Calcium Level 8.0L CBC/BMP Laboratory Tests 06/06/19 22:22 Calcium Level 7.6 L 06/07/19 03:59 Calcium Level 8.1 L, Red Blood Count 3.13 L, Mean Corpuscular Volume 94.6, Mean Corpuscular Hemoglobin 31.3, Mean Corpuscular Hemoglobin Concent 33.1, Red Cell Distribution Width 14.7 H 06/07/19 09:14 Calcium Level 8.0 L Microbiology Microbiology 06/04/19 Blood Culture - Preliminary, Resulted No Growth after 72 hours. All specime... 06/03/19 Blood Culture - Preliminary, Resulted 06/03/19 Blood Culture - Final, Complete Proteus Mirabilis 06/03/19 Urine Culture - Final, Complete Proteus Mirabilis Escherichia Coli Allergies Coded Allergies: Sulfa (Sulfonamide Antibiotics) (Verified Allergy, Intermediate, RASH, VIOLENT BEHAVIOR, 04/08/19) latex (Verified Allergy, Unknown, 04/08/19) oxycodone (Verified Adverse Reaction, Intermediate, SUICIDAL THOUGHTS, 04/08/19) Home Medications Scheduled Acetaminophen (Tylenol Extra Strength) 500 Mg Tablet, 500 MG PO Q4H, (Reported) Amlodipine Besylate (Amlodipine Besylate) 5 Mg Tablet, 5 MG PO DAILY, (Reported) Atorvastatin Calcium (Atorvastatin Calcium) 20 Mg Tablet, 20 MG PO QHS, (Reported) Diclofenac Sodium (Voltaren) 100 Gm Gel..gram., 2 GRAM TOP QID, (Reported) Duloxetine Hcl (Cymbalta) 60 Mg Capsule.dr, 60 MG PO DAILY, (Reported) Emollient Ointment (Hydrophor) 454 Gm Oint...g., 1 DOSE TOP DAILY, (Reported) FA/Vit C/E/Zinc/Copper/Lut/Chas (Ocuvel Capsule) 1 Each Capsule, 1 CAP PO DAILY, (Reported) Lidocaine (Lidocaine) 5% Adh..patch, 1 PATCH TOP DAILY, (Reported) APPLY TO BACK Methyl Salicylate/Menthol (Muscle Rub Cream) 113 Gm Cream..g., 1 DOSE TOP QID, (Reported) Modafinil (Modafinil) 100 Mg Tablet, 100 MG PO DAILY, (Reported) Nitrofurantoin Monohyd/M-Cryst (Macrobid 100 mg Capsule) 100 Mg Capsule, 100 MG PO BID, (Reported) STARTED 06/01/19 FOR 5 DAYS Oxybutynin Chloride (Oxybutynin Chloride) 5 Mg Tablet, 5 MG PO TID, (Reported) Pantoprazole Sodium (Pantoprazole Sodium) 40 Mg Tablet.dr, 40 MG PO DAILY, (Reported) Phenazopyridine HCl (Pyridium) 200 Mg Tablet, 200 MG PO Q8H, (Reported) FOR 3 DAYS - STARTED 06/02/19 Ropinirole HCl (Ropinirole HCl) 0.25 Mg Tablet, 0.25 MG PO QHS, (Reported) Sennosides (Senna) 8.6 Mg Tablet, 2 TAB PO DAILY, (Reported) Tolterodine Tartrate (Detrol LA) 4 Mg Cap.er.24h, 4 MG PO DAILY, (Reported) Zinc Oxide (Desitin) 454 Gm Cream..g., 1 DOSE TOP BID, (Reported) APPLY TO SACRUM Scheduled PRN Acetaminophen (Tylenol) 325 Mg Tablet, 650 MG PO Q4H PRN for PAIN / FEVER, (Reported) Acetaminophen (Feverall) 650 Mg Supp.rect, 650 MG GA Q4H PRN for PAIN / FEVER, (Reported) Bisacodyl (Dulcolax) 10 Mg Supp.rect, 10 MG GA DAILY PRN for CONSTIPATION, (Reported) Meclizine HCl (Meclizine HCl) 12.5 Mg Tablet, 12.5 MG PO PRN PRN for DIZZINESS, (Reported) TAKE 1/2 HOUR PRIOR TO TRAVELING Milk Of Magnesia (Milk of Magnesia) 2,400 Mg/10 Ml Oral.susp, 10 ML PO DAILY PRN for CONSTIPATION, (Reported) Polyvinyl Alcohol (Artificial Tears) 15 Ml Drops, 1 DROP OU Q4H PRN for DRY EYES, (Reported) Sodium Phosphate,Duchesne-Dibasic (Enema) 133 Ml Enema, 1 MARISSA GA DAILY PRN for CONSTIPATION, (Reported) Attending Note Attending Note VASCULAR SURGICAL ATTENDING NOTE: Dr. Jay Zavala M.D. The patient was seen on 06/07/19 at 23:12 ASSESSMENT: Patient is an 78-year-old male with acute left lower extremity DVT with swelling who has a history of past DVT and pulmonary embolus who was on Coumadin for approximately 20 years. Patient recently developed a hemorrhagic stroke with right hemiparesis and underwent placement of an inferior vena cava filter and discontinuation of his Coumadin. Patient now has a new left lower extremity DVT with swelling. The left lower extremity is well-perfused with no signs of phlegmasia PLAN: The patient is not a candidate for surgical thrombectomy or thrombolysis due to his recent hemorrhagic stroke. Thrombolysis would be too high risk for recurrent cerebral hemorrhage and worsening stroke. Surgical thrombectomy would require anticoagulation post procedure with a high risk of recurrence even with anticoagulation. Recommendation at this time is to elevate the left lower ext remity and treat with compressive therapy. Prophylactic heparin or Lovenox would be beneficial. Full anticoagulation should be started once the patient is cleared for use of anticoagulants with regards and consideration to his hemorrhagic cerebrovascular accident. The plan was discussed with the patient and his daughter in detail with explanation of the risks associated with surgical thrombectomy, thrombolysis, no intervention with continued conservative management. All of the patient's and his daughter's questions were answered. Patient will be followed during his hospitalization and should follow-up as an outpatient with myself in approximately 2-3 weeks after his discharge. Darron Cox was the attending vascular surgeon for this patient encounter. The patient was seen, examined, interviewed and evaluated independently by Dr. Andre Zavala M.D. Dr. Andre Zavala M.D. was fully available during the consultation evaluation. All aspects of the patient interview, examination, medical decision making process, and medical care plan development were reviewed and approved by Dr. Andre Zavala M.D. Dr. Andre Zavala M.D. is aware and concurs with the plan as stated in the body of this note and will attest to such by his/her cosignature. Marleny Cota Jun 07, 2019 15:05 Héctor Zavala MD Jun 07, 2019 23:18
--- NOTE | 2019-06-07 15:27 | REP ---
LEFT LOWER EXTREMITY DOPPLER VENOUS ULTRASOUND: 06/04/2019. Comparison: Bilateral ultrasound 04/20/2019. Clinical history: Evaluate for DVT. Negative last month. Findings: Standard duplex techniques were utilized. The deep venous system shows nonocclusive thrombus in the common femoral vein and proximal greater saphenous vein. There is incomplete compressibility of these vessels. Some flow is maintained in these vessels. However, superficial femoral vein of the deep system through the popliteal vein are occluded without flow on color images. Impression: 1. Acute DVT, fairly extensive in the left lower extremity. It is nonocclusive from the common femoral vein and saphenous proximally, occlusive from the SFV to the popliteal. Electronically Signed by Rufus Villatoro MD 06/05/2019 08:03 P
--- NOTE | 2019-06-07 15:43 | IPNPDOC ---
Text Note Date of Service The patient was seen on 06/07/19. NOTE Subjective Overnight patient developed episodes of hypoxia with low oxygen saturation around 80, he was placed on oxygen 2 L via nasal cannula. Mildly lethargic in the morning, not oriented to place. Patient denies fever, chills, nausea, vomiting, shortness of breath, diarrhea Objective General morbidly obese male HEENT PERRLA, EOMI CV S1-S2 regular Abdomen nontender nondistended, no rebound, colostomy in place Extremities: Distal part of the left leg more swollen than the right Portable chest, 06/07/2019, 08:56 a.m., single AP view with the patient upright: Comparison is 06/03/2019. There are persisting opacities inferiorly in the left lung compatible with discoid atelectasis versus pneumonia, unchanged. No definite pleural effusions are identified. Lung diaz otherwise clear and unchanged. Cardiac size appears normal. Impression: No significant interval change. Assessment and plan Patient is 78 years old male with past medical history significant for hemorrh agic stroke in March 2019, IVC filter placement, hypertension, hyperlipidemia, depression who presents to Hospital with fever, chills, dizziness, frequency in urination. Patient was diagnosed with sepsis most likely secondary to UTI, blood culture was positive for gram-negative rods. Blood culture was positive for Proteus mirabilis. UA positive for Escherichia coli and Proteus mirabilis. Patient received treatment with Zosyn and vancomycin initially. Vancomycin was discontinued, Zosyn IV was switched to ceftriaxone after antibiotic sensitivity was received. During hospital stay patient was found to have DVT of the left leg. Due to recent hemorrhage stroke will avoid anticoagulation. who is vascular surgeon recommended conservative treatment with leg elevation and stoking (1) Sepsis Status: Acute Problem Text: Most likely secondary to urinary tract infection Improved Blood culture showed gram-negative rods, positive for Proteus mirabilis. No growth for 48 hours DC vancomycin, DC Zosyn, ceftriaxone started IV fluid (2) UTI (urinary tract infection) Problem Text: Most likely secondary to large bladder stone Seed treatment above (3) Bladder stone Problem Text: Follow-up with urologist in the outpatient settings (4) Pyelonephritis Status: Acute Problem Text: see treatment above 5) deconditioning PT/OT 6) urinary retention Secondary to traumatic catheterization Tamsulosin continue Colindres DC Colindres 7) DVT Doppler ultrasound showed no occlusive clot from the common femoral vein and saphenous. Occlusive from the SFV to the popliteal. Patient doesn't have any shortness of breath, chest pain, he is not tachycardic, oxygen saturation on room air within normal limit.Due to recent hemorrhage stroke will avoid anticoagulation recommended conservative treatment with leg elevation and stoking 8)Delirium Frequent re orientation I stopped Tolterodine, which can contribute to urinary retention. Blood gas within normal limit 9.Acute hypoxic respiratory failure Secondary to obstructive sleep apnea, hypoventilation obesity apnea CPAP qhs Respiratory treatment VS,Fishbone, I+O VS, Fishbone, I+O Laboratory Tests 06/06/19 22:22 Calcium Level 7.6 L 06/07/19 03:59 Calcium Level 8.1 L, Red Blood Count 3.13 L, Mean Corpuscular Volume 94.6, Mean Corpuscular Hemoglobin 31.3, Mean Corpuscular Hemoglobin Concent 33.1, Red Cell Distribution Width 14.7 H 06/07/19 09:14 Calcium Level 8.0 L Vital Signs Date Time Temp Pulse Resp B/P (MAP) Pulse Ox O2 Delivery O2 Flow Rate FiO2 06/07/19 12:00 97.4 88 20 126/62 (83) 92 06/07/19 08:00 2.0 06/03/19 17:15 Nasal Cannula I&O- Last 24 Hours up to 6 AM 06/07/19 05:59 Intake Total 420 ml Output Total 1425 ml Balance -1005 ml ANTONIO HUTCHINS DO Jun 07, 2019 15:43
[2019-06-07 16:00] VITALS: BP 127/59
[2019-06-07 16:50] LABS: BLOOD UREA NITROGEN 20 MG/DL (7-18); CALCIUM LEVEL 8.2 MG/DL (8.8-10.2); CARBON DIOXIDE LEVEL 25 MEQ/L (21-32); CHLORIDE LEVEL 107 MEQ/L (98-107); CREATININE FOR GFR 0.93 MG/DL (0.70-1.30); GLOMERULAR FILTRATION RATE > 60.0 (>35); GLUCOSE, FASTING 140 MG/DL (70-100); POTASSIUM SERUM 3.9 MEQ/L (3.5-5.1); SODIUM LEVEL 137 MEQ/L (136-145)
[2019-06-07] MEDS ORDERED: WARFARIN SOD 7.5 MG TAB PO SCH (17:00)
--- NOTE | 2019-06-07 19:32 | CR ---
DATE OF CONSULTATION: 06/07/2019 CONSULTATION REPORT FOR: Dr. Bernardo Roberts REASON FOR CONSULTATION: Deep vein thrombosis and history of cerebral hemorrhage. HISTORY OF PRESENT ILLNESS: Oliverio Power is an 78-year-old man with history of deep vein thrombosis who had been on Coumadin for 20 years. On 04/03/2019, he was admitted at [facility] due to right hemiparesis and slurred speech and was found to have left basal ganglia cerebral hemorrhage and his international normalized ratio (INR) was 3.9. His Coumadin was stopped and his INR was reversed and inferior vena cava filter was placed. The patient remained off Coumadin. He went through rehabilitation at [facility] in April 2019. He was admitted at [facility] due to sepsis, urinary tract infection, and pyelonephritis. He was found to have left femoral vein deep vein thrombosis. He continues to have right hemiparesis. He was started on Coumadin over the last few days but it was stopped due to his history of cerebral hemorrhage. I had a detailed discussion about his risk of future deep vein thrombosis (DVT), need for anticoagulation, and risk of recurrent hemorrhage. The patient states that he does not want me to talk to his about these concerns as it has been very difficult for her to handle all of this difficult medical information. He states that he can not reach a conclusion today and wants to think about it. I explained to him that there is always risk of bleeding internally including gastrointestinal and cerebral hemorrhage in the future if he does decide to use anticoagulation. His previous cerebral hemorrhage in left basal ganglia was likely due to high INR. We can consider using Eliquis 2.5 mg twice a day. The risk likely would be lower for recurrent bleeding in the future but it can not be excluded. If he does decide to start anticoagulation, it can be started as it has been two months since his previous cerebral hemorrhage. The patient continues to have right hemiparesis. He denies any headaches, neck or back pain. He denies dysphagia, dysarthria, diplopia, or urinary incontinence. PAST MEDICAL HISTORY: 1. Deep vein thrombosis (DVT) with pulmonary embolism. 2. Intracerebral hemorrhage in left basal ganglia with international normalized ratio (INR) of 3.9 at that time in March 2019, for which the patient was admitted at [facility]. 3. Colostomy. 4. Hypertension. 5. Depression. 6. Osteoarthritis. 7. Osteoporosis. 8. Left hip replacement. 9. Sigmoid resection. 10. Inferior vena cava (IVC) filter placement. ALLERGIES: SULFA, LATEX, OXYCODONE. HOME MEDICATIONS: - amlodipine 5 mg by mouth daily - Lipitor 20 mg by mouth daily - Voltaren gel as needed - Cymbalta 60 mg by mouth daily - Provigil 100 mg by mouth daily - Macrobid 100 mg by mouth twice a day - oxybutynin 5 mg by mouth three times a day - Protonix 40 mg by mouth daily - Requip 0.25 mg by mouth at bedtime - Detrol LA 4 mg by mouth daily - zinc oxide 454 grams one dose topical twice a day - Tylenol as needed - meclizine as needed SOCIAL HISTORY: He denies smoking, alcohol, or illicit drugs. FAMILY HISTORY: Noncontributory. REVIEW OF SYSTEMS: All systems were reviewed and found to be noncontributory except as mentioned in the history of present illness. PHYSICAL EXAMINATION: VITAL SIGNS: Temperature 97.4, pulse 88, respiratory rate 41, blood pressure 126/62. HEART: Regular rate and rhythm. LUNGS: Clear to auscultation. ABDOMEN: Soft, nontender, nondistended. He has 1+ pedal edema in both legs. He has chronic venous stasis changes in his right arm and leg. Deep tendon reflexes are 1+ in arms and knees and absent at ankles. He is awake, alert and oriented to place, person and time. Normal speech, comprehension and interpretation. Extraocular muscles are intact. No facial weakness. Tongue and uvula are midline. Right-sided strength is 3/5 and left-sided strength is 5/5. His right plantar is upgoing. Gait could not be tested. ASSESSMENT: 1. Left basal ganglia cerebral hemorrhage while taking Coumadin with international normalized ratio (INR) of 3.9. 2. History of deep vein thrombosis (DVT) and pulmonary embolism. 3. Current left femoral vein deep vein thrombosis and the patient has inferior vena cava filter. PLAN: 1. There is risk of recurrent cerebral hemorrhage and gastrointestinal (GI) bleeding if the patient is restarted on anticoagulation. His previous cerebral hemorrhage in March 2019 was likely due to high international normalized ratio (INR) while taking Coumadin. The patient has inferior vena cava filter which prevents pulmonary emboli but he can have recurrent deep vein thrombosis. 2. Two months after his previous cerebral hemorrhage, the patient can potentially restart anticoagulation with Eliquis 2.5 mg by mouth twice a day and we can keep it on lower dose to prevent deep vein thrombosis (DVT) and cerebral hemorrhage in the future. Lower dose of Eliquis will likely carry lower risk of cerebral and GI bleeding then supratherapeutic INR from Coumadin. I had a detailed discussion with the patient. He does not want me to talk to his as he thinks that she is too stressed out to handle any such information. He wants to think about it if he even wants to start low-dose Eliquis. The patient has been seen by vascular surgery and they did not recommend any surgical interventions at this time. The patient already has inferior vena cava filter.
[2019-06-07] MEDS: rOPINIRole 0.25 MG TAB(REQUIP) PO SCH (19:58)
[2019-06-07] MEDS: ATORVASTATIN 20 MG TAB PO SCH (19:59)
[2019-06-07 20:00] VITALS: BP 126/58
[2019-06-07 22:30] LABS: BLOOD UREA NITROGEN 24 MG/DL (7-18); CALCIUM LEVEL 7.8 MG/DL (8.8-10.2); CARBON DIOXIDE LEVEL 25 MEQ/L (21-32); CHLORIDE LEVEL 108 MEQ/L (98-107); CREATININE FOR GFR 0.88 MG/DL (0.70-1.30); GLOMERULAR FILTRATION RATE > 60.0 (>35); GLUCOSE, FASTING 114 MG/DL (70-100); POTASSIUM SERUM 4.1 MEQ/L (3.5-5.1); SODIUM LEVEL 139 MEQ/L (136-145)
[2019-06-08] VITALS: BP 156/70
[2019-06-08 04:00] VITALS: BP 133/58
[2019-06-08] MEDS: SLF 3 ML SYR IV SCH ×3 (04:07→21:17)
[2019-06-08] MEDS: cefTRIAXone SOD 1 GM in D5W MINI-BAG PLUS 50 ML IV SCH ×2 (04:07→16:37)
[2019-06-08 04:24] LABS: HEMATOCRIT 29.7 % (42.0-52.0); HEMOGLOBIN 9.7 g/dl (13.5-17.5); MEAN CORPUSCULAR HEMOGLOBIN 30.2 pg (27.0-33.0); MEAN CORPUSCULAR HGB CONC 32.7 g/dl (32.0-36.5); MEAN CORPUSCULAR VOLUME 92.5 fl (80.0-96.0); PLATELET COUNT, AUTOMATED 204 10^3/uL (150-450); RED BLOOD COUNT 3.21 10^6/uL (4.30-6.10); WHITE BLOOD COUNT 9.3 10^3/uL (4.0-10.0)
[2019-06-08 04:34] LABS: INR 1.16; PROTHROMBIN TIME 14.5 SECONDS (11.8-14.0)
[2019-06-08 04:43] LABS: BLOOD UREA NITROGEN 22 MG/DL (7-18); CALCIUM LEVEL 8.1 MG/DL (8.8-10.2); CARBON DIOXIDE LEVEL 25 MEQ/L (21-32); CHLORIDE LEVEL 108 MEQ/L (98-107); CREATININE FOR GFR 0.82 MG/DL (0.70-1.30); GLOMERULAR FILTRATION RATE > 60.0 (>35); GLUCOSE, FASTING 109 MG/DL (70-100); MAGNESIUM LEVEL 1.8 MG/DL (1.8-2.4); POTASSIUM SERUM 4.1 MEQ/L (3.5-5.1); SODIUM LEVEL 139 MEQ/L (136-145)
[2019-06-08 07:51] VITALS: BP 140/64
[2019-06-08] MEDS: amLODIPine 5 MG TAB PO SCH (08:56)
[2019-06-08] MEDS: SENNA 8.6 MG TAB (SENOKOT) PO SCH (08:56)
[2019-06-08] MEDS: TAMSULOSIN 0.4 MG CAP PO SCH (08:56)
[2019-06-08] MEDS: DULoxetine 30 MG CAP (CYMBALTA) PO SCH (08:56)
[2019-06-08] MEDS: MODAFINIL 100 MG TABLET PO SCH (08:56)
[2019-06-08 10:00] LABS: BLOOD UREA NITROGEN 21 MG/DL (7-18); CALCIUM LEVEL 8.2 MG/DL (8.8-10.2); CARBON DIOXIDE LEVEL 24 MEQ/L (21-32); CHLORIDE LEVEL 107 MEQ/L (98-107); CREATININE FOR GFR 0.85 MG/DL (0.70-1.30); GLOMERULAR FILTRATION RATE > 60.0 (>35); GLUCOSE, FASTING 128 MG/DL (70-100); SODIUM LEVEL 138 MEQ/L (136-145)
--- NOTE | 2019-06-08 10:37 | IPNPDOC ---
Date Seen The patient was seen on 06/08/19. Progress Note vascular Surgery Dr Zavala HPI: Patient is 78 years old male with past medical history significant for hemorrhagic stroke 04/03/19, IVC filter placement,who was admitted 06/03/19 as per Hospitalist for pyelonephritis. Vascular surgery was consulted re LLE DVT. The pt is OOB to chair. States swelling in LLE is about the same today. PMHx: CVA, hemorrhagic 04/03/19. H/O PE/DVT, S/P IVC filter placement HTN HLD Depression PSHX: IVC filter placement. Lt VAIBHAV colon resection PE: GEN: yo, appears stated age. Alert and oriented x 3. HEENT: Normocephalic, atraumatic. Moist mucous membranes. CHEST: Regular rate and rhythm, +S1, +S2 ABD: Round, soft, non-tender, non-distended. EXT: there is mild edema noted of the LLE with no cording, warmth, erythema. LLE US 06/04/19 1. Acute DVT, fairly extensive in the left lower extremity. It is nonocclusive from the common femoral vein and saphenous proximally, occlusive from the SFV to the popliteal. Electronically Signed by Rufus Villatoro MD 06/05/2019 08:03 P A&P: 1. DVT. Pt with h/o PE. S/P IVC filter. Pt with h/o hemorrhagic CVA 04/06, was reviewed with Neurology and felt to be high risk for bleeding, recurrent CVA therefore AC is not recommended at this time. The pt is reviewed and examined as per Dr Zavala. Dr Zavala has discussed with the pt and his dtr as well as hospitalist. No procedure (thrombectomy or thrombolysis) would be recommended at this time. Would recommend conservative mgmt. KHANG wrap, elevation. Prophylactic dose heparin or Lovenox would be beneficial. Full anticoagulation should be started once the patient is cleared for use of anticoagulants with regards and consideration to his hemorrhagic CVA. Plan for outpt FU with Dr Zavala's office 2-3 weeks. Reconsult Vascular Surgery as needed. VS, I&O, 24H, Fishbone Vital Signs/I&O Vital Signs Date Time Temp Pulse Resp B/P (MAP) Pulse Ox O2 Delivery O2 Flow Rate FiO2 06/08/19 08:56 82 140/64 06/08/19 07:51 97.2 18 90 06/07/19 08:00 2.0 06/03/19 17:15 Nasal Cannula I&O- Last 24 Hours up to 6 AM 06/08/19 06:00 Intake Total 1140 ml Output Total 2075 ml Balance -935 ml Laboratory Data 24H LABS Laboratory Tests 2 06/07/19 16:03: Anion Gap 5L, Glomerular Filtration Rate > 60.0, Blood Urea Nitrogen 20H, Creatinine 0.93, Sodium Level 137, Potassium Level 3.9, Chloride Level 107, Carbon Dioxide Level 25, Calcium Level 8.2L 06/07/19 21:56: Anion Gap 6L, Glomerular Filtration Rate > 60.0, Blood Urea Nitrogen 24H, Cre atinine 0.88, Sodium Level 139, Potassium Level 4.1, Chloride Level 108H, Carbon Dioxide Level 25, Calcium Level 7.8L 06/08/19 03:48: Anion Gap 6L, Glomerular Filtration Rate > 60.0, Blood Urea Nitrogen 22H, Creatinine 0.82, Sodium Level 139, Potassium Level 4.1, Chloride Level 108H, Carbon Dioxide Level 25, Calcium Level 8.1L, Nucleated Red Blood Cells % (auto) 0.0, Prothrombin Time 14.5H, Prothromb Time International Ratio 1.16, Magnesium Level 1.8 06/08/19 09:08: Anion Gap 7L, Glomerular Filtration Rate > 60.0, Blood Urea Nitrogen 21H, Creatinine 0.85, Sodium Level 138, Potassium Level 4.0, Chloride Level 107, Carbon Dioxide Level 24, Calcium Level 8.2L CBC/BMP Laboratory Tests 06/07/19 16:03 Calcium Level 8.2 L 06/07/19 21:56 Calcium Level 7.8 L 06/08/19 03:48 Calcium Level 8.1 L, Red Blood Count 3.21 L, Mean Corpuscular Volume 92.5, Mean Corpuscular Hemoglobin 30.2, Mean Corpuscular Hemoglobin Concent 32.7, Red Cell Distribution Width 14.8 H 06/08/19 09:08 Calcium Level 8.2 L Microbiology Microbiology 06/04/19 Blood Culture - Preliminary, Resulted No Growth after 72 hours. All specime... 06/03/19 Blood Culture - Final, Complete Proteus Mirabilis 06/03/19 Blood Culture - Final, Complete Proteus Mirabilis 06/03/19 Urine Culture - Final, Complete Proteus Mirabilis Escherichia Coli Marleny Cota Jun 08, 2019 10:37
[2019-06-08 12:00] VITALS: BP 123/58
[2019-06-08 15:41] VITALS: BP 123/61
[2019-06-08 16:00] LABS: BLOOD UREA NITROGEN 23 MG/DL (7-18); CALCIUM LEVEL 7.9 MG/DL (8.8-10.2); CARBON DIOXIDE LEVEL 25 MEQ/L (21-32); CHLORIDE LEVEL 106 MEQ/L (98-107); CREATININE FOR GFR 0.87 MG/DL (0.70-1.30); GLOMERULAR FILTRATION RATE > 60.0 (>35); GLUCOSE, FASTING 149 MG/DL (70-100); POTASSIUM SERUM 3.7 MEQ/L (3.5-5.1); SODIUM LEVEL 138 MEQ/L (136-145)
[2019-06-08 20:00] VITALS: BP 116/56
--- NOTE | 2019-06-08 20:24 | IPNPDOC ---
Subjective Date Seen The patient was seen on 06/08/19. Subjective Chief Complaint/HPI Admitted for acute CVA,Sepsis due to UTI,also developed DVT not a candidate for AC.Feeling better.Patient has a bladder stone and the wants him to see urologist during this hospitalization.No other complaint.No iv access obtained today as nurse asking if atbx can be given PO. Objective Physical Examination General Exam: Positive: Alert, Cooperative Eye Exam: Positive: PERRLA, EOMI ENT Exam: Positive: Atraumatic Neck Exam: Positive: Supple; Negative: JVD Chest Exam: Positive: Clear to auscultation Heart Exam: Positive: Rate Normal, Regular Rhythm Abdomen Exam: Positive: BS Hypoactive, Soft, Tenderness Extremity Exam: Positive: Edema; Negative: Clubbing, Cyanosis Skin Exam: Negative: Rash, Breakdown Neuro Exam: Positive: Other (Right upper extremity weakness) Psych Exam: Positive: Other (Calm,not anxious) Assessment /Plan Problems (1) Sepsis Status: Resolved Problem Text: Most likely secondary to urinary tract infection.No longer septic.Afebrile and nl WBC.Repeated blood cx negative.Initially grew proteus Lactic acid nl Now on PO levaquin since today.Difficult iv access. (2) UTI (urinary tract infection) Problem Text: Most likely secondary to large bladder stone Now on levaquin Ucx grew proteus and E.coli ->senstive to levaquin (3) Bladder stone Problem Text: Follow-up with urologist in the outpatient settings.However patient's wants urology to see him during this hospitalization (4) Pyelonephritis Status: Acute Problem Text: see treatment above Plan/VTE VTE Prophylaxis Ordered?: Yes Plan Diet: Continue Current Activity: Continue Current, Encourage Ambulation Therapy: PT Anticipated Discharge: [facility] VS, I&O, 24H, Akanksha Vital Signs/I&O Vital Signs Date Time Temp Pulse Resp B/P (MAP) Pulse Ox O2 Delivery O2 Flow Rate FiO2 06/08/19 15:41 96.9 78 18 123/61 (81) 93 06/07/19 08:00 2.0 06/03/19 17:15 Nasal Cannula I&O- Last 24 Hours up to 6 AM 06/08/19 06:00 Intake Total 1140 ml Output Total 2075 ml Balance -935 ml Laboratory Data 24H LABS Laboratory Tests 2 06/07/19 21:56: Anion Gap 6L, Glomerular Filtration Rate > 60.0, Blood Urea Nitrogen 24H, Creati nine 0.88, Sodium Level 139, Potassium Level 4.1, Chloride Level 108H, Carbon Dioxide Level 25, Calcium Level 7.8L 06/08/19 03:48: Anion Gap 6L, Glomerular Filtration Rate > 60.0, Blood Urea Nitrogen 22H, Creatinine 0.82, Sodium Level 139, Potassium Level 4.1, Chloride Level 108H, Carbon Dioxide Level 25, Calcium Level 8.1L, Nucleated Red Blood Cells % (auto) 0.0, Prothrombin Time 14.5H, Prothromb Time International Ratio 1.16, Magnesium Level 1.8 06/08/19 09:08: Anion Gap 7L, Glomerular Filtration Rate > 60.0, Blood Urea Nitrogen 21H, Creatinine 0.85, Sodium Level 138, Potassium Level 4.0, Chloride Level 107, Carbon Dioxide Level 24, Calcium Level 8.2L 06/08/19 15:24: Anion Gap 7L, Glomerular Filtration Rate > 60.0, Blood Urea Nitrogen 23H, Creatinine 0.87, Sodium Level 138, Potassium Level 3.7, Chloride Level 106, Carbon Dioxide Level 25, Calcium Level 7.9L CBC/BMP Laboratory Tests 06/07/19 21:56 Calcium Level 7.8 L 06/08/19 03:48 Calcium Level 8.1 L, Red Blood Count 3.21 L, Mean Corpuscular Volume 92.5, Mean Corpuscular Hemoglobin 30.2, Mean Corpuscular Hemoglobin Concent 32.7, Red Cell Distribution Width 14.8 H 06/08/19 09:08 Calcium Level 8.2 L 06/08/19 15:24 Calcium Level 7.9 L Microbiology Microbiology 06/04/19 Blood Culture - Preliminary, Resulted No Growth after 72 hours. All specime... 06/03/19 Blood Culture - Final, Complete Proteus Mirabilis 06/03/19 Blood Culture - Final, Complete Proteus Mirabilis 06/03/19 Urine Culture - Final, Complete Proteus Mirabilis Escherichia Coli FRANK SETH MD Jun 08, 2019 20:24
[2019-06-08] MEDS: APIXABAN 2.5 MG TAB (ELIQUIS) PO SCH (21:17)
[2019-06-08] MEDS: rOPINIRole 0.25 MG TAB(REQUIP) PO SCH (21:17)
[2019-06-08] MEDS: LevoFLOXacin 250 MG TABLET PO SCH (21:17)
[2019-06-08] MEDS: ACETAMINOPHEN 500 MG TAB PO PRN (21:17)
[2019-06-08] MEDS: ATORVASTATIN 20 MG TAB PO SCH (21:17)
[2019-06-09] VITALS (8 sets, daily range): BP systolic 112–155; BP diastolic 57–72
[2019-06-09] MEDS: SLF 3 ML SYR IV SCH ×3 (05:19→20:13)
[2019-06-09 05:50] LABS: HEMATOCRIT 29.8 % (42.0-52.0); HEMOGLOBIN 9.7 g/dl (13.5-17.5); MEAN CORPUSCULAR HEMOGLOBIN 31.2 pg (27.0-33.0); MEAN CORPUSCULAR HGB CONC 32.6 g/dl (32.0-36.5); MEAN CORPUSCULAR VOLUME 95.8 fl (80.0-96.0); PLATELET COUNT, AUTOMATED 186 10^3/uL (150-450); RED BLOOD COUNT 3.11 10^6/uL (4.30-6.10)
[2019-06-09 05:59] LABS: INR 1.24; PROTHROMBIN TIME 15.3 SECONDS (11.8-14.0)
[2019-06-09 06:20] LABS: BLOOD UREA NITROGEN 20 MG/DL (7-18); CALCIUM LEVEL 8.1 MG/DL (8.8-10.2); CARBON DIOXIDE LEVEL 26 MEQ/L (21-32); CHLORIDE LEVEL 107 MEQ/L (98-107); CREATININE FOR GFR 0.75 MG/DL (0.70-1.30); GLOMERULAR FILTRATION RATE > 60.0 (>35); GLUCOSE, FASTING 104 MG/DL (70-100); POTASSIUM SERUM 3.7 MEQ/L (3.5-5.1); SODIUM LEVEL 138 MEQ/L (136-145)
[2019-06-09] MEDS: APIXABAN 2.5 MG TAB (ELIQUIS) PO SCH ×2 (09:29→20:13)
[2019-06-09] MEDS: SENNA 8.6 MG TAB (SENOKOT) PO SCH (09:30)
[2019-06-09] MEDS: MODAFINIL 100 MG TABLET PO SCH (09:30)
[2019-06-09] MEDS: TAMSULOSIN 0.4 MG CAP PO SCH (09:30)
[2019-06-09] MEDS: amLODIPine 5 MG TAB PO SCH (09:30)
[2019-06-09] MEDS: DULoxetine 30 MG CAP (CYMBALTA) PO SCH (09:30)
--- NOTE | 2019-06-09 16:57 | IPNPDOC ---
Date Seen The patient was seen on 06/09/19. Progress Note SUBJECTIVE: spoke w JOVANNY who wants patient to go to acute rehab OBJECTIVE PHYSICAL EXAMINATION: VITAL SIGNS: Please see below. GENERAL: NAD EXTREMITIES: no c/c/e NEUROLOGICAL: no focal neuro deficits PSYCHOLOGICAL: LABORATORY DATA, IMAGING STUDIES, MICROBIOLOGY: Please see below. ASSESSMENT AND PLAN: (1) Sepsis Status: Resolved Problem Text: Most likely secondary to urinary tract infection.No longer septic.Afebrile and nl WBC.Repeated blood cx negative.Initially grew proteus Lactic acid nl Now on PO levaquin (2) UTI (urinary tract infection) Problem Text: Most likely secondary to large bladder stone Now on levaquin Ucx grew proteus and E.coli ->senstive to levaquin (3) Bladder stone Problem Text: Follow-up with urologisst wants inpatient urologist pls call urology team tomorrow for consult. office phone was busy this evening and not answering (4) Pyelonephritis Status: Acute Problem Text: see treatment above 5) Hx of CVA restarted eliquis on lower dose per neurology VS, I&O, 24H, Fishbone Vital Signs/I&O Vital Signs Date Time Temp Pulse Resp B/P (MAP) Pulse Ox O2 Delivery O2 Flow Rate FiO2 06/09/19 16:00 97.3 65 18 112/58 (76) 97 06/07/19 08:00 2.0 06/03/19 17:15 Nasal Cannula I&O- Last 24 Hours up to 6 AM 06/09/19 06:00 Intake Total 920 ml Output Total 1300 ml Balance -380 ml Laboratory Data 24H LABS Laboratory Tests 2 06/09/19 05:09: Nucleated Red Blood Cells % (auto) 0.0, Prothrombin Time 15.3H, Prothromb Time International Ratio 1.24, Anion Gap 5L, Glomerular Filtration Rate > 60.0, Blood Urea Nitrogen 20H, Creatinine 0.75, Sodium Level 138, Potassium Level 3.7, Chl oride Level 107, Carbon Dioxide Level 26, Calcium Level 8.1L, Magnesium Level 2.0 CBC/BMP Laboratory Tests 06/09/19 05:09 Red Blood Count 3.11 L, Mean Corpuscular Volume 95.8, Mean Corpuscular Hemoglobin 31.2, Mean Corpuscular Hemoglobin Concent 32.6, Red Cell Distribution Width 14.9 H, Calcium Level 8.1 L Microbiology Microbiology 06/04/19 Blood Culture - Final, Complete NO GROWTH AFTER 5 DAYS 06/03/19 Blood Culture - Final, Complete Proteus Mirabilis 06/03/19 Blood Culture - Final, Complete Proteus Mirabilis 06/03/19 Urine Culture - Final, Complete Proteus Mirabilis Escherichia Coli MORIS SYED MD Jun 09, 2019 16:57
[2019-06-09] MEDS: LevoFLOXacin 250 MG TABLET PO SCH (18:14)
[2019-06-09] MEDS: ATORVASTATIN 20 MG TAB PO SCH (20:13)
[2019-06-09] MEDS: rOPINIRole 0.25 MG TAB(REQUIP) PO SCH (20:13)
[2019-06-10 04:00] VITALS: BP 129/61
[2019-06-10 05:42] LABS: HEMATOCRIT 28.5 % (42.0-52.0); HEMOGLOBIN 9.2 g/dl (13.5-17.5); MEAN CORPUSCULAR HGB CONC 32.3 g/dl (32.0-36.5); MEAN CORPUSCULAR VOLUME 92.8 fl (80.0-96.0); PLATELET COUNT, AUTOMATED 226 10^3/uL (150-450); RED BLOOD COUNT 3.07 10^6/uL (4.30-6.10); WHITE BLOOD COUNT 9.7 10^3/uL (4.0-10.0)
[2019-06-10 05:52] LABS: INR 1.22; PROTHROMBIN TIME 15.1 SECONDS (11.8-14.0)
[2019-06-10 05:59] LABS: BLOOD UREA NITROGEN 19 MG/DL (7-18); CALCIUM LEVEL 7.9 MG/DL (8.8-10.2); CARBON DIOXIDE LEVEL 25 MEQ/L (21-32); CHLORIDE LEVEL 106 MEQ/L (98-107); CREATININE FOR GFR 0.83 MG/DL (0.70-1.30); GLOMERULAR FILTRATION RATE > 60.0 (>35); GLUCOSE, FASTING 97 MG/DL (70-100); MAGNESIUM LEVEL 1.9 MG/DL (1.8-2.4); POTASSIUM SERUM 3.6 MEQ/L (3.5-5.1); SODIUM LEVEL 138 MEQ/L (136-145)
[2019-06-10] MEDS: SLF 3 ML SYR IV SCH (06:00)
[2019-06-10 08:00] VITALS: BP 132/71
[2019-06-10] MEDS: TAMSULOSIN 0.4 MG CAP PO SCH (08:39)
[2019-06-10] MEDS: DULoxetine 30 MG CAP (CYMBALTA) PO SCH (08:39)
[2019-06-10] MEDS: amLODIPine 5 MG TAB PO SCH (08:39)
[2019-06-10] MEDS: SENNA 8.6 MG TAB (SENOKOT) PO SCH (08:39)
[2019-06-10] MEDS: MODAFINIL 100 MG TABLET PO SCH (08:39)
[2019-06-10] MEDS: APIXABAN 2.5 MG TAB (ELIQUIS) PO SCH (08:40)
[2019-06-10] MEDS ORDERED: LEVO250T12 PO (09:30)
[2019-06-10] MEDS ORDERED: ELIQ2.5T PO (09:31)
--- NOTE | 2019-06-12 19:10 | DSES ---
DATE OF ADMISSION: 06/03/2019 DATE OF DISCHARGE: 06/10/2019 CONSULTANTS DURING THIS ADMISSION: Vascular surgeon, Jay Zavala MD and neurologist, Cuca Olivares MD. PRIMARY DISCHARGE DIAGNOSES: 1. Sepsis secondary to urinary tract infection. 2. Urinary tract infection. 3. Bladder stone. 4. Acute pyelonephritis. 5. 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 6. History of inferior vena cava (IVC) filter placement due to left lower extremity deep venous thrombosis (DVT) on 06/05/2019. 7. History of left basal ganglia cerebral hemorrhage while on Coumadin in March 2019 with INR of 3.9 at that time with chronic right-sided hemiparesis. DISCHARGE MEDICATIONS: - Eliquis 2.5 mg twice a day - Levaquin 250 mg daily - acetaminophen 500 every 4 hours - amlodipine 5 mg daily - atorvastatin 20 mg by mouth daily - Dulcolax 10 mg per rectum daily as needed - Voltaren 2 grams topically four times a day - Cymbalta 60 mg daily - Hydrophor one dose topically daily - Ocuvel one capsule daily - lidocaine patch 5% daily - meclizine 12.5 mg as needed for dizziness - muscle rub cream one topically four times a day - milk of magnesium 10 mL daily as needed - modafinil 100 mg daily - oxybutynin 5 mg three times a day - Protonix 40 mg daily - Pyridium 200 mg every 8 hours - artificial tears one drop both eyes every 4 hours as needed - ropinirole 0.25 mg nightly - Senokot two tablets by mouth daily - enema, one enema daily as needed - Detrol 4 mg daily - zinc oxide one topically twice a day Patient is to followup with urologist, Dr. Dsouza, in 1 week regarding bladder stone, he is to complete his full course of antibiotics, followup with primary care physician within 5 days. HOSPITAL COURSE: This is an 78-year-old male who presented to the emergency room with fever 103, chills, loss of appetite, abdominal pain and back pain. He was found to have pyelonephritis and a large bladder stone. Admitted for sepsis secondary to urinary tract infection. Received 2 liters of IV fluids with normal saline, intravenous ceftriaxone. Lactic acid was 2.6 with leukocytosis of 24.3. Colindres catheter was placed. Creatinine at 1.96 normalized to 1.27 after 24 hours of hydration and Colindres catheter placement. Urine culture grew out Proteus and Escherichia (E) coli, both sensitive to Levaquin. Patient had been on Levaquin renally dosed at 250 mg daily and has had no recurrent fevers. White count improved to 9.7 on the day of discharge. Blood culture grew Proteus mirabilis thought to be transient bacteremia. CT chest performed in the emergency room (ER) regarding fever showed no acute infiltrate, effusion, mass, or adenopathy, linear fibrosis and bibasilar atelectasis. CT abdomen and pelvis showed basilar opacities, pyelonephritis, bladder stone. Venous Doppler of the left lower extremity due to swelling and fever showed an acute DVT extensive in the left lower extremity that is nonocclusive from common femoral and saphenous proximally, occlusive from the superficial femoral vein (SFV) to the popliteal. At this point, vascular surgery Dr. Zavala was consulted. Despite having an IVC filter, question was whether the patient needed thromboembolectomy. At this time, management with Tank wrap and conservative treatment with elevation and resumption of anticoagulation was recommended by Dr. Zavala vascular surgery. No thrombectomy or thrombolysis were recommended. Neurologist Dr. Olivares was consulted regarding timing of resumption of anticoagulation for the extensive left lower extremity DVT in light of recent hemorrhagic stroke secondary to Coumadin in March 2019. Per Dr. Olivares, patient may be resumed on low dose of Eliquis 2.5 mg twice a day which has lower likelihood of bleeding two months after the acute episode. Despite having IVC filter, it was felt that the patient can still have recurrent DVT and would benefit from low dose Eliquis. Patient was evaluated by physical therapy who agrees with continued rehabilitation. Patient was stable and had no new complaints. On the day of discharge, physical exam was: Temperature 97.8, pulse 82, respiratory rate 18, blood pressure 132/71, 93% on room air. Generally, patient is awake, alert, oriented to himself, place, and time, is able to converse without respiratory distress or conversational dyspnea. Pupils are round. Extraocular muscles are intact. Moist mucous membranes. No jugular venous distention, thyromegaly, or cervical lymphadenopathy. Lungs are clear to auscultation bilaterally, no wheezing, rales, or rhonchi. Heart: S1, S2, sinus rhythm. No murmurs, rubs, or gallops. Abdomen is obese, soft, nontender, nondistended. Extremities: 1+ pitting edema bilaterally with chronic venous stasis changes on the right side both upper extremity and lower extremity. Neurologic: Right upper and lower extremity 3/5 strength. Left side is 5/5 strength. Right-sided Babinski is noted. LABORATORY DATA: White count 9.7, hemoglobin 9.2, hematocrit 28.5, platelet count 226, sodium 138, potassium 3.6, chloride 106, bicarbonate 25, BUN 19, creatinine 0.8, glucose of 97, magnesium of 1.9, glucose of 94. Microbiology: 06/03/2019 proteus mirabilis in two sets of blood cultures. 06/03/2019 urine culture Proteus mirabilis and E. coli. Blood culture 06/04/2019 no growth after 5 days. IMAGING STUDIES: Chest CT 06/03/2019, bibasilar plate-like atelectasis and linear fibrosis, no acute infiltrate, no pleural effusion, no mass or adenopathy. CT abdomen and pelvis, bladder stone, bibasilar opacities. Cannot rule out pneumonia. Vascular ultrasound 06/04/2019, extensive left lower extremity DVT from common femoral and saphenous proximally occlusive from SFV to popliteal. Chest x-ray on 06/07/2019, no interval change. TIME SPENT ON HOSPITAL DISCHARGE: 32 minutes
== END 2019-06-10 14:05 | DRG 871 ==
LOC: M ED 10:09 → EDBD 10:09 → M ED INP 14:26 → M PCU 17:39
PROVIDERS: ADMIT Internal Medicine; ATTEND General Practice
DX: A41.89 Other specified sepsis (principal); J96.01 Acute respiratory failure with hypoxia; N10 Acute pyelonephritis; I69.351 Hemiplegia and hemiparesis following cerebral infarction affecting right dominant side; I82.412 Acute embolism and thrombosis of left femoral vein; I82.432 Acute embolism and thrombosis of left popliteal vein; I82.812 Embolism and thrombosis of superficial veins of left lower extremity; E66.2 Morbid (severe) obesity with alveolar hypoventilation; Z68.41 Body mass index [BMI] 40.0-44.9, adult; I10 Essential (primary) hypertension; E78.5 Hyperlipidemia, unspecified; N21.0 Calculus in bladder; F32.9 Major depressive disorder, single episode, unspecified; R33.9 Retention of urine, unspecified; B96.4 Proteus (mirabilis) (morganii) as the cause of diseases classified elsewhere; B96.20 Unspecified Escherichia coli [E. coli] as the cause of diseases classified elsewhere; M81.0 Age-related osteoporosis without current pathological fracture; M19.90 Unspecified osteoarthritis, unspecified site; Z86.73 Personal history of transient ischemic attack (TIA), and cerebral infarction without residual deficits; Z95.828 Presence of other vascular implants and grafts; Z79.899 Other long term (current) drug therapy; Z88.2 Allergy status to sulfonamides; Z88.5 Allergy status to narcotic agent; Z91.040 Latex allergy status; Z86.711 Personal history of pulmonary embolism; Z86.718 Personal history of other venous thrombosis and embolism; Z96.641 Presence of right artificial hip joint; Z90.49 Acquired absence of other specified parts of digestive tract; Z93.3 Colostomy status

== ENCOUNTER → 2019-06-03 | Outpatient (REF) | payer MEDICARE, OTHER ==
[2019-06-03 09:10] LABS: BASO # 0.1 10^3/uL (0.0-0.2); BASO % 0.2 % (0.0-1.0); HEMATOCRIT 33.2 % (42.0-52.0); HEMOGLOBIN 11.4 g/dl (13.5-17.5); LYMPH # 0.5 10^3/uL (1.5-4.5); MEAN CORPUSCULAR HEMOGLOBIN 31.3 pg (27.0-33.0); MEAN CORPUSCULAR HGB CONC 34.3 g/dl (32.0-36.5); MEAN CORPUSCULAR VOLUME 91.2 fl (80.0-96.0); MONO % 4.1 % (0.0-5.0); NEUTROPHILS # 23.1 10^3/uL (1.8-7.7); NEUTROPHILS % 91.8 % (36.0-66.0); PLATELET COUNT, AUTOMATED 162 10^3/uL (150-450); RED BLOOD COUNT 3.64 10^6/uL (4.30-6.10); WHITE BLOOD COUNT 25.2 10^3/uL (4.0-10.0)
[2019-06-03 09:30] LABS: CALCIUM LEVEL 8.6 MG/DL (8.8-10.2); CREATININE FOR GFR 1.79 MG/DL (0.70-1.30); GLOMERULAR FILTRATION RATE 39.1 (>35); POTASSIUM SERUM 4.6 MEQ/L (3.5-5.1)
== END ==
LOC: SKLAB2 08:00
PROVIDERS: ATTEND Family Medicine
DX: N39.0 Urinary tract infection, site not specified (principal); I82.409 Acute embolism and thrombosis of unspecified deep veins of unspecified lower extremity; N10 Acute pyelonephritis; R33.8 Other retention of urine

== ENCOUNTER → 2019-06-15 | Outpatient (REF) | payer MEDICARE, OTHER ==
[~2019-06-15] MED LIST changes: +ACET-897 PO; +ACET-907 PO; +AQUAOI TOP; +ARTIDRO2 OU; +DESI13CR2 TOP; +DETR4CAP PO; +DULC10SU2 PR; +ELIQ2.5T PO; +ENEMENE PR; +FEVE650S3 PR; +LEVO250T12 PO; +LIDO1PAD TOP; +MACR100C43 PO; +OXYB5TAB10 PO; +PYRI1TAB5 PO; +ROPI0.253 PO; +SENN8.6T28 PO; +VOLT1GEL15 TOP; +[UNRECOGNIZED DRUG - CODE] PO; +[UNRECOGNIZED DRUG - CODE] TOP
== END ==
LOC: M SMT 12:53
PROVIDERS: ATTEND Urology
DX: N21.0 Calculus in bladder (principal)
CPT/HCPCS: 87086; G0463

== ENCOUNTER → 2019-06-22 | Outpatient (REF) ==
--- NOTE | 2019-06-22 12:05 | REP ---
Clinical: Right shoulder pain. Technique: Internal rotation, external rotation, and Y view of the right shoulder Findings: Advanced arthritic degenerative changes are appreciated. Findings include near complete joint space obliteration, subchondral heterogeneity and cystic changes, osteophytosis, and chondrocalcinosis. Impression: Advanced osteoarthritic degenerative changes. Electronically Signed by Venkata Huynh MD 06/22/2019 11:56 A
== END ==
LOC: SKLAB2 06-21 12:52
PROVIDERS: ATTEND Family Medicine
DX: M25.511 Pain in right shoulder (principal); M19.011 Primary osteoarthritis, right shoulder

== ENCOUNTER → 2019-07-04 | Outpatient (REF) ==
[2019-07-04 13:28] LABS: BASO # 0.1 10^3/uL (0.0-0.2); BASO % 0.6 % (0.0-1.0); EOS # 0.3 10^3/uL (0.0-0.5); EOS % 2.6 % (0.0-3.0); HEMOGLOBIN 11.7 g/dl (13.5-17.5); LYMPH # 1.1 10^3/uL (1.5-5.0); LYMPH % 9.8 % (24.0-44.0); MEAN CORPUSCULAR HEMOGLOBIN 31.1 pg (27.0-33.0); MEAN CORPUSCULAR HGB CONC 32.5 g/dl (32.0-36.5); MEAN CORPUSCULAR VOLUME 95.7 fl (80.0-96.0); MONO # 0.8 10^3/uL (0.0-0.8); NEUTROPHILS # 8.6 10^3/uL (1.5-8.5); NEUTROPHILS % 78.7 % (36.0-66.0); PLATELET COUNT, AUTOMATED 219 10^3/uL (150-450); RED BLOOD COUNT 3.76 10^6/uL (4.30-6.10)
[2019-07-04 13:55] LABS: BLOOD UREA NITROGEN 20 MG/DL (7-18); CALCIUM LEVEL 8.9 MG/DL (8.8-10.2); CARBON DIOXIDE LEVEL 23 MEQ/L (21-32); CHLORIDE LEVEL 100 MEQ/L (98-107); CREATININE FOR GFR 0.87 MG/DL (0.70-1.30); GLOMERULAR FILTRATION RATE > 60.0 (>35); GLUCOSE, FASTING 122 MG/DL (70-100); POTASSIUM SERUM 4.1 MEQ/L (3.5-5.1); SODIUM LEVEL 134 MEQ/L (136-145)
== END ==
LOC: SKLAB2 07:00
PROVIDERS: ATTEND Family Medicine
DX: I10 Essential (primary) hypertension (principal)

== ENCOUNTER → 2019-07-07 | Outpatient (REF) ==
[2019-07-07 13:54] LABS: APPEARANCE, URINE TURBID (CLEAR); BACTERIA, URINE AUTO 1+ (NEGATIVE); BILIRUBIN, URINE AUTO NEGATIVE (NEGATIVE); BLOOD, URINE BLOOD 2+ (NEGATIVE); COLOR, URINE YELLOW (YELLOW); GLUCOSE, URINE (UA) AUTO NEGATIVE (NEGATIVE); KETONE, URINE AUTO NEGATIVE (NEGATIVE); LEUKOCYTE ESTERASE, URINE AUTO 3+ (NEGATIVE); NITRITE, URINE AUTO POSITIVE (NEGATIVE); PROTEIN, URINE AUTO 1+ mg/dL (NEGATIVE); RBC, URINE AUTO 56 /HPF (0-3); SPECIFIC GRAVITY URINE AUTO 1.004 (1.002-1.035); SQUAMOUS EPITHELIAL CELL UR AU 0 /HPF (0-6); UROBILINOGEN, URINE AUTO 0.2 mg/dL (0.0-2.0); WBC, URINE AUTO TNTC /HPF (0-3)
== END ==
LOC: SKLAB2 12:15
PROVIDERS: ATTEND Family Medicine
DX: R30.9 Painful micturition, unspecified (principal)

== ENCOUNTER → 2019-07-10 | Outpatient (REF) | payer MEDICARE, OTHER | LOC: SKLAB2 07:00 | PROVIDERS: ATTEND Family Medicine | DX: N39.0 Urinary tract infection, site not specified (principal) ==

== ENCOUNTER → 2019-08-01 | Outpatient (REF) ==
[2019-08-01 08:27] LABS: BASO % 0.5 % (0.0-1.0); EOS # 0.3 10^3/uL (0.0-0.5); EOS % 3.4 % (0.0-3.0); HEMATOCRIT 35.7 % (42.0-52.0); HEMOGLOBIN 11.6 g/dl (13.5-17.5); LYMPH % 13.1 % (24.0-44.0); MEAN CORPUSCULAR HEMOGLOBIN 30.8 pg (27.0-33.0); MEAN CORPUSCULAR HGB CONC 32.5 g/dl (32.0-36.5); MEAN CORPUSCULAR VOLUME 94.7 fl (80.0-96.0); MONO # 0.5 10^3/uL (0.0-0.8); NEUTROPHILS # 6.1 10^3/uL (1.5-8.5); NEUTROPHILS % 76.5 % (36.0-66.0); PLATELET COUNT, AUTOMATED 233 10^3/uL (150-450); RED BLOOD COUNT 3.77 10^6/uL (4.30-6.10); WHITE BLOOD COUNT 7.9 10^3/uL (4.0-10.0)
[2019-08-01 08:59] LABS: BLOOD UREA NITROGEN 21 MG/DL (7-18); CALCIUM LEVEL 8.5 MG/DL (8.8-10.2); CARBON DIOXIDE LEVEL 29 MEQ/L (21-32); CHLORIDE LEVEL 106 MEQ/L (98-107); CREATININE FOR GFR 1.05 MG/DL (0.70-1.30); GLOMERULAR FILTRATION RATE > 60.0 (>35); GLUCOSE, FASTING 95 MG/DL (70-100); POTASSIUM SERUM 4.2 MEQ/L (3.5-5.1); SODIUM LEVEL 141 MEQ/L (136-145)
== END ==
LOC: SKLAB2 07:00
PROVIDERS: ATTEND Family Medicine
DX: I63.9 Cerebral infarction, unspecified (principal); I10 Essential (primary) hypertension

== ENCOUNTER → 2019-08-24 | Outpatient (REF) | LOC: SKLAB2 12:12 | PROVIDERS: ATTEND Family Medicine | DX: R09.81 Nasal congestion (principal) ==

== ENCOUNTER → 2019-08-29 | Outpatient (REF) ==
[2019-08-29 08:38] LABS: BASO % 0.5 % (0.0-1.0); EOS # 0.3 10^3/uL (0.0-0.5); EOS % 3.3 % (0.0-3.0); HEMATOCRIT 36.2 % (42.0-52.0); HEMOGLOBIN 11.4 g/dl (13.5-17.5); LYMPH # 0.8 10^3/uL (1.5-5.0); LYMPH % 11.2 % (24.0-44.0); MEAN CORPUSCULAR HEMOGLOBIN 29.5 pg (27.0-33.0); MEAN CORPUSCULAR HGB CONC 31.5 g/dl (32.0-36.5); MEAN CORPUSCULAR VOLUME 93.5 fl (80.0-96.0); MONO # 0.4 10^3/uL (0.0-0.8); MONO % 5.3 % (0.0-5.0); NEUTROPHILS # 5.9 10^3/uL (1.5-8.5); NEUTROPHILS % 78.9 % (36.0-66.0); PLATELET COUNT, AUTOMATED 227 10^3/uL (150-450); RED BLOOD COUNT 3.87 10^6/uL (4.30-6.10); WHITE BLOOD COUNT 7.5 10^3/uL (4.0-10.0)
[2019-08-29 09:03] LABS: BLOOD UREA NITROGEN 16 MG/DL (7-18); CALCIUM LEVEL 8.4 MG/DL (8.8-10.2); CARBON DIOXIDE LEVEL 26 MEQ/L (21-32); CHLORIDE LEVEL 106 MEQ/L (98-107); CREATININE FOR GFR 0.96 MG/DL (0.70-1.30); GLOMERULAR FILTRATION RATE > 60.0 (>35); GLUCOSE, FASTING 106 MG/DL (70-100); POTASSIUM SERUM 3.9 MEQ/L (3.5-5.1); SODIUM LEVEL 139 MEQ/L (136-145)
== END ==
LOC: SKLAB2 07:00
PROVIDERS: ATTEND Family Medicine
DX: I63.9 Cerebral infarction, unspecified (principal); I10 Essential (primary) hypertension

== ENCOUNTER → 2019-08-31 | Outpatient (REF) | payer MEDICARE, OTHER ==
--- NOTE | 2019-08-31 15:29 | REP ---
Portable chest x-ray: Sitting AP view. History: Persistent cough. Comparison chest x-ray June 07, 2019. Findings: Right hemidiaphragm remains elevated. There is chronic atelectasis in the left base and to a lesser extent in the right base. No new infiltrate is seen. Degenerative changes in the shoulders and in the thoracic aorta. Impression: Chronic bibasilar plate-like atelectasis or fibrosis. No acute infiltrate. Electronically Signed by Jamel Griffin MD 08/31/2019 03:20 P
== END ==
LOC: SKLAB2 14:40
PROVIDERS: ATTEND Family Medicine
DX: R91.8 Other nonspecific abnormal finding of lung field (principal)

== ENCOUNTER → 2019-10-07 | Outpatient (REF) | payer MEDICARE, OTHER ==
[2019-10-07 12:23] LABS: BASO # 0.1 10^3/uL (0.0-0.2); BASO % 0.8 % (0.0-1.0); EOS # 0.2 10^3/uL (0.0-0.5); EOS % 1.9 % (0.0-3.0); HEMATOCRIT 38.6 % (42.0-52.0); HEMOGLOBIN 11.8 g/dl (13.5-17.5); LYMPH # 1.1 10^3/uL (1.5-5.0); MEAN CORPUSCULAR HGB CONC 30.6 g/dl (32.0-36.5); MEAN CORPUSCULAR VOLUME 91.5 fl (80.0-96.0); MONO # 0.6 10^3/uL (0.0-0.8); MONO % 6.7 % (0.0-5.0); NEUTROPHILS # 6.8 10^3/uL (1.5-8.5); NEUTROPHILS % 77.6 % (36.0-66.0); PLATELET COUNT, AUTOMATED 271 10^3/uL (150-450); RED BLOOD COUNT 4.22 10^6/uL (4.30-6.10); WHITE BLOOD COUNT 8.8 10^3/uL (4.0-10.0)
[2019-10-07 12:51] LABS: ALBUMIN 2.5 GM/DL (3.2-5.2); ALT/SGPT 11 U/L (12-78); BILIRUBIN,TOTAL 0.4 MG/DL (0.2-1.0); BLOOD UREA NITROGEN 22 MG/DL (7-18); CALCIUM LEVEL 8.3 MG/DL (8.8-10.2); CARBON DIOXIDE LEVEL 27 MEQ/L (21-32); CHLORIDE LEVEL 106 MEQ/L (98-107); CHOLESTEROL LEVEL 95 MG/DL (<200); CHOLESTEROL RISK RATIO 2.261 (<5); CREATININE FOR GFR 0.98 MG/DL (0.70-1.30); GLOMERULAR FILTRATION RATE > 60.0 (>35); GLUCOSE, FASTING 99 MG/DL (70-100); HDL CHOLESTEROL 42 MG/DL (>40); LDL CHOLESTEROL 39 MG/DL (<100); NON-HDL-C 53 MG/DL; POTASSIUM SERUM 4.4 MEQ/L (3.5-5.1); SODIUM LEVEL 141 MEQ/L (136-145); TOTAL PROTEIN 6.1 GM/DL (6.4-8.2); TRIGLYCERIDES LEVEL 72 MG/DL (<150)
== END ==
LOC: SKLAB2 07:47
PROVIDERS: ATTEND Family Medicine
DX: E78.5 Hyperlipidemia, unspecified (principal)

== ENCOUNTER 2019-12-06 09:02 | Emergency (ER) | payer MEDICARE, OTHER ==
[~2019-12-06] VITALS: Ht 188 cm; Wt 127.3 kg
[~2019-12-06 09:02] MED LIST changes: -ARTIDRO2 OU; -FLUO20CA19 PO; +FLUO20CA22 PO; -MECL12.575 PO; +MECL12.589 PO; +POLYOPD OU
[2019-12-06] MEDS ORDERED: DULO1CAP5 (09:43)
[2019-12-06] MEDS ORDERED: FINA5TAB2 (09:43)
[2019-12-06] MEDS ORDERED: TAMS1CAP17 (09:43)
[2019-12-06] MEDS ORDERED: PANT40TA3 (09:43)
[2019-12-06 09:57] LABS: BASO % 0.8 % (0.0-1.0); EOS # 0.2 10^3/uL (0.0-0.5); HEMATOCRIT 39.3 % (42.0-52.0); HEMOGLOBIN 12.6 g/dl (13.5-17.5); LYMPH % 19.6 % (24.0-44.0); MEAN CORPUSCULAR HEMOGLOBIN 28.3 pg (27.0-33.0); MEAN CORPUSCULAR HGB CONC 32.1 g/dl (32.0-36.5); MEAN CORPUSCULAR VOLUME 88.1 fl (80.0-96.0); MONO # 0.4 10^3/uL (0.0-0.8); MONO % 6.8 % (0.0-5.0); NEUTROPHILS # 3.7 10^3/uL (1.5-8.5); NEUTROPHILS % 69.2 % (36.0-66.0); PLATELET COUNT, AUTOMATED 262 10^3/uL (150-450); RED BLOOD COUNT 4.46 10^6/uL (4.30-6.10); WHITE BLOOD COUNT 5.3 10^3/uL (4.0-10.0)
[2019-12-06 11:08] LABS: ALT/SGPT 10 U/L (12-78); BILIRUBIN,DIRECT 0.2 MG/DL (0.0-0.2); BILIRUBIN,TOTAL 0.9 MG/DL (0.2-1.0); BLOOD UREA NITROGEN 13 MG/DL (7-18); CALCIUM LEVEL 8.3 MG/DL (8.8-10.2); CARBON DIOXIDE LEVEL 27 MEQ/L (21-32); CHLORIDE LEVEL 101 MEQ/L (98-107); CREATININE FOR GFR 0.88 MG/DL (0.70-1.30); GLOMERULAR FILTRATION RATE > 60.0 (>35); GLUCOSE, FASTING 106 MG/DL (70-100); LIPASE 46 U/L (73-393); POTASSIUM SERUM 3.8 MEQ/L (3.5-5.1); SODIUM LEVEL 135 MEQ/L (136-145); TOTAL PROTEIN 6.6 GM/DL (6.4-8.2)
[2019-12-06 12:30] VITALS: BP 113/56
== END 2019-12-06 12:47 | disposition home or self-care (01) ==
LOC: M ED 09:02 → EDBD 09:02 → M ED 12:47
DX: R33.9 Retention of urine, unspecified (principal); R10.32 Left lower quadrant pain; Z87.448 Personal history of other diseases of urinary system; Z86.73 Personal history of transient ischemic attack (TIA), and cerebral infarction without residual deficits; I10 Essential (primary) hypertension; E78.5 Hyperlipidemia, unspecified; Z88.2 Allergy status to sulfonamides; Z88.5 Allergy status to narcotic agent; Z91.040 Latex allergy status; Z79.01 Long term (current) use of anticoagulants; Z79.899 Other long term (current) drug therapy

== ENCOUNTER → 2019-12-19 | Outpatient (CLI) | payer MEDICARE, OTHER ==
[~2019-12-19] MED LIST changes: +DULO1CAP5; +FINA5TAB2; +PANT40TA3; +TAMS1CAP17
[2019-12-19 18:10] LABS: HEMATOCRIT 40.7 % (42.0-52.0); MEAN CORPUSCULAR HEMOGLOBIN 28.6 pg (27.0-33.0); MEAN CORPUSCULAR HGB CONC 31.9 g/dl (32.0-36.5); MEAN CORPUSCULAR VOLUME 89.5 fl (80.0-96.0); PLATELET COUNT, AUTOMATED 290 10^3/uL (150-450); RED BLOOD COUNT 4.55 10^6/uL (4.30-6.10); WHITE BLOOD COUNT 7.1 10^3/uL (4.0-10.0)
[2019-12-19 18:45] LABS: ALT/SGPT 12 U/L (12-78); BILIRUBIN,TOTAL 0.3 MG/DL (0.2-1.0); BLOOD UREA NITROGEN 20 MG/DL (7-18); CALCIUM LEVEL 8.7 MG/DL (8.8-10.2); CARBON DIOXIDE LEVEL 28 MEQ/L (21-32); CHLORIDE LEVEL 105 MEQ/L (98-107); CHOLESTEROL LEVEL 174 MG/DL (<200); CREATININE FOR GFR 0.83 MG/DL (0.70-1.30); FOLATE 5.8 NG/ML; GLOMERULAR FILTRATION RATE > 60.0 (>35); GLUCOSE, FASTING 101 MG/DL (70-100); HDL CHOLESTEROL 40 MG/DL (>40); LDL CHOLESTEROL 114 MG/DL (<100); MAGNESIUM LEVEL 2.2 MG/DL (1.8-2.4); NON-HDL-C 134 MG/DL; POTASSIUM SERUM 4.3 MEQ/L (3.5-5.1); SODIUM LEVEL 138 MEQ/L (136-145); TOTAL PROTEIN 6.6 GM/DL (6.4-8.2); TRIGLYCERIDES LEVEL 98 MG/DL (<150); VITAMIN B12 LEVEL 532 PG/ML
== END ==
LOC: M PLALAB 12:29
PROVIDERS: ATTEND Internal Medicine
DX: R30.0 Dysuria (principal); Z79.01 Long term (current) use of anticoagulants; I10 Essential (primary) hypertension; G62.9 Polyneuropathy, unspecified
CPT/HCPCS: 20610; 36415; 80053; 80061; 82607; 82746; 83735; 85027; 87088; 87186; G0463; J3301

== ENCOUNTER 2020-01-03 13:17 | Emergency (ER) | payer MEDICARE, OTHER ==
[~2020-01-03] VITALS: Ht 188 cm; Wt 126.4 kg
[2020-01-03 13:29] VITALS: BP 158/78
--- NOTE | 2020-01-03 14:14 | REP ---
RIGHT ANKLE, FOUR VIEWS: Four views of the right ankle performed. There is a tiny avulsion fracture at the tip of the lateral malleolus. Rounded calcific density adjacent to the medial malleolus could represent an old avulsion fracture. Otherwise there is no evidence of acute fracture or dislocation. The ankle mortise is anatomic. There is mild posterior and inferior calcaneal spurring. There is mild dorsal navicular spurring. There is moderate spurring at the anterior margin of the distal tibia. IMPRESSION: Degenerative changes. Possible tiny avulsion fracture lateral malleolus with associated soft tissue swelling. Electronically Signed by Dann Hernandez MD 01/04/2020 09:10 A
[2020-01-03] MEDS ORDERED: ACETAMINOPHEN 325 MG TAB PO ONE (14:30)
== END 2020-01-03 15:05 | disposition home or self-care (01) ==
LOC: M ED 13:17 → EDBD 13:17 → M ED 15:05
DX: S99.911A Unspecified injury of right ankle, initial encounter (principal); X50.0XXA Overexertion from strenuous movement or load, initial encounter; Y92.019 Unspecified place in single-family (private) house as the place of occurrence of the external cause; M19.071 Primary osteoarthritis, right ankle and foot; M79.9 Soft tissue disorder, unspecified; Z88.2 Allergy status to sulfonamides; Z88.5 Allergy status to narcotic agent; Z91.040 Latex allergy status; Z79.01 Long term (current) use of anticoagulants; Z79.899 Other long term (current) drug therapy

== ENCOUNTER → 2020-02-16 | Outpatient (REF) | payer MEDICARE, OTHER ==
[2020-02-17 12:15] LABS: APPEARANCE, URINE TURBID (CLEAR); BACTERIA, URINE AUTO 2+ (NEGATIVE); BILIRUBIN, URINE AUTO NEGATIVE (NEGATIVE); BLOOD, URINE BLOOD 2+ (NEGATIVE); CALCIUM OXALATE CRYSTALS LARGE; COLOR, URINE YELLOW (YELLOW); GLUCOSE, URINE (UA) AUTO NEGATIVE (NEGATIVE); KETONE, URINE AUTO NEGATIVE (NEGATIVE); LEUKOCYTE ESTERASE, URINE AUTO 3+ (NEGATIVE); MUCUS, URINE SMALL (NEGATIVE); NITRITE, URINE AUTO POSITIVE (NEGATIVE); PROTEIN, URINE AUTO 1+ mg/dL (NEGATIVE); RBC, URINE AUTO 53 /HPF (0-3); SQUAMOUS EPITHELIAL CELL UR AU 0 /HPF (0-6); UROBILINOGEN, URINE AUTO 0.2 mg/dL (0.0-2.0); WBC, URINE AUTO TNTC /HPF (0-3)
== END ==
LOC: M SFHCPLAZ 11:37
PROVIDERS: ATTEND Internal Medicine
DX: R30.0 Dysuria (principal)

== ENCOUNTER 2020-02-28 19:32 | Emergency (ER) | payer MEDICARE, OTHER ==
[~2020-02-28] VITALS: Ht 188 cm; Wt 118.2 kg
[2020-02-28] MEDS ORDERED: CEPH500C PO (19:58)
[2020-02-28 20:32] LABS: BASO # 0.1 10^3/uL (0.0-0.2); BASO % 0.9 % (0.0-1.0); EOS # 0.2 10^3/uL (0.0-0.5); EOS % 3.4 % (0.0-3.0); HEMATOCRIT 41.7 % (42.0-52.0); HEMOGLOBIN 13.6 g/dl (13.5-17.5); LYMPH # 1.2 10^3/uL (1.5-5.0); LYMPH % 20.6 % (24.0-44.0); MEAN CORPUSCULAR HEMOGLOBIN 29.2 pg (27.0-33.0); MEAN CORPUSCULAR HGB CONC 32.6 g/dl (32.0-36.5); MEAN CORPUSCULAR VOLUME 89.5 fl (80.0-96.0); MONO # 0.4 10^3/uL (0.0-0.8); MONO % 6.5 % (0.0-5.0); NEUTROPHILS # 3.8 10^3/uL (1.5-8.5); NEUTROPHILS % 67.5 % (36.0-66.0); PLATELET COUNT, AUTOMATED 206 10^3/uL (150-450); RED BLOOD COUNT 4.66 10^6/uL (4.30-6.10); WHITE BLOOD COUNT 5.7 10^3/uL (4.0-10.0)
[2020-02-28] MEDS ORDERED: MORPHINE 4 MG/ML 1ML VIAL/SYRINGE (J2270) As Ordered ONE (20:41)
[2020-02-28 20:43] LABS: INR 1.16; PROTHROMBIN TIME 14.5 SECONDS (11.8-14.0)
[2020-02-28] MEDS ORDERED: MORPHINE 4 MG/ML 1ML VIAL/SYRINGE (J2270) IV ONE ×2 (20:45)
[2020-02-28 20:46] VITALS: BP 140/67
[2020-02-28] MEDS ORDERED: LIDOCAINE 2% 5ML JELLY UROJET As Ordered ONE (20:52)
[2020-02-28] MEDS ORDERED: LIDOCAINE 2% 5ML JELLY UROJET TOP ONE (21:00)
[2020-02-28 21:05] LABS: ALBUMIN 3.1 GM/DL (3.2-5.2); ALT/SGPT 15 U/L (12-78); BILIRUBIN,DIRECT 0.2 MG/DL (0.0-0.2); BILIRUBIN,TOTAL 0.5 MG/DL (0.2-1.0); BLOOD UREA NITROGEN 19 MG/DL (7-18); CALCIUM LEVEL 8.4 MG/DL (8.8-10.2); CARBON DIOXIDE LEVEL 27 MEQ/L (21-32); CHLORIDE LEVEL 107 MEQ/L (98-107); CREATININE FOR GFR 0.91 MG/DL (0.70-1.30); GLOMERULAR FILTRATION RATE > 60.0 (>35); GLUCOSE, FASTING 105 MG/DL (70-100); LIPASE 50 U/L (73-393); POTASSIUM SERUM 3.9 MEQ/L (3.5-5.1); SODIUM LEVEL 140 MEQ/L (136-145); TOTAL PROTEIN 6.6 GM/DL (6.4-8.2)
[2020-02-28] MEDS ORDERED: NS 1,000 ML IV SCH (21:25)
--- NOTE | 2020-02-28 21:37 | REPVR ---
PROCEDURE INFORMATION: Exam: CT Abdomen And Pelvis Without Contrast Exam date and time: 02/28/2020 9:22 PM Age: 79 years old Clinical indication: Abdominal pain; Additional info: Penile/suprapubic pain TECHNIQUE: Imaging protocol: Computed tomography of the abdomen and pelvis without contrast. Radiation optimization: All CT scans at this facility use at least one of these dose optimization techniques: automated exposure control; mA and/or kV adjustment per patient size (includes targeted exams where dose is matched to clinical indication); or iterative reconstruction. COMPARISON: CT ABD PELVIS W/O CONTRAST 06/03/2019 12:48 PM FINDINGS: Lungs: Minimal scattered pulmonary fibro-atelectatic change, greatest in the lower lobes. Mediastinum: Minimal hiatal hernia. Diaphragm: Elevation of the right hemidiaphragm. Liver: Normal. No mass. Gallbladder and bile ducts: Normal. No calcified stones. No ductal dilation. Pancreas: Normal. No ductal dilation. Spleen: Normal. No splenomegaly. Adrenals: Normal. No mass. Kidneys and ureters: There is a right renal cyst measuring 3.0 cm with a Hounsfield measurement of -21 which is probably a Bosniak 1 cyst requiring no follow-up. Stomach and bowel: Broad-based right anterolateral ventral wall hernia in the lower abdomen and pelvis with multiple segments of bowel and may reflect an ostomy hernia with probable colostomy. The cecum and proximal colon and lies within the hernia sac. The rectum remains in situ, however, the remaining left colon has been apparently resected. There is an additional right lower quadrant ventral wall hernia containing a segment of small bowel with no strangulation or obstruction. Appendix: There are no changes of appendicitis. A normal appendix is not seen although the cecum is incompletely visualized. Intraperitoneal space: Unremarkable. No free air. No significant fluid collection. Vasculature: There is an IVC filter in position. There is mild calcification of the abdominal aorta with extension into the iliac arteries. Lymph nodes: Unremarkable. No enlarged lymph nodes. Bladder: Large bladder calculus measuring 3.1 x 1.9 x 3.0 cm. Reproductive: Unremarkable as visualized. Bones/joints: Degenerative spurring of the thoracic and lumbar spine with segmental ankylosis of the lower thoracic spine to the T12 and probably L1 levels. Mild diffuse compression of L1 which appears to be chronic and slight anterior wedge configuration of T10 and T11 and to a lesser degree T12 which appear to be chronic. Facet arthropathy with bilateral neural foraminal stenosis at L5-S1. Left hip prosthesis in position and moderate degenerative changes of the right hip with narrowing of the medial compartment suggesting an underlying inflammatory arthritis. Soft tissues: Unremarkable. IMPRESSION: 1. Status post partial colectomy. The rectum remains in situ. There is a right lower quadrant colostomy with large right lower quadrant ostomy hernia in the anterior wall with the remaining cecum and right colon within the hernia sac. A smaller right lower quadrant pelvic ventral wall hernia is noted with a small bowel segment with no obstruction or strangulation. 2. Large bladder calculus measuring 3.1 x 1.9 x 3.0 cm. 3. Minimal scattered pulmonary fibro-atelectatic change, greatest in the lower lobes. 4. Minimal hiatal hernia. 5. IVC filter in position. 6. No renal or ureteral calculi are evident and there is no evidence of obstructive uropathy. Electronically signed by: Milo Zimmer On 02/28/2020 21:37:06 PM
== END 2020-02-28 23:00 | disposition home or self-care (01) ==
LOC: M ED 19:32
CPT/HCPCS: 51701; 74176; 80048; 80076; 81001; 83690; 85025; 85610; 87088; 87186; 93041; 96361; 96374; 99285; J2270

== ENCOUNTER 2020-03-05 16:11 | Outpatient (CLI) | payer MEDICARE, OTHER ==
[~2020-03-05] VITALS: Ht 188 cm; Wt 120.5 kg
[~2020-03-05 16:11] MED LIST changes: +CEFEPIME HCL 1 GM in D5W MINI-BAG PLUS 50 ML IV ONE; -LIDOCAINE 1% MDV 20ML VIAL As Ordered ONE; +SODIUM CHLORIDE 0.9% INJ 10 ML SYR IV PRN; +SODIUM CHLORIDE 0.9% INJ 10 ML SYR IV SCH
[2020-03-05 16:20] VITALS: BP 138/70
[2020-03-05 16:58] VITALS: BP 158/81
== END 2020-03-05 17:00 | disposition home or self-care (01) ==
LOC: M INFU 16:11
PROVIDERS: ATTEND Nurse Practitioner Women's Health
DX: N39.0 Urinary tract infection, site not specified (principal)

== ENCOUNTER → 2020-03-05 | Outpatient (CLI) | payer MEDICARE, OTHER ==
[~2020-03-05] MED LIST changes: +CEPH500C PO; +LIDOCAINE 1% MDV 20ML VIAL As Ordered ONE
[2020-03-05 15:54] VITALS: BP 128/71
--- NOTE | 2020-03-05 19:15 | REP ---
MIDLINE CATHETER INSERTION WITH SITE MICHAEL The procedure was performed under the direct supervision of Dr. Hernandez. The risks and benefits of the procedure were explained to the patient and informed consent was obtained. The left basilic vein was localized using ultrasound guidance. The skin was prepped and draped in a sterile fashion. 1% lidocaine was used as a local anesthetic. Using ultrasound guidance the basilic vein was cannulated and a 0.018 guidewire was inserted. The needle was removed and a 4.5 Swedish dilator and peel-away sheath was inserted over the guide wire. A 4.5 Swedish single-lumen catheter was left at a length of 16.5 cm. The dilator was removed and the catheter was inserted over the guide wire. The peel-away sheath was removed and the catheter was flushed with heparinized saline as per Hospital protocol. The catheter was affixed to the skin and a sterile dressing was applied. The patient tolerated the procedure well and there were no immediate complications. After the appropriate amount of monitored convalescence the patient was discharged from the department. Electronically Signed by LATISHA Heaton 03/05/2020 05:46 P Electronically Signed by Dann Hernandez MD 03/05/2020 07:05 P
== END ==
LOC: M IRPRO 14:40
PROVIDERS: ATTEND Nurse Practitioner Women's Health
DX: N39.0 Urinary tract infection, site not specified (principal)
CPT/HCPCS: 36410; 76937; 96365; C1751; J0692; J1642; J1644

== ENCOUNTER → 2020-03-07 | Outpatient (REF) | payer MEDICARE, OTHER ==
[~2020-03-07] MED LIST changes: -CEFEPIME HCL 1 GM in D5W MINI-BAG PLUS 50 ML IV ONE; -SODIUM CHLORIDE 0.9% INJ 10 ML SYR IV PRN; -SODIUM CHLORIDE 0.9% INJ 10 ML SYR IV SCH
[2020-03-08 11:55] LABS: APPEARANCE, URINE TURBID (CLEAR); BACTERIA, URINE AUTO NEGATIVE (NEGATIVE); BILIRUBIN, URINE AUTO NEGATIVE (NEGATIVE); BLOOD, URINE BLOOD 2+ (NEGATIVE); CALCIUM OXALATE CRYSTALS LARGE; COLOR, URINE AMBER (YELLOW); GLUCOSE, URINE (UA) AUTO NEGATIVE (NEGATIVE); KETONE, URINE AUTO TRACE mg/dL (NEGATIVE); LEUKOCYTE ESTERASE, URINE AUTO 3+ (NEGATIVE); MUCUS, URINE SMALL (NEGATIVE); NITRITE, URINE AUTO NEGATIVE (NEGATIVE); PROTEIN, URINE AUTO 1+ mg/dL (NEGATIVE); RBC, URINE AUTO 67 /HPF (0-3); SQUAMOUS EPITHELIAL CELL UR AU 1 /HPF (0-6); UROBILINOGEN, URINE AUTO 0.2 mg/dL (0.0-2.0); WBC, URINE AUTO TNTC /HPF (0-3)
[2020-03-08 11:59] LABS: HEMATOCRIT 41.1 % (42.0-52.0); HEMOGLOBIN 13.4 g/dl (13.5-17.5); MEAN CORPUSCULAR HEMOGLOBIN 30.1 pg (27.0-33.0); MEAN CORPUSCULAR HGB CONC 32.6 g/dl (32.0-36.5); MEAN CORPUSCULAR VOLUME 92.4 fl (80.0-96.0); PLATELET COUNT, AUTOMATED 243 10^3/uL (150-450); RED BLOOD COUNT 4.45 10^6/uL (4.30-6.10); WHITE BLOOD COUNT 8.4 10^3/uL (4.0-10.0)
[2020-03-08 12:03] LABS: BLOOD UREA NITROGEN 22 MG/DL (7-18); CALCIUM LEVEL 8.5 MG/DL (8.8-10.2); CARBON DIOXIDE LEVEL 26 MEQ/L (21-32); CHLORIDE LEVEL 105 MEQ/L (98-107); CREATININE FOR GFR 1.02 MG/DL (0.70-1.30); GLOMERULAR FILTRATION RATE > 60.0 (>35); GLUCOSE, FASTING 112 MG/DL (70-100); POTASSIUM SERUM 4.4 MEQ/L (3.5-5.1); SODIUM LEVEL 139 MEQ/L (136-145)
== END ==
LOC: M LABSMT 15:28
PROVIDERS: ATTEND Nurse Practitioner Women's Health
DX: Z01.818 Encounter for other preprocedural examination (principal); N21.0 Calculus in bladder

== ENCOUNTER → 2020-03-11 | Outpatient (CLI) | payer MEDICARE, OTHER | LOC: M LABSMTC 10:38 | PROVIDERS: ATTEND Anesthesiology | DX: Z01.812 Encounter for preprocedural laboratory examination (principal); Z11.59 Encounter for screening for other viral diseases ==

== ENCOUNTER 2020-03-14 06:05 | Day surgery (SDC) | payer MEDICARE, OTHER ==
[~2020-03-14] VITALS: Ht 188 cm; Wt 116.1 kg
[2020-03-14] MEDS ORDERED: CEFEPIME HCL 1 GM in D5W MINI-BAG PLUS 50 ML IV ONE (07:00)
[2020-03-14] MEDS ORDERED: LR 1,000 ML IV ONE (07:00)
[2020-03-14] MEDS ORDERED: LIDOCAINE 2% 5ML JELLY UROJET As Ordered ONE (07:26)
[2020-03-14] MEDS ORDERED: propofoL 200 MG/20 ML VIAL As Ordered ONE ×2 (07:55→08:14)
[2020-03-14] MEDS ORDERED: fentaNYL 100 MCG/2 ML INJECTION (J3010) As Ordered ONE (07:55)
[2020-03-14] MEDS ORDERED: MIDAZOLAM INJ 2MG/2ML VIAL (J2250 PER 1MG) As Ordered ONE (07:55)
[2020-03-14] MEDS ORDERED: KETAMINE HCL 200 MG/20 ML VIAL As Ordered ONE (08:17)
[2020-03-14] MEDS ORDERED: PHENYLephrine HCL 500 MCG/5 ML (100MCG/ML) SYRINGE (J2370) As Ordered ONE (08:23)
[2020-03-14] MEDS ORDERED: ACETAMINOPHEN TAB 650MG DOSE (2X325MG) PO PRN (09:15)
[2020-03-14] MEDS ORDERED: METOCLOPRAMIDE INJ 10MG/2ML VIAL (J2765 PER 1) IV PRN (09:15)
[2020-03-14] MEDS ORDERED: PERCOCET 5MG/325MG TAB PO PRN (09:15)
[2020-03-14] MEDS ORDERED: LR 1,000 ML IV SCH (09:15)
[2020-03-14] MEDS ORDERED: ONDANSETRON 4MG/2ML VIAL IV PRN (09:15)
[2020-03-14] MEDS ORDERED: fentaNYL 100 MCG/2 ML INJECTION (J3010) IV PRN (09:15)
[2020-03-14 10:06] VITALS: BP 130/65
== END 2020-03-14 11:10 | disposition home or self-care (01) ==
LOC: M SDC 06:05
PROVIDERS: ATTEND Urology
DX: N21.0 Calculus in bladder (principal); I10 Essential (primary) hypertension; R06.09 Other forms of dyspnea; R33.9 Retention of urine, unspecified; I48.91 Unspecified atrial fibrillation; I51.7 Cardiomegaly; F32.9 Major depressive disorder, single episode, unspecified; M81.0 Age-related osteoporosis without current pathological fracture; E66.01 Morbid (severe) obesity due to excess calories; Z79.01 Long term (current) use of anticoagulants; Z79.899 Other long term (current) drug therapy; Z86.718 Personal history of other venous thrombosis and embolism; Z88.2 Allergy status to sulfonamides; Z91.040 Latex allergy status; Z88.5 Allergy status to narcotic agent
CPT/HCPCS: 52317; 82365; 88300; J0692; J2250; J2370; J3010

== ENCOUNTER → 2020-03-21 | Outpatient (REF) | payer MEDICARE, OTHER ==
[2020-03-22 12:18] LABS: APPEARANCE, URINE CLOUDY (CLEAR); BACTERIA, URINE AUTO 1+ (NEGATIVE); BILIRUBIN, URINE AUTO NEGATIVE (NEGATIVE); BLOOD, URINE BLOOD 3+ (NEGATIVE); CALCIUM OXALATE CRYSTALS LARGE; COLOR, URINE YELLOW (YELLOW); GLUCOSE, URINE (UA) AUTO NEGATIVE (NEGATIVE); KETONE, URINE AUTO NEGATIVE (NEGATIVE); LEUKOCYTE ESTERASE, URINE AUTO 3+ (NEGATIVE); MUCUS, URINE SMALL (NEGATIVE); NITRITE, URINE AUTO NEGATIVE (NEGATIVE); PROTEIN, URINE AUTO 1+ mg/dL (NEGATIVE); RBC, URINE AUTO 66 /HPF (0-3); SPECIFIC GRAVITY URINE AUTO 1.013 (1.002-1.035); SQUAMOUS EPITHELIAL CELL UR AU 0 /HPF (0-6); UROBILINOGEN, URINE AUTO 0.2 mg/dL (0.0-2.0); WBC, URINE AUTO TNTC /HPF (0-3)
== END ==
LOC: M SMT 10:16
PROVIDERS: ATTEND Nurse Practitioner Women's Health
DX: N39.0 Urinary tract infection, site not specified (principal)

== ENCOUNTER 2020-04-13 11:55 | Emergency (ER) | payer MEDICARE, OTHER ==
[~2020-04-13] VITALS: Ht 188 cm; Wt 121.9 kg
--- NOTE | 2020-04-13 12:38 | REP ---
CT brain: 04/13/2020. Indication: Head trauma. Technique: Unenhanced axial CT images of the brain were obtained from skull base to vertex with coronal reconstructions provided. Comparison: None. Findings: There is no acute intracranial hemorrhage, acute cortical infarction, mass effect, hydrocephalus or acute calvarial fracture. Small soft tissue/scalp hematoma on the right is noted. Age-related volume loss is present. There are patchy areas of hypoattenuation within the cerebral hemisphere white matter bilaterally. Physiologic calcifications within the basal ganglia are noted. Intracranial atherosclerotic disease is present. I Impression: No acute intracranial process. Sequelae of chronic microangiopathic ischemic disease. Considering reported anticoagulation for this patient, follow up imaging is recommended to exclude delayed hemorrhage. Electronically Signed by Dima Perkins DO 04/13/2020 12:28 P
[2020-04-13] MEDS ORDERED: ONDANSETRON 4MG/2ML VIAL IV ONE (12:45)
[2020-04-13] MEDS ORDERED: MORPHINE 4 MG/ML 1ML VIAL/SYRINGE (J2270) IV ONE (12:45)
[2020-04-13] MEDS ORDERED: ISOVUE-370 76% 100ML VIAL As Ordered ONE (12:49)
--- NOTE | 2020-04-13 12:55 | REP ---
CT cervical spine: 04/13/2020. Indication: Cervical spine trauma. Technique: Unenhanced axial CT images of the cervical spine were performed with sagittal and coronal reconstructions provided. Comparison: MRI dated 12/28/2006. Findings: There is no acute fracture, subluxation or dislocation. There is no evidence of hemorrhage or additional acute post traumatic. Soft tissue injuries within the spinal canal. Multilevel spondylosis is present most pronounced at C3 - C6. There is not appear to be severe narrowing of the spinal canal or cord compression. No lytic or blastic lesions are present. Impression: No acute osseous injury of the cervical spine. Electronically Signed by Dima Perkins DO 04/13/2020 12:47 P
[2020-04-13 13:00] LABS: BASO # 0.1 10^3/uL (0.0-0.2); BASO % 0.7 % (0.0-1.0); EOS # 0.2 10^3/uL (0.0-0.5); EOS % 2.8 % (0.0-3.0); HEMATOCRIT 40.5 % (42.0-52.0); HEMOGLOBIN 13.4 g/dl (13.5-17.5); LYMPH # 0.9 10^3/uL (1.5-5.0); MEAN CORPUSCULAR HEMOGLOBIN 30.2 pg (27.0-33.0); MEAN CORPUSCULAR HGB CONC 33.1 g/dl (32.0-36.5); MEAN CORPUSCULAR VOLUME 91.4 fl (80.0-96.0); MONO # 0.4 10^3/uL (0.0-0.8); MONO % 6.3 % (0.0-5.0); NEUTROPHILS # 5.1 10^3/uL (1.5-8.5); NEUTROPHILS % 76.6 % (36.0-66.0); PLATELET COUNT, AUTOMATED 196 10^3/uL (150-450); RED BLOOD COUNT 4.43 10^6/uL (4.30-6.10); WHITE BLOOD COUNT 6.7 10^3/uL (4.0-10.0)
[2020-04-13 13:04] LABS: VENOUS BASE EXCESS 0.2 (-2.0-2.0); VENOUS HCO3 24.4 MEQ/L (23.0-27.0); VENOUS O2 SATURATION 93.8 % (60.0-80.0); VENOUS PARTIAL PRESSURE CO2 38.3 mmHg (38.0-50.0); VENOUS PARTIAL PRESSURE O2 67.1 mmHg (30.0-50.0); VENOUS PH 7.422 UNITS (7.330-7.430); VENOUS STANDARD HCO3 24.6 MEQ/L; VENOUS TOTAL CO2 25.6 MEQ/L (24.0-28.0)
[2020-04-13 13:12] LABS: INR 1.3; PARTIAL THROMBOPLASTIN TIME 31.8 SECONDS (25.0-38.4); PROTHROMBIN TIME 15.9 SECONDS (11.8-14.0)
[2020-04-13 13:39] LABS: ALBUMIN 2.9 GM/DL (3.2-5.2); ALT/SGPT 15 U/L (12-78); AMYLASE 31 U/L (25-115); BILIRUBIN,DIRECT 0.1 MG/DL (0.0-0.2); BILIRUBIN,TOTAL 0.6 MG/DL (0.2-1.0); BLOOD UREA NITROGEN 20 MG/DL (7-18); CALCIUM LEVEL 8.5 MG/DL (8.8-10.2); CARBON DIOXIDE LEVEL 27 MEQ/L (21-32); CHLORIDE LEVEL 107 MEQ/L (98-107); CK-MB VALUE MASS 1.6 NG/ML (<3.6); CPK CREATINE PHOSPHOKINASE 100 U/L (39-308); CREATININE FOR GFR 0.83 MG/DL (0.70-1.30); ETHYL ALCOHOL (ETHANOL) 0.006 % (0.000-0.010); GLOMERULAR FILTRATION RATE > 60.0 (>35); GLUCOSE, FASTING 106 MG/DL (70-100); LIPASE 41 U/L (73-393); POTASSIUM SERUM 4.5 MEQ/L (3.5-5.1); SODIUM LEVEL 140 MEQ/L (136-145); TOTAL PROTEIN 6.4 GM/DL (6.4-8.2); TROPONIN I < 0.02 NG/ML (< 0.10)
[2020-04-13] MEDS ORDERED: NORC1TAB7 PO (13:54)
[2020-04-13 14:45] VITALS: BP 148/61
[2020-04-13] MEDS ORDERED: NORCO, ANEXSIA 5/325MG TABLET (HYDROcodone/ACETAMINOPHEN) PO ONE (15:00)
--- NOTE | 2020-04-13 16:05 | REP ---
CT CHEST WITH IV CONTRAST: TECHNIQUE: Axial contrast-enhanced images from the thoracic inlet to the upper abdomen using 100 mL Isovue-370 intravenous contrast material with multiplanar reformations. There is a fracture of the lateral right 5th rib. No other acute fracture is seen of the visualized osseous structures. There are diffuse degenerative changes of the spine without compression fracture. Thoracic aorta demonstrates mild atherosclerotic calcification with no aneurysm. There is mild ectasia of the ascending thoracic aorta 4.1 cm. There is no dissection or rupture. Heart is upper limits of normal in size. There is no pericardial effusion. There is no mediastinal, hilar, or chest wall lymphadenopathy. There is a small right pleural effusion. There is mild atelectasis versus infiltrate in the right lower lobe. There is no pneumothorax. There is a small hiatal hernia. IMPRESSION: Minimally displaced fracture lateral right 5th rib. No other evidence of fracture of the visualized osseous structures. There is a small right pleural effusion. There is mild right lower lobe atelectasis/infiltrate. Electronically Signed by Dann Hernandez MD 04/13/2020 05:00 P
--- NOTE | 2020-04-13 16:35 | REP ---
REASON: Trauma. COMPARISON: Multiple, the latest 02/28/2020. CONTRAST: 100 mL Isovue-370. The liver, gallbladder, spleen, pancreas, adrenal glands, and kidneys are essentially unchanged. There is minimal cholelithiasis/dense sludge formation. There are bilateral renal cysts. There is marked pancreatic atrophy. There is a small hiatal hernia, status quo. There is a [place] filter in the IVC, status quo. The abdominal aorta and para-aortic regions are unchanged. There is a large and, in fact, huge unchanged right-sided spigelian hernia. There is no intestinal obstruction. There is spray artifact arising from a left hip prosthesis, and there are multiple surgical clips in the pelvis also causing spray artifact. There are numerous cystoliths, but smaller compared to the prior exam. Bone window technique throughout the examination shows no change in the osseous structures. IMPRESSION: Marked chronic changes and exam limitations as described above. There is no evidence of acute intra-abdominal or intrapelvic disease. The cystoliths seen previously have gotten smaller and they are more in number today. Electronically Signed by Garfield Ghotra DO 04/13/2020 04:40 P
--- NOTE | 2020-04-16 20:21 | ECGEPIP ---
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
--- NOTE | 2020-04-18 09:35 | ED PDOC ---
Post-Departure Follow-Up dr nichols faxed formal report of ct head for fu Megan Rosario MD Apr 18, 2020 09:35
== END 2020-04-13 15:35 | disposition home or self-care (01) ==
LOC: EDSEX 11:55 → EDBD 11:55 → M ED 11:55
DX: S22.31XA Fracture of one rib, right side, initial encounter for closed fracture (principal); S00.81XA Abrasion of other part of head, initial encounter; V00.831A Fall from motorized mobility scooter, initial encounter; Y92.9 Unspecified place or not applicable; Y93.9 Activity, unspecified; Y99.9 Unspecified external cause status; I67.2 Cerebral atherosclerosis; R91.8 Other nonspecific abnormal finding of lung field; I48.92 Unspecified atrial flutter; I11.9 Hypertensive heart disease without heart failure; Z79.01 Long term (current) use of anticoagulants; Z79.899 Other long term (current) drug therapy; Z91.040 Latex allergy status; Z88.6 Allergy status to analgesic agent
CPT/HCPCS: 70450; 71260; 72125; 74177; 80047; 80048; 80076; 82150; 82550; 82553; 82803; 83690; 84484; 85025; 85610; 85730; 93005; 93041; 96374; 96375; 99285; G0480; J2270; J2405; Q9967

== ENCOUNTER → 2020-05-31 | Outpatient (REF) | payer MEDICARE, OTHER ==
[~2020-05-31] MED LIST changes: +AMLO1TAB24 PO; -AMLO5TAB6 PO; +NORC1TAB7 PO; +PANT40TA29; +PANT40TA29 PO; -PANT40TA3; -PANT40TA3 PO
[2020-07-04 11:50] LABS: APPEARANCE, URINE CLOUDY (CLEAR); BACTERIA, URINE AUTO 3+ (NEGATIVE); BILIRUBIN, URINE AUTO NEGATIVE (NEGATIVE); BLOOD, URINE BLOOD 2+ (NEGATIVE); COLOR, URINE YELLOW (YELLOW); GLUCOSE, URINE (UA) AUTO NEGATIVE (NEGATIVE); KETONE, URINE AUTO NEGATIVE (NEGATIVE); LEUKOCYTE ESTERASE, URINE AUTO 3+ (NEGATIVE); NITRITE, URINE AUTO POSITIVE (NEGATIVE); PROTEIN, URINE AUTO 1+ mg/dL (NEGATIVE); RBC, URINE AUTO 86 /HPF (0-3); SPECIFIC GRAVITY URINE AUTO 1.008 (1.002-1.035); SQUAMOUS EPITHELIAL CELL UR AU 0 /HPF (0-6); UROBILINOGEN, URINE AUTO 0.2 mg/dL (0.0-2.0); WBC, URINE AUTO TNTC /HPF (0-3)
== END ==
LOC: M SMT 09:51
PROVIDERS: ATTEND Nurse Practitioner Family
DX: R30.0 Dysuria (principal)

== ENCOUNTER → 2021-01-15 | Outpatient (REF) | payer MEDICARE, OTHER ==
[~2021-01-15] MED LIST changes: -LISI-538 PO; +LISI20TA33 PO; +MECL-136 PO; -MECL12.589 PO
[2021-01-15 14:32] LABS: BASO # 0.1 10^3/uL (0.0-0.2); BASO % 0.9 % (0.0-1.0); EOS # 0.3 10^3/uL (0.0-0.5); EOS % 3.8 % (0.0-3.0); HEMOGLOBIN 13.7 g/dl (13.5-17.5); LYMPH # 1.2 10^3/uL (1.5-5.0); MEAN CORPUSCULAR HEMOGLOBIN 29.7 pg (27.0-33.0); MEAN CORPUSCULAR HGB CONC 31.9 g/dl (32.0-36.5); MEAN CORPUSCULAR VOLUME 93.1 fl (80.0-96.0); MONO # 0.6 10^3/uL (0.0-0.8); MONO % 8.2 % (2.0-8.0); NEUTROPHILS # 5.4 10^3/uL (1.5-8.5); NEUTROPHILS % 70.7 % (36.0-66.0); PLATELET COUNT, AUTOMATED 223 10^3/uL (150-450); RED BLOOD COUNT 4.62 10^6/uL (4.30-6.10); WHITE BLOOD COUNT 7.7 10^3/uL (4.0-10.0)
[2021-01-15 15:05] LABS: ALBUMIN 3.3 GM/DL (3.2-5.2); ALT/SGPT 11 U/L (12-78); BILIRUBIN,TOTAL 0.6 MG/DL (0.2-1.0); BLOOD UREA NITROGEN 19 MG/DL (7-18); CALCIUM LEVEL 8.8 MG/DL (8.8-10.2); CARBON DIOXIDE LEVEL 29 MEQ/L (21-32); CHLORIDE LEVEL 106 MEQ/L (98-107); CHOLESTEROL LEVEL 170 MG/DL (<200); CHOLESTEROL RISK RATIO 3.469 (<5); CREATININE FOR GFR 0.85 MG/DL (0.70-1.30); GLOMERULAR FILTRATION RATE > 60.0 (>35); GLUCOSE, FASTING 94 MG/DL (70-100); HDL CHOLESTEROL 49 MG/DL (>40); LDL CHOLESTEROL 105 MG/DL (<100); MAGNESIUM LEVEL 2.3 MG/DL (1.8-2.4); NON-HDL-C 121 MG/DL; POTASSIUM SERUM 4.1 MEQ/L (3.5-5.1); SODIUM LEVEL 140 MEQ/L (136-145); TOTAL PROTEIN 6.7 GM/DL (6.4-8.2); TRIGLYCERIDES LEVEL 80 MG/DL (<150)
== END ==
LOC: M SFHCPLAZ 11:38
PROVIDERS: ATTEND Internal Medicine
DX: M81.0 Age-related osteoporosis without current pathological fracture (principal); I10 Essential (primary) hypertension; Z79.01 Long term (current) use of anticoagulants
CPT/HCPCS: 20610; 36415; 80053; 80061; 82306; 83735; 85025; G0463; J3301

== ENCOUNTER → 2022-01-22 | Outpatient (CLI) | payer MEDICARE, OTHER ==
[~2022-01-22] MED LIST changes: -CYMB60CA3 PO; +CYMB60CA4 PO; -LEVO250T12 PO; +LEVO250T3 PO; +LOSA100T45 PO; -LOSA100T50 PO; +ULTR1TAB PO; -ULTR37.54 PO
[2022-01-22 13:27] LABS: BASO # 0.1 10^3/uL (0.0-0.2); BASO % 0.6 % (0.0-1.0); EOS # 0.1 10^3/uL (0.0-0.5); EOS % 1.1 % (0.0-3.0); HEMATOCRIT 44.1 % (42.0-52.0); HEMOGLOBIN 14.8 g/dl (13.5-17.5); LYMPH # 0.8 10^3/uL (1.5-5.0); LYMPH % 7.9 % (24.0-44.0); MEAN CORPUSCULAR HEMOGLOBIN 31.4 pg (27.0-33.0); MEAN CORPUSCULAR HGB CONC 33.6 g/dl (32.0-36.5); MEAN CORPUSCULAR VOLUME 93.4 fl (80.0-96.0); MONO # 0.7 10^3/uL (0.0-0.8); MONO % 6.9 % (2.0-8.0); NEUTROPHILS # 7.8 10^3/uL (1.5-8.5); NEUTROPHILS % 82.7 % (36.0-66.0); PLATELET COUNT, AUTOMATED 215 10^3/uL (150-450); RED BLOOD COUNT 4.72 10^6/uL (4.30-6.10); WHITE BLOOD COUNT 9.5 10^3/uL (4.0-10.0)
[2022-01-22 14:00] LABS: ALBUMIN 3.5 GM/DL (3.2-5.2); ALT/SGPT 17 U/L (12-78); BILIRUBIN,TOTAL 0.8 MG/DL (0.2-1.0); BLOOD UREA NITROGEN 18 MG/DL (7-18); CALCIUM LEVEL 9.3 MG/DL (8.8-10.2); CARBON DIOXIDE LEVEL 31 MEQ/L (21-32); CHLORIDE LEVEL 105 MEQ/L (98-107); CHOLESTEROL LEVEL 182 MG/DL (<200); CHOLESTEROL RISK RATIO 3.309 (<5); CREATININE FOR GFR 0.93 MG/DL (0.70-1.30); GLOMERULAR FILTRATION RATE > 60.0 (>35); GLUCOSE, FASTING 99 MG/DL (70-100); HDL CHOLESTEROL 55 MG/DL (>40); LDL CHOLESTEROL 109 MG/DL (<100); MAGNESIUM LEVEL 2.3 MG/DL (1.8-2.4); NON-HDL-C 127 MG/DL; POTASSIUM SERUM 4.3 MEQ/L (3.5-5.1); SODIUM LEVEL 140 MEQ/L (136-145); TOTAL PROTEIN 6.6 GM/DL (6.4-8.2); TRIGLYCERIDES LEVEL 88 MG/DL (<150)
[2022-01-22 14:03] LABS: TOTAL 25(OH) VITAMIN D 22.4 NG/ML (30.0-100.0); VITAMIN B12 LEVEL 399 PG/ML
[2022-01-22 14:04] LABS: FOLATE 8.9 NG/ML
== END ==
LOC: M PLALAB 11:57
PROVIDERS: ATTEND Internal Medicine
DX: G62.9 Polyneuropathy, unspecified (principal); I10 Essential (primary) hypertension; R30.0 Dysuria; F32.9 Major depressive disorder, single episode, unspecified; Z86.718 Personal history of other venous thrombosis and embolism; Z79.899 Other long term (current) drug therapy

== ENCOUNTER → 2022-01-22 | Outpatient (REF) | payer MEDICARE, OTHER | LOC: M SFHCPLAZ 11:07 | PROVIDERS: ATTEND Internal Medicine | DX: G62.9 Polyneuropathy, unspecified (principal); I10 Essential (primary) hypertension; F32.9 Major depressive disorder, single episode, unspecified; R30.0 Dysuria; Z86.718 Personal history of other venous thrombosis and embolism ==

== ENCOUNTER → 2022-03-18 | Outpatient (REF) | payer MEDICARE, OTHER ==
[2022-03-18 17:37] LABS: APPEARANCE, URINE HAZY (CLEAR); BACTERIA, URINE AUTO 1+ (NEGATIVE); BILIRUBIN, URINE AUTO NEGATIVE (NEGATIVE); BLOOD, URINE BLOOD 1+ (NEGATIVE); COLOR, URINE YELLOW (YELLOW); GLUCOSE, URINE (UA) AUTO NEGATIVE (NEGATIVE); KETONE, URINE AUTO NEGATIVE (NEGATIVE); LEUKOCYTE ESTERASE, URINE AUTO 3+ (NEGATIVE); NITRITE, URINE AUTO NEGATIVE (NEGATIVE); PROTEIN, URINE AUTO 1+ mg/dL (NEGATIVE); RBC, URINE AUTO 4 /HPF (0-3); SPECIFIC GRAVITY URINE AUTO 1.013 (1.002-1.035); SQUAMOUS EPITHELIAL CELL UR AU 0 /HPF (0-6); UROBILINOGEN, URINE AUTO 0.2 mg/dL (0.0-2.0); WBC, URINE AUTO 102 /HPF (0-3)
== END ==
LOC: M SFHCPLAZ 16:52
PROVIDERS: ATTEND Internal Medicine
DX: R30.0 Dysuria (principal)

== ENCOUNTER 2022-06-12 10:36 | Outpatient (RCR) | payer MEDICARE, OTHER ==
[~2022-06-12 10:36] MED LIST changes: +LEVO1TAB38 PO; -LEVO250T3 PO
== END 2022-06-18 ==
LOC: M PT 10:36
PROVIDERS: ATTEND Internal Medicine
DX: M19.90 Unspecified osteoarthritis, unspecified site (principal); E66.01 Morbid (severe) obesity due to excess calories; Z86.79 Personal history of other diseases of the circulatory system

== ENCOUNTER → 2022-08-20 | Outpatient (CLI) | payer MEDICARE, OTHER | LOC: M PLAIMG 10:26 | PROVIDERS: ATTEND Internal Medicine Hematology | DX: N13.30 Unspecified hydronephrosis (principal); N13.4 Hydroureter; K43.5 Parastomal hernia without obstruction or gangrene; K43.9 Ventral hernia without obstruction or gangrene; R16.0 Hepatomegaly, not elsewhere classified; K44.9 Diaphragmatic hernia without obstruction or gangrene; M43.06 Spondylolysis, lumbar region; M43.04 Spondylolysis, thoracic region ==

== ENCOUNTER → 2022-09-01 | Outpatient (CLI) | payer MEDICARE, OTHER | LOC: M WHC 11:15 | PROVIDERS: ATTEND Nurse Practitioner Women's Health | DX: N13.30 Unspecified hydronephrosis (principal); N40.1 Benign prostatic hyperplasia with lower urinary tract symptoms; N28.1 Cyst of kidney, acquired ==

== ENCOUNTER → 2022-09-15 | Outpatient (REF) | payer MEDICARE, OTHER ==
[2022-09-15 14:59] LABS: APPEARANCE, URINE MANUAL CLOUDY (CLEAR); COLOR, URINE MANUAL YELLOW (YELLOW)
[2022-09-15 15:00] LABS: BILIRUBIN, URINE MANUAL NEGATIVE (NEGATIVE); BLOOD URINE MANUAL POSITIVE (NEGATIVE); GLUCOSE, URINE (UA) MANUAL NEGATIVE (NEGATIVE); KETONE, URINE MANUAL NEGATIVE (NEGATIVE); LEUKOCYTE ESTERASE, URINE MAN POSITIVE (NEGATIVE); NITRITE, URINE MANUAL NEGATIVE (NEGATIVE); PROTEIN, URINE MANUAL 1+ mg/dL (NEGATIVE); UROBILINOGEN, URINE MANUAL NORMAL (NORMAL)
[2022-09-15 15:44] LABS: BACTERIA, URINE MOD AMOUNT; SQUAMOUS EPITHELIAL CELL URINE SMALL AMOUNT /hpf (SMALL AMT); TRANSITIONAL EPI CELLS, URINE MOD AMOUNT /hpf; WBC, URINE TNTC /hpf (0-3)
== END ==
LOC: M SMT 12:59
PROVIDERS: ATTEND Physician Assistant
DX: R33.9 Retention of urine, unspecified (principal)

== ENCOUNTER → 2023-01-20 | Outpatient (CLI) | payer MEDICARE, OTHER ==
[~2023-01-20] MED LIST changes: +ARTIDRO4 OU; -POLYOPD OU
[2023-01-20 12:10] LABS: HEMATOCRIT 39.6 % (42.0-52.0); HEMOGLOBIN 12.5 g/dl (13.5-17.5); MEAN CORPUSCULAR HEMOGLOBIN 29.8 pg (27.0-33.0); MEAN CORPUSCULAR HGB CONC 31.6 g/dl (32.0-36.5); MEAN CORPUSCULAR VOLUME 94.3 fl (80.0-96.0); PLATELET COUNT, AUTOMATED 191 10^3/uL (150-450); WHITE BLOOD COUNT 5.5 10^3/uL (4.0-10.0)
[2023-01-20 12:11] LABS: C REACTIVE PROTEIN QUANTITATIV < 0.40 MG/DL (<1.0)
[2023-01-20 12:17] LABS: ALBUMIN 3.1 G/DL (3.2-5.2); ALKALINE PHOSPHATASE 92 U/L (46-116); ALT/SGPT < 9 U/L (7.0-40); AST/SGOT 14 U/L (<34); BILIRUBIN,TOTAL 0.6 MG/DL (0.3-1.2); BLOOD UREA NITROGEN 18 MG/DL (9-23); CALCIUM LEVEL 8.3 MG/DL (8.3-10.6); CARBON DIOXIDE LEVEL 28 MMOL/L (20-31); CHLORIDE LEVEL 107 MMOL/L (98-107); CHOLESTEROL LEVEL 149 MG/DL (<200); CHOLESTEROL RISK RATIO 3.04 (<5); CREATININE FOR GFR 0.87 MG/DL (0.70-1.30); FREE T4 1.16 NG/DL (0.89-1.76); GLOMERULAR FILTRATION RATE > 60.0 (>35); GLUCOSE, FASTING 87 MG/DL (74-106); HDL CHOLESTEROL 48.9 MG/DL (>40); LDL CHOLESTEROL 87.1 MG/DL (<100); NON-HDL-C 100.1 MG/DL; POTASSIUM SERUM 4.2 MMOL/L (3.5-5.1); SODIUM LEVEL 137 MMOL/L (136-145); TOTAL 25(OH) VITAMIN D 32.7 NG/ML (20.0-100.0); TOTAL PROTEIN 5.9 G/DL (5.7-8.2); TRIGLYCERIDES LEVEL 65 MG/DL (<150); VITAMIN B12 LEVEL 400 PG/ML (211-911)
[2023-01-20 12:19] LABS: THYROID STIMULATING HORMONE 4.717 uIU/ML (0.55-4.78)
[2023-01-20 12:48] LABS: HEMOGLOBIN A1c 5.3 % (4.0-6.0)
== END ==
LOC: M PLALAB 08:35
PROVIDERS: ATTEND Internal Medicine Hematology
DX: I10 Essential (primary) hypertension (principal); Z79.899 Other long term (current) drug therapy

== ENCOUNTER → 2023-05-15 | Outpatient (REF) | payer MEDICARE, OTHER ==
[~2023-05-15] MED LIST changes: -COZA50TA PO; +LOSA-528 PO; -LOSA100T45 PO; +LOSA100T46 PO; -ROPI0.253 PO; +ROPI5TAB19 PO; +SENN-111 PO; -SENN18TA PO
[2023-05-15 14:38] LABS: APPEARANCE, URINE TURBID (CLEAR); BACTERIA, URINE AUTO 1+ (NEGATIVE); BILIRUBIN, URINE AUTO NEGATIVE (NEGATIVE); BLOOD, URINE BLOOD 3+ (NEGATIVE); COLOR, URINE RED (YELLOW); GLUCOSE, URINE (UA) AUTO NEGATIVE (NEGATIVE); KETONE, URINE AUTO TRACE mg/dL (NEGATIVE); LEUKOCYTE ESTERASE, URINE AUTO 2+ (NEGATIVE); MUCUS, URINE SMALL (NEGATIVE); NITRITE, URINE AUTO POSITIVE (NEGATIVE); PROTEIN, URINE AUTO 2+ mg/dL (NEGATIVE); RBC, URINE AUTO TNTC /HPF (0-3); SPECIFIC GRAVITY URINE AUTO 1.021 (1.002-1.035); SQUAMOUS EPITHELIAL CELL UR AU 4 /HPF (0-6); WBC, URINE AUTO TNTC /HPF (0-3)
== END ==
LOC: M SMT 14:10
PROVIDERS: ATTEND Urology
DX: N32.89 Other specified disorders of bladder (principal); N28.89 Other specified disorders of kidney and ureter

== ENCOUNTER → 2023-06-25 | Outpatient (CLI) | payer MEDICARE, OTHER ==
[2023-06-25 14:33] LABS: HEMATOCRIT 34.7 % (42.0-52.0); HEMOGLOBIN 10.8 g/dl (13.5-17.5); MEAN CORPUSCULAR HEMOGLOBIN 29.2 pg (27.0-33.0); MEAN CORPUSCULAR HGB CONC 31.1 g/dl (32.0-36.5); MEAN CORPUSCULAR VOLUME 93.8 fl (80.0-96.0); PLATELET COUNT, AUTOMATED 305 10^3/uL (150-450); WHITE BLOOD COUNT 6.7 10^3/uL (4.0-10.0)
[2023-06-25 15:04] LABS: ALBUMIN 2.7 G/DL (3.2-5.2); ALKALINE PHOSPHATASE 131 U/L (46-116); ALT/SGPT < 9 U/L (7.0-40); AST/SGOT 10 U/L (<34); BILIRUBIN,TOTAL 0.5 MG/DL (0.3-1.2); BLOOD UREA NITROGEN 13 MG/DL (9-23); CALCIUM LEVEL 8.6 MG/DL (8.3-10.6); CARBON DIOXIDE LEVEL 26 MMOL/L (20-31); CHLORIDE LEVEL 105 MMOL/L (98-107); CREATININE FOR GFR 0.82 MG/DL (0.70-1.30); GLOMERULAR FILTRATION RATE > 60.0 (>35); GLUCOSE, FASTING 103 MG/DL (74-106); POTASSIUM SERUM 4.5 MMOL/L (3.5-5.1); SODIUM LEVEL 139 MMOL/L (136-145); TOTAL PROTEIN 6.2 G/DL (5.7-8.2)
[2023-06-25 15:08] LABS: THYROID STIMULATING HORMONE 2.244 uIU/ML (0.55-4.78)
== END ==
LOC: M PLALAB 10:30
PROVIDERS: ATTEND Internal Medicine Hematology
DX: I10 Essential (primary) hypertension (principal)

== ENCOUNTER → 2023-07-01 | Outpatient (REF) | payer MEDICARE, OTHER ==
[2023-07-01 13:34] LABS: APPEARANCE, URINE TURBID (CLEAR); BACTERIA, URINE AUTO 3+ (NEGATIVE); BILIRUBIN, URINE AUTO NEGATIVE (NEGATIVE); BLOOD, URINE BLOOD 3+ (NEGATIVE); COLOR, URINE AMBER (YELLOW); GLUCOSE, URINE (UA) AUTO NEGATIVE (NEGATIVE); KETONE, URINE AUTO NEGATIVE (NEGATIVE); LEUKOCYTE ESTERASE, URINE AUTO 3+ (NEGATIVE); NITRITE, URINE AUTO NEGATIVE (NEGATIVE); PROTEIN, URINE AUTO 2+ mg/dL (NEGATIVE); RBC, URINE AUTO TNTC /HPF (0-3); SPECIFIC GRAVITY URINE AUTO 1.008 (1.002-1.035); SQUAMOUS EPITHELIAL CELL UR AU 4 /HPF (0-6); UROBILINOGEN, URINE AUTO 0.2 mg/dL (0.0-2.0); WBC, URINE AUTO TNTC /HPF (0-3)
== END ==
LOC: M SMT 12:51
PROVIDERS: ATTEND Physician Assistant
DX: R31.0 Gross hematuria (principal)

== ENCOUNTER → 2023-10-21 | Outpatient (REF) | payer MEDICARE, OTHER ==
[~2023-10-21] MED LIST changes: -OXYB5TAB10 PO; +OXYB5TAB11 PO
== END ==
LOC: M LAB REF 12:38
PROVIDERS: ATTEND Urology
DX: N39.0 Urinary tract infection, site not specified (principal)

== ENCOUNTER → 2023-12-23 | Outpatient (CLI) | payer MEDICARE, OTHER ==
[~2023-12-23] MED LIST changes: -OXYB5TAB11 PO; +OXYB5TAB14 PO
[2023-12-23 13:54] LABS: MEAN CORPUSCULAR HEMOGLOBIN 29.6 pg (27.0-33.0); MEAN CORPUSCULAR HGB CONC 31.7 g/dl (32.0-36.5); MEAN CORPUSCULAR VOLUME 93.4 fl (80.0-96.0); PLATELET COUNT, AUTOMATED 225 10^3/uL (150-450); RED BLOOD COUNT 4.39 10^6/uL (4.30-6.10); WHITE BLOOD COUNT 5.6 10^3/uL (4.0-10.0)
[2023-12-23 14:10] LABS: HEMOGLOBIN A1c 5.3 % (4.0-6.0)
[2023-12-23 14:31] LABS: TOTAL IRON BINDING CAPACITY 296 UG/DL (250-425)
[2023-12-23 14:33] LABS: ALBUMIN 3.1 G/DL (3.2-5.2); ALKALINE PHOSPHATASE 122 U/L (46-116); ALT/SGPT 10 U/L (7.0-40); AST/SGOT 12 U/L (<34); BILIRUBIN,TOTAL 0.7 MG/DL (0.3-1.2); BLOOD UREA NITROGEN 17 MG/DL (9-23); CALCIUM LEVEL 8.6 MG/DL (8.3-10.6); CARBON DIOXIDE LEVEL 28 MMOL/L (20-31); CHLORIDE LEVEL 107 MMOL/L (98-107); CHOLESTEROL LEVEL 148 MG/DL (<200); CHOLESTEROL RISK RATIO 3.12 (<5); CREATININE FOR GFR 0.87 MG/DL (0.70-1.30); FREE T4 0.98 NG/DL (0.89-1.76); GLOMERULAR FILTRATION RATE > 60.0 (>35); GLUCOSE, FASTING 115 MG/DL (74-106); HDL CHOLESTEROL 47.3 MG/DL (>40); IRON (FE) 59 UG/DL (65-175); LDL CHOLESTEROL 86.9 MG/DL (<100); NON-HDL-C 100.7 MG/DL; PERCENT SATURATION 19.9 % (19.7-50.0); POTASSIUM SERUM 4.5 MMOL/L (3.5-5.1); SODIUM LEVEL 139 MMOL/L (136-145); THYROID STIMULATING HORMONE 4.236 uIU/ML (0.55-4.78); TOTAL 25(OH) VITAMIN D 34.9 NG/ML (20.0-100.0); TOTAL PROTEIN 6.3 G/DL (5.7-8.2); TRIGLYCERIDES LEVEL 69 MG/DL (<150)
[2023-12-23 14:34] LABS: VITAMIN B12 LEVEL 523 PG/ML (211-911)
== END ==
LOC: M PLALAB 10:04
PROVIDERS: ATTEND Internal Medicine Hematology
DX: I10 Essential (primary) hypertension (principal); D64.9 Anemia, unspecified; Z79.899 Other long term (current) drug therapy

== ENCOUNTER → 2024-07-18 | Outpatient (CLI) | payer MEDICARE, OTHER ==
[~2024-07-18] MED LIST changes: +FLUO-365 PO; -FLUO20CA22 PO; +METH85CR6 TOP; -MUSCCRE9 TOP; +ONDA-282 PO; -ONDA4TAB6 PO; -SENN-111 PO; +SENN-165 PO
[2024-07-18 13:06] LABS: BASO # 0.1 10^3/uL (0.0-0.2); BASO % 0.9 % (0.0-1.0); EOS # 0.3 10^3/uL (0.0-0.5); EOS % 4.6 % (0.0-3.0); HEMOGLOBIN 13.3 g/dl (13.5-17.5); LYMPH # 0.9 10^3/uL (1.5-5.0); LYMPH % 12.6 % (24.0-44.0); MEAN CORPUSCULAR HEMOGLOBIN 31.1 pg (27.0-33.0); MEAN CORPUSCULAR HGB CONC 32.4 g/dl (32.0-36.5); MEAN CORPUSCULAR VOLUME 95.8 fl (80.0-96.0); MONO # 0.6 10^3/uL (0.0-0.8); MONO % 8.6 % (2.0-8.0); NEUTROPHILS # 4.9 10^3/uL (1.5-8.5); NEUTROPHILS % 72.3 % (36.0-66.0); PLATELET COUNT, AUTOMATED 207 10^3/uL (150-450); RED BLOOD COUNT 4.28 10^6/uL (4.30-6.10); WHITE BLOOD COUNT 6.8 10^3/uL (4.0-10.0)
[2024-07-18 13:10] LABS: HEMOGLOBIN A1c 5.3 % (4.0-6.0)
[2024-07-18 13:24] LABS: IRON (FE) 46 UG/DL (65-175)
[2024-07-18 13:25] LABS: ALBUMIN 3.1 G/DL (3.2-5.2); ALKALINE PHOSPHATASE 127 U/L (46-116); ALT/SGPT < 9 U/L (7.0-40); AST/SGOT 12 U/L (<34); BILIRUBIN,TOTAL 0.9 MG/DL (0.3-1.2); BLOOD UREA NITROGEN 14 MG/DL (9-23); CALCIUM LEVEL 8.9 MG/DL (8.3-10.6); CARBON DIOXIDE LEVEL 28 MMOL/L (20-31); CHLORIDE LEVEL 106 MMOL/L (98-107); CHOLESTEROL LEVEL 165 MG/DL (<200); CHOLESTEROL RISK RATIO 3.22 (<5); CREATININE FOR GFR 0.86 MG/DL (0.70-1.30); GLOMERULAR FILTRATION RATE > 60.0 (>35); GLUCOSE, FASTING 130 MG/DL (74-106); HDL CHOLESTEROL 51.2 MG/DL (>40); LDL CHOLESTEROL 99.6 MG/DL (<100); NON-HDL-C 113.8 MG/DL; SODIUM LEVEL 138 MMOL/L (136-145); THYROID STIMULATING HORMONE 2.606 uIU/ML (0.55-4.78); TOTAL PROTEIN 6.6 G/DL (5.7-8.2); TRIGLYCERIDES LEVEL 71 MG/DL (<150)
[2024-07-18 13:27] LABS: FREE T4 1.16 NG/DL (0.89-1.76); VITAMIN B12 LEVEL 481 PG/ML (211-911)
== END ==
LOC: M PLALAB 10:50
PROVIDERS: ATTEND Internal Medicine Hematology
DX: I10 Essential (primary) hypertension (principal); E66.01 Morbid (severe) obesity due to excess calories; Z79.01 Long term (current) use of anticoagulants; Z79.899 Other long term (current) drug therapy

== ENCOUNTER 2025-08-31 07:28 | Inpatient (IN) | payer MEDICARE, OTHER ==
[~2025-08-31] VITALS: Ht 188 cm; Wt 102.8 kg
[~2025-08-31 07:28] MED LIST changes: +AMLO2.5T3; +AMOX250REC PO; +DRAM1CHW PO; +DULC10SU2 XX; -FINA5TAB2; +FINA5TAB2 PO; +HYDR1CRE30 TOP; +LOSA25TA13 PO; +MIRA33506 PO; +MIRT-10 PO; +MUCI600T31 PO; +NITR50CA34 PO; +NYST1POW3 TOP; +RAME8TAB2 PO
[2025-08-31 07:55] LABS: VENOUS BASE EXCESS 0.3 (-2.0-2.0); VENOUS HCO3 24.2 MMOL/L (23.0-27.0); VENOUS O2 SATURATION 94.6 % (60.0-80.0); VENOUS PARTIAL PRESSURE CO2 36.4 mmHg (38.0-50.0); VENOUS PARTIAL PRESSURE O2 73.9 mmHg (30.0-50.0); VENOUS PH 7.440 UNITS (7.330-7.430); VENOUS STANDARD HCO3 24.7 MMOL/L; VENOUS TOTAL CO2 25.3 MMOL/L (24.0-28.0)
[2025-08-31 08:01] LABS: PLATELET COUNT, AUTOMATED 252 10^3/uL (150-450)
[2025-08-31] MEDS: NS (Normal Saline) 0.9% 1,000 ML IV ONE (08:20)
[2025-08-31 08:24] LABS: ALT/SGPT < 9 U/L (7.0-40); AST/SGOT 15 U/L (<34); CALCIUM LEVEL 8.3 MG/DL (8.3-10.6); CARBON DIOXIDE LEVEL 24 MMOL/L (20-31); CHLORIDE LEVEL 97 MMOL/L (98-107); CREATININE FOR GFR 0.82 MG/DL (0.70-1.30); GLOMERULAR FILTRATION RATE 85.0 (>35); POTASSIUM SERUM 4.1 MMOL/L (3.5-5.1); SODIUM LEVEL 131 MMOL/L (136-145)
[2025-08-31 08:47] LABS: ATYPICAL LYMPH 1 % (0-5); LYMPHOCYTES 2 % (16-44); MONOCYTES 6 % (0-5); MYELOCYTES 1 % (0-0); NEUTROPHILS 64 % (28-66); PLATELET CLUMPS SMALL AMT; PLATELET ESTIMATE NORMAL (NORMAL)
[2025-08-31] MEDS ORDERED: ISOVUE-370 76% 100 ML VIAL As Ordered ONE (09:29)
[2025-08-31] MEDS: PIPERACILLIN/TAZOBACTAM SOD 4.5 GM in DEXTROSE 5% (D5W) ADV/MINI-BAG 50 ML IV ONE (10:21)
[2025-08-31] MEDS ORDERED: MOM 30 ML SUSPENSION UDC PO PRN (11:20)
[2025-08-31] MEDS ORDERED: MAALOX 30 ML SUSP *UDC PO PRN (11:20)
[2025-08-31] MEDS ORDERED: OXYB10TA23 PO (12:07)
[2025-08-31] MEDS ORDERED: HOME MED LIST COMPLETE! XX SCH (12:10)
[2025-08-31] MEDS: HEPARIN SOD 5000 UNITS/ML 1 ML VIAL/SYRINGE SC SCH (12:49)
[2025-08-31] MEDS: LR 1,000 ML IV SCH (12:50)
[2025-08-31] MEDS: FINASTERIDE 5 MG TAB PO SCH (15:21)
[2025-08-31] MEDS: SENNA 8.6 MG TAB PO SCH (15:21)
[2025-08-31] MEDS: PIPERACILLIN/TAZOBACTAM SOD 4.5 GM in DEXTROSE 5% (D5W) ADV/MINI-BAG 50 ML IV SCH (15:22)
[2025-08-31] MEDS: LOSARTAN 25 MG TAB PO SCH (15:22)
[2025-08-31] MEDS ORDERED: ONDANSETRON 4MG/2ML VIAL IV PRN (18:20)
[2025-08-31 19:00] VITALS: BP 136/62; TEMP 98.1; O2SAT 85
[2025-08-31] MEDS: oxyBUTYnin *XL* 5 MG TAB PO SCH (21:20)
[2025-08-31] MEDS: MIRTAZAPINE 15 MG TAB PO SCH (21:20)
[2025-08-31 21:37] VITALS: BP 149/65; TEMP 97.6; O2SAT 90
[2025-09-01] VITALS (7 sets, daily range): BP systolic 124–149; BP diastolic 58–67; TEMP 97.6–98.7; O2SAT 84–97
[2025-09-01 01:39] LABS: AMORPHOUS SEDIMENT SMALL (NEGATIVE); APPEARANCE, URINE CLEAR (CLEAR); BACTERIA, URINE AUTO NEGATIVE (NEGATIVE); BILIRUBIN, URINE AUTO NEGATIVE (NEGATIVE); BLOOD, URINE BLOOD 1+ (NEGATIVE); GLUCOSE, URINE (UA) AUTO NEGATIVE (NEGATIVE); KETONE, URINE AUTO NEGATIVE (NEGATIVE); LEUKOCYTE ESTERASE, URINE AUTO 3+ (NEGATIVE); MUCUS, URINE SMALL (NEGATIVE); NITRITE, URINE AUTO NEGATIVE (NEGATIVE); PROTEIN, URINE AUTO NEGATIVE (NEGATIVE); RBC, URINE AUTO 5 /HPF (0-3); SPECIFIC GRAVITY URINE AUTO 1.021 (1.002-1.035); SQUAMOUS EPITHELIAL CELL UR AU 0 /HPF (0-6); UROBILINOGEN, URINE AUTO 0.2 mg/dL (0.0-2.0); WBC, URINE AUTO 8 /HPF (0-3)
[2025-09-01 05:59] LABS: PLATELET COUNT, AUTOMATED 231 10^3/uL (150-450)
[2025-09-01] MEDS ORDERED: FLUZONE HIGH DOSE (65+) 0.5 ML SYRINGE (25-26) IM.IMMUN ONE (06:00)
[2025-09-01] MEDS ORDERED: PNEUMOC 21-VAL CONJ-DIP CRM/PF 0.5 ML SYRINGE IM.IMMUN ONE (06:00)
[2025-09-01 06:27] LABS: CALCIUM LEVEL 8.2 MG/DL (8.3-10.6); CARBON DIOXIDE LEVEL 27.0 MMOL/L (20-31); CHLORIDE LEVEL 100.0 MMOL/L (98-107); CREATININE FOR GFR 0.74 MG/DL (0.70-1.30); GLOMERULAR FILTRATION RATE 87.7 (>35); POTASSIUM SERUM 4.0 MMOL/L (3.5-5.1); SODIUM LEVEL 137.0 MMOL/L (136-145)
[2025-09-01] MEDS ORDERED: E-Z-PAQUE 96% w/w SUSP 176 GM BTL As Ordered ONE (10:18)
[2025-09-01] MEDS ORDERED: VARIBAR PUDDING 40% w/v 230ML TUBE As Ordered ONE (10:18)
[2025-09-01] MEDS ORDERED: VARIBAR NECTAR 40% w/v 240ML SUSP BTL As Ordered ONE (10:19)
[2025-09-01] MEDS ORDERED: VANCOMYCIN HCL 1,000 MG, VIAL MATE ADAPTER 1 EACH in NS 250 ML IV SCH (11:30)
[2025-09-01] MEDS: VANCOMYCIN HCL 1,500 MG, VIAL MATE ADAPTER 1 EACH in NS 500 ML IV ONE (13:40)
[2025-09-01] MEDS: VANCOMYCIN HCL 1,250 MG, VIAL MATE ADAPTER 1 EACH in NS 250 ML IV SCH (21:15)
[2025-09-02] VITALS (11 sets, daily range): BP systolic 123–150; BP diastolic 58–64; TEMP 96.7–97.9; O2SAT 93–98
[2025-09-02] MEDS: traZODone 50 MG TAB PO PRN (02:12)
[2025-09-02] MEDS: ACETAMINOPHEN 325 MG TAB PO PRN (02:12)
[2025-09-02 06:03] LABS: PLATELET COUNT, AUTOMATED 235 10^3/uL (150-450)
[2025-09-02 06:38] LABS: CALCIUM LEVEL 8.1 MG/DL (8.3-10.6); CARBON DIOXIDE LEVEL 26.0 MMOL/L (20-31); CHLORIDE LEVEL 102.0 MMOL/L (98-107); CREATININE FOR GFR 0.71 MG/DL (0.70-1.30); GLOMERULAR FILTRATION RATE 88.8 (>35); POTASSIUM SERUM 3.6 MMOL/L (3.5-5.1); SODIUM LEVEL 138.0 MMOL/L (136-145)
[2025-09-02 09:23] LABS: VANCOMYCIN LEVEL TROUGH 17.1 UG/ML (10.0-20.0)
[2025-09-02] MEDS: LIDOCAINE 1% MDV 20 ML VIAL SC ONE (16:52)
[2025-09-02] MEDS ORDERED: KETOROLAC 30 MG/ML 1 ML VIAL IV PRN (17:05)
[2025-09-02 17:32] LABS: APPEARANCE, BODY FLUID HAZY (CLEAR); PLEURAL FL COLOR YELLOW (COLORLESS); SOURCE, BODY FLUID PLEURAL
[2025-09-02] MEDS: ACETAMINOPHEN *IV* 1,000 MG in IV 1 EA IV SCH (17:36)
[2025-09-03] VITALS (17 sets, daily range): BP systolic 122–155; BP diastolic 56–66; TEMP 96.9–98.4; O2SAT 95–99
[2025-09-03 08:05] LABS: PLATELET COUNT, AUTOMATED 210 10^3/uL (150-450)
[2025-09-03 08:32] LABS: CALCIUM LEVEL 8.0 MG/DL (8.3-10.6); CARBON DIOXIDE LEVEL 28.0 MMOL/L (20-31); CHLORIDE LEVEL 106.0 MMOL/L (98-107); CREATININE FOR GFR 0.75 MG/DL (0.70-1.30); GLOMERULAR FILTRATION RATE 87.3 (>35); POTASSIUM SERUM 3.9 MMOL/L (3.5-5.1); SODIUM LEVEL 142.0 MMOL/L (136-145)
[2025-09-03] MEDS: VANCOMYCIN HCL 1,000 MG, VIAL MATE ADAPTER 1 EACH in NS 250 ML IV SCH (12:23)
[2025-09-04] VITALS (27 sets, daily range): BP systolic 131–158; BP diastolic 53–68; TEMP 97–97.5; O2SAT 89–100
[2025-09-04 06:16] LABS: PLATELET COUNT, AUTOMATED 238 10^3/uL (150-450)
[2025-09-04 06:36] LABS: CALCIUM LEVEL 8.0 MG/DL (8.3-10.6); CARBON DIOXIDE LEVEL 31.0 MMOL/L (20-31); CHLORIDE LEVEL 107.0 MMOL/L (98-107); CREATININE FOR GFR 0.81 MG/DL (0.70-1.30); GLOMERULAR FILTRATION RATE 85.3 (>35); POTASSIUM SERUM 3.7 MMOL/L (3.5-5.1); SODIUM LEVEL 144.0 MMOL/L (136-145)
[2025-09-04] MEDS: PULMOZYME 5MG IN NS 55ML SYRINGE INTRAPLEU ONE (15:50)
[2025-09-04] MEDS: NS 50 ML SYRINGE INTRAPLEU ONE (15:50)
[2025-09-04] MEDS: ALTEPLASE 10MG IN NS 60ML SYRINGE INTRAPLEU ONE (15:50)
[2025-09-04] MEDS: VANCOMYCIN HCL 1,500 MG, VIAL MATE ADAPTER 1 EACH in NS 500 ML IV SCH (17:01)
[2025-09-04] MEDS: IPRATROPIUM 0.5 MG/ALBUTEROL 2.5 MG INH SOL UD 3 ML NEB SCH (19:20)
[2025-09-05] VITALS (28 sets, daily range): BP systolic 117–152; BP diastolic 57–75; TEMP 96.5–101.7; O2SAT 86–100
[2025-09-05 05:59] LABS: PLATELET COUNT, AUTOMATED 249 10^3/uL (150-450)
[2025-09-05 06:20] LABS: CALCIUM LEVEL 8.3 MG/DL (8.3-10.6); CARBON DIOXIDE LEVEL 32.0 MMOL/L (20-31); CHLORIDE LEVEL 104.0 MMOL/L (98-107); CREATININE FOR GFR 0.84 MG/DL (0.70-1.30); GLOMERULAR FILTRATION RATE 84.4 (>35); POTASSIUM SERUM 4.0 MMOL/L (3.5-5.1); SODIUM LEVEL 143.0 MMOL/L (136-145)
[2025-09-05 15:21] LABS: C REACTIVE PROTEIN QUANTITATIV 17.13 MG/DL (<1.0)
[2025-09-05] MEDS: KETOROLAC 30 MG/ML 1 ML VIAL IV ONE (15:58)
[2025-09-05] MEDS: LINEZOLID 600 MG TABLET PO SCH (20:15)
[2025-09-06] VITALS (36 sets, daily range): BP systolic 102–148; BP diastolic 58–76; TEMP 96.7–97.9; O2SAT 81–100
[2025-09-06 05:17] LABS: PLATELET COUNT, AUTOMATED 239 10^3/uL (150-450)
[2025-09-06 05:48] LABS: CALCIUM LEVEL 8.3 MG/DL (8.3-10.6); CARBON DIOXIDE LEVEL 30.0 MMOL/L (20-31); CHLORIDE LEVEL 109.0 MMOL/L (98-107); CREATININE FOR GFR 1.0 MG/DL (0.70-1.30); GLOMERULAR FILTRATION RATE 72.8 (>35); POTASSIUM SERUM 3.9 MMOL/L (3.5-5.1); SODIUM LEVEL 145.0 MMOL/L (136-145)
[2025-09-06] MEDS: LACTULOSE 20 GM/30 ML SYRUP UDC PO ONE (11:55)
[2025-09-06] MEDS: KETOROLAC 30 MG/ML 1 ML VIAL IV PRN (14:25)
[2025-09-07] VITALS (10 sets, daily range): BP systolic 127–155; BP diastolic 59–70; TEMP 96.3–98.2; O2SAT 94–98
[2025-09-07 05:43] LABS: PLATELET COUNT, AUTOMATED 236 10^3/uL (150-450)
[2025-09-07 06:18] LABS: CALCIUM LEVEL 8.7 MG/DL (8.3-10.6); CARBON DIOXIDE LEVEL 32.0 MMOL/L (20-31); CHLORIDE LEVEL 110.0 MMOL/L (98-107); CREATININE FOR GFR 0.92 MG/DL (0.70-1.30); GLOMERULAR FILTRATION RATE 80.5 (>35); POTASSIUM SERUM 3.9 MMOL/L (3.5-5.1); SODIUM LEVEL 148.0 MMOL/L (136-145)
[2025-09-07 08:38] LABS: ABG BASE EXCESS 3.1 (-2.0-2.0); ABG HCO3 30.0 MMOL/L (22.0-26.0); ABG O2 SATURATION 95.0 % (95.0-99.0); ABG PARTIAL PRESSURE CO2 57.0 mmHg (35.0-45.0); ABG PARTIAL PRESSURE O2 79.0 mmHg (75.0-100.0); ABG STANDARD HCO3 27.2 MMOL/L. (22.0-26.0); ABG TOTAL CO2 31.7 MMOL/L (23.0-31.0); ABG pH (ARTERIAL) 7.339 UNITS (7.350-7.450)
[2025-09-07 09:40] LABS: PLATELET COUNT, AUTOMATED 244 10^3/uL (150-450)
[2025-09-07 09:58] LABS: INR 1.15
[2025-09-07 10:18] LABS: ALT/SGPT < 9 U/L (7.0-40); AST/SGOT 14 U/L (<34); CALCIUM LEVEL 8.4 MG/DL (8.3-10.6); CARBON DIOXIDE LEVEL 30 MMOL/L (20-31); CHLORIDE LEVEL 108 MMOL/L (98-107); CHOLESTEROL LEVEL 105 MG/DL (<200); CHOLESTEROL RISK RATIO 2.70 (<5); CREATININE FOR GFR 0.91 MG/DL (0.70-1.30); GLOMERULAR FILTRATION RATE 81.6 (>35); LDL CHOLESTEROL 49.0 MG/DL (<100); NON-HDL-C 66.2 MG/DL; POTASSIUM SERUM 4.2 MMOL/L (3.5-5.1); SODIUM LEVEL 145 MMOL/L (136-145); TRIGLYCERIDES LEVEL 86 MG/DL (<150)
[2025-09-07 10:30] LABS: ESTIMATED AVERAGE GLUCOSE 123.0 MG/DL (60-110)
[2025-09-07] MEDS: D5W 1,000 ML IV SCH (10:34)
[2025-09-07] MEDS ORDERED: BISACODYL 10 MG SUPP PR PRN (14:25)
[2025-09-07] MEDS: SCOPOLAMINE 1MG TRANSDERMAL PATCH TOP PRN (14:53)
[2025-09-07] MEDS: MORPHINE 2 MG/ML 1 ML VIAL IV PRN (15:51)
[2025-09-07] MEDS ORDERED: AUGMENTIN 875 MG TAB PO SCH (21:00)
[2025-09-08] MEDS ORDERED: MORPHINE 4 MG/ML 1 ML VIAL IV PRN (02:25)
[2025-09-08] MEDS ORDERED: LEVS0.124 SL (13:25)
[2025-09-08] MEDS ORDERED: ATIV1TAB7 PO (13:25)
[2025-09-08] MEDS ORDERED: MORP20SO PO (13:25)
[2025-09-08] MEDS ORDERED: ONDA-282 PO (13:25)
[2025-09-08] MEDS ORDERED: ATRO2DRO4 PO (13:25)
[2025-09-08] MEDS: MORPHINE 10 MG/0.5 ML ORAL CONCENTRATE SOLUTION U/D SL PRN (15:52)
[2025-09-08] MEDS: ONDANSETRON 4MG/2ML VIAL IV PRN (15:57)
== END 2025-09-08 16:14 | disposition hospice, home (50) | DRG 871 ==
LOC: M ED 07:28 → EDBD 07:28 → EEVIPCON 11:18 → M ED INP 11:18 → M MS5PR 13:43 → M PCU 09-02 13:54
PROVIDERS: ADMIT Student in an Organized Health Care Education/Training Program; ATTEND Student in an Organized Health Care Education/Training Program
PROC: 0W9B3ZZ Drainage of Left Pleural Cavity, Percutaneous Approach (ICD-10-PCS; principal; 2025-09-02)
DX: A41.9 Sepsis, unspecified organism (principal); J69.0 Pneumonitis due to inhalation of food and vomit; J15.212 Pneumonia due to Methicillin resistant Staphylococcus aureus; G93.41 Metabolic encephalopathy; J96.01 Acute respiratory failure with hypoxia; I69.351 Hemiplegia and hemiparesis following cerebral infarction affecting right dominant side; J90 Pleural effusion, not elsewhere classified; N39.0 Urinary tract infection, site not specified; I10 Essential (primary) hypertension; I48.91 Unspecified atrial fibrillation; Z93.3 Colostomy status; M81.0 Age-related osteoporosis without current pathological fracture; N40.1 Benign prostatic hyperplasia with lower urinary tract symptoms; M19.90 Unspecified osteoarthritis, unspecified site; K21.9 Gastro-esophageal reflux disease without esophagitis; R13.10 Dysphagia, unspecified; E66.01 Morbid (severe) obesity due to excess calories; G62.9 Polyneuropathy, unspecified; Z86.718 Personal history of other venous thrombosis and embolism; Z86.711 Personal history of pulmonary embolism; R33.9 Retention of urine, unspecified; Z79.01 Long term (current) use of anticoagulants; Z96.652 Presence of left artificial knee joint; Z98.41 Cataract extraction status, right eye; Z98.42 Cataract extraction status, left eye; Z96.642 Presence of left artificial hip joint; Z66 Do not resuscitate; Z79.899 Other long term (current) drug therapy; Z91.040 Latex allergy status; Z88.5 Allergy status to narcotic agent; Z51.5 Encounter for palliative care